=== PATIENT | female | born 1950 | race Caucasian/White ===

== ENCOUNTER 2021-11-18 04:07 | Inpatient (IN) | payer MEDICARE, MEDICAID, SELFPAY ==
[2021-11-18] VITALS (15 sets, daily range): BP systolic 106–177; BP diastolic 68–113; PULSE 51–130; RESP 18–26; TEMP 36.7–37; O2SAT 84–98; BMI 26.6; BMI 27.3
--- NOTE | 2021-11-18 04:17 | XR_ITS ---
PROCEDURE INFORMATION: Exam: XR Chest Exam date and time: 11/18/2021 4:22 AM Age: 71 years old Clinical indication: Shortness of breath TECHNIQUE: Imaging protocol: XR of the chest. Views: 1 view. COMPARISON: No relevant prior studies available. FINDINGS: Lungs: Chronic interstitial changes are present bilaterally. Focal airspace disease is seen along the left lung base. Pleural spaces: Unremarkable. No pleural effusion. No pneumothorax. Heart/Mediastinum: Unremarkable. No cardiomegaly. Bones/joints: Unremarkable. IMPRESSION: Left lower lobe airspace disease worrisome for infiltrate.
--- NOTE | 2021-11-18 04:17 | ECG_ITS ---
APPROVED REPORT Exam: Resting ECG HR:141 bpm ECG Measurements Heart Rate 141 AXES MN 143 P 80 QRSd 105 QRS 81 QT 271 T 78 QTc 353 Conclusion SINUS TACHYCARDIA, POSSIBLE ATRIAL FLUTTER ST DEVIATION AND MODERATE T-WAVE ABNORMALITY, CONSIDER LATERAL ISCHEMIA [-0.1+ mV T-WAVE IN I/aVL/V5/V6] ABNORMAL ECG UNCONFIRMED REPORT Electronically signed by : Amos Santizo MD 11/19/2021 09:08:18
[2021-11-18 04:20] LABS: ABG Base Excess -4.8 mmol/L (-2.4-2.3); ABG HCO3 23.8 mmhg (22.0-26.0); ABG Oxygen Saturation 91 % (90-100); ABG PO2 72.4 mmhg (80-100); ABG TCO2 25.9 mmhg (23-27)
[2021-11-18 04:22] LABS: Allen's Test ACCEPTABLE; Oxygen 100 %
[2021-11-18 04:23] LABS: ABG PCO2 67.8 mmhg (35.0-45.0); ABG PH 7.16 mmol/L (7.35-7.45); Lactate Arterial 2.9 mmol/L (0.4-2.0); Source Right Radial
--- NOTE | 2021-11-18 04:25 | PC.NURSE ---
Respiratory called critical ph of 7.16. MD notified.
[2021-11-18 04:32] LABS: Coronavirus 19, PCR Not Detected (NotDetected); Influenza A, PCR Not Detected (NotDetected); Influenza B, PCR Not Detected (NotDetected)
[2021-11-18 04:32] LABS: Basophils # 0.3 K/mm3 (0-0.2); Basophils % 2.3 % (0.1-2.0); Eosinophils # 0.2 K/mm3 (0.0-0.4); Eosinophils % 1.5 % (0.1-12.0); Hematocrit 51.8 % (37.0-47.0); Hemoglobin 16.2 g/dL (12.2-16.2); Lymphocytes # 5.4 K/mm3 (0.7-4.5); Lymphocytes % 46.2 % (10-50); Mean Corpuscular HGB Conc 31.4 g/dL (31.8-35.4); Mean Corpuscular Hemoglobin 30.1 pg (27.0-31.2); Mean Corpuscular Volume 96.1 fl (81-99); Mean Platelet Volume 8.6 fl (7.4-10.4); Monocytes # 0.6 K/mm3 (0.1-1.0); Monocytes % 5.2 % (1.7-9.3); Neutrophils # 5.2 K/mm3 (1.8-7.8); Neutrophils % 44.9 % (37.0-80.0); Platelet Count 427 K/mm3 (142-424); Red Blood Count 5.39 M/mm3 (4.20-5.40); Red Cell Distribution Width 16.5 % (11.5-17.5); White Blood Count 11.7 K/mm3 (4.8-10.8)
[2021-11-18 04:36] LABS: Alanine Aminotransferase 22 U/L (12-78); Albumin/Globulin Ratio 1.2 (1.1-1.8); Alkaline Phosphatase 121 U/L (38-126); Anion Gap 11.8 mEq/L (5-15); Aspartate Amino Transferase 29 U/L (14-36); Bilirubin,Total 0.6 mg/dl (0.2-1.3); Blood Urea Nitrogen 16 mg/dl (7-17); Carbon Dioxide 27 mmol/L (22.0-30.0); Chloride 105 mmol/L (98-107); Creatinine Clearance Estimated 52 mL/min (50-200); Estimated Glomerular Filt Rate 44 ml/min (>60); GFR (African American) 53 ML/MIN (>60); Globulin 3.3 g/dL (1.3-3.2); Glucose 287 mg/dl (74-100); Potassium 3.8 mmoL/L (3.5-5.1); Sodium 140 mmol/L (136-145); Total Protein,Serum 7.3 g/dl (6.3-8.2)
[2021-11-18 04:37] LABS: Lactic Acid 2.7 mmol/L (0.7-2.1)
[2021-11-18 04:41] LABS: C-Reactive Protein 9.2 mg/L (0-4)
[2021-11-18 04:47] LABS: NT Pro Brain Natriuretic Pep. 7490 pg/mL (0-125)
[2021-11-18 04:50] LABS: Troponin I 0.03 ng/ml (0.00-0.034)
--- NOTE | 2021-11-18 04:51 | HMH.EDSOB ---
ED Disposition Clinical Impression: Acute exacerbation of chronic obstructive airways disease, Tobacco use, Severe sepsis with acute organ dysfunction Respiratory failure with hypercapnia Qualifiers: Chronicity: acute Qualified Code(s): J96.02 - Acute respiratory failure with hypercapnia Disposition: Admitted As Inpatient Condition on Discharge: Serious - Critical Care Critical Care Time: Yes Attestation: On 11/18/21, the high probability of a clinically significant, sudden or life threatening deterioration of the following system(s) required my full and direct attention, intervention and personal management. The time I documented below is in addition to time spent performing reported procedures but includes the following listed in this critical care notation. Total Critical Care Time: 45 Vital system(s) involved:: Respiratory Failure My critical care processes included: Assessment & monitoring of V/S, Initial and Re-exams, Data Review/Interpretation, Coordinating Care, Medication Orders and management, Documentation Medical Decision Making - Medical Records Medical records reviewed: Yes: I reviewed the patient's medical records. - Mehul Inquiry Pt receiving controlled substance: No Vital Signs: 11/18/21 04:07 11/18/21 04:08 Temperature 98.2 F 98.1 F Temperature Source Oral Oral Pulse Rate 130 H Pulse Rate [Apical] 94 H Respiratory Rate 26 H 20 Blood Pressure 177/113 H Blood Pressure Source Automatic Cuff Blood Pressure Source [Right Arm] Automatic Cuff Blood Pressure Position Sitting Blood Pressure Position [Right Arm] Sitting 02 Sat by Pulse Oximetry 93 L 84 L Oxygen Delivery Method Non-Rebreather Simple Mask Oxygen Flow Rate (LPM) 15 8 - Lab Data Lab results reviewed: Yes: I reviewed the patient's lab results. Lab Results 11/18/21 04:11: WBC 11.7 H, RBC 5.39, Hgb 16.2, Hct 51.8 H, MCV 96.1, MCH 30.1, MCHC 31.4 L, RDW 16.5, Plt Count 427 H, MPV 8.6, Neut % (Auto) 44.9, Lymph % (Auto) 46.2, [place] % (Auto) 5.2, Eos % (Auto) 1.5, Baso % (Auto) 2.3 H, Neut # (Auto) 5.2, Lymph # (Auto) 5.4 H, [place] # (Auto) 0.6, Eos # (Auto) 0.2, Baso # (Auto) 0.3 H 11/18/21 04:11: Sodium 140, Potassium 3.8, Chloride 105, Carbon Dioxide 27, Anion Gap 11.8, BUN 16, Creatinine 1.20 H, Estimated Creat Clear 52, Estimated GFR 44 L, Est GFR ( Amer) 53 L, Glucose 287 H, Calcium 9.0, Total Bilirubin 0.6, AST 29, ALT 22, Alkaline Phosphatase 121, Troponin I 0.03, Total Protein 7.3, Albumin 4.0, Globulin 3.3 H, Albumin/Globulin Ratio 1.2 11/18/21 04:11: NT-Pro-B Natriuret Pep 7490 H 11/18/21 04:11: Lactate 2.7 H 11/18/21 04:11: C-Reactive Protein 9.2 H, Procalcitonin 0.110 11/18/21 04:11: ESR 8 11/18/21 04:11: Hemoglobin A1c 10.4 H 11/18/21 04:13: SARS-CoV-2 (PCR) Not detected, Influenza A Untype (PCR) Not detected, Influenza Type B (PCR) Not detected 11/18/21 04:17: Specimen Source Right radial, O2 % 100, ABG pH 7.16 L*, ABG pCO2 67.8 H, ABG pO2 72.4 L, ABG HCO3 23.8, ABG Total CO2 25.9, ABG O2 Saturation 91, ABG Base Excess -4.8 L, Casey Test Acceptable, ABG Lactate 2.9 H Result diagrams: 11/18/21 04:11 11/18/21 04:11 Orders (Tests/Meds): ED MEDICATIONS Generic Name Dose Route Start Last Admin Trade Name Freq PRN Reason Stop Dose Admin Sodium Chloride 1,000 mls @ 999 mls/hr 11/18/21 04:45 Sod Chlor 0.9% 1000ml Bag IV 11/18/21 05:45 .Q1H1M JORGE ALBERTO Ceftriaxone Sodium 1 gm/ 50 mls @ 100 mls/hr 11/18/21 04:45 11/18/21 04:45 Sodium Chloride IV 12/02/21 04:44 100 mls/hr Q24H JORGE ALBERTO Administration Azithromycin 500 mg/ Sodium 250 mls @ 250 mls/hr 11/18/21 04:45 11/18/21 04:59 Chloride IV 12/02/21 04:44 250 mls/hr Q24H JORGE ALBERTO Administration Discontinued Medications Generic Name Dose Route Start Last Admin Trade Name Freq PRN Reason Stop Dose Admin Methylprednisolone Sodium Succinate 125 mg 11/18/21 04:15 11/18/21 04:21 Methylprednisolone Sod Succ 125mg Vial IV 11/18/21 04:16 125 mg
[2021-11-18 04:58] LABS: Hemoglobin A1C 10.4 % (4.0-6.0)
--- NOTE | 2021-11-18 04:59 | PC.NURSE ---
paged dr Steen
--- NOTE | 2021-11-18 05:01 | PC.NURSE ---
ER speaking with dr Steen
--- NOTE | 2021-11-18 05:01 | PC.NURSE ---
Dr. Hi on phone with Dr. Steen.
[2021-11-18 05:11] LABS: Erythrocyte Sedimentation Rate 8 mm/hr (0-30)
--- NOTE | 2021-11-18 06:15 | PC.NURSE ---
pt arrived to floor via wheelchair at 06:05
[2021-11-18 07:33] LABS: POC Glucose,Bedside 312 (70-110)
[2021-11-18 08:09] LABS: Troponin I 0.09 ng/ml (0.00-0.034)
[2021-11-18 08:31] LABS: Reflex Lactic Add Lactic Reflex
--- NOTE | 2021-11-18 08:38 | HMH.HP ---
*Admission Date: 11/18/21 <Jayna George 11/18/21 08:48> *Chief complaint: shortness of breath <Jayna George 11/18/21 08:48> *History of present illness: Ms. Lynn is a 71-year-old female with a history of rectal cancer with colostomy and subsequent colon resection and reversal of the colostomy, kidney failure, COPD, TIA, and diabetes. She states she currently does not have a doctor. She used to see Dr. Crum and has seen Dr. Lin a few times since Dr. Crmu . She does not regularly follow with an oncologist. She states over the past 2 to 3 days she began getting progressively more short of breath. Yesterday she was unable to breathe and called 911. She was transported to the emergency room and was found to be in hypercapnic respiratory failure. At the present time, she smokes 1 pack of cigarettes a day, but has smoked more in the past. She was admitted and started on BiPAP. She states she feels much better with the BiPAP in place. <Jayna George 11/18/21 08:48> [facility] History I have reviewed the patient's past medical history: Yes <Jayna George 11/18/21 08:48> Medical History: Reports:: Arrhythmia, Cancer, Diabetes Mellitus Type 2, Hypertension, Lung Disease (copd), Renal Disease, Transient Ischemic Attacks (TIA) Denies:: Internal Pacemaker, Seizures <Jayna George 11/18/21 08:48> *Have you ever received a pneumonia vaccine?: No <Jayna George 11/18/21 08:48> *Have you received a flu vaccine this season?: No <Jayna George 11/18/21 08:48> Other Medical History: Reports: Cataracts <Jayna George 11/18/21 08:48> Laterality Cases: Bilateral: Cataract <Jayna George 11/18/21 08:48> Other Surgeries: Yes: Colonoscopy, Colon Resection, Colostomy, Hernia Repair. No: Pacemaker <Jayna George 11/18/21 08:48> - *Social History Last grade of school completed: High school graduate <Jayna George 11/18/21 08:48> Smoking Status: Current every day smoker <Jayan George 11/18/21 08:48> Tobacco Type: cigarettes <Jayna George 11/18/21 08:48> # Packs/Day (cigarettes): 1 <Michael Georgea 11/18/21 08:48> Alcohol Intake: never <Jayna George 11/18/21 08:48> *Occupational Status:: retired <LoganshariJayna 11/18/21 08:48> Housing: house <ArielJayna 11/18/21 08:48> Household Members: none <Jayna George 11/18/21 08:48> *Travel in the last 8 weeks: None <LoganshariJayna 11/18/21 08:48> Family Hx:: Cancer, Diabetes, Heart Attack, Stroke <LoganshariJayna 11/18/21 08:48> Review of Systems - Constitutional Reports weakness, Denies fever(s) <LoganshariJayna 11/18/21 08:48> - Eyes Denies blurry vision, Denies double vision <LoganshariJayna 11/18/21 08:48> - ENT Reports nasal congestion, Denies sore throat <LoganshariJayna 11/18/21 08:48> - *Cardiovascular Reports shortness of breath, Denies chest pain, Denies leg swelling <LoganshariJayna 11/18/21 08:48> - *Respiratory Reports cough, Reports shortness of breath <ArielJayna 11/18/21 08:48> - *Gastrointestinal Reports nausea, Reports vomiting, Denies abdominal pain, Denies loose stools <ArielJayna 11/18/21 08:48> - *Genitourinary Reports difficulty urinating <LoganshariJayna 11/18/21 08:48> - *Musculoskeletal Denies joint pain <LoganshariJayna 11/18/21 08:48> - *Neurologic Reports weakness, Denies headache(s), Denies seizure-like activity, Denies dizziness <ArielJayna 11/18/21 08:48> Meds Home Medications Medication Instructions Recorded Confirmed Type No Known Home Medications 02/24/19 03/17/19 History <Rolf Steen - 11/18/21 08:59> Allergies Allergy/AdvReac Type Severity Reaction Status Date / Time No Known Allergies Allergy Verified 03/17/19 08:26 <Rolf Steen - 11/18/21 08:59> Exam Vital signs and Labs for Last 24 Hours: Temp Pulse Resp BP Pulse Ox 98.4 F 66 22 155/98 H 97 11/18/21 08:00 11/18/21 08:00 11/18/21 08:00 11/18/21 0
[2021-11-18 09:23] LABS: Lactic Acid Follow Up (RFLX 1) 3.6 mmol/L (0.7-2.1)
--- NOTE | 2021-11-18 09:57 | HMH.PHAINT ---
MEDICATION RECONCILIATION COMPLETE. PER ANNA DE JESUS RN PATIENT HAS NO PRIMARY MD AND THEREFORE IS NOT ON ANYTHING AT HOME.
--- NOTE | 2021-11-18 09:59 | HMH.PHAVTE ---
[facility] Pharmacy VTE Monitoring - Patient Demographics Admission date: 11/18/21 Report Date: 11/18/21 Time: 09:59 Allergies/Adverse Reactions: Patient Allergies No Known Allergies Allergy (Verified 03/17/19 08:26) Height: 1.7 m Weight: 78.982 kg Patient Problems: Current Active Problems Acute exacerbation of chronic obstructive airways disease (Acute) Respiratory failure with hypercapnia (Acute) Tobacco use (Chronic) Severe sepsis with acute organ dysfunction (Acute) Type 2 diabetes mellitus (Chronic) History of rectal cancer (Chronic) LLL pneumonia (Acute) - VTE Risk Labs: VTE Related Lab Results Hgb 16.2 g/dL (12.2-16.2) 11/18/21 04:11 Hct 51.8 % (37.0-47.0) H 11/18/21 04:11 Plt Count 427 K/mm3 (142-424) H 11/18/21 04:11 BUN 16 mg/dl (7-17) 11/18/21 04:11 Creatinine 1.20 mg/dl (0.52-1.04) H 11/18/21 04:11 Estimated Creat Clear 52 mL/min (50-200) 11/18/21 04:11 Was VTE Risk Assessment Performed: Yes VTE Score: 2 VTE Risk Level: Very Low Risk Clinical Trial Participant: No - Prophylaxis VTE Prophylaxis Ordered?: Yes Types of VTE Prophylaxis: TEDS Knee High Location of Applied Device: Bilateral Lower Extremeties
[2021-11-18 11:17] LABS: Troponin I 0.19 ng/ml (0.00-0.034)
[2021-11-18 11:21] LABS: Reflex Lactic (2 hrs) Add Lactic Reflex
[2021-11-18 11:34] LABS: POC Glucose,Bedside 341 (70-110)
[2021-11-18 12:11] LABS: Lactic Acid Follow up (RFLX 2) 1.8 mmol/L (0.7-2.1)
--- NOTE | 2021-11-18 14:16 | PC.NURSE ---
PT IS RESTING IN BED. NO COMPLAINTS OF DISCOMFORT. ALERT AND ORIENTED X4. PT TOLERATED BEING OFF BIPAP FOR SEVERAL HOURS THIS SHIFT. O2 SATURATION MAINTAINED 89-92% ON 4 L NC WHILE OFF BIPAP. LUNG SOUNDS DIMINISHED. ABDOMEN SOFT/NON TENDER WITH ACTIVE BOWEL SOUNDS. EATING AND DRINKING WELL. WILL CONTINUE TO MONITOR.
[2021-11-18 16:58] LABS: POC Glucose,Bedside 388 (70-110)
[2021-11-18 20:57] LABS: POC Glucose,Bedside 372 (70-110)
[2021-11-19] VITALS (12 sets, daily range): BP systolic 112–143; BP diastolic 61–93; PULSE 66–112; RESP 12–24; TEMP 36.3–37.1; O2SAT 85–96; BMI 27.7
[2021-11-19 06:36] LABS: POC Glucose,Bedside 313 (70-110)
--- NOTE | 2021-11-19 06:44 | PC.NURSE ---
pt has rested intermittently, requested bipap be taken off last night, stated it felt like she couldn't breathe with it on, wore 4L NC, requested Bipap be put back on this morning, O2 sats 90-96, has complained of headache one time and was treated per MAR
[2021-11-19 08:13] LABS: Basophils % 0.3 % (0.1-2.0); Eosinophils % 0.3 % (0.1-12.0); Hemoglobin 13.5 g/dL (12.2-16.2); Lymphocytes # 0.5 K/mm3 (0.7-4.5); Lymphocytes % 3.9 % (10-50); Mean Corpuscular HGB Conc 32.8 g/dL (31.8-35.4); Mean Corpuscular Hemoglobin 30.6 pg (27.0-31.2); Mean Corpuscular Volume 93.4 fl (81-99); Mean Platelet Volume 9.3 fl (7.4-10.4); Monocytes # 0.4 K/mm3 (0.1-1.0); Monocytes % 2.8 % (1.7-9.3); Neutrophils # 12.9 K/mm3 (1.8-7.8); Neutrophils % 92.8 % (37.0-80.0); Platelet Count 281 K/mm3 (142-424); Red Blood Count 4.39 M/mm3 (4.20-5.40); Red Cell Distribution Width 16.7 % (11.5-17.5); White Blood Count 13.9 K/mm3 (4.8-10.8)
--- NOTE | 2021-11-19 08:30 | HMH.ACPN2 ---
Internal Medicine - PN: Subj *Date: 11/19/21 *Time: 08:30 Interval history: Patient with no new complaints today. She had a lot of trouble breathing around 4 am this morning. Still has some wheezing. Exam Vital signs and Labs for Last 24 Hours: Temp Pulse Resp BP Pulse Ox 98.3 F 108 H 20 143/82 H 85 L 11/19/21 04:00 11/19/21 06:04 11/19/21 04:00 11/19/21 04:00 11/19/21 06:04 Laboratory Results - last 24 hr 11/18/21 08:53: Lactate 3.6 H 11/18/21 10:13: Troponin I 0.19 H 11/18/21 11:28: POC Glucose 341 H* 11/18/21 11:52: Lactate 1.8 11/18/21 16:52: POC Glucose 388 H* 11/18/21 20:45: POC Glucose 372 H* 11/19/21 06:25: POC Glucose 313 H* Vital Signs - 24 hr 11/18/21 10:36 11/18/21 12:00 11/18/21 13:01 Temperature 98.3 F Pulse Rate 100 H 96 H Pulse Rate [Apical] 99 H Respiratory Rate 24 Blood Pressure [Right Arm] 142/71 H 02 Sat by Pulse Oximetry 90 L 89 L 90 L 11/18/21 16:00 11/18/21 19:52 11/18/21 20:00 Temperature 98.6 F 98.1 F Pulse Rate 94 H 90 Pulse Rate [Apical] 99 H 57 L Respiratory Rate 21 18 Blood Pressure [Right Arm] 123/69 132/77 02 Sat by Pulse Oximetry 90 L 90 L 90 L 11/18/21 20:01 11/19/21 00:00 11/19/21 04:00 Temperature 98.0 F 98.3 F Pulse Rate 104 H 90 90 Pulse Rate [Apical] 66 112 H Respiratory Rate 18 20 Blood Pressure [Right Arm] 118/77 143/82 H 02 Sat by Pulse Oximetry 96 90 L 11/19/21 06:04 Temperature Pulse Rate 108 H Pulse Rate [Apical] Respiratory Rate Blood Pressure [Right Arm] 02 Sat by Pulse Oximetry 85 L I & O for Last 24 hours: Intake & Output 11/16/21 11/17/21 11/18/21 11/19/21 23:59 23:59 23:59 23:59 Intake Total 1409 / 1409 877 / 877 Output Total 300 / 300 Balance 1409 / 1109 577 / 577 Weight 174 lb 2 oz 176 lb 12.8 oz - Constitutional no acute distress - *Routine HEENT Exam Head: Present: normocephalic Eye: Present: EOMI, PERRL ENT: Present: mucous membranes moist - *Routine Respiratory Exam Present: wheezes, diminished air movement - *Routine Cardiovascular Exam Present: RRR - *Routine Extremities Exam Absent: cyanosis, clubbing, edema Assessment and Plan (1) Respiratory failure with hypercapnia Status: Acute Qualifiers: Chronicity: acute Qualified Code(s): J96.02 - Acute respiratory failure with hypercapnia Category: Medical Code(s): J96.92 - Respiratory failure, unspecified with hypercapnia (2) Severe sepsis with acute organ dysfunction Status: Acute Category: Medical Code(s): A41.9 - Sepsis, unspecified organism; R65.20 - Severe sepsis without septic shock (3) Acute exacerbation of chronic obstructive airways disease Status: Acute Category: Medical Code(s): J44.1 - Chronic obstructive pulmonary disease with (acute) exacerbation (4) Type 2 diabetes mellitus Status: Chronic Category: Medical Code(s): E11.9 - Type 2 diabetes mellitus without complications (5) History of rectal cancer Status: Chronic Category: Medical Code(s): Z85.048 - Personal history of other malignant neoplasm of rectum, rectosigmoid junction, and anus (6) Tobacco use Status: Chronic Category: Social Hx Code(s): Z72.0 - Tobacco use (7) LLL pneumonia Status: Acute Category: Medical Code(s): J18.9 - Pneumonia, unspecified organism - Assessment and plan all Dx Assessment and Plan for all problems:: Patient has improved, recheck CXR tomorrow, continue current treatment.
[2021-11-19 08:43] LABS: Chloride 109 mmol/L (98-107); Sodium 136 mmol/L (136-145)
[2021-11-19 08:44] LABS: Potassium 4.8 mmoL/L (3.5-5.1)
[2021-11-19 08:45] LABS: MANUAL DIFFERENTIAL MANUAL DIFFERENTIAL (MANUAL DIFF)
[2021-11-19 08:46] LABS: Blood Urea Nitrogen 24 mg/dl (7-17); Creatine Kinase 64 U/L (30-135); Creatinine Clearance Estimated 50 mL/min (50-200); Estimated Glomerular Filt Rate 40 ml/min (>60); GFR (African American) 49 ML/MIN (>60)
[2021-11-19 08:47] LABS: Anion Gap 13.8 mEq/L (5-15); Carbon Dioxide 18 mmol/L (22.0-30.0); Glucose 294 mg/dl (74-100)
[2021-11-19 08:56] LABS: CKMB Relative Index 4.5 U/L (0-4.0); Creatine Kinase MB 2.9 ng/ml (0.0-2.03)
[2021-11-19 10:02] LABS: Lymphocytes % 4 % (10-50); Monocytes % 2 % (2-9); Neutrophils % 94 % (42-76); Total Cells Counted 100
[2021-11-19 10:03] LABS: Platelet Estimate Normal; RBC Morphology Normal
[2021-11-19 10:06] LABS: Troponin I 0.15 ng/ml (0.00-0.034)
--- NOTE | 2021-11-19 17:16 | PC.NURSE ---
contacted regarding fsbs. new orders received
[2021-11-19 17:21] LABS: Glucose,Random 372 mg/dL (74-100)
[2021-11-19 21:14] LABS: POC Glucose,Bedside 284 (70-110)
[2021-11-20] VITALS (9 sets, daily range): BP systolic 130–145; BP diastolic 73–98; PULSE 90–126; RESP 15–34; TEMP 36.4–36.7; O2SAT 87–95; BMI 28.5; BMI 28.3
--- NOTE | 2021-11-20 04:43 | PC.NURSE ---
pt has remained on bipap t/o shift, O2 sats 94-96%, HR 71-113, no complaints of SOA or pain, has rested intermittently, up to BSC with standby assist
[2021-11-20 05:28] LABS: POC Glucose,Bedside 126 (70-110)
--- NOTE | 2021-11-20 07:30 | XR_ITS ---
FINAL REPORT CLINICAL HISTORY: LLL pneumonia COMPARISON: November 18, 2021 FINDINGS: Two views of the chest were obtained. The heart size and pulmonary vascularity are within normal limits. The mediastinum is normal. There is worsening of the left mid lung and left lung base pneumonia or atelectasis. There is a moderate left pleural effusion. There is a small right pleural effusion. There is no pneumothorax. The bony thorax is intact. IMPRESSION: Worsening left lung pneumonia or atelectasis. Pleural effusions left greater than right. Reviewed, Interpreted and Dictated by Ga Hurtado III, MD Transcribed by Pantera Strauss Authenticated by Ga Hurtado III, MD on 11/20/2021 09:55:24 AM [facility]
--- NOTE | 2021-11-20 09:29 | HMH.ACPN2 ---
Internal Medicine - PN: Subj *Date: 11/20/21 *Time: 09:29 Interval history: Patient doesn't feel any better today, still short of breath. Exam Vital signs and Labs for Last 24 Hours: Temp Pulse Resp BP Pulse Ox 97.6 F 102 H 18 135/74 95 11/20/21 08:00 11/20/21 08:00 11/20/21 08:00 11/20/21 08:00 11/20/21 08:00 Laboratory Results - last 24 hr 11/19/21 07:39: Total Counted 100, Neutrophils % (Manual) 94 H, Lymphocytes % (Manual) 4 L, Monocytes % (Manual) 2, Platelet Estimate Normal, RBC Morphology Normal 11/19/21 07:39: Troponin I 0.15 H 11/19/21 16:58: Random Glucose 372 H 11/19/21 20:30: POC Glucose 284 H 11/20/21 05:20: POC Glucose 126 H I & O for Last 24 hours: Intake & Output 11/17/21 11/18/21 11/19/21 11/20/21 23:59 23:59 23:59 23:59 Intake Total 1409 / 1409 2077 / 2077 1363 / 1363 Output Total 800 / 800 200 / 200 Balance 1409 / 1109 1277 / 1277 1163 / 1163 Weight 174 lb 2 oz 176 lb 12.8 oz 181 lb 14.4 oz Vital Signs - 24 hr 11/19/21 12:00 11/19/21 13:18 11/19/21 14:00 Temperature 98.7 F Pulse Rate 100 H 94 H 104 H Pulse Rate [Apical] 107 H Respiratory Rate 18 Blood Pressure [Right Arm] 142/82 H 02 Sat by Pulse Oximetry 90 L 11/19/21 16:00 11/19/21 20:00 11/19/21 20:21 Temperature 98.0 F 98.0 F Pulse Rate 100 H 110 H Pulse Rate [Apical] 107 H 71 Respiratory Rate 22 24 Blood Pressure [Right Arm] 134/89 123/93 H 02 Sat by Pulse Oximetry 89 L 96 11/19/21 20:22 11/20/21 00:00 11/20/21 04:00 Temperature 98.0 F 97.7 F Pulse Rate 105 H 110 H 120 H Pulse Rate [Apical] 113 H 101 H Respiratory Rate 26 H 20 Blood Pressure [Right Arm] 142/94 H 137/98 H 02 Sat by Pulse Oximetry 95 94 L 11/20/21 06:04 11/20/21 08:00 Temperature 97.6 F Pulse Rate 126 H Pulse Rate [Apical] 102 H Respiratory Rate 18 Blood Pressure [Right Arm] 135/74 02 Sat by Pulse Oximetry 87 L 95 Microbiology Reports for the Last 24 Hours: Microbiology 11/18/21 04:11 Blood Blood Culture - Preliminary NO GROWTH AFTER 48 HOURS 11/18/21 04:11 Blood Blood Culture - Preliminary NO GROWTH AFTER 48 HOURS 11/19/21 10:45 Sputum - Expectorated Sputum Gram Stain - Final 11/19/21 10:45 Sputum - Expectorated Sputum Sputum Culture - Final - Constitutional no acute distress - *Routine HEENT Exam Head: Present: normocephalic Eye: Present: EOMI, PERRL ENT: Present: mucous membranes moist - *Routine Neck Exam Present: supple. Absent: lymphadenopathy - *Routine Respiratory Exam Present: rhonchi, wheezes - *Routine Cardiovascular Exam Present: RRR - *Routine Abdominal Exam Present: soft, normoactive bowel sounds. Absent: tenderness - *Routine Extremities Exam Absent: cyanosis, clubbing, edema - *Routine Skin Exam Present: warm. Absent: rash - *Routine Neurological Exam Present: alert, oriented X3 Assessment and Plan (1) Respiratory failure with hypercapnia Status: Acute Qualifiers: Chronicity: acute Qualified Code(s): J96.02 - Acute respiratory failure with hypercapnia Category: Medical Code(s): J96.92 - Respiratory failure, unspecified with hypercapnia (2) Severe sepsis with acute organ dysfunction Status: Acute Category: Medical Code(s): A41.9 - Sepsis, unspecified organism; R65.20 - Severe sepsis without septic shock (3) Acute exacerbation of chronic obstructive airways disease Status: Acute Category: Medical Code(s): J44.1 - Chronic obstructive pulmonary disease with (acute) exacerbation (4) Type 2 diabetes mellitus Status: Chronic Category: Medical Code(s): E11.9 - Type 2 diabetes mellitus without complications (5) History of rectal cancer Status: Chronic Category: Medical Code(s): Z85.048 - Personal history of other malignant neoplasm of rectum, rectosigmoid junction, and anus (6) Tobacco use Status: Chronic Category: Social H
[2021-11-20 10:02] LABS: Basophils % 0.2 % (0.1-2.0); Eosinophils # 0.1 K/mm3 (0.0-0.4); Eosinophils % 0.8 % (0.1-12.0); Hematocrit 44.4 % (37.0-47.0); Hemoglobin 14.5 g/dL (12.2-16.2); Lymphocytes # 0.6 K/mm3 (0.7-4.5); Lymphocytes % 3.5 % (10-50); Mean Corpuscular HGB Conc 32.7 g/dL (31.8-35.4); Mean Corpuscular Hemoglobin 30.5 pg (27.0-31.2); Mean Corpuscular Volume 93.4 fl (81-99); Mean Platelet Volume 8.4 fl (7.4-10.4); Monocytes # 0.5 K/mm3 (0.1-1.0); Monocytes % 2.9 % (1.7-9.3); Neutrophils # 15.7 K/mm3 (1.8-7.8); Neutrophils % 92.6 % (37.0-80.0); Platelet Count 326 K/mm3 (142-424); Red Blood Count 4.76 M/mm3 (4.20-5.40)
[2021-11-20 10:04] LABS: MANUAL DIFFERENTIAL MANUAL DIFFERENTIAL (MANUAL DIFF)
[2021-11-20 10:10] LABS: Chloride 111 mmol/L (98-107); Potassium 5.3 mmoL/L (3.5-5.1); Sodium 137 mmol/L (136-145)
[2021-11-20 10:13] LABS: Anion Gap 9.3 mEq/L (5-15); Blood Urea Nitrogen 34 mg/dl (7-17); Calcium 8.1 mg/dl (8.4-10.2); Carbon Dioxide 22 mmol/L (22.0-30.0); Creatinine Clearance Estimated 51 mL/min (50-200); Estimated Glomerular Filt Rate 40 ml/min (>60); GFR (African American) 49 ML/MIN (>60); Glucose 155 mg/dl (74-100)
[2021-11-20 13:59] LABS: Lymphocytes % 6 % (10-50); Monocytes % 1 % (2-9); Neutrophils % 93 % (42-76); Total Cells Counted 100
[2021-11-20 14:00] LABS: Anisocytosis 1+; Macrocytosis 1+
[2021-11-20 14:01] LABS: Platelet Estimate Normal
--- NOTE | 2021-11-20 14:08 | ECG_ITS ---
APPROVED REPORT Exam: Resting ECG HR:129 bpm ECG Measurements Heart Rate 129 AXES IN 159 P 84 QRSd 112 QRS 81 QT 296 T 1 QTc 372 Conclusion SINUS TACHYCARDIA WITH OCCASIONAL VENTRICULAR PREMATURE COMPLEXES POSSIBLE ANTERIOR MYOCARDIAL INFARCTION , OF INDETERMINATE AGE [30 ms Q WAVE IN V3/V4, OR R < 0.2 mV IN V4] ABNORMAL ECG UNCONFIRMED REPORT Electronically signed by : Amos Santizo MD 11/22/2021 10:14:21
--- NOTE | 2021-11-20 18:07 | PC.NURSE ---
AOX4, REMAINS ON BIPAP, DESATS WITH EXERTION. NO COMPLAINTS THIS SHIFT. STANDBY TO BSC FOR ELIMINATION
[2021-11-20 20:55] LABS: POC Glucose,Bedside 111 (70-110)
[2021-11-21] VITALS (13 sets, daily range): BP systolic 130–152; BP diastolic 68–98; PULSE 80–107; RESP 15–25; TEMP 36.1–36.7; O2SAT 90–100; BMI 28.7
--- NOTE | 2021-11-21 05:15 | PC.NURSE ---
pt has rested t/o most of shift, has remained on Bipap with O2 sats 90-95%, does appear to be anxious at times, HR 82-96, systolic BP 130-143
[2021-11-21 06:39] LABS: POC Glucose,Bedside 149 (70-110)
[2021-11-21 07:21] LABS: Basophils % 0.2 % (0.1-2.0); Eosinophils # 0.1 K/mm3 (0.0-0.4); Eosinophils % 0.5 % (0.1-12.0); Hematocrit 45.2 % (37.0-47.0); Hemoglobin 14.3 g/dL (12.2-16.2); Lymphocytes # 0.6 K/mm3 (0.7-4.5); Lymphocytes % 3.9 % (10-50); Mean Corpuscular HGB Conc 31.6 g/dL (31.8-35.4); Mean Corpuscular Hemoglobin 30.2 pg (27.0-31.2); Mean Corpuscular Volume 95.7 fl (81-99); Mean Platelet Volume 8.8 fl (7.4-10.4); Monocytes # 0.4 K/mm3 (0.1-1.0); Monocytes % 3.1 % (1.7-9.3); Neutrophils # 12.7 K/mm3 (1.8-7.8); Neutrophils % 92.2 % (37.0-80.0); Platelet Count 317 K/mm3 (142-424); Red Blood Count 4.72 M/mm3 (4.20-5.40); White Blood Count 13.7 K/mm3 (4.8-10.8)
[2021-11-21 07:22] LABS: MANUAL DIFFERENTIAL MANUAL DIFFERENTIAL (MANUAL DIFF)
[2021-11-21 07:23] LABS: Chloride 110 mmol/L (98-107); Potassium 4.9 mmoL/L (3.5-5.1); Sodium 135 mmol/L (136-145)
[2021-11-21 07:26] LABS: Anion Gap 11.9 mEq/L (5-15); Blood Urea Nitrogen 40 mg/dl (7-17); Calcium 7.9 mg/dl (8.4-10.2); Carbon Dioxide 18 mmol/L (22.0-30.0); Creatinine Clearance Estimated 51 mL/min (50-200); Estimated Glomerular Filt Rate 40 ml/min (>60); GFR (African American) 49 ML/MIN (>60); Glucose 170 mg/dl (74-100)
--- NOTE | 2021-11-21 08:12 | HMH.ACPN2 ---
<Jennifer Echevarria - Last Filed: 11/21/21 08:12> Internal Medicine - PN: Subj *Date: 11/21/21 *Time: 08:12 Interval history: Patient wants to eat. She is very hungry. She desats when off the BiPAP. She is currently on 90% FiO2. She denies chest pain. She has been up to the bedside commode. CBC shows a decrease in her white blood cell count to 13,700. Blood chemistry shows sodium of 135 potassium of 4.9. BUN is stable at 40/1.3.Chest x-ray repeated yesterday showed worsening of her left lung pneumonia or atelectasis . Pleural effusion on the left greater than the right. Exam Vital signs and Labs for Last 24 Hours: Temp Pulse Resp BP Pulse Ox 96.9 F L 107 H 20 143/98 H 95 11/21/21 04:00 11/21/21 06:08 11/21/21 04:00 11/21/21 04:00 11/21/21 04:00 Laboratory Results - last 24 hr 11/20/21 09:37: WBC 17.0 H, RBC 4.76, Hgb 14.5, Hct 44.4, MCV 93.4, MCH 30.5, MCHC 32.7, RDW 17.0, Plt Count 326, MPV 8.4, Neut % (Auto) 92.6 H, Lymph % (Auto) 3.5 L, [place] % (Auto) 2.9, Eos % (Auto) 0.8, Baso % (Auto) 0.2, Neut # (Auto) 15.7 H, Lymph # (Auto) 0.6 L, [place] # (Auto) 0.5, Eos # (Auto) 0.1, Baso # (Auto) 0.0, Total Counted 100, Neutrophils % (Manual) 93 H, Lymphocytes % (Manual) 6 L, Monocytes % (Manual) 1 L, Platelet Estimate Normal, Anisocytosis 1+, Macrocytosis 1+ 11/20/21 09:37: Sodium 137, Potassium 5.3 H, Chloride 111 H, Carbon Dioxide 22, Anion Gap 9.3, BUN 34 H D, Creatinine 1.30 H, Estimated Creat Clear 51, Estimated GFR 40 L, Est GFR ( Amer) 49 L, Glucose 155 H, Calcium 8.1 L 11/20/21 20:47: POC Glucose 111 H 11/21/21 05:21: POC Glucose 149 H 11/21/21 07:04: WBC 13.7 H, RBC 4.72, Hgb 14.3, Hct 45.2, MCV 95.7, MCH 30.2, MCHC 31.6 L, RDW 17.0, Plt Count 317, MPV 8.8, Neut % (Auto) 92.2 H, Lymph % (Auto) 3.9 L, [place] % (Auto) 3.1, Eos % (Auto) 0.5, Baso % (Auto) 0.2, Neut # (Auto) 12.7 H, Lymph # (Auto) 0.6 L, [place] # (Auto) 0.4, Eos # (Auto) 0.1, Baso # (Auto) 0.0 11/21/21 07:04: Sodium 135 L, Potassium 4.9, Chloride 110 H, Carbon Dioxide 18 L, Anion Gap 11.9, BUN 40 H, Creatinine 1.30 H, Estimated Creat Clear 51, Estimated GFR 40 L, Est GFR ( Amer) 49 L, Glucose 170 H, Calcium 7.9 L I & O for Last 24 hours: Intake & Output 11/18/21 11/19/21 11/20/21 11/21/21 11:59 11:59 11:59 11:59 Intake Total 240 / 240 2406 / 2406 2443 / 2443 1464 / 1464 Output Total 300 / 300 700 / 700 Balance 240 / 240 2106 / 2106 1743 / 1743 1464 / 1464 Weight 174 lb 2 oz 176 lb 12.8 oz 180 lb 12.465 oz 183 lb Microbiology Reports for the Last 24 Hours: Microbiology 11/18/21 04:11 Blood Blood Culture - Preliminary NO GROWTH AFTER 48 HOURS 11/18/21 04:11 Blood Blood Culture - Preliminary NO GROWTH AFTER 48 HOURS - Constitutional no acute distress Comments: Speech is much clearer today. Less dyspnea with conversation. - *Routine Respiratory Exam Present: CTA bilaterally (Anteriorly and posteriorly) - *Routine Cardiovascular Exam Present: RRR - *Routine Abdominal Exam Present: soft, normoactive bowel sounds. Absent: tenderness, distended - *Routine Extremities Exam Absent: edema - *Routine Neurological Exam Present: alert, oriented X3 Assessment and Plan (1) Respiratory failure with hypercapnia Status: Acute Qualifiers: Chronicity: acute Qualified Code(s): J96.02 - Acute respiratory failure with hypercapnia Category: Medical Code(s): J96.92 - Respiratory failure, unspecified with hypercapnia (2) Severe sepsis with acute organ dysfunction Status: Acute Category: Medical Code(s): A41.9 - Sepsis, unspecified organism; R65.20 - Severe sepsis without septic shock (3) Acute exacerbation of chronic obstructive airways disease Status: Acute Category: Medical Code(s): J44.1 - Chronic obstructive pulmonary disease with (acute) exacerbation (4) Type 2 diabetes mellitus Status: Chronic Category: Medical Code(s): E11
[2021-11-21 08:53] LABS: Lymphocytes % 7 % (10-50); Monocytes % 4 % (2-9); Neutrophils % 89 % (42-76); Total Cells Counted 100
--- NOTE | 2021-11-21 08:53 | PC.NURSE ---
RESP CARE NOTE: Pt placed on vapotherm for a weaning trial from BIPAP. SpO2 decreased to 78% on vapotherm of 40L/100%. Pt requested to replace BIPAP due to shortness of breath and very low oxygen saturations. Placed on settings of 12 IPAP and 8 EPAP and FIO2 of 80%. Will continue to monitor and wean BIPAP as tolerated.
[2021-11-21 08:54] LABS: Platelet Estimate Normal; RBC Morphology Normal
[2021-11-21 11:47] LABS: POC Glucose,Bedside 170 (70-110)
[2021-11-21 17:22] LABS: POC Glucose,Bedside 229 (70-110)
[2021-11-21 20:33] LABS: POC Glucose,Bedside 168 (70-110)
[2021-11-22] VITALS (12 sets, daily range): BP systolic 120–136; BP diastolic 76–88; PULSE 63–93; RESP 15–28; TEMP 36.3–36.6; O2SAT 90–95; BMI 28.7
--- NOTE | 2021-11-22 04:42 | PC.NURSE ---
Pt has slept most of the shift. Remains on bipap with O2 90-93%, will desat to 86-88% on exertion but will recover quickly. Received bed bath and tolerated well. Pt voiced no c/o of pain or SOA this shift.
[2021-11-22 05:21] LABS: POC Glucose,Bedside 215 (70-110)
--- NOTE | 2021-11-22 08:50 | HMH.ACPN2 ---
<Jennifer Echevarria - Last Filed: 11/22/21 08:50> Internal Medicine - PN: Subj *Date: 11/22/21 *Time: 08:50 Interval history: Patient states she is doing okay. As long as she has her BiPAP on she is not short of breath. She did fail the weaning process yesterday with decrease in O2 sats. Today she remains on BiPAP with FiO2 at 80%. O2 sats are in the 90s. Exam Vital signs and Labs for Last 24 Hours: Temp Pulse Resp BP Pulse Ox 97.6 F 83 17 132/80 91 L 11/22/21 08:00 11/22/21 08:00 11/22/21 08:00 11/22/21 08:00 11/22/21 08:00 Laboratory Results - last 24 hr 11/21/21 07:04: Total Counted 100, Neutrophils % (Manual) 89 H, Lymphocytes % (Manual) 7 L, Monocytes % (Manual) 4, Platelet Estimate Normal, RBC Morphology Normal 11/21/21 11:02: POC Glucose 170 H 11/21/21 16:56: POC Glucose 229 H 11/21/21 19:51: POC Glucose 168 H 11/22/21 05:04: POC Glucose 215 H I & O for Last 24 hours: Intake & Output 11/19/21 11/20/21 11/21/21 11/22/21 11:59 11:59 11:59 11:59 Intake Total 2406 / 2406 2443 / 2443 1464 / 1464 1492 / 1492 Output Total 300 / 300 700 / 700 0 / 0 500 / 500 Balance 2106 / 2106 1743 / 1743 1464 / 1464 992 / 992 Weight 176 lb 12.8 oz 180 lb 12.465 oz 183 lb 182 lb 15.986 oz - Constitutional no acute distress Comments: Awakened for assessment. Easily aroused. Communicates well. - *Routine Respiratory Exam Present: CTA bilaterally - *Routine Cardiovascular Exam Present: RRR - *Routine Abdominal Exam Present: soft, normoactive bowel sounds. Absent: tenderness - *Routine Extremities Exam Absent: edema, calf tenderness - *Routine Neurological Exam Present: alert, oriented X3 Assessment and Plan (1) Respiratory failure with hypercapnia Status: Acute Qualifiers: Chronicity: acute Qualified Code(s): J96.02 - Acute respiratory failure with hypercapnia Category: Medical Code(s): J96.92 - Respiratory failure, unspecified with hypercapnia (2) Severe sepsis with acute organ dysfunction Status: Acute Category: Medical Code(s): A41.9 - Sepsis, unspecified organism; R65.20 - Severe sepsis without septic shock (3) Acute exacerbation of chronic obstructive airways disease Status: Acute Category: Medical Code(s): J44.1 - Chronic obstructive pulmonary disease with (acute) exacerbation (4) Type 2 diabetes mellitus Status: Chronic Category: Medical Code(s): E11.9 - Type 2 diabetes mellitus without complications (5) History of rectal cancer Status: Chronic Category: Medical Code(s): Z85.048 - Personal history of other malignant neoplasm of rectum, rectosigmoid junction, and anus (6) Tobacco use Status: Chronic Category: Social Hx Code(s): Z72.0 - Tobacco use (7) LLL pneumonia Status: Acute Category: Medical Code(s): J18.9 - Pneumonia, unspecified organism - Assessment and plan all Dx Assessment and Plan for all problems:: Pulmonology consulted. Continue current pulmonary care for now. <Rolf Steen - Last Filed: 11/22/21 09:26> Internal Medicine - PN: Subj *Date: 11/22/21 *Time: 09:25 Exam Vital signs and Labs for Last 24 Hours: Temp Pulse Resp BP Pulse Ox 97.6 F 83 17 132/80 91 L 11/22/21 08:00 11/22/21 08:00 11/22/21 08:00 11/22/21 08:00 11/22/21 08:00 Laboratory Results - last 24 hr 11/21/21 11:02: POC Glucose 170 H 11/21/21 16:56: POC Glucose 229 H 11/21/21 19:51: POC Glucose 168 H 11/22/21 05:04: POC Glucose 215 H I & O for Last 24 hours: Intake & Output 11/19/21 11/20/21 11/21/21 11/22/21 23:59 23:59 23:59 23:59 Intake Total 2077 / 2077 2093 / 2143 974 / 974 1492 / 1492 Output Total 800 / 800 200 / 200 0 / 0 500 / 500 Balance 1277 / 1277 1893 / 1943 974 / 974 992 / 992 Weight 176 lb 12.8 oz 180 lb 12.465 oz 183 lb 182 lb 15.986 oz Assessment and Plan (1) Respiratory failure with hypercapnia Status: Acute Qualifiers: Qualified Code(s): J96.02 - Acute respirator
--- NOTE | 2021-11-22 08:59 | HMH.ACPN2 ---
Internal Medicine - PN: Subj *Date: 11/22/21 *Time: 08:59 Exam Vital signs and Labs for Last 24 Hours: Temp Pulse Resp BP Pulse Ox 97.6 F 83 17 132/80 91 L 11/22/21 08:00 11/22/21 08:00 11/22/21 08:00 11/22/21 08:00 11/22/21 08:00 Laboratory Results - last 24 hr 11/21/21 11:02: POC Glucose 170 H 11/21/21 16:56: POC Glucose 229 H 11/21/21 19:51: POC Glucose 168 H 11/22/21 05:04: POC Glucose 215 H I & O for Last 24 hours: Intake & Output 11/19/21 11/20/21 11/21/21 11/22/21 23:59 23:59 23:59 23:59 Intake Total 2077 / 2077 2093 / 2143 974 / 974 1492 / 1492 Output Total 800 / 800 200 / 200 0 / 0 500 / 500 Balance 1277 / 1277 1893 / 1943 974 / 974 992 / 992 Weight 80.195 kg 82 kg 83.007 kg 83.007 kg Assessment and Plan (1) Respiratory failure with hypercapnia Status: Acute Qualifiers: Chronicity: acute Qualified Code(s): J96.02 - Acute respiratory failure with hypercapnia Category: Medical Code(s): J96.92 - Respiratory failure, unspecified with hypercapnia (2) Severe sepsis with acute organ dysfunction Status: Acute Category: Medical Code(s): A41.9 - Sepsis, unspecified organism; R65.20 - Severe sepsis without septic shock (3) Acute exacerbation of chronic obstructive airways disease Status: Acute Category: Medical Code(s): J44.1 - Chronic obstructive pulmonary disease with (acute) exacerbation (4) Type 2 diabetes mellitus Status: Chronic Category: Medical Code(s): E11.9 - Type 2 diabetes mellitus without complications (5) History of rectal cancer Status: Chronic Category: Medical Code(s): Z85.048 - Personal history of other malignant neoplasm of rectum, rectosigmoid junction, and anus (6) Tobacco use Status: Chronic Category: Social Hx Code(s): Z72.0 - Tobacco use (7) LLL pneumonia Status: Acute Category: Medical Code(s): J18.9 - Pneumonia, unspecified organism The patient's infection will respond to the chosen ABx?: Yes (BLOOD CULTURE NEGATIVE, SPUTUM INSUFFICIENT) Is the patient receiving the right drug, dose, and route?: Yes Could a more targeted ABx be ordered?: No
--- NOTE | 2021-11-22 09:20 | HMH.PULMCON ---
*Admission Date: 11/18/21 *History of present illness: Ms. Lynn is a 71-year-old female with a history of rectal cancer with colostomy and subsequent colon resection and reversal of the colostomy, kidney failure, COPD, TIA, and diabetes. Presented with Hypercarbic respiratory failure and had been on BiPAp since admission from 11/18/21 and pulmonary was called today for further management. CAX on admission Bilateral LL pneumonia worsening on repeat CXR from 11/20/21. Receiving Cef and Azith since admission - no sputum available unfortunately. [facility] History Medical History: Reports:: Arrhythmia, Cancer, Diabetes Mellitus Type 1, Diabetes Mellitus Type 2, Hypertension, Lung Disease (copd), Renal Disease, Transient Ischemic Attacks (TIA) Denies:: Internal Pacemaker, Seizures *Have you ever received a pneumonia vaccine?: No *Have you received a flu vaccine this season?: No Other Medical History: Reports: Cataracts Laterality Cases: Bilateral: Cataract Other Surgeries: Yes: Colonoscopy, Colon Resection, Colostomy, Hernia Repair. No: Pacemaker - *Social History Last grade of school completed: High school graduate Smoking Status: Current every day smoker Tobacco Type: cigarettes # Packs/Day (cigarettes): 1 Alcohol Intake: never *Occupational Status:: retired Housing: house Household Members: none *Travel in the last 8 weeks: None Family Hx:: Cancer, Diabetes, Heart Attack, Stroke ROS - Cons Denies fatigue, Denies fever(s) - Eyes Denies change in vision - ENT Denies nosebleed - Card Reports shortness of breath when lying down - Resp Respiratory: Reports chest congestion, Reports cough, Denies excessive phlegm production, Reports cough with sputum production - GI Gastrointestingal: Denies: abdominal pain - Psych Denies thoughts of hurting/killing others, Denies thoughts of hurting/killing yourself Meds Home Medications Medication Instructions Recorded Confirmed Type No Known Home Medications 02/24/19 11/18/21 History Allergies Allergy/AdvReac Type Severity Reaction Status Date / Time No Known Allergies Allergy Verified 03/17/19 08:26 Exam - Constitutional Constitutional:: Present: no acute distress, comfortable - HENMT Exam HENMT: Present: normocephalic - Eye Exam Eyes:: Present: normal appearance both eyes and related structures - Neck Exam Neck:: Present: normal visual inspection - Respiratory Exam Respiratory:: Present: able to speak in complete sentences, respiratory distress, crackles. Absent: wheezing - Cardiovascular Exam Cardiac:: Present: S1, S2 - GI Exam GI:: Present: soft - Skin Exam Skin: Present: warm, no rash - Neurological Exam Neurological: Present: alert, awake - Extremities Exam Extremities: Present: no cyanosis, no clubbing Internal Medicine - CN: Reslt - Labs CBC & Chem 7: 11/21/21 07:04 11/21/21 07:04 - ABG Interpretation ABG results: 11/18/21 04:17 ABG pH 7.16 L* ABG pCO2 67.8 H ABG pO2 72.4 L ABG HCO3 23.8 ABG Total CO2 25.9 ABG O2 Saturation 91 ABG Base Excess -4.8 L Assessment and Plan (1) Respiratory failure with hypercapnia Status: Acute Qualifiers: Chronicity: acute Qualified Code(s): J96.02 - Acute respiratory failure with hypercapnia Category: Medical Code(s): J96.92 - Respiratory failure, unspecified with hypercapnia (2) Severe sepsis with acute organ dysfunction Status: Acute Category: Medical Code(s): A41.9 - Sepsis, unspecified organism; R65.20 - Severe sepsis without septic shock (3) Acute exacerbation of chronic obstructive airways disease Status: Acute Category: Medical Code(s): J44.1 - Chronic obstructive pulmonary disease with (acute) exacerbation (4) Type 2 diabetes mellitus Status: Chronic Category: Medical Code(s): E11.9 - Type 2 diabetes mellitus without complications (5) History of rectal cancer Status: Chronic Category: Medical Code(s): Z85.048 -
--- NOTE | 2021-11-22 09:27 | XR_ITS ---
FINAL REPORT CLINICAL HISTORY: hypoxia COMPARISON: November 20, 2021 FINDINGS: SINGLE VIEW CHEST. The heart is normal in size. The mediastinum is unremarkable. There are persistent left base opacities which may represent atelectasis or pneumonia. There is a small left pleural effusion which is worse. There is partially improved aeration in the right lung. There is no pneumothorax. IMPRESSION: Worsening small left pleural effusion. Persistent left base atelectasis or pneumonia. Reviewed, Interpreted and Dictated by Ga Hurtado III, MD Transcribed by Gia Cordoba Authenticated by Ga Hurtado III, MD on 11/22/2021 11:03:48 AM [facility]
[2021-11-22 09:57] LABS: ABG Methemoglobin 0.3 % (0.4-1.5); Chloride, Arterial 108 mmol/L (98-107); Potassium, Arterial 4.6 mmoL/L (3.5-5.1); Sodium Arterial 136 mmol/L (137-145)
[2021-11-22 09:58] LABS: Lactate Arterial 1.6 mmol/L (0.4-2.0)
[2021-11-22 09:59] LABS: Calcium, Arterial 4.7 mg/dL (8.5-10.1)
[2021-11-22 10:01] LABS: ABG Base Excess -3.3 mmol/L (-2.4-2.3); ABG HCO3 20.4 mmhg (22.0-26.0); ABG Oxygen Saturation 91 % (90-100); ABG PCO2 32.7 mmhg (35.0-45.0); ABG PH 7.41 mmol/L (7.35-7.45); ABG PO2 62.3 mmhg (80-100); ABG TCO2 21.4 mmhg (23-27); Oxygen 80% %
[2021-11-22 10:02] LABS: Allen's Test Acceptable; Source Right Radial; Vent Rate 15
--- NOTE | 2021-11-22 11:02 | DIET.NUTRFU ---
RD did rounds with Dr. Steen today, patient is still on BiPap and unable to eat solids. But is drinking water and would like to start glucerna for additional calories and protein until able to eat solids. Pulmonary consult in place to determine next step. Kitchen and nursing notified
[2021-11-22 11:30] LABS: POC Glucose,Bedside 129 (70-110)
[2021-11-22 16:37] LABS: POC Glucose,Bedside 223 (70-110)
--- NOTE | 2021-11-22 17:52 | PC.NURSE ---
Pt is alert and oriented x4. Lungs are clear and diminished t/o. She remains on Bipap with oxygen sats measuring in the low 90's. She desats into the 80's with exertion but rebounds quickly with rest. She's used the bsc independently. Approx 1300 mls of clear, yellow urine out thus far. Glucose has been 129 and 223 at checks. Insulin administered per SS. She's denied any complaints.
[2021-11-22 19:58] LABS: POC Glucose,Bedside 98 (70-110)
[2021-11-23] VITALS (13 sets, daily range): BP systolic 116–151; BP diastolic 67–90; PULSE 60–90; RESP 15–24; TEMP 36.1–36.6; O2SAT 89–96; BMI 27.6
[2021-11-23 05:18] LABS: POC Glucose,Bedside 201 (70-110)
[2021-11-23 08:27] LABS: MANUAL DIFFERENTIAL MANUAL DIFFERENTIAL (MANUAL DIFF)
[2021-11-23 08:29] LABS: Basophils % 0.2 % (0.1-2.0); Eosinophils # 0.1 K/mm3 (0.0-0.4); Eosinophils % 0.6 % (0.1-12.0); Hematocrit 43.8 % (37.0-47.0); Hemoglobin 14.4 g/dL (12.2-16.2); Lymphocytes # 0.6 K/mm3 (0.7-4.5); Lymphocytes % 5.8 % (10-50); Mean Corpuscular HGB Conc 32.8 g/dL (31.8-35.4); Mean Corpuscular Hemoglobin 30.1 pg (27.0-31.2); Mean Corpuscular Volume 91.9 fl (81-99); Mean Platelet Volume 9.2 fl (7.4-10.4); Monocytes # 0.5 K/mm3 (0.1-1.0); Monocytes % 4.7 % (1.7-9.3); Neutrophils # 8.9 K/mm3 (1.8-7.8); Neutrophils % 88.8 % (37.0-80.0); Platelet Count 290 K/mm3 (142-424); Red Blood Count 4.77 M/mm3 (4.20-5.40); Red Cell Distribution Width 16.5 % (11.5-17.5); White Blood Count 10.1 K/mm3 (4.8-10.8)
--- NOTE | 2021-11-23 08:51 | HMH.ACPN2 ---
Internal Medicine - PN: Subj *Date: 11/23/21 *Time: 08:51 Interval history: Pt states she feels thirsty, urinated a lot after Lasix dose, wants to know when she will be off of Bipap. Exam Vital signs and Labs for Last 24 Hours: Temp Pulse Resp BP Pulse Ox 97.4 F L 83 20 130/67 96 11/23/21 08:00 11/23/21 08:00 11/23/21 08:00 11/23/21 08:00 11/23/21 08:00 Laboratory Results - last 24 hr 11/22/21 09:27: Specimen Source Right radial, O2 % 80%, ABG pH 7.41, ABG pCO2 32.7 L, ABG pO2 62.3 L, ABG HCO3 20.4 L, ABG Total CO2 21.4 L, ABG O2 Saturation 91, ABG Base Excess -3.3 L, Casey Test Acceptable, Vent Rate 15, Tidal Volume bipap 12/8 11/22/21 09:27: ABG Methemoglobin 0.3 L, ABG Sodium 136 L, ABG Potassium 4.6, ABG Chloride 108 H, ABG Lactate 1.6, Arterial Blood Potassium 4.6, Arterial Blood Chloride 108 H, Arterial Blood Ionized Calcium 4.7 L* 11/22/21 11:09: POC Glucose 129 H 11/22/21 16:15: POC Glucose 223 H 11/22/21 19:51: POC Glucose 98 11/23/21 05:11: POC Glucose 201 H 11/23/21 07:43: WBC 10.1 D, RBC 4.77, Hgb 14.4, Hct 43.8, MCV 91.9, MCH 30.1, MCHC 32.8, RDW 16.5, Plt Count 290, MPV 9.2, Neut % (Auto) 88.8 H, Lymph % (Auto) 5.8 L, [place] % (Auto) 4.7, Eos % (Auto) 0.6, Baso % (Auto) 0.2, Neut # (Auto) 8.9 H, Lymph # (Auto) 0.[address] L, [place] # (Auto) 0.5, Eos # (Auto) 0.1, Baso # (Auto) 0.0 Vital Signs - 24 hr 11/22/21 11:26 11/22/21 12:00 11/22/21 16:00 Temperature 97.6 F 97.8 F Pulse Rate 90 90 90 Pulse Rate [Apical] 63 81 Respiratory Rate 24 20 Blood Pressure [Right Arm] 120/76 136/88 02 Sat by Pulse Oximetry 95 93 L 11/22/21 19:23 11/22/21 20:00 11/22/21 22:00 Temperature 97.3 F L Pulse Rate 92 H 80 Pulse Rate [Apical] 89 Respiratory Rate 20 Blood Pressure [Right Arm] 134/82 02 Sat by Pulse Oximetry 94 L 90 L 11/23/21 00:00 11/23/21 04:00 11/23/21 06:03 Temperature 97.2 F L 96.9 F L Pulse Rate 60 70 83 Pulse Rate [Apical] 70 76 Respiratory Rate 20 16 Blood Pressure [Right Arm] 136/80 135/90 02 Sat by Pulse Oximetry 96 94 L 11/23/21 08:00 Temperature 97.4 F L Pulse Rate Pulse Rate [Apical] 83 Respiratory Rate 20 Blood Pressure [Right Arm] 130/67 02 Sat by Pulse Oximetry 96 I & O for Last 24 hours: Intake & Output 11/20/21 11/21/21 11/22/21 11/23/21 23:59 23:59 23:59 23:59 Intake Total 3 / 2143 974 / 974 1854 / 1854 Output Total 200 / 200 0 / 0 1800 / 1800 0 / 0 Balance 1893 / 1943 974 / 974 54 / 54 0 / 0 Weight 180 lb 12.465 oz 183 lb 182 lb 15.986 oz 176 lb Microbiology Reports for the Last 24 Hours: Microbiology 11/18/21 04:11 Blood Blood Culture - Final NO GROWTH AFTER 5 DAYS 11/18/21 04:11 Blood Blood Culture - Final NO GROWTH AFTER 5 DAYS - Constitutional no acute distress - *Routine HEENT Exam Head: Present: normocephalic Eye: Present: EOMI, PERRL ENT: Present: mucous membranes moist - *Routine Respiratory Exam Present: rhonchi (rare) - *Routine Cardiovascular Exam Present: RRR Assessment and Plan (1) Respiratory failure with hypercapnia Status: Acute Qualifiers: Chronicity: acute Qualified Code(s): J96.02 - Acute respiratory failure with hypercapnia Category: Medical Code(s): J96.92 - Respiratory failure, unspecified with hypercapnia (2) Severe sepsis with acute organ dysfunction Status: Acute Category: Medical Code(s): A41.9 - Sepsis, unspecified organism; R65.20 - Severe sepsis without septic shock (3) Acute exacerbation of chronic obstructive airways disease Status: Acute Category: Medical Code(s): J44.1 - Chronic obstructive pulmonary disease with (acute) exacerbation (4) Type 2 diabetes mellitus Status: Chronic Category: Medical Code(s): E11.9 - Type 2 diabetes mellitus without complications (5) History of rectal cancer Status: Chronic Category: Medical Code(s): Z85.048 - Personal history of other maligna
--- NOTE | 2021-11-23 09:21 | HMH.PULMPN ---
Internal Medicine - PN: Subj *Date: 11/23/21 *Time: 11:44 Interval history: No acute respiratory events overnight. Oxygenation continued to improve. Exam - Constitutional Constitutional:: Present: no acute distress - HENMT Exam HENMT: Present: normocephalic - Eye Exam Eyes:: Present: normal appearance both eyes and related structures - Neck Exam Neck:: Present: normal visual inspection - Respiratory Exam Respiratory:: Present: able to speak in complete sentences, respiratory distress, crackles. Absent: wheezing - Cardiovascular Exam Cardiac:: Present: S1, S2 - GI Exam GI:: Present: soft - Skin Exam Skin: Present: warm - Neurological Exam Neurological: Present: alert, awake - Extremities Exam Extremities: Present: no cyanosis, no clubbing Assessment and Plan (1) Respiratory failure with hypercapnia Status: Acute Qualifiers: Chronicity: acute Qualified Code(s): J96.02 - Acute respiratory failure with hypercapnia Category: Medical Code(s): J96.92 - Respiratory failure, unspecified with hypercapnia (2) Severe sepsis with acute organ dysfunction Status: Acute Category: Medical Code(s): A41.9 - Sepsis, unspecified organism; R65.20 - Severe sepsis without septic shock (3) Acute exacerbation of chronic obstructive airways disease Status: Acute Category: Medical Code(s): J44.1 - Chronic obstructive pulmonary disease with (acute) exacerbation (4) Type 2 diabetes mellitus Status: Chronic Category: Medical Code(s): E11.9 - Type 2 diabetes mellitus without complications (5) History of rectal cancer Status: Chronic Category: Medical Code(s): Z85.048 - Personal history of other malignant neoplasm of rectum, rectosigmoid junction, and anus (6) Tobacco use Status: Chronic Category: Social Hx Code(s): Z72.0 - Tobacco use (7) LLL pneumonia Status: Acute Category: Medical Code(s): J18.9 - Pneumonia, unspecified organism - Assessment and plan all Dx Assessment and Plan for all problems:: #Acute hypoxic hypercarbic respiratory failure: #Hospital-acquired pneumonia: Ms. Lynn is a 71-year-old female with a history of rectal cancer with colostomy and subsequent colon resection and reversal of the colostomy, kidney failure, COPD, TIA, and diabetes. Presented with Hypercarbic respiratory failure and had been on BiPAp since admission from 11/18/21 and pulmonary was called today for further management. CXR on admission Bilateral LL pneumonia worsening on repeat CXR from 11/20/21. Receiving Cef and Azith since admission - no sputum available unfortunately for review poor sample and no repeat testing was performed so far flu and COVID viral PCR negative on admission. Renal dysfunction On my initial exaination patient does not appear to be any respiratory distress she is alert awake able to talk in complete sentences. Oxygen bibasilar crackles. No wheezing. Repeat chest x-ray today showed worsening airspace disease and volume status. Valentino ABG did not show any evidence of hypercarbic respiratory failure, continue to show hypoxic respiratory failure. Interval update: Continue to remain on CPAP. Oxygenation improved, weaned to 45% this morning. Primary team have ordered 40 of Lasix and have ordered additional 60 this morning. Renal function improved from yesterday. Plan: Continue CPAP, FiO2 45%, continue to wean as tolerated, will try to wean the patient to nasal cannula this afternoon after her second dose of Lasix Continue cefepime x 7 days, will wean pending clinical improvement and cultures DuoNebs every 6 and budesonide every 12 scheduled Recommend at negative volume status #Thank for involving pulmonary in this patient care. We will continue to follow.
[2021-11-23 09:30] LABS: Lymphocytes % 16 % (10-50); Monocytes % 3 % (2-9); Neutrophils % 81 % (42-76); Platelet Estimate Normal; RBC Morphology Normal; Total Cells Counted 100
[2021-11-23 09:44] LABS: Chloride 109 mmol/L (98-107); Potassium 5.1 mmoL/L (3.5-5.1); Sodium 136 mmol/L (136-145)
[2021-11-23 09:46] LABS: Blood Urea Nitrogen 60 mg/dl (7-17); Creatinine Clearance Estimated 53 mL/min (50-200); Estimated Glomerular Filt Rate 44 ml/min (>60); GFR (African American) 53 ML/MIN (>60)
[2021-11-23 09:47] LABS: Anion Gap 11.1 mEq/L (5-15); Calcium 7.9 mg/dl (8.4-10.2); Carbon Dioxide 21 mmol/L (22.0-30.0); Glucose 141 mg/dl (74-100)
[2021-11-23 11:35] LABS: POC Glucose,Bedside 183 (70-110)
[2021-11-23 16:48] LABS: POC Glucose,Bedside 182 (70-110)
--- NOTE | 2021-11-23 18:07 | PC.NURSE ---
Pt has done fine this shift. CPAP has remained on most of the day. High flow NC applied to pt before supper. 9LNC made pt's o2 sat between 88-91. Pt has diuresed close to 2L this shift. Pt has taken herself to the BSC w/ steady gait and balance. Active bowel sounds in all 4 quads, no BM noted this shift. Skin remains CDI. No other acute changes or complaints, will continue to monitor.
--- NOTE | 2021-11-23 19:50 | PC.NURSE ---
PT changed to *
--- NOTE | 2021-11-23 19:51 | PC.NURSE ---
PT changed to 8L NC per Annangi. Pt allowed to stay on cannula if sats stay 88% or above. If they drop below 88% return to cpap.
[2021-11-23 20:03] LABS: POC Glucose,Bedside 225 (70-110)
[2021-11-23 20:33] LABS: POC Glucose,Bedside 218 (70-110)
[2021-11-23 20:33] LABS: POC Glucose,Bedside 166 (70-110)
[2021-11-24] VITALS (9 sets, daily range): BP systolic 103–130; BP diastolic 64–78; PULSE 68–93; RESP 20–22; TEMP 35.9–36.9; O2SAT 86–95; BMI 27.6
[2021-11-24 05:36] LABS: POC Glucose,Bedside 221 (70-110)
--- NOTE | 2021-11-24 08:12 | HMH.PULMPN ---
Internal Medicine - PN: Subj *Date: 11/24/21 *Time: 11:32 Interval history: No Acute respiratory events overnight, intermittently tolerating well on 8 L nasal cannula. Exam - Constitutional Constitutional:: Present: no acute distress, comfortable - HENMT Exam HENMT: Present: normocephalic, atraumatic - Eye Exam Eyes:: Present: normal appearance both eyes and related structures - Neck Exam Neck:: Present: normal visual inspection - Respiratory Exam Respiratory:: Present: able to speak in complete sentences. Absent: no respiratory distress, wheezing - Cardiovascular Exam Cardiac:: Present: S1, S2 - GI Exam GI:: Present: soft - Skin Exam Skin: Present: warm - Neurological Exam Neurological: Present: alert, awake, normal cognition - Extremities Exam Extremities: Present: no cyanosis, no clubbing - Psychiatric Exam Psychiatric: Present: normal affect Assessment and Plan (1) Respiratory failure with hypercapnia Status: Acute Qualifiers: Chronicity: acute Qualified Code(s): J96.02 - Acute respiratory failure with hypercapnia Category: Medical Code(s): J96.92 - Respiratory failure, unspecified with hypercapnia (2) Severe sepsis with acute organ dysfunction Status: Acute Category: Medical Code(s): A41.9 - Sepsis, unspecified organism; R65.20 - Severe sepsis without septic shock (3) Acute exacerbation of chronic obstructive airways disease Status: Acute Category: Medical Code(s): J44.1 - Chronic obstructive pulmonary disease with (acute) exacerbation (4) Type 2 diabetes mellitus Status: Chronic Category: Medical Code(s): E11.9 - Type 2 diabetes mellitus without complications (5) History of rectal cancer Status: Chronic Category: Medical Code(s): Z85.048 - Personal history of other malignant neoplasm of rectum, rectosigmoid junction, and anus (6) Tobacco use Status: Chronic Category: Social Hx Code(s): Z72.0 - Tobacco use (7) LLL pneumonia Status: Acute Category: Medical Code(s): J18.9 - Pneumonia, unspecified organism - Assessment and plan all Dx Assessment and Plan for all problems:: #Acute hypoxic hypercarbic respiratory failure: #Hospital-acquired pneumonia: Ms. Lynn is a 71-year-old female with a history of rectal cancer with colostomy and subsequent colon resection and reversal of the colostomy, kidney failure, COPD, TIA, and diabetes. Presented with Hypercarbic respiratory failure and had been on BiPAp since admission from 11/18/21 and pulmonary was called today for further management. CXR on admission Bilateral LL pneumonia worsening on repeat CXR from 11/20/21. Receiving Cef and Azith since admission - no sputum available unfortunately for review poor sample and no repeat testing was performed so far flu and COVID viral PCR negative on admission. Renal dysfunction On my initial exaination patient does not appear to be any respiratory distress she is alert awake able to talk in complete sentences. Oxygen bibasilar crackles. No wheezing. Repeat chest x-ray today showed worsening airspace disease and volume status. Valentino ABG did not show any evidence of hypercarbic respiratory failure, continue to show hypoxic respiratory failure. Interval update: SOB continues to improve, intermittently tolerating nasal cannula. Renal function slightly worsened with creatinine now at 1.4 and a BUN of 70. We give 60 mg IV Lasix again today. Will wean to nasal cannula. Plan: -Continue to cannula with O2 saturation goal of 88% and above -Continue cefepime x 7 days, will wean pending clinical improvement and cultures -DuoNebs every 6 and budesonide every 12 scheduled -Negative volume status #Thank for involving pulmonary in this patient care. We will continue to follow.
--- NOTE | 2021-11-24 08:33 | HMH.ACPN2 ---
Internal Medicine - PN: Subj *Date: 11/24/21 *Time: 08:33 Interval history: Patient with no new complaints, feels a little better today. Exam Vital signs and Labs for Last 24 Hours: Temp Pulse Resp BP Pulse Ox 97.2 F L 81 20 122/74 89 L 11/24/21 04:00 11/24/21 06:20 11/24/21 04:00 11/24/21 04:00 11/24/21 06:20 Laboratory Results - last 24 hr 11/20/21 12:04: POC Glucose 166 H 11/20/21 16:42: POC Glucose 218 H 11/23/21 07:43: Total Counted 100, Neutrophils % (Manual) 81 H, Lymphocytes % (Manual) 16, Monocytes % (Manual) 3, Platelet Estimate Normal, RBC Morphology Normal 11/23/21 08:55: Sodium 136, Potassium 5.1, Chloride 109 H, Carbon Dioxide 21 L, Anion Gap 11.1, BUN 60 H D, Creatinine 1.20 H, Estimated Creat Clear 53, Estimated GFR 44 L, Est GFR ( Amer) 53 L, Glucose 141 H, Calcium 7.9 L 11/23/21 11:24: POC Glucose 183 H 11/23/21 16:42: POC Glucose 182 H 11/23/21 19:56: POC Glucose 225 H 11/24/21 05:22: POC Glucose 221 H Vital Signs - 24 hr 11/23/21 12:00 11/23/21 13:53 11/23/21 15:40 Temperature 97.9 F 97.6 F Pulse Rate 78 68 Pulse Rate [Apical] 70 83 Respiratory Rate 21 17 Blood Pressure [Right Arm] 145/87 H 151/90 H 02 Sat by Pulse Oximetry 95 95 11/23/21 16:00 11/23/21 19:48 11/23/21 19:50 Temperature Pulse Rate 80 69 Pulse Rate [Apical] Respiratory Rate Blood Pressure [Right Arm] 02 Sat by Pulse Oximetry 89 L 11/23/21 20:00 11/24/21 00:00 11/24/21 04:00 Temperature 97.2 F L 96.6 F L 97.2 F L Pulse Rate 90 68 Pulse Rate [Apical] 77 71 82 Respiratory Rate 20 20 20 Blood Pressure [Right Arm] 116/74 117/77 122/74 02 Sat by Pulse Oximetry 91 L 90 L 93 L 11/24/21 06:20 Temperature Pulse Rate 81 Pulse Rate [Apical] Respiratory Rate Blood Pressure [Right Arm] 02 Sat by Pulse Oximetry 89 L I & O for Last 24 hours: Intake & Output 11/21/21 11/22/21 11/23/21 11/24/21 23:59 23:59 23:59 23:59 Intake Total 974 / 974 1854 / 1854 1798 / 1798 Output Total 0 / 0 1800 / 1800 3050 / 3750 1000 / 1000 Balance 974 / 974 54 / 54 -1252 / -1952 -1000 / -1000 Weight 183 lb 182 lb 15.986 oz 176 lb 176 lb 4.8 oz - Constitutional no acute distress - *Routine HEENT Exam Head: Present: normocephalic Eye: Present: EOMI, PERRL ENT: Present: mucous membranes moist - *Routine Neck Exam Present: supple. Absent: lymphadenopathy - *Routine Respiratory Exam Present: crackles (left base) - *Routine Cardiovascular Exam Present: RRR - *Routine Abdominal Exam Present: soft, normoactive bowel sounds. Absent: tenderness - *Routine Extremities Exam Absent: cyanosis, clubbing, edema - *Routine Skin Exam Present: warm. Absent: rash - *Routine Neurological Exam Present: alert, oriented X3 Assessment and Plan (1) Respiratory failure with hypercapnia Status: Acute Qualifiers: Chronicity: acute Qualified Code(s): J96.02 - Acute respiratory failure with hypercapnia Category: Medical Code(s): J96.92 - Respiratory failure, unspecified with hypercapnia (2) Severe sepsis with acute organ dysfunction Status: Acute Category: Medical Code(s): A41.9 - Sepsis, unspecified organism; R65.20 - Severe sepsis without septic shock (3) Acute exacerbation of chronic obstructive airways disease Status: Acute Category: Medical Code(s): J44.1 - Chronic obstructive pulmonary disease with (acute) exacerbation (4) Type 2 diabetes mellitus Status: Chronic Category: Medical Code(s): E11.9 - Type 2 diabetes mellitus without complications (5) History of rectal cancer Status: Chronic Category: Medical Code(s): Z85.048 - Personal history of other malignant neoplasm of rectum, rectosigmoid junction, and anus (6) Tobacco use Status: Chronic Category: Social Hx Code(s): Z72.0 - Tobacco use (7) LLL pneumonia Status: Acute Category: Medical Code(s): J18.9 - Pneumonia, unspecified organism - Assessment and plan all
--- NOTE | 2021-11-24 08:38 | PC.NURSE ---
Notified RT of patient sat dropping to low 80s, bipap applied to patient, pt is now sating 89-91
--- NOTE | 2021-11-24 09:56 | XR_ITS ---
FINAL REPORT CLINICAL HISTORY: soa FINDINGS: SINGLE VIEW CHEST The heart size is enlarged. The mediastinum is within normal limits. There is improved aeration in the lungs from prior. There are small pleural effusions. There is no evidence of pneumothorax. The bony thorax is intact. IMPRESSION: Improved aeration in the lungs from prior. Small pleural effusions. Reviewed, Interpreted and Dictated by Ga Hurtado III, MD Transcribed by Jennifer Honeycutt Authenticated by Ga Hurtado III, MD on 11/24/2021 11:24:59 AM [facility]
[2021-11-24 10:32] LABS: Chloride 105 mmol/L (98-107)
[2021-11-24 10:33] LABS: Potassium 4.4 mmoL/L (3.5-5.1); Sodium 135 mmol/L (136-145)
[2021-11-24 10:36] LABS: Anion Gap 11.4 mEq/L (5-15); Blood Urea Nitrogen 70 mg/dl (7-17); Calcium 7.6 mg/dl (8.4-10.2); Carbon Dioxide 23 mmol/L (22.0-30.0); Creatinine Clearance Estimated 46 mL/min (50-200); Estimated Glomerular Filt Rate 37 ml/min (>60); GFR (African American) 45 ML/MIN (>60); Glucose 240 mg/dl (74-100)
[2021-11-24 11:37] LABS: POC Glucose,Bedside 268 (70-110)
[2021-11-24 16:45] LABS: POC Glucose,Bedside 319 (70-110)
--- NOTE | 2021-11-24 17:05 | PC.NURSE ---
Pt has tolerated 8L of high flow o2 via NC well this shift. Pt has remained in the high 80s low 90s throughout the shift. Pt is currently up to the chair and states she feel better. She is responding to the lasix well and urinating frequently. Pt use BSC unassisted. Pt has been NSR with occasional PVCs on the monitor technician. VSS. No current needs at this time, Will continue to monitor.
[2021-11-24 19:59] LABS: POC Glucose,Bedside 289 (70-110)
[2021-11-25] VITALS (11 sets, daily range): BP systolic 91–148; BP diastolic 60–84; PULSE 52–101; RESP 17–20; TEMP 36.4–36.8; O2SAT 88–93; BMI 26.3
--- NOTE | 2021-11-25 02:56 | PC.NURSE ---
Pt has tolerated 8L of high flow o2 via NC well throughout night. Pt has remained in the high 80s low 90s throughout the shift. Pt use BSC unassisted. Pt has been NSR with occasional PVCs on the vehicle monitor technician. VSS. Patient resting in bed no current needs at this time, Will continue to monitor.
[2021-11-25 07:20] LABS: Chloride 103 mmol/L (98-107); Potassium 3.7 mmoL/L (3.5-5.1); Sodium 135 mmol/L (136-145)
[2021-11-25 07:23] LABS: Anion Gap 9.7 mEq/L (5-15); Blood Urea Nitrogen 60 mg/dl (7-17); Carbon Dioxide 26 mmol/L (22.0-30.0); Creatinine Clearance Estimated 44 mL/min (50-200); Estimated Glomerular Filt Rate 37 ml/min (>60); GFR (African American) 45 ML/MIN (>60)
[2021-11-25 07:24] LABS: Calcium 7.4 mg/dl (8.4-10.2); Glucose 170 mg/dl (74-100)
[2021-11-25 07:41] LABS: Basophils % 0.2 % (0.1-2.0); Eosinophils # 0.2 K/mm3 (0.0-0.4); Eosinophils % 1.3 % (0.1-12.0); Hematocrit 43.1 % (37.0-47.0); Hemoglobin 14.6 g/dL (12.2-16.2); Lymphocytes # 0.6 K/mm3 (0.7-4.5); Lymphocytes % 4.9 % (10-50); Mean Corpuscular HGB Conc 33.8 g/dL (31.8-35.4); Mean Corpuscular Hemoglobin 30.2 pg (27.0-31.2); Mean Corpuscular Volume 89.3 fl (81-99); Mean Platelet Volume 9.4 fl (7.4-10.4); Monocytes # 0.6 K/mm3 (0.1-1.0); Neutrophils # 11.2 K/mm3 (1.8-7.8); Neutrophils % 88.6 % (37.0-80.0); Platelet Count 272 K/mm3 (142-424); Red Blood Count 4.82 M/mm3 (4.20-5.40); White Blood Count 12.6 K/mm3 (4.8-10.8)
[2021-11-25 07:42] LABS: MANUAL DIFFERENTIAL MANUAL DIFFERENTIAL (MANUAL DIFF)
--- NOTE | 2021-11-25 08:44 | HMH.ACPN2 ---
Internal Medicine - PN: Subj *Date: 11/25/21 *Time: 08:44 Interval history: Patient feels better today, did not require Bipap over night. Exam Vital signs and Labs for Last 24 Hours: Temp Pulse Resp BP Pulse Ox 97.7 F 90 18 125/67 91 L 11/25/21 07:34 11/25/21 07:34 11/25/21 07:34 11/25/21 07:34 11/25/21 07:34 Laboratory Results - last 24 hr 11/24/21 09:46: Sodium 135 L, Potassium 4.4, Chloride 105, Carbon Dioxide 23, Anion Gap 11.4, BUN 70 H, Creatinine 1.40 H, Estimated Creat Clear 46, Estimated GFR 37 L, Est GFR ( Amer) 45 L, Glucose 240 H, Calcium 7.6 L 11/24/21 11:24: POC Glucose 268 H 11/24/21 16:28: POC Glucose 319 H* 11/24/21 19:51: POC Glucose 289 H 11/25/21 06:55: Sodium 135 L, Potassium 3.7, Chloride 103, Carbon Dioxide 26, Anion Gap 9.7, BUN 60 H, Creatinine 1.40 H, Estimated Creat Clear 44, Estimated GFR 37 L, Est GFR ( Amer) 45 L, Glucose 170 H D, Calcium 7.4 L 11/25/21 07:26: WBC 12.6 H, RBC 4.82, Hgb 14.6, Hct 43.1, MCV 89.3, MCH 30.2, MCHC 33.8, RDW 16.0, Plt Count 272, MPV 9.4, Neut % (Auto) 88.6 H, Lymph % (Auto) 4.9 L, [place] % (Auto) 5.0, Eos % (Auto) 1.3, Baso % (Auto) 0.2, Neut # (Auto) 11.2 H, Lymph # (Auto) 0.6 L, [place] # (Auto) 0.6, Eos # (Auto) 0.2, Baso # (Auto) 0.0 Vital Signs - 24 hr 11/24/21 12:00 11/24/21 13:28 11/24/21 16:00 Temperature 97.8 F 98.4 F Pulse Rate 75 87 80 Pulse Rate [Apical] 82 88 Respiratory Rate 20 20 Blood Pressure [Right Arm] 103/68 L 127/78 02 Sat by Pulse Oximetry 90 L 86 L 11/24/21 19:09 11/24/21 20:00 11/25/21 00:00 Temperature 98.2 F 98.1 F Pulse Rate 89 93 H 70 Pulse Rate [Apical] 84 77 Respiratory Rate 20 17 Blood Pressure [Right Arm] 130/64 102/60 L 02 Sat by Pulse Oximetry 89 L 95 92 L 11/25/21 04:00 11/25/21 05:48 11/25/21 07:34 Temperature 97.5 F L 97.7 F Pulse Rate 70 81 Pulse Rate [Apical] 66 90 Respiratory Rate 20 18 Blood Pressure [Right Arm] 148/84 H 125/67 02 Sat by Pulse Oximetry 90 L 91 L 91 L I & O for Last 24 hours: Intake & Output 11/22/21 11/23/21 11/24/21 11/25/21 23:59 23:59 23:59 23:59 Intake Total 1854 / 1854 1798 / 1798 1680 / 1680 640 / 640 Output Total 1800 / 1800 3050 / 3750 2450 / 2450 500 / 500 Balance 54 / 54 -1252 / -1952 -770 / -770 140 / 140 Weight 182 lb 15.986 oz 176 lb 176 lb 4.8 oz 167 lb 12.8 oz - Constitutional no acute distress - *Routine HEENT Exam Head: Present: normocephalic Eye: Present: EOMI, PERRL ENT: Present: mucous membranes moist - *Routine Neck Exam Present: supple. Absent: lymphadenopathy - *Routine Respiratory Exam Present: CTA bilaterally - *Routine Cardiovascular Exam Present: RRR - *Routine Abdominal Exam Present: soft, normoactive bowel sounds. Absent: tenderness - *Routine Extremities Exam Absent: cyanosis, clubbing, edema - *Routine Skin Exam Present: warm. Absent: rash - *Routine Neurological Exam Present: alert, oriented X3 Assessment and Plan (1) Respiratory failure with hypercapnia Status: Acute Qualifiers: Chronicity: acute Qualified Code(s): J96.02 - Acute respiratory failure with hypercapnia Category: Medical Code(s): J96.92 - Respiratory failure, unspecified with hypercapnia (2) Severe sepsis with acute organ dysfunction Status: Acute Category: Medical Code(s): A41.9 - Sepsis, unspecified organism; R65.20 - Severe sepsis without septic shock (3) Acute exacerbation of chronic obstructive airways disease Status: Acute Category: Medical Code(s): J44.1 - Chronic obstructive pulmonary disease with (acute) exacerbation (4) Type 2 diabetes mellitus Status: Chronic Category: Medical Code(s): E11.9 - Type 2 diabetes mellitus without complications (5) History of rectal cancer Status: Chronic Category: Medical Code(s): Z85.048 - Personal history of other malignant neoplasm of rectum, rectosigmoid junction, and anus (6) Tobacco use Status: Chronic Category: Socia
[2021-11-25 10:32] LABS: Lymphocytes % 5 % (10-50); Monocytes % 4 % (2-9); Neutrophils % 91 % (42-76); Platelet Estimate Normal; RBC Morphology Normal; Total Cells Counted 100
[2021-11-25 12:05] LABS: POC Glucose,Bedside 312 (70-110)
--- NOTE | 2021-11-25 13:04 | HMH.ACPN ---
Internal Medicine - PN: Subj *Date: 11/25/21 *Time: 13:04 Exam Vital signs and Labs for Last 24 Hours: Temp Pulse Resp BP Pulse Ox 97.6 F 77 17 112/65 92 L 11/25/21 10:43 11/25/21 10:43 11/25/21 10:43 11/25/21 10:43 11/25/21 10:43 Laboratory Results - last 24 hr 11/24/21 16:28: POC Glucose 319 H* 11/24/21 19:51: POC Glucose 289 H 11/25/21 06:55: Sodium 135 L, Potassium 3.7, Chloride 103, Carbon Dioxide 26, Anion Gap 9.7, BUN 60 H, Creatinine 1.40 H, Estimated Creat Clear 44, Estimated GFR 37 L, Est GFR ( Amer) 45 L, Glucose 170 H D, Calcium 7.4 L 11/25/21 07:26: WBC 12.6 H, RBC 4.82, Hgb 14.6, Hct 43.1, MCV 89.3, MCH 30.2, MCHC 33.8, RDW 16.0, Plt Count 272, MPV 9.4, Neut % (Auto) 88.6 H, Lymph % (Auto) 4.9 L, [place] % (Auto) 5.0, Eos % (Auto) 1.3, Baso % (Auto) 0.2, Neut # (Auto) 11.2 H, Lymph # (Auto) 0.6 L, [place] # (Auto) 0.6, Eos # (Auto) 0.2, Baso # (Auto) 0.0, Total Counted 100, Neutrophils % (Manual) 91 H, Lymphocytes % (Manual) 5 L, Monocytes % (Manual) 4, Platelet Estimate Normal, RBC Morphology Normal 11/25/21 10:58: POC Glucose 312 H* I & O for Last 24 hours: Intake & Output 11/22/21 11/23/21 11/24/21 11/25/21 23:59 23:59 23:59 23:59 Intake Total 1854 / 1854 1798 / 1798 1680 / 1680 880 / 880 Output Total 1800 / 1800 3050 / 3750 2450 / 2450 500 / 500 Balance 54 / 54 -1252 / -1952 -770 / -770 380 / 380 Weight 83.007 kg 79.832 kg 79.968 kg 76.113 kg Assessment and Plan (1) Respiratory failure with hypercapnia Status: Acute Qualifiers: Chronicity: acute Qualified Code(s): J96.02 - Acute respiratory failure with hypercapnia Category: Medical Code(s): J96.92 - Respiratory failure, unspecified with hypercapnia (2) Severe sepsis with acute organ dysfunction Status: Acute Category: Medical Code(s): A41.9 - Sepsis, unspecified organism; R65.20 - Severe sepsis without septic shock (3) Acute exacerbation of chronic obstructive airways disease Status: Acute Category: Medical Code(s): J44.1 - Chronic obstructive pulmonary disease with (acute) exacerbation (4) Type 2 diabetes mellitus Status: Chronic Category: Medical Code(s): E11.9 - Type 2 diabetes mellitus without complications (5) History of rectal cancer Status: Chronic Category: Medical Code(s): Z85.048 - Personal history of other malignant neoplasm of rectum, rectosigmoid junction, and anus (6) Tobacco use Status: Chronic Category: Social Hx Code(s): Z72.0 - Tobacco use (7) LLL pneumonia Status: Acute Category: Medical Code(s): J18.9 - Pneumonia, unspecified organism The patient's infection will respond to the chosen ABx?: Yes Is the patient receiving the right drug, dose, and route?: Yes Could a more targeted ABx be ordered?: No (BLD CX -X2, AFEBRILE, CONT CURRENT.)
[2021-11-25 20:54] LABS: POC Glucose,Bedside 334 (70-110)
[2021-11-26] VITALS (10 sets, daily range): BP systolic 126–149; BP diastolic 64–86; PULSE 68–92; RESP 16–20; TEMP 36.5–36.7; O2SAT 90–93; BMI 26.8
--- NOTE | 2021-11-26 03:56 | PC.NURSE ---
No acute complaints or episodes thus far during my shift, pt resting well. Pt is still on 8 L NC. O2 sats have been high 80s (on exertion) to low 90s. IV infusing per order. Pt is getting up to BSC independently, pt has had multiple episodes of diarrhea. Voiding with adequate urine output. Pt is being monitored via telemetry and continuos pulse ox. Pt is NSR on tele with PVCs. Checking blood glucoses ACHS and medicated per OCT. No other needs at this time. Call light in reach.
--- NOTE | 2021-11-26 06:33 | HMH.ACPN2 ---
Internal Medicine - PN: Subj *Date: 11/26/21 *Time: 06:33 Interval history: Patient feels better today, no new complaints, anxious to go home. Exam Vital signs and Labs for Last 24 Hours: Temp Pulse Resp BP Pulse Ox 98.0 F 90 20 149/86 H 90 L 11/26/21 04:00 11/26/21 06:24 11/26/21 04:00 11/26/21 04:00 11/26/21 06:24 Laboratory Results - last 24 hr 11/25/21 06:55: Sodium 135 L, Potassium 3.7, Chloride 103, Carbon Dioxide 26, Anion Gap 9.7, BUN 60 H, Creatinine 1.40 H, Estimated Creat Clear 44, Estimated GFR 37 L, Est GFR ( Amer) 45 L, Glucose 170 H D, Calcium 7.4 L 11/25/21 07:26: WBC 12.6 H, RBC 4.82, Hgb 14.6, Hct 43.1, MCV 89.3, MCH 30.2, MCHC 33.8, RDW 16.0, Plt Count 272, MPV 9.4, Neut % (Auto) 88.6 H, Lymph % (Auto) 4.9 L, [place] % (Auto) 5.0, Eos % (Auto) 1.3, Baso % (Auto) 0.2, Neut # (Auto) 11.2 H, Lymph # (Auto) 0.6 L, [place] # (Auto) 0.6, Eos # (Auto) 0.2, Baso # (Auto) 0.0, Total Counted 100, Neutrophils % (Manual) 91 H, Lymphocytes % (Manual) 5 L, Monocytes % (Manual) 4, Platelet Estimate Normal, RBC Morphology Normal 11/25/21 10:58: POC Glucose 312 H* 11/25/21 20:27: POC Glucose 334 H* Vital Signs - 24 hr 11/25/21 07:34 11/25/21 08:00 11/25/21 10:43 Temperature 97.7 F 97.6 F Pulse Rate 101 H Pulse Rate [Apical] 90 77 Respiratory Rate 18 17 Blood Pressure [Right Arm] 125/67 112/65 02 Sat by Pulse Oximetry 91 L 92 L 11/25/21 13:21 11/25/21 14:58 11/25/21 16:00 Temperature 98.3 F Pulse Rate 76 86 Pulse Rate [Apical] 83 Respiratory Rate 18 Blood Pressure [Right Arm] 91/60 L 02 Sat by Pulse Oximetry 91 L 93 L 11/25/21 19:06 11/25/21 20:00 11/26/21 00:00 Temperature 98.0 F 98.1 F Pulse Rate 75 90 80 Pulse Rate [Apical] 52 L 77 Respiratory Rate 18 20 Blood Pressure [Right Arm] 125/74 129/75 02 Sat by Pulse Oximetry 88 L 92 L 11/26/21 04:00 11/26/21 06:24 Temperature 98.0 F Pulse Rate 70 90 Pulse Rate [Apical] 75 Respiratory Rate 20 Blood Pressure [Right Arm] 149/86 H 02 Sat by Pulse Oximetry 93 L 90 L I & O for Last 24 hours: Intake & Output 11/23/21 11/24/21 11/25/21 11/26/21 23:59 23:59 23:59 23:59 Intake Total 1798 / 1798 1680 / 1680 1360 / 1500 140 / 140 Output Total 3050 / 3750 2450 / 2450 500 / 500 Balance -1252 / -1952 -770 / -770 860 / 1000 140 / 140 Weight 176 lb 176 lb 4.8 oz 167 lb 12.8 oz 171 lb - Constitutional no acute distress - *Routine HEENT Exam Head: Present: normocephalic Eye: Present: EOMI, PERRL ENT: Present: mucous membranes moist - *Routine Neck Exam Present: supple. Absent: lymphadenopathy - *Routine Respiratory Exam Present: distant breath sounds. Absent: rhonchi, wheezes - *Routine Cardiovascular Exam Present: RRR - *Routine Abdominal Exam Present: soft, normoactive bowel sounds. Absent: tenderness - *Routine Extremities Exam Absent: cyanosis, clubbing, edema - *Routine Skin Exam Present: warm. Absent: rash - *Routine Neurological Exam Present: alert, oriented X3 Assessment and Plan (1) Respiratory failure with hypercapnia Status: Acute Qualifiers: Chronicity: acute Qualified Code(s): J96.02 - Acute respiratory failure with hypercapnia Category: Medical Code(s): J96.92 - Respiratory failure, unspecified with hypercapnia (2) Severe sepsis with acute organ dysfunction Status: Acute Category: Medical Code(s): A41.9 - Sepsis, unspecified organism; R65.20 - Severe sepsis without septic shock (3) Acute exacerbation of chronic obstructive airways disease Status: Acute Category: Medical Code(s): J44.1 - Chronic obstructive pulmonary disease with (acute) exacerbation (4) Type 2 diabetes mellitus Status: Chronic Category: Medical Code(s): E11.9 - Type 2 diabetes mellitus without complications (5) History of rectal cancer Status: Chronic Category: Medical Code(s): Z85.048 - Personal history of other malignant neoplasm of rectum, rectosigmoid j
[2021-11-26 07:02] LABS: POC Glucose,Bedside 120 (70-110)
[2021-11-26 11:17] LABS: POC Glucose,Bedside 256 (70-110)
[2021-11-27] VITALS (10 sets, daily range): BP systolic 116–163; BP diastolic 65–86; PULSE 54–90; RESP 18–20; TEMP 36.4–36.9; O2SAT 89–97; BMI 26.9
[2021-11-27 01:20] LABS: POC Glucose,Bedside 289 (70-110)
--- NOTE | 2021-11-27 06:00 | XR_ITS ---
PROCEDURE INFORMATION: Exam: XR Chest Exam date and time: 11/27/2021 5:29 AM Age: 71 years old Clinical indication: Cough and shortness of breath; Additional info: Pnm TECHNIQUE: Imaging protocol: XR of the chest. Views: 1 view. COMPARISON: CR XR CHEST PORTABLE 11/24/2021 10:08 AM FINDINGS: Lungs: Mild pulmonary vascular congestion. Bibasal alveolar consolidations. Pleural spaces: Mild bilateral pleural effusions. No pneumothorax. Heart/Mediastinum: Unremarkable. No cardiomegaly. Bones/joints: Unremarkable. There is no acute fracture present. IMPRESSION: Worsening bibasal alveolar consolidations and small pleural effusions.
--- NOTE | 2021-11-27 06:33 | PC.NURSE ---
No acute changes since previous assessment. Pt is A&O x 4. Pt is on 6 L NC, maintaining O2 sat >90% at rest. When pt gets up to BSC, she does desat mid/upper 80s. Pt still having diarrhea - but pt states diarrhea is normal for her. Sputum cup at bedside as well as incentive spirometer. Pt has been trying to provide a sputum sample, not successful at this time. IV infusing per order. Monitoring blood glucose ACHS. Medicating per OCT. No other complaints this shift. No needs voiced at this time. Call light in reach.
--- NOTE | 2021-11-27 08:25 | HMH.ACPN2 ---
<Jennifer Echevarria - Last Filed: 11/27/21 08:25> Internal Medicine - PN: Subj *Date: 11/27/21 *Time: 08:26 Interval history: She states she is breathing okay. She wore BiPAP during the night. She denies chest pain. Her biggest complaint is diarrhea. She states she has to go about every 30 minutes. She denies abdominal pain. She has been out of bed. Exam Vital signs and Labs for Last 24 Hours: Temp Pulse Resp BP Pulse Ox 98.0 F 72 20 132/65 91 L 11/27/21 04:00 11/27/21 06:05 11/27/21 04:00 11/27/21 04:00 11/27/21 06:05 Laboratory Results - last 24 hr 11/26/21 10:58: POC Glucose 256 H 11/26/21 16:12: POC Glucose 289 H I & O for Last 24 hours: Intake & Output 11/24/21 11/25/21 11/26/21 11/27/21 11:59 11:59 11:59 11:59 Intake Total 1798 / 1798 2320 / 2320 1920 / 1920 1540 / 1540 Output Total 3750 / 3750 1650 / 1650 150 / 150 Balance -1952 / -1952 670 / 670 1920 / 1920 1390 / 1390 Weight 176 lb 4.8 oz 167 lb 12.8 oz 171 lb 171 lb 11.2 oz - Constitutional no acute distress Comments: Sitting in chair at bedside. Appears comfortable. Breathing is very easy. - *Routine Respiratory Exam Present: diminished air movement (Posteriorly) - *Routine Cardiovascular Exam Present: RRR - *Routine Abdominal Exam Present: soft, normoactive bowel sounds. Absent: tenderness, distended - *Routine Extremities Exam Absent: edema, calf tenderness - *Routine Neurological Exam Present: alert, oriented X3 Assessment and Plan (1) Respiratory failure with hypercapnia Status: Acute Qualifiers: Chronicity: acute Qualified Code(s): J96.02 - Acute respiratory failure with hypercapnia Category: Medical Code(s): J96.92 - Respiratory failure, unspecified with hypercapnia (2) Severe sepsis with acute organ dysfunction Status: Acute Category: Medical Code(s): A41.9 - Sepsis, unspecified organism; R65.20 - Severe sepsis without septic shock (3) Acute exacerbation of chronic obstructive airways disease Status: Acute Category: Medical Code(s): J44.1 - Chronic obstructive pulmonary disease with (acute) exacerbation (4) Type 2 diabetes mellitus Status: Chronic Category: Medical Code(s): E11.9 - Type 2 diabetes mellitus without complications (5) History of rectal cancer Status: Chronic Category: Medical Code(s): Z85.048 - Personal history of other malignant neoplasm of rectum, rectosigmoid junction, and anus (6) Tobacco use Status: Chronic Category: Social Hx Code(s): Z72.0 - Tobacco use (7) LLL pneumonia Status: Acute Category: Medical Code(s): J18.9 - Pneumonia, unspecified organism (8) Diarrhea Status: Acute Category: Medical Code(s): R19.7 - Diarrhea, unspecified - Assessment and plan all Dx Assessment and Plan for all problems:: Continue current pulmonary care. Pulmonary to follow. Diarrhea panel. <Rolf Steen - Last Filed: 11/27/21 08:57> Internal Medicine - PN: Subj *Date: 11/27/21 *Time: 08:56 Exam Vital signs and Labs for Last 24 Hours: Temp Pulse Resp BP Pulse Ox 98.0 F 72 20 132/65 91 L 11/27/21 04:00 11/27/21 06:05 11/27/21 04:00 11/27/21 04:00 11/27/21 06:05 Laboratory Results - last 24 hr 11/26/21 10:58: POC Glucose 256 H 11/26/21 16:12: POC Glucose 289 H I & O for Last 24 hours: Intake & Output 11/24/21 11/25/21 11/26/21 11/27/21 23:59 23:59 23:59 23:59 Intake Total 1680 / 1680 1360 / 1500 1800 / 2040 940 / 940 Output Total 2450 / 2450 500 / 500 150 / 150 Balance -770 / -770 860 / 1000 1800 / 1890 790 / 790 Weight 176 lb 4.8 oz 167 lb 12.8 oz 171 lb 171 lb 11.2 oz Assessment and Plan (1) Respiratory failure with hypercapnia Status: Acute Qualifiers: Chronicity: acute Qualified Code(s): J96.02 - Acute respiratory failure with hypercapnia Category: Medical Code(s): J96.92 - Respiratory failure, unspecified with hypercapnia (2) Severe sepsis with acu
--- NOTE | 2021-11-27 09:10 | HMH.PULMPN ---
Internal Medicine - PN: Subj *Date: 11/27/21 *Time: 12:47 Interval history: No acute respiratory events overnight. Patient continued to be needing oxygen supplementation Exam - Constitutional Constitutional:: Present: no acute distress, comfortable - HENMT Exam HENMT: Present: normocephalic - Eye Exam Eyes:: Present: normal appearance both eyes and related structures - Neck Exam Neck:: Present: normal visual inspection - Respiratory Exam Respiratory:: Present: respiratory distress, decreased breath sounds, crackles. Absent: wheezing - Cardiovascular Exam Cardiac:: Present: S1, S2 - GI Exam GI:: Present: soft - Skin Exam Skin: Present: warm, no rash - Neurological Exam Neurological: Present: alert, awake - Extremities Exam Extremities: Present: no cyanosis, no clubbing, edema Assessment and Plan (1) Respiratory failure with hypercapnia Status: Acute Qualifiers: Chronicity: acute Qualified Code(s): J96.02 - Acute respiratory failure with hypercapnia Category: Medical Code(s): J96.92 - Respiratory failure, unspecified with hypercapnia (2) Severe sepsis with acute organ dysfunction Status: Acute Category: Medical Code(s): A41.9 - Sepsis, unspecified organism; R65.20 - Severe sepsis without septic shock (3) Acute exacerbation of chronic obstructive airways disease Status: Acute Category: Medical Code(s): J44.1 - Chronic obstructive pulmonary disease with (acute) exacerbation (4) Type 2 diabetes mellitus Status: Chronic Category: Medical Code(s): E11.9 - Type 2 diabetes mellitus without complications (5) History of rectal cancer Status: Chronic Category: Medical Code(s): Z85.048 - Personal history of other malignant neoplasm of rectum, rectosigmoid junction, and anus (6) Tobacco use Status: Chronic Category: Social Hx Code(s): Z72.0 - Tobacco use (7) LLL pneumonia Status: Acute Category: Medical Code(s): J18.9 - Pneumonia, unspecified organism (8) Diarrhea Status: Acute Category: Medical Code(s): R19.7 - Diarrhea, unspecified - Assessment and plan all Dx Assessment and Plan for all problems:: #Acute hypoxic hypercarbic respiratory failure: #Hospital-acquired pneumonia: Ms. Lynn is a 71-year-old female with a history of rectal cancer with colostomy and subsequent colon resection and reversal of the colostomy, kidney failure, COPD, TIA, and diabetes. Presented with Hypercarbic respiratory failure and had been on BiPAp since admission from 11/18/21 and pulmonary was called today for further management. CXR on admission Bilateral LL pneumonia worsening on repeat CXR from 11/20/21. Receiving Cef and Azith since admission - no sputum available unfortunately for review poor sample and no repeat testing was performed so far flu and COVID viral PCR negative on admission. On my initial exaination patient does not appear to be any respiratory distress she is alert awake able to talk in complete sentences. Oxygen bibasilar crackles. No wheezing. Repeat chest x-ray today showed worsening airspace disease and volume status.ABG did not show any evidence of hypercarbic respiratory failure, continue to show hypoxic respiratory failure. Patient has been diuresed with improved respiratory symptoms. She was successfully weaned from BiPAP to CPAP to nasal cannula. However she continued to be needing 6 to 8 L oxygen therapy to maintain her saturations at 88% and above. Interval update: Continue to be oxygen dependent. On further questioning patient last seen Around 8 to 9 years ago. She is a heavy smoker and 60 packs a day. Unclear of any cardiac history however complaints of chest tightness with exertion. Chest x-ray from this morning showed continued worsening of bilateral effusions right greater than left along with slight worsening of right lower lobe airspace disease. Patient has been afebrile. Leukocytosis has been stable. Plan: -Recommend to evaluat
--- NOTE | 2021-11-27 10:30 | PC.NURSE ---
patient educated on risks of keeping an iv in for this long, and she stated it would be okay at this time to start a new one. 20 placed in right forearm. old 18 gauge iv in r forearm removed.
[2021-11-27 11:56] LABS: Adenovirus F 40/41, stool Not Detected (NotDetected); Astrovirus Not Detected (NotDetected); Campylobacter Not Detected (NotDetected); Clostridium Difficile A/B, PCR Not Detected (NotDetected); Cryptosporidium Not Detected (NotDetected); Cyclospora Cayetanesis Not Detected (NotDetected); Entamoeba histolytica Not Detected (NotDetected); Enteroaggregative E coli Not Detected (NotDetected); Enteropathogenic E coli Not Detected (NotDetected); Enterotoxigenic E coli Not Detected (NotDetected); Giardia lamblia Not Detected (NotDetected); Norovirus Not Detected (NotDetected); Plesimonas Shigalloides, PCR Not Detected (NotDetected); Rotavirus A Not Detected (NotDetected); Salmonella, PCR Not Detected (NotDetected); Sapovirus Not Detected (NotDetected); Shiga-like toxin E coli Not Detected (NotDetected); Shigella Enterovasive E coli Not Detected (NotDetected); Vibrio Cholerae Not Detected (NotDetected); Vibrio, PCR Not Detected (NotDetected); Yersinia Entercolitica, PCR Not Detected (NotDetected)
[2021-11-27 12:06] LABS: POC Glucose,Bedside 108 (70-110)
--- NOTE | 2021-11-27 14:44 | PC.NURSE ---
patient has done well. expiratory ronchi noted. rings out as needed. independent with bedside commode. has been up frequently to have a bm. mostly diarrhea but did notice it to be soft at times. has sat up to chair most of day. no complaints noted. remains on 6l o2 at this time.
[2021-11-27 16:57] LABS: POC Glucose,Bedside 187 (70-110)
[2021-11-27 21:40] LABS: POC Glucose,Bedside 122 (70-110)
[2021-11-28] VITALS (20 sets, daily range): BP systolic 100–152; BP diastolic 53–91; PULSE 55–92; RESP 14–20; TEMP 36.3–36.8; O2SAT 6–96; BMI 26.8
--- NOTE | 2021-11-28 | IR_ITS ---
APPROVED REPORT Patient Location: Inpatient Dramatic Agent: JENIFER Null RT (R) PROCEDURES Left heart catheterization Left ventriculogram Selective coronary angiogram Drug-eluting stent deployment to the proximal and mid dominant right coronary artery Drug-eluting stent deployment to the circumflex artery extending into the first obtuse marginal artery Drug-eluting stent deployment to the ostial proximal ramus intermedius Right heart catheterization Intravascular ultrasound to the left anterior descending artery INDICATION Systolic congestive heart failure, Coronary artery disease, Angiographically ambiguous coronary artery disease, Pulmonary edema, Informed consent was obtained prior to the procedure. COMPLICATIONS None Estimated Blood Loss: Less than 10 mls TECHNIQUE One percent lidocaine used to anesthetize the right anterior aspect of the wrist. The right radial artery was accessed via the Seldinger technique. A 6 Ethiopian sheath was placed in the right radial artery. 2.5 mg of verapamil, 800 mcg of nitroglycerin, 1mg Lidocaine and 5000 U Heparin were given through the arterial sheath. The papa catheter was also used to perform left heart catheterization, left ventriculogram and selective coronary angiogram. At the end the diagnostic angiogram therapeutic heparin was administered giving a therapeutic ACT and the guide catheter was placed in the dominant right coronary followed by a Choice PT extra-support wire. 3.5 x 38 mm Xience drug-eluting stent was deployed at 24 bakari reducing the critical tandem lesions to 0%. MIKEY-3 flow was present before and after the procedure. At the end of the procedure the guide catheter was placed in the left main artery followed by the Choice PT extra-support wire being placed in the circumflex artery. A 2 mm balloon was used to predilate the stenosis. A 2.75 x 28 mm Xience drug-eluting stent deployed at 20 bakari reducing the critical stenosis to 0%. Proximal to the stent was an eccentric edge stenosis therefore a 2.75 x 8 mm Xience drug-eluting stent was deployed at 24 bakari reducing this critical stenosis to 0%. A fresh Choice PT extra-support wire was placed in the large ramus intermedius given it was jailed and patient had severe LV dysfunction with severe coronary artery disease. It was felt this vessel should be maintained. A 2 mm balloon was used to open the struts going into the ramus intermedius and a 2.25 x 12 mm resolute Hong stent was then deployed at 20 bakari in the ostial proximal segment of this ramus intermedius reducing this critical stenosis to 0%. MIKEY-3 flow was present before and after the procedure. Because there was a large regional wall motion abnormality in the LAD and ambiguous angiography proximally it was felt intravascular ultrasound was warranted to evaluate for possible occult stenosis. The wire was placed in the LAD and the intravascular ultrasound probe was advanced. Multiple sites were obtained and imaged with the tightest MLA being 5.7 mm???. Given this did not meet hemodynamic significance the apparatus was removed the sheath was removed good hemostasis was achieved using TR banding patient was transferred to the postop holding her stable condition. Prior to the patient being transferred to the postop holding area a right heart catheterization was performed. Prior to the diagnostic heart cath 1% lidocaine was used anesthetize right anterior aspect of the right neck and the right internal jugular vein was accessed via the Salinger technique. A 7 Ethiopian sheath was placed in the right internal jugular vein. Under fluoroscopic and hemodynamic guidance a right heart catheterization was performed with full hemodynamic study.
--- NOTE | 2021-11-28 04:25 | PC.NURSE ---
Pt slept most of the shift. Voiced 0 issues. Call kowalski within reach and used appropriately. Pt remains on 6 L o2. Sats wnl.
[2021-11-28 07:01] LABS: POC Glucose,Bedside 125 (70-110)
--- NOTE | 2021-11-28 08:59 | HMH.ACPN2 ---
Internal Medicine - PN: Subj *Date: 11/28/21 *Time: 08:59 Interval history: Patient still reports having diarrhea, breathing has improved. Exam Vital signs and Labs for Last 24 Hours: Temp Pulse Resp BP Pulse Ox 97.7 F 81 16 120/70 93 L 11/28/21 04:00 11/28/21 06:07 11/28/21 04:00 11/28/21 04:00 11/28/21 06:07 Laboratory Results - last 24 hr 11/27/21 11:51: Stl Aeromonas (PCR) Not detected, Stl C. cayetanensis PCR Not detected, Stool Rotavirus (PCR) Not detected, Stl Adenov F 40/41 PCR Not detected, Stool Astrovirus (PCR) Not detected, Stool Campylobacter PCR Not detected, Stl C.difficile Tox PCR Not detected, Stool Cryptosporidium PCR Not detected, Stl E.coli Shiga Tox PCR Not detected, Stool E coli O157 PCR Not detected, Stl Enterotoxigenic E PCR Not detected, Stool EPEC (PCR) Not detected, Stool EAEC (PCR) Not detected, Stl E. histolytica PCR Not detected, Stool Giardia Lamblia PCR Not detected, Stool Salmonella PCR Not detected, Stool Sapovirus (PCR) Not detected, Stl P. shigelloides PCR Not detected, Stl Shigella/EIEC PCR Not detected, St Y.enterocolitica PCR Not detected, Stool Vibrio (PCR) Not detected, Stl Vibrio cholerae PCR Not detected, Stl Norovirus GI/GII PCR Not detected 11/27/21 11:58: POC Glucose 108 11/27/21 16:11: POC Glucose 187 H 11/27/21 21:30: POC Glucose 122 H 11/28/21 06:54: POC Glucose 125 H Vital Signs - 24 hr 11/27/21 12:00 11/27/21 13:05 11/27/21 16:00 Temperature 97.8 F 97.6 F Pulse Rate 76 Pulse Rate [Apical] 74 79 Respiratory Rate 20 20 Blood Pressure [Right Arm] 116/68 127/86 02 Sat by Pulse Oximetry 90 L 92 L 11/27/21 19:38 11/27/21 20:00 11/27/21 23:00 Temperature 98.4 F Pulse Rate 80 Pulse Rate [Apical] 80 Respiratory Rate 18 Blood Pressure [Right Arm] 123/71 02 Sat by Pulse Oximetry 89 L 96 89 L 11/28/21 00:00 11/28/21 04:00 11/28/21 06:07 Temperature 97.6 F 97.7 F Pulse Rate 81 Pulse Rate [Apical] 57 L 77 Respiratory Rate 18 16 Blood Pressure [Right Arm] 148/67 H 120/70 02 Sat by Pulse Oximetry 91 L 93 L 93 L I & O for Last 24 hours: Intake & Output 11/25/21 11/26/21 11/27/21 11/28/21 23:59 23:59 23:59 23:59 Intake Total 1360 / 1500 1800 / 2040 2863 / 2863 Output Total 500 / 500 750 / 1750 1500 / 1500 Balance 860 / 1000 1800 / 1890 2113 / 1113 -1500 / -1500 Weight 167 lb 12.8 oz 171 lb 171 lb 11.2 oz 171 lb - Constitutional no acute distress - *Routine HEENT Exam Head: Present: normocephalic Eye: Present: EOMI, PERRL ENT: Present: mucous membranes moist - *Routine Neck Exam Present: supple. Absent: lymphadenopathy - *Routine Respiratory Exam Present: crackles, distant breath sounds. Absent: wheezes - *Routine Cardiovascular Exam Present: RRR - *Routine Abdominal Exam Present: soft, normoactive bowel sounds. Absent: tenderness - *Routine Extremities Exam Absent: cyanosis, clubbing, edema - *Routine Skin Exam Present: warm. Absent: rash - *Routine Neurological Exam Present: alert, oriented X3 Assessment and Plan (1) Respiratory failure with hypercapnia Status: Acute Qualifiers: Chronicity: acute Qualified Code(s): J96.02 - Acute respiratory failure with hypercapnia Category: Medical Code(s): J96.92 - Respiratory failure, unspecified with hypercapnia (2) Severe sepsis with acute organ dysfunction Status: Acute Category: Medical Code(s): A41.9 - Sepsis, unspecified organism; R65.20 - Severe sepsis without septic shock (3) Acute exacerbation of chronic obstructive airways disease Status: Acute Category: Medical Code(s): J44.1 - Chronic obstructive pulmonary disease with (acute) exacerbation (4) Type 2 diabetes mellitus Status: Chronic Category: Medical Code(s): E11.9 - Type 2 diabetes mellitus without complications (5) History of rectal cancer Status: Chronic Category: Medical Code(s): Z85.048 - Personal history of other malignant neoplasm of r
--- NOTE | 2021-11-28 09:01 | CA_ITS ---
APPROVED REPORT EXAM: Comprehensive 2D, Doppler, and color-flow Echocardiogram Block Captain: Ca Palacios, IGNACIO, RVS Ht: 5 ft 6 in Wt: 171lbs BSA: 1.87 BP: 177/113 mmHg Indications: COPD, Shortness of Breath, Diabetes, Palpitations, severe sepsis, ARF, hx TIA, HX rectal CA, smoker 2D Dimensions IVSd 1.18 cm LVEF (Visual) 26.50 % PWd 0.96 cm LA Volume 57.60 mL LVDd 5.92 cm LA Volume Index 30.80 mL/m2 (M/F) 16-34 LVDs 5.18 cm Aortic Root 2.80 cm Left Atrium 4.22 cm LVOT 1.91 cm (M/F) 1.5-2.5 M-Mode Dimensions RVDd 1.77 cm (0.9-2.6) LA Diam 3.44 cm (1.9-4.0) LVDd 6.50 cm (3.5-5.7) Ao Diam 3.20 cm (2.0-3.7) LVDs 5.18 cm (3.5-5.7) IVSd 1.27 cm (0.6-1.1) PWd 1.19 cm (0.6-1.1) EF (Teich) 35.50% EPSs 1.98 cm FS 17.40% EDV (Teich) 199.00 mL TAPSE 2.33 (<1.7) ESV (Teich) 128.40 mL LV Diastology E Decel Time 130.00 (160-240 msec) E/A Ratio 1.92 MED E' 4.70 (< 7 cm/sec) MED A' 6.20 cm/s E'/MED E' Ratio 28.87 (>14) LAT E' 9.30 (<10 cm/sec) LAT A' 10.20 cm/s E/LAT E' Ratio 14.59 (>14) Aortic Valve AoV Peak Bari. 107.00 (50-130 cm/s) AO Peak GR. 4.60 mmHg AO Mean GR. 2.30 (<5 mmHg) AO VTI 18.73 (18-25 cm) Mitral Valve MV A Velocity 71.00 (40-130 cm/s) E/A Ratio 1.92 MV Decel. Time 130.00 (160-240 ms) MV Mean Gr. 2.40 (<2mmHg) Pulmonary Valve PV Peak Velocity 57.00 (50-150 cm/s) Tricuspid Valve TR P. Velocity 206.00 cm/s RAP Estimate 10.00 mmHg RVSP 27.10 mmHg Left Ventricle Left atrium is mildly enlarged, left ventricle is mildly dilated, severely reduced left ventricular systolic function, visually estimated ejection fraction approximately 25%, there is marked hypokinesis involving the basal septum, inferior basal and posterolateral wall. Doppler evidence of raise left ventricular end-diastolic pressure seen. Diastolic parameters are inconclusive. Right Ventricle Right atrium and right ventricle are normal size and contractility. Aortic Valve Aortic valve is minimally thickened and fibrosed, there is no aortic stenosis or aortic insufficiency. Mitral Valve Mitral valve leaflets are minimally thickened, there is moderate mitral regurgitation. Tricuspid Valve Tricuspid valve grossly normal, there is mild tricuspid regurgitation, tricuspid regurgitation jet velocity is inadequate for calculation of the right ventricular systolic pressure. Pulmonic Valve Pulmonic valve is poorly visualized. Great Vessels Aortic root is normal size. Inferior vena cava is mildly dilated without significant inspiratory collapse. Pericardium No significant pericardial effusion noted. Conclusion 1. Mildly enlarged left atrium, mildly dilated left ventricle, severe reduced left ventricular systolic function, estimated ejection fraction 25% with multiple segmental wall motion abnormality described above, diastolic parameters are inconclusive, Doppler evidence of raise left ventricular end-diastolic pressure. 2. Moderate mitral and tricuspid regurgitation. 3. No significant pericardial effusion noted. 4. Inferior vena cava is mildly dilated without significant inspiratory collapse. Electronically signed by : Vasyl Drummond MD 11/28/2021 20:55:58
--- NOTE | 2021-11-28 09:21 | HMH.PULMPN ---
Internal Medicine - PN: Subj *Date: 11/28/21 *Time: 09:21 Assessment and Plan (1) Respiratory failure with hypercapnia Status: Acute Qualifiers: Chronicity: acute Qualified Code(s): J96.02 - Acute respiratory failure with hypercapnia Category: Medical Code(s): J96.92 - Respiratory failure, unspecified with hypercapnia (2) Severe sepsis with acute organ dysfunction Status: Acute Category: Medical Code(s): A41.9 - Sepsis, unspecified organism; R65.20 - Severe sepsis without septic shock (3) Acute exacerbation of chronic obstructive airways disease Status: Acute Category: Medical Code(s): J44.1 - Chronic obstructive pulmonary disease with (acute) exacerbation (4) Type 2 diabetes mellitus Status: Chronic Category: Medical Code(s): E11.9 - Type 2 diabetes mellitus without complications (5) History of rectal cancer Status: Chronic Category: Medical Code(s): Z85.048 - Personal history of other malignant neoplasm of rectum, rectosigmoid junction, and anus (6) Tobacco use Status: Chronic Category: Social Hx Code(s): Z72.0 - Tobacco use (7) LLL pneumonia Status: Acute Category: Medical Code(s): J18.9 - Pneumonia, unspecified organism (8) Diarrhea Status: Acute Category: Medical Code(s): R19.7 - Diarrhea, unspecified - Assessment and plan all Dx Assessment and Plan for all problems:: #Acute hypoxic hypercarbic respiratory failure: #Hospital-acquired pneumonia: Ms. Lynn is a 71-year-old female with a history of rectal cancer with colostomy and subsequent colon resection and reversal of the colostomy, kidney failure, COPD, TIA, and diabetes. Presented with Hypercarbic respiratory failure and had been on BiPAp since admission from 11/18/21 and pulmonary was called today for further management. CXR on admission Bilateral LL pneumonia worsening on repeat CXR from 11/20/21. Receiving Cef and Azith since admission - no sputum available unfortunately for review poor sample and no repeat testing was performed so far flu and COVID viral PCR negative on admission. On my initial exaination patient does not appear to be any respiratory distress she is alert awake able to talk in complete sentences. Oxygen bibasilar crackles. No wheezing. Repeat chest x-ray today showed worsening airspace disease and volume status.ABG did not show any evidence of hypercarbic respiratory failure, continue to show hypoxic respiratory failure. Patient has been diuresed with improved respiratory symptoms. She was successfully weaned from BiPAP to CPAP to nasal cannula. However she continued to be needing 6 to 8 L oxygen therapy to maintain her saturations at 88% and above. Chest x-ray from 11/27 showed continued worsening of bilateral effusions right greater than left along with slight worsening of right lower lobe airspace disease. Interval update: Patient has been afebrile. Leukocytosis has been relatively stable. Plan: -Recommend to evaluate for possible cardiac etiology contribution to her current exertional dyspnea. Consider echocardiogram and a cardiology consult -Continue cefepime x 7 days, -DuoNebs every 6 and budesonide every 12 scheduled -Recommend net negative volume status #Thank for involving pulmonary in this patient care. We will continue to follow.
--- NOTE | 2021-11-28 09:48 | HMH.CNCARD ---
History of Present Illness Consult date: 11/28/21 Requesting physician: Rolf Steen Consult reason: shortness of breath Chief complaint: SOA History of present illness: This is a 71-year-old white female who presented to the emergency department with complaints of chest pain. The patient states that her shortness of breath has been worsening for several days prior to admission. It was severe. She denies associated lower extremity edema. She states that even at rest and with very minimal exertion she was profoundly short of breath and decided to come to the emergency department. The patient is currently admitted for bilateral lower lobe pneumonia and is being treated with IV antibiotics. She is still requiring high flow oxygen and pulmonology recommended a cardiology referral for ruling out of any underlying cardiac issues. On admission the patient's troponin was elevated at 0.09 with a troponin max of 0.19 consistent with a non-ST elevation myocardial infarction. She also had an elevated BNP at 7490 on admission. She states that she continues to be short of breath. It is improved but she states it is still present. She states anytime she gets up to move she still feels profoundly short of breath. It is associated with tightness in her chest on exertion. It improves with rest. There is no radiation of the pain. The tightness in her chest can also be severe. She denies any fever, chills, nausea, vomiting, diarrhea, PND or orthopnea. [facility] History I have reviewed the patient's past medical history: Yes Medical History: Reports:: Arrhythmia, Cancer, Diabetes Mellitus Type 1, Diabetes Mellitus Type 2, Hypertension, Lung Disease (copd), Renal Disease, Transient Ischemic Attacks (TIA) Denies:: Internal Pacemaker, Seizures *Have you ever received a pneumonia vaccine?: No *Have you received a flu vaccine this season?: No Other Medical History: Reports: Cataracts Laterality Cases: Bilateral: Cataract Other Surgeries: Yes: Colonoscopy, Colon Resection, Colostomy, Hernia Repair. No: Pacemaker - *Social History Last grade of school completed: High school graduate Smoking Status: Current every day smoker Tobacco Type: cigarettes # Packs/Day (cigarettes): 1 Alcohol Intake: never *Occupational Status:: retired Housing: house Household Members: none *Travel in the last 8 weeks: None Family Hx:: Cancer, Diabetes, Heart Attack, Stroke Meds Home Medications Medication Instructions Recorded Confirmed Type No Known Home Medications 02/24/19 11/18/21 History Allergies Allergy/AdvReac Type Severity Reaction Status Date / Time No Known Allergies Allergy Verified 03/17/19 08:26 Exam Vital signs and Labs for Last 24 Hours: Temp Pulse Resp BP Pulse Ox 97.4 F L 85 16 118/67 94 L 11/28/21 08:00 11/28/21 08:00 11/28/21 08:00 11/28/21 08:00 11/28/21 08:00 Laboratory Results - last 24 hr 11/27/21 11:51: Stl Aeromonas (PCR) Not detected, Stl C. cayetanensis PCR Not detected, Stool Rotavirus (PCR) Not detected, Stl Adenov F 40/41 PCR Not detected, Stool Astrovirus (PCR) Not detected, Stool Campylobacter PCR Not detected, Stl C.difficile Tox PCR Not detected, Stool Cryptosporidium PCR Not detected, Stl E.coli Shiga Tox PCR Not detected, Stool E coli O157 PCR Not detected, Stl Enterotoxigenic E PCR Not detected, Stool EPEC (PCR) Not detected, Stool EAEC (PCR) Not detected, Stl E. histolytica PCR Not detected, Stool Giardia Lamblia PCR Not detected, Stool Salmonella PCR Not detected, Stool Sapovirus (PCR) Not detected, Stl P. shigelloides PCR Not detected, Stl Shigella/EIEC PCR Not detected, St Y.enterocolitica PCR Not detected, Stool Vibrio (PCR) Not detected, Stl Vibrio cholerae PCR Not detected, Stl Norovirus GI/GII PCR Not detected 11/27/21 11:58: POC Glucose 108 11/27/21 16:11: POC Glucose 187 H 11/27/21 21:30: POC Glucose 122 H 11/28/21 06:54: POC Glucose 125 H I & O for Last 24 hours: Intake & Output 11/25/2111/04
--- NOTE | 2021-11-28 09:56 | CA_ITS ---
FINAL REPORT CLINICAL HISTORY: bilateral carotid bruits, hX-cva, chf FINDINGS: An ultrasound of the carotid arteries was performed. Duplex Doppler evaluation with spectral analysis was performed. The peak systolic velocity of the right common carotid artery is 56 cm/s. The peak systolic velocity of the right internal carotid artery is 106 cm/s and end diastolic velocity 30 cm/s. A mild to moderate amount of plaque is present. The right external carotid artery is patent. The right vertebral artery is patent with antegrade flow. ICA/CCA ratio: 1.9 The peak systolic velocity of the left common carotid artery is 62 cm/s. The peak systolic velocity of the left internal carotid artery is 140 cm/s and end diastolic velocity 37 cm/s. A mild to moderate amount of plaque is present. The left external carotid artery is patent. The left vertebral artery is patent with antegrade flow. ICA/CCA ratio: 2.8 Less than 50% bilateral carotid stenoses. Bilateral patent vertebral arteries with antegrade flow. Reviewed, Interpreted and Dictated by Billy Shanks MD Transcribed by [employer] Authenticated by Billy Shanks MD on 11/28/2021 01:36:33 PM [facility]
[2021-11-28 10:44] LABS: Chloride 104 mmol/L (98-107); Potassium 3.8 mmoL/L (3.5-5.1); Sodium 134 mmol/L (136-145)
[2021-11-28 10:47] LABS: Blood Urea Nitrogen 23 mg/dl (7-17); Creatinine Clearance Estimated 62 mL/min (50-200); Estimated Glomerular Filt Rate 62 ml/min (>60); GFR (African American) 74 ML/MIN (>60)
[2021-11-28 10:48] LABS: Anion Gap 6.8 mEq/L (5-15); Calcium 7.9 mg/dl (8.4-10.2); Carbon Dioxide 27 mmol/L (22.0-30.0); Glucose 242 mg/dl (74-100)
[2021-11-28 10:57] LABS: NT Pro Brain Natriuretic Pep. 13100 pg/mL (0-125)
[2021-11-28 11:30] LABS: POC Glucose,Bedside 198 (70-110)
--- NOTE | 2021-11-28 12:22 | PC.NURSE ---
Pt down to to quality assurance/r&d lab technician at this time.
--- NOTE | 2021-11-28 13:13 | HMH.PULMPN ---
Internal Medicine - PN: Subj *Date: 11/28/21 *Time: 13:13 Interval history: No acute respiratory events overnight. Continues to be oxygen dependent Exam - Constitutional Constitutional:: Present: no acute distress, comfortable - HENMT Exam HENMT: Present: normocephalic - Eye Exam Eyes:: Present: normal appearance both eyes and related structures - Neck Exam Neck:: Present: normal visual inspection - Respiratory Exam Respiratory:: Present: able to speak in complete sentences, no respiratory distress, crackles. Absent: wheezing - Cardiovascular Exam Cardiac:: Present: S1, S2 - GI Exam GI:: Present: soft - Skin Exam Skin: Present: warm, no rash - Neurological Exam Neurological: Present: alert, awake - Extremities Exam Extremities: Present: no cyanosis, no clubbing, edema Assessment and Plan (1) Non-STEMI (non-ST elevated myocardial infarction) Status: Acute Category: Medical Code(s): I21.4 - Non-ST elevation (NSTEMI) myocardial infarction (2) CHF (congestive heart failure) Status: Acute Category: Medical Code(s): I50.9 - Heart failure, unspecified (3) Elevated troponin Status: Acute Category: Medical Code(s): R77.8 - Other specified abnormalities of plasma proteins (4) Bilateral carotid bruits Status: Acute Category: Medical Code(s): R09.89 - Other specified symptoms and signs involving the circulatory and respiratory systems (5) Abnormal EKG Status: Acute Category: Medical Code(s): R94.31 - Abnormal electrocardiogram [ECG] [EKG] (6) Respiratory failure with hypercapnia Status: Acute Qualifiers: Chronicity: acute Qualified Code(s): J96.02 - Acute respiratory failure with hypercapnia Category: Medical Code(s): J96.92 - Respiratory failure, unspecified with hypercapnia (7) Severe sepsis with acute organ dysfunction Status: Acute Category: Medical Code(s): A41.9 - Sepsis, unspecified organism; R65.20 - Severe sepsis without septic shock (8) Acute exacerbation of chronic obstructive airways disease Status: Acute Category: Medical Code(s): J44.1 - Chronic obstructive pulmonary disease with (acute) exacerbation (9) Type 2 diabetes mellitus Status: Chronic Category: Medical Code(s): E11.9 - Type 2 diabetes mellitus without complications (10) History of rectal cancer Status: Chronic Category: Medical Code(s): Z85.048 - Personal history of other malignant neoplasm of rectum, rectosigmoid junction, and anus (11) Tobacco use Status: Chronic Category: Social Hx Code(s): Z72.0 - Tobacco use (12) LLL pneumonia Status: Acute Category: Medical Code(s): J18.9 - Pneumonia, unspecified organism (13) Diarrhea Status: Acute Category: Medical Code(s): R19.7 - Diarrhea, unspecified - Assessment and plan all Dx Assessment and Plan for all problems:: #Acute hypoxic hypercarbic respiratory failure: #Hospital-acquired pneumonia: Ms. Lynn is a 71-year-old female with a history of rectal cancer with colostomy and subsequent colon resection and reversal of the colostomy, kidney failure, COPD, TIA, and diabetes. Presented with Hypercarbic respiratory failure and had been on BiPAp since admission from 11/18/21 and pulmonary was called today for further management. CXR on admission Bilateral LL pneumonia worsening on repeat CXR from 11/20/21. Flu and COVID viral PCR negative on admission. On my initial exaination patient does not appear to be any respiratory distress she is alert awake able to talk in complete sentences. Oxygen bibasilar crackles. No wheezing. Repeat chest x-ray today showed worsening airspace disease and volume status.ABG did not show any evidence of hypercarbic respiratory failure, continue to show hypoxic respiratory failure. Patient has been diuresed with improved respiratory symptoms. She was successfully weaned from BiPAP to CPAP to nasal cannula. However she continued to be needing 6 to 8 L oxygen therap
--- NOTE | 2021-11-28 13:29 | DIET.NUTRFU ---
RD saw patient today, she is currently NPO for procedure today. Previously was on diabetic diet with good intake. No longer needs supplement to meet nutritional needs. Patient did indicate her meal intake at home varies from eating all day to not eating at all. She is aware she needs to make diet changes. Rd reviewed the importance of routine meals daily for her diabetes. RD also encouraged her to see her physician regularly to monitor her for the diabetes. Currently at home she was not taking anything, unaware of her blood sugar levels. She plans on doing better after discharge.
[2021-11-28 14:36] LABS: CATHL Arterial O2 SAT 81 % (90-100); CATHL Venous O2 SAT 79 % (75-80)
[2021-11-28 14:36] LABS: CATHL Activated Clotting Time 247 SEC (74-125)
[2021-11-28 14:37] LABS: CATHL Activated Clotting Time > 400 SEC (74-125)
[2021-11-28 15:38] LABS: Microscopic, Urine URINE MICROSCOPIC (MICROSCOPIC)
[2021-11-28 15:48] LABS: POC Glucose,Bedside 85 (70-110)
[2021-11-28 15:49] LABS: Appearance,Urine CLEAR (Clear); Color,Urine YELLOW (Yellow); PH,Urine 5.5 (5.0-8.5)
[2021-11-28 15:50] LABS: Bilirubin,Urine Negative (Negative); Blood, Urine TRACE-I (Negative); Glucose,Urine (UA) Negative (Negative); Ketones,Urine Negative (Negative); Leukocyte Esterase,Urine Negative (Negative); Nitrate,Urine Negative (Negative); Protein,Urine Negative (Negative); Urobilinogen,Urine 0.2 EU/dl (0.2)
[2021-11-28 19:27] LABS: Squamous Epithelial Cell,Urine Occasional #/hpf (0-5); WBC,Urine Occasional #/hpf (0-3)
[2021-11-28 19:28] LABS: Bacteria,Urine Trace /lpf
[2021-11-28 23:07] LABS: POC Glucose,Bedside 204 (70-110)
[2021-11-29] VITALS (11 sets, daily range): BP systolic 109–149; BP diastolic 45–78; PULSE 55–91; RESP 16–18; TEMP 36.4–36.9; O2SAT 87–94; BMI 25.8
--- NOTE | 2021-11-29 06:00 | XR_ITS ---
PROCEDURE INFORMATION: Exam: XR Chest Exam date and time: 11/29/2021 5:38 AM Age: 71 years old Clinical indication: Condition or disease; Lung condition and disease; Pneumonia; Additional info: Pnm TECHNIQUE: Imaging protocol: XR of the chest. Views: 1 view. COMPARISON: CR XR CHEST PORTABLE 11/27/2021 5:29 AM FINDINGS: Lungs: Some retrocardiac airspace disease is noted unchanged from prior. Chronic interstitial changes are present bilaterally. Pleural spaces: Unremarkable. No pleural effusion. No pneumothorax. Heart/Mediastinum: Unremarkable. No cardiomegaly. Bones/joints: Unremarkable. IMPRESSION: Stable left lower lobe airspace disease.
--- NOTE | 2021-11-29 06:04 | PC.NURSE ---
pt remains on 6l o2. Pt found to have 02 in one nostril last night and her sats went doen. Quickly recovered once corrected. Pt c/o pain ot the right wrist with palpation. no numbness or tingling to the wrist. Pt has a tiny amount of drainage noted to the dressing. Serosang. drainage. Pt able to make needs known and has callbell within reach at al times.
[2021-11-29 06:57] LABS: POC Glucose,Bedside 116 (70-110)
[2021-11-29 07:22] LABS: MANUAL DIFFERENTIAL MANUAL DIFFERENTIAL (MANUAL DIFF)
[2021-11-29 07:23] LABS: Chloride 98 mmol/L (98-107); Sodium 134 mmol/L (136-145)
[2021-11-29 07:24] LABS: Potassium 3.4 mmoL/L (3.5-5.1)
[2021-11-29 07:25] LABS: Alanine Aminotransferase 26 U/L (12-78); Alkaline Phosphatase 63 U/L (38-126); Aspartate Amino Transferase 24 U/L (14-36)
[2021-11-29 07:26] LABS: Albumin Level 2.8 g/dl (3.5-5.0); Cholesterol 180 mg/dl (140-200); HDL Cholesterol 50 mg/dl (40-60); Total Protein,Serum 5.4 g/dl (6.3-8.2); Triglycerides 149 mg/dl (30-150); VLDL Cholesterol 30 mg/dL (0-40)
[2021-11-29 07:27] LABS: Anion Gap 8.4 mEq/L (5-15); Blood Urea Nitrogen 25 mg/dl (7-17); Calcium 8.3 mg/dl (8.4-10.2); Carbon Dioxide 31 mmol/L (22.0-30.0); Creatinine Clearance Estimated 40 mL/min (50-200); Estimated Glomerular Filt Rate 34 ml/min (>60); GFR (African American) 41 ML/MIN (>60); Glucose 128 mg/dl (74-100)
[2021-11-29 07:34] LABS: Basophils % 0.1 % (0.1-2.0); Eosinophils # 0.1 K/mm3 (0.0-0.4); Eosinophils % 0.3 % (0.1-12.0); Hematocrit 42.8 % (37.0-47.0); Lymphocytes # 1.7 K/mm3 (0.7-4.5); Lymphocytes % 10.9 % (10-50); Mean Corpuscular HGB Conc 32.6 g/dL (31.8-35.4); Mean Corpuscular Hemoglobin 29.5 pg (27.0-31.2); Mean Corpuscular Volume 90.5 fl (81-99); Mean Platelet Volume 8.4 fl (7.4-10.4); Monocytes # 0.9 K/mm3 (0.1-1.0); Monocytes % 5.7 % (1.7-9.3); Neutrophils # 12.9 K/mm3 (1.8-7.8); Neutrophils % 83.1 % (37.0-80.0); Platelet Count 324 K/mm3 (142-424); Red Blood Count 4.73 M/mm3 (4.20-5.40); Red Cell Distribution Width 16.1 % (11.5-17.5); White Blood Count 15.5 K/mm3 (4.8-10.8)
[2021-11-29 07:37] LABS: Direct LDL Cholesterol 89.19 mg/dL (100-129)
--- NOTE | 2021-11-29 08:54 | HMH.ACPN2 ---
<Jennifer Echevarria - Last Filed: 11/29/21 08:54> Internal Medicine - PN: Subj *Date: 11/29/21 *Time: 08:54 Interval history: Patient denies chest pain and shortness of breath this morning. She is awaiting her breakfast.She was seen by cardiology yesterday and had a cardiac cath with the following results: IMPRESSION Critical two-vessel coronary artery disease as described above accompanied by severe left ventricular dysfunction with large degree of regional wall motion abnormalities Successful revascularization of a critically diseased dominant right coronary artery a critically diseased circumflex artery as well as a severely jailed large ramus intermedius Moderate pulmonary hypertension with decompensated left-sided filling pressures PLAN 1. Dual antiplatelet therapy 2. Entresto combined with carvedilol 3. And loop diuretics given elevated LVEDP 4. LDL less than 55 to be achieved with high intensity statin 5. Patient requires LifeVest prior to being discharged home. She has severe LV dysfunction which hopefully is hibernating and will improve now that she has been revascularized 6. Cardiac rehabilitation 7. Avoidance of tobacco products Electronically signed by : Khari Black MD 11/28/2021 13:55:18 This a.m. labs: CBC with a white blood cell count of 15,500. Chemistries with a sodium of 134 potassium of 3.4 BUN is 25 and creatinine is 1.5. Exam Vital signs and Labs for Last 24 Hours: Temp Pulse Resp BP Pulse Ox 97.6 F 57 L 18 117/56 L 92 L 11/29/21 08:00 11/29/21 08:00 11/29/21 08:00 11/29/21 08:00 11/29/21 08:00 Laboratory Results - last 24 hr 11/28/21 10:22: Sodium 134 L, Potassium 3.8, Chloride 104, Carbon Dioxide 27, Anion Gap 6.8, BUN 23 H, Creatinine 0.90, Estimated Creat Clear 62, Estimated GFR 62, Est GFR ( Amer) 74, Glucose 242 H, Calcium 7.9 L, NT-Pro-B Natriuret Pep 24289 H 11/28/21 11:21: POC Glucose 198 H 11/28/21 13:01: Activated Clotting Time > 400 H* 11/28/21 13:33: Activated Clotting Time 247 H* D 11/28/21 14:00: ABG O2 Sat (Measured) 81 L, POC VBG O2 Sat (Pat) 79 11/28/21 14:05: Urine Color Yellow, Urine Appearance Clear, Urine pH 5.5, Ur Specific [place] 1.010, Urine Protein Negative, Urine Glucose (UA) Negative, Urine Ketones Negative, Urine Blood Trace-i, Urine Nitrate Negative, Urine Bilirubin Negative, Urine Urobilinogen 0.2, Ur Leukocyte Esterase Negative, Urine RBC None, Urine WBC Occasional, Ur Squamous Epith Cells Occasional, Urine Bacteria Trace 11/28/21 15:34: POC Glucose 85 11/28/21 22:47: POC Glucose 204 H 11/29/21 06:09: POC Glucose 116 H 11/29/21 06:40: WBC 15.5 H, RBC 4.73, Hgb 14.0, Hct 42.8, MCV 90.5, MCH 29.5, MCHC 32.6, RDW 16.1, Plt Count 324, MPV 8.4, Neut % (Auto) 83.1 H, Lymph % (Auto) 10.9, [place] % (Auto) 5.7, Eos % (Auto) 0.3, Baso % (Auto) 0.1, Neut # (Auto) 12.9 H, Lymph # (Auto) 1.7, [place] # (Auto) 0.9, Eos # (Auto) 0.1, Baso # (Auto) 0.0 11/29/21 06:40: Sodium 134 L, Potassium 3.4 L, Chloride 98, Carbon Dioxide 31 H, Anion Gap 8.4, BUN 25 H, Creatinine 1.50 H D, Estimated Creat Clear 40, Estimated GFR 34 L, Est GFR ( Amer) 41 L D, Glucose 128 H D, Calcium 8.3 L 11/29/21 06:40: Total Bilirubin 1.0, Direct Bilirubin 0.0, Conjugated Bilirubin 0.0, Indirect Bilirubin 1.0 H, Unconjugated Bilirubin 1.0, AST 24, ALT 26, Alkaline Phosphatase 63, Total Protein 5.4 L D, Albumin 2.8 L, Triglycerides 149, Cholesterol 180, LDL Cholesterol Direct 89.19 L, VLDL Cholesterol 30, HDL Cholesterol 50 I & O for Last 24 hours: Intake & Output 11/26/21 11/27/21 11/28/21 11/29/21 11:59 11:59 11:59 11:59 Intake Total 1919 / 1919 1660 / 1660 1803 / 1803 300 / 300 Output Total 150 / 150 2099 / 2100 1900 / 1900 Balance 1919 / 1919 1510 / 1510 -297 / -297 -1600 / -1600 Weight 171 lb 171 lb 11.2 oz 171 lb 164 lb 11.2 oz - Constitutional no acute distress - *Routine Respiratory Exam Present: CTA bilaterally, diminished air movement (Posteriorly) - *Routin
[2021-11-29 09:01] LABS: Chol/HDL Ratio 3.6 (1-3.5)
[2021-11-29 09:55] LABS: Lymphocytes % 7 % (10-50); Monocytes % 9 % (2-9); Neutrophils % 84 % (42-76); Platelet Estimate Normal; RBC Morphology Normal; Total Cells Counted 100
--- NOTE | 2021-11-29 10:00 | HMH.OTEV ---
OT Inpatient Evaluation Rehab OT IP Evaluation Start: 11/29/21 08:50 Freq: ONCE Status: Complete Protocol: Document 11/29/21 09:47 ABDULLAHIALE (Rec: 11/29/21 10:00 SNEHA [id number]) Rehab OT IP Assessment Subjective History Ms. Lynn is a 71-year-old female with a history of rectal cancer with colostomy and subsequent colon resection and reversal of the colostomy , kidney failure, COPD, TIA, and diabetes. She states she currently does not have a doctor. She used to see Dr. Crum and has seen Dr. Lin a few times since Dr. Crum . She does not regularly follow with an oncologist. She states over the past 2 to 3 days she began getting progressively more short of breath. Yesterday she was unable to breathe and called 911. She was transported to the emergency room and was found to be in hypercapnic respiratory failure. At the present time, she smokes 1 pack of cigarettes a day, but has smoked more in the past. She was admitted and started on BiPAP. She states she feels much better with the BiPAP in place. [facility] History Medical History: Reports:: Arrhythmia, Cancer, Diabetes Mellitus Type 2, Hypertension, Lung Disease (copd), Renal Disease, Transient Ischemic Attacks (TIA Subjective I can get up. Analysis Patient's safety awareness during bed mobility, transfers and ambulation within the room up to 10ft with extension of 02 donned. Patient completed all tasks with SUP for safety and to maneuver cathether, heart monitor and IV. Patient
--- NOTE | 2021-11-29 10:26 | HMH.PNCARD ---
Subjective Date: 11/29/21 Time: 10:25 Principal diagnosis: nonstemi, CHF Interval history: This is a 71-year-old white female who presented to the emergency department with complaints of shortness of breath. The patient states that her shortness of breath had worsened over the last several days prior to her admission and it got severe. It was associated with lower extremity edema. She states that she was very symptomatic even with minimal exertion. The patient was in the hospital being treated for bilateral lower lobe pneumonia. She was still requiring high flow oxygen and cardiology was consulted. On review of her records, the patient did have an elevated troponin on admission consistent with a non-ST elevation myocardial infarction as well as a BNP and the patient did have CHF on exam as well. The patient was taken down for left and right cardiac catheterization yesterday. The patient had critical two-vessel coronary artery disease to the right coronary artery and circumflex artery with jailing of the ramus intermedius. She had successful revascularization of the critically diseased dominant right coronary artery and critically diseased circumflex artery as well as the severely jailed ramus artery. The patient tolerated the procedure well. She will be on Brilinta and aspirin for dual antiplatelet therapy. The patient was also found to have moderate pulmonary hypertension with decompensated left-sided filling pressures. She has ischemic cardiomyopathy and acute systolic congestive heart failure. LifeVest has been recommended. This morning the patient states that she feels much better. She states that her shortness of breath has improved. She states that she is still little short of breath with exertion but it is much better than it has been. She denies any chest pain or pressure. She denies any lower extremity edema. She denies any fever, chills, nausea, vomiting, diarrhea. The patient did get IV diuretics overnight and had a -3 L fluid balance. Exam Vital signs and Labs for Last 24 Hours: Temp Pulse Resp BP Pulse Ox 97.6 F 57 L 18 117/56 L 92 L 11/29/21 08:00 11/29/21 08:00 11/29/21 08:00 11/29/21 08:00 11/29/21 08:00 Laboratory Results - last 24 hr 11/28/21 10:22: Sodium 134 L, Potassium 3.8, Chloride 104, Carbon Dioxide 27, Anion Gap 6.8, BUN 23 H, Creatinine 0.90, Estimated Creat Clear 62, Estimated GFR 62, Est GFR ( Amer) 74, Glucose 242 H, Calcium 7.9 L, NT-Pro-B Natriuret Pep 85445 H 11/28/21 11:21: POC Glucose 198 H 11/28/21 13:01: Activated Clotting Time > 400 H* 11/28/21 13:33: Activated Clotting Time 247 H* D 11/28/21 14:00: ABG O2 Sat (Measured) 81 L, POC VBG O2 Sat (Pat) 79 11/28/21 14:05: Urine Color Yellow, Urine Appearance Clear, Urine pH 5.5, Ur Specific [place] 1.010, Urine Protein Negative, Urine Glucose (UA) Negative, Urine Ketones Negative, Urine Blood Trace-i, Urine Nitrate Negative, Urine Bilirubin Negative, Urine Urobilinogen 0.2, Ur Leukocyte Esterase Negative, Urine RBC None, Urine WBC Occasional, Ur Squamous Epith Cells Occasional, Urine Bacteria Trace 11/28/21 15:34: POC Glucose 85 11/28/21 22:47: POC Glucose 204 H 11/29/21 06:09: POC Glucose 116 H 11/29/21 06:40: WBC 15.5 H, RBC 4.73, Hgb 14.0, Hct 42.8, MCV 90.5, MCH 29.5, MCHC 32.6, RDW 16.1, Plt Count 324, MPV 8.4, Neut % (Auto) 83.1 H, Lymph % (Auto) 10.9, [place] % (Auto) 5.7, Eos % (Auto) 0.3, Baso % (Auto) 0.1, Neut # (Auto) 12.9 H, Lymph # (Auto) 1.7, [place] # (Auto) 0.9, Eos # (Auto) 0.1, Baso # (Auto) 0.0, Total Counted 100, Neutrophils % (Manual) 84 H, Lymphocytes % (Manual) 7 L, Monocytes % (Manual) 9, Platelet Estimate Normal, RBC Morphology Normal 11/29/21 06:40: Sodium 134 L, Potassium 3.4 L, Chloride 98, Carbon Dioxide 31 H, Anion Gap 8.4, BUN 25 H, Creatinine 1.50 H D, Estimated Creat Clear 40, Estimated GFR 34 L, Est GFR ( Amer) 41 L D, Glucose 128 H D, Calcium 8.3 L 11/29/21 06:40: Total Bilirubin 1.0, Direct Bilirubin 0.0, Con
--- NOTE | 2021-11-29 10:56 | HMH.PULMPN ---
Internal Medicine - PN: Subj *Date: 11/29/21 *Time: 10:56 Interval history: No acute respiratory events overnight. Exam - Constitutional Constitutional:: Present: no acute distress, comfortable - HENMT Exam HENMT: Present: normocephalic - Eye Exam Eyes:: Present: normal appearance both eyes and related structures - Neck Exam Neck:: Present: normal visual inspection - Respiratory Exam Respiratory:: Present: able to speak in complete sentences, no respiratory distress, crackles - Cardiovascular Exam Cardiac:: Present: S1, S2 - GI Exam GI:: Present: soft - Skin Exam Skin: Present: warm, no rash - Neurological Exam Neurological: Present: alert, awake, normal cognition - Extremities Exam Extremities: Present: no cyanosis, no clubbing, edema Assessment and Plan (1) Non-STEMI (non-ST elevated myocardial infarction) Status: Acute Category: Medical Code(s): I21.4 - Non-ST elevation (NSTEMI) myocardial infarction (2) Elevated troponin Status: Acute Category: Medical Code(s): R77.8 - Other specified abnormalities of plasma proteins (3) Bilateral carotid bruits Status: Acute Category: Medical Code(s): R09.89 - Other specified symptoms and signs involving the circulatory and respiratory systems (4) Abnormal EKG Status: Acute Category: Medical Code(s): R94.31 - Abnormal electrocardiogram [ECG] [EKG] (5) Respiratory failure with hypercapnia Status: Acute Qualifiers: Chronicity: acute Qualified Code(s): J96.02 - Acute respiratory failure with hypercapnia Category: Medical Code(s): J96.92 - Respiratory failure, unspecified with hypercapnia (6) Severe sepsis with acute organ dysfunction Status: Acute Category: Medical Code(s): A41.9 - Sepsis, unspecified organism; R65.20 - Severe sepsis without septic shock (7) Acute exacerbation of chronic obstructive airways disease Status: Acute Category: Medical Code(s): J44.1 - Chronic obstructive pulmonary disease with (acute) exacerbation (8) Type 2 diabetes mellitus Status: Chronic Category: Medical Code(s): E11.9 - Type 2 diabetes mellitus without complications (9) History of rectal cancer Status: Chronic Category: Medical Code(s): Z85.048 - Personal history of other malignant neoplasm of rectum, rectosigmoid junction, and anus (10) Tobacco use Status: Chronic Category: Social Hx Code(s): Z72.0 - Tobacco use (11) LLL pneumonia Status: Acute Category: Medical Code(s): J18.9 - Pneumonia, unspecified organism (12) Diarrhea Status: Acute Category: Medical Code(s): R19.7 - Diarrhea, unspecified (13) Hypokalemia Status: Acute Category: Medical Code(s): E87.6 - Hypokalemia (14) Acute systolic (congestive) heart failure Status: Acute Category: Medical Code(s): I50.21 - Acute systolic (congestive) heart failure (15) Ischemic cardiomyopathy Status: Acute Category: Medical Code(s): I25.5 - Ischemic cardiomyopathy (16) LV dysfunction Status: Acute Category: Medical Code(s): I51.9 - Heart disease, unspecified - Assessment and plan all Dx Assessment and Plan for all problems:: #Acute hypoxic hypercarbic respiratory failure: #Hospital-acquired pneumonia: Ms. Lynn is a 71-year-old female with a history of rectal cancer with colostomy and subsequent colon resection and reversal of the colostomy, kidney failure, COPD, TIA, and diabetes. Presented with Hypercarbic respiratory failure and had been on BiPAp since admission from 11/18/21 and pulmonary was called today for further management. CXR on admission Bilateral LL pneumonia worsening on repeat CXR from 11/20/21. Flu and COVID viral PCR negative on admission. On my initial exaination patient does not appear to be any respiratory distress she is alert awake able to talk in complete sentences. Oxygen bibasilar crackles. No wheezing. Repeat chest x-ray today showed worsening airspace disease and volume status.A
[2021-11-29 11:24] LABS: POC Glucose,Bedside 213 (70-110)
--- NOTE | 2021-11-29 11:43 | HMH.PTEV ---
Physical Therapy Evaluation Rehab PT IP Evaluation Start: 11/29/21 08:49 Freq: ONCE Status: Active Protocol: Document 11/29/21 11:38 PHOKEVIN (Rec: 11/29/21 11:43 PHORVINNY [id number]) Subjective/History History History 71 yowf adm to [facility] with severe sepsis and COPD exac. She reports she lives alone and does not use an AD for mobility, 1 step to enter the home. Subjective Subjective Pt c/o feeling dizzy with mobility, but had no episodes of LOB. Rehab PT IP Eval Objective Appearance Patient Behavior Appropriate Patient Orientation Person,Place,Time Difficulty following instructions none Speech Pattern Clear Ambulation Patient Able to Ambulate Yes Ambulation Observation IP General Gait Pattern Observation No Deviations/Normal Ambulation Distance (feet) 15 Ambulation Assistive Device None Ambulation Ability Supervision/Stand by Balance Ability to Arise Able, uses arms to help Sitting Balance Steady, safe Standing Balance Steady, wide stance Dynamic Sitting Balance Ability Good Dynamic Standing Balance Ability Good Transfers Bed Transfer Ability Supervision/Stand by Chair Transfer Ability Supervision/Stand by Sit to Stand Bed Transfer Ability Supervision/Stand by Sit to Stand Chair Transfer Ability Supervision/Stand by ROM All Extremities PT ROM Status WFL MMT All Extremities PT MMT WFL Rehab PT IP prob,goals,plan Problems Date of Evaluation: 11/29/21 Discharge Plan PT Discharge Plan Pt appears to be at baseline for all mobility at this time, but would be at risk for further injury or debility without assistance at home. G -code Required No Eval Complexity Eval Charge Codes 99605 - Moderate Complexity PHYSICIAN CERTIFICATION: I certify the specified therapy services for Lucero Lynn are required, authorized, and reviewed every 30 days.
--- NOTE | 2021-11-29 16:26 | PC.NURSE ---
No complaints of pain noted. Pt stable on 6LHFNC and tolerating well. Patient diuresing well and tolerating new medication aldactone.
[2021-11-29 23:03] LABS: POC Glucose,Bedside 168 (70-110)
[2021-11-30] VITALS (12 sets, daily range): BP systolic 93–129; BP diastolic 49–82; PULSE 49–89; RESP 16–18; TEMP 36.5–36.9; O2SAT 89–92; BMI 25.1
--- NOTE | 2021-11-30 05:51 | PC.NURSE ---
pt reports that she still has diarrhea. But stools are formed and soft with a small amount of liquid stool. moderate in size and dark green in color. PT does report having urgency with stools. Remains on 6l nc and appears to be tolerating well.
[2021-11-30 07:17] LABS: POC Glucose,Bedside 123 (70-110)
[2021-11-30 07:29] LABS: Chloride 101 mmol/L (98-107); Potassium 3.3 mmoL/L (3.5-5.1); Sodium 134 mmol/L (136-145)
[2021-11-30 07:32] LABS: Anion Gap 7.3 mEq/L (5-15); Blood Urea Nitrogen 27 mg/dl (7-17); Carbon Dioxide 29 mmol/L (22.0-30.0); Creatinine Clearance Estimated 39 mL/min (50-200); Estimated Glomerular Filt Rate 34 ml/min (>60); GFR (African American) 41 ML/MIN (>60)
[2021-11-30 07:33] LABS: Calcium 8.3 mg/dl (8.4-10.2); Glucose 129 mg/dl (74-100)
--- NOTE | 2021-11-30 08:48 | HMH.ACPN2 ---
<Jayna George - Last Filed: 11/30/21 08:48> Internal Medicine - PN: Subj *Date: 11/30/21 *Time: 08:48 Interval history: The patient states she hurts all over this morning. She is tired of laying in the bed and has been up to the chair a few times as well as the bedside commode. She is still on 6 L of oxygen with sats in the low 90s. Exam Vital signs and Labs for Last 24 Hours: Temp Pulse Resp BP Pulse Ox 98.1 F 83 18 93/53 L 90 L 11/30/21 04:00 11/30/21 06:18 11/30/21 04:00 11/30/21 04:00 11/30/21 06:18 Laboratory Results - last 24 hr 11/29/21 06:40: Total Counted 100, Neutrophils % (Manual) 84 H, Lymphocytes % (Manual) 7 L, Monocytes % (Manual) 9, Platelet Estimate Normal, RBC Morphology Normal 11/29/21 06:40: Cholesterol/HDL Ratio 3.6 H 11/29/21 11:15: POC Glucose 213 H 11/29/21 22:11: POC Glucose 168 H 11/30/21 06:53: Sodium 134 L, Potassium 3.3 L, Chloride 101, Carbon Dioxide 29, Anion Gap 7.3, BUN 27 H, Creatinine 1.50 H, Estimated Creat Clear 39, Estimated GFR 34 L, Est GFR ( Amer) 41 L, Glucose 129 H, Calcium 8.3 L 11/30/21 06:55: POC Glucose 123 H I & O for Last 24 hours: Intake & Output 11/27/21 11/28/21 11/29/21 11/30/21 11:59 11:59 11:59 11:59 Intake Total 1660 / 1660 1803 / 1803 300 / 300 480 / 480 Output Total 150 / 150 2100 / 2100 1900 / 1900 1100 / 1100 Balance 1510 / 1510 -297 / -297 -1600 / -1600 -620 / -620 Weight 171 lb 11.2 oz 171 lb 164 lb 11.2 oz 160 lb - Constitutional no acute distress - *Routine Respiratory Exam Present: decreased breath sounds, CTA bilaterally - *Routine Cardiovascular Exam Present: RRR - *Routine Abdominal Exam Present: soft, normoactive bowel sounds. Absent: tenderness - *Routine Extremities Exam Absent: cyanosis, clubbing, edema - *Routine Skin Exam Present: warm. Absent: rash - *Routine Neurological Exam Present: alert, oriented X3 Assessment and Plan (1) Non-STEMI (non-ST elevated myocardial infarction) Status: Acute Category: Medical Code(s): I21.4 - Non-ST elevation (NSTEMI) myocardial infarction (2) Elevated troponin Status: Acute Category: Medical Code(s): R77.8 - Other specified abnormalities of plasma proteins (3) Bilateral carotid bruits Status: Acute Category: Medical Code(s): R09.89 - Other specified symptoms and signs involving the circulatory and respiratory systems (4) Abnormal EKG Status: Acute Category: Medical Code(s): R94.31 - Abnormal electrocardiogram [ECG] [EKG] (5) Respiratory failure with hypercapnia Status: Acute Qualifiers: Chronicity: acute Qualified Code(s): J96.02 - Acute respiratory failure with hypercapnia Category: Medical Code(s): J96.92 - Respiratory failure, unspecified with hypercapnia (6) Severe sepsis with acute organ dysfunction Status: Acute Category: Medical Code(s): A41.9 - Sepsis, unspecified organism; R65.20 - Severe sepsis without septic shock (7) Acute exacerbation of chronic obstructive airways disease Status: Acute Category: Medical Code(s): J44.1 - Chronic obstructive pulmonary disease with (acute) exacerbation (8) Type 2 diabetes mellitus Status: Chronic Category: Medical Code(s): E11.9 - Type 2 diabetes mellitus without complications (9) History of rectal cancer Status: Chronic Category: Medical Code(s): Z85.048 - Personal history of other malignant neoplasm of rectum, rectosigmoid junction, and anus (10) Tobacco use Status: Chronic Category: Social Hx Code(s): Z72.0 - Tobacco use (11) LLL pneumonia Status: Acute Category: Medical Code(s): J18.9 - Pneumonia, unspecified organism (12) Diarrhea Status: Acute Category: Medical Code(s): R19.7 - Diarrhea, unspecified (13) Hypokalemia Status: Acute Category: Medical Code(s): E87.6 - Hypokalemia (14) Acute systolic (congestive) heart failure Status: Acute Category: Medical Code(s): I50.21 - Acute systolic (conge
--- NOTE | 2021-11-30 09:54 | HMH.PNCARD ---
Subjective Date: 11/30/21 Time: 08:45 Principal diagnosis: nonstemi, CHF Interval history: This is a 71-year-old white female presented to the emergency department complaints of shortness of breath. She was treated for bilateral lower lobe pneumonia. The patient did not have much improvement in her symptoms and she was still requiring high flow oxygen so cardiology was consulted. The patient had an elevated troponin on admission and an ejection fraction at 25%. She was taken to the [facility] and the patient had revascularization of her critically diseased dominant right coronary artery and critically diseased circumflex artery as well as the severely jailed ramus artery. She tolerated the procedure well and is on Brilinta and aspirin for dual antiplatelet therapy. The patient does have ischemic cardiomyopathy with an ejection fraction of 25%. She has been approved for a LifeVest and this will be fitted 24 hours prior to discharge home. She was also found to have moderate pulmonary hypertension with decompensated left-sided filling pressures. This morning she still complains of shortness of breath although it has improved since being in the hospital. She remains on 6 L of oxygen nasal cannula. The patient states that she cannot take her oxygen off because it makes her more short of breath. The patient did get IV diuretics and had a -3 L fluid balance without much improvement in her shortness of breath. Overnight she did have a negative fluid balance on oral diuretics. She states nothing has really changed much with her symptoms. She denies any chest pain or pressure. She denies any lower extremity edema. She denies any fever, chills, nausea, vomiting, diarrhea. Exam Vital signs and Labs for Last 24 Hours: Temp Pulse Resp BP Pulse Ox 98.3 F 82 18 114/57 L 91 L 11/30/21 08:00 11/30/21 08:00 11/30/21 08:00 11/30/21 08:00 11/30/21 08:00 Laboratory Results - last 24 hr 11/29/21 06:40: Total Counted 100, Neutrophils % (Manual) 84 H, Lymphocytes % (Manual) 7 L, Monocytes % (Manual) 9, Platelet Estimate Normal, RBC Morphology Normal 11/29/21 11:15: POC Glucose 213 H 11/29/21 22:11: POC Glucose 168 H 11/30/21 06:53: Sodium 134 L, Potassium 3.3 L, Chloride 101, Carbon Dioxide 29, Anion Gap 7.3, BUN 27 H, Creatinine 1.50 H, Estimated Creat Clear 39, Estimated GFR 34 L, Est GFR ( Amer) 41 L, Glucose 129 H, Calcium 8.3 L 11/30/21 06:55: POC Glucose 123 H I & O for Last 24 hours: Intake & Output 11/27/21 11/28/21 11/29/21 11/30/21 23:59 23:59 23:59 23:59 Intake Total 2863 / 2863 780 / 780 Output Total 750 / 1750 3000 / 3400 950 / 1500 550 / 550 Balance 2113 / 1113 -3000 / -3400 -170 / -720 -550 / -550 Weight 171 lb 11.2 oz 171 lb 164 lb 11.2 oz 160 lb Narrative: Telemetry strip is sinus rhythm. - Constitutional no acute distress, average body habitus - *Routine HEENT Exam Head: Present: normocephalic, atraumatic Eye: Present: EOMI, PERRL ENT: Present: mucous membranes moist - *Routine Neck Exam Present: supple, full ROM, carotid bruit (Bilateral carotid bruits), normal carotid upstroke. Absent: JVD, lymphadenopathy - *Routine Respiratory Exam Present: wheezes (Inspiratory wheezing noted throughout) - *Routine Cardiovascular Exam Present: RRR, Normal S1, Normal S2, murmur - *Routine Abdominal Exam Present: soft, normoactive bowel sounds. Absent: tenderness, distended - *Routine Extremities Exam Present: full ROM, pulses intact, normal capillary refill. Absent: cyanosis, clubbing, edema - *Routine Skin Exam Present: intact, warm. Absent: erythema, rash - *Routine Neurological Exam Present: alert, oriented X3, CN II-XII intact. Absent: sensory deficit, motor deficit Progress Note: A&P (1) Non-STEMI (non-ST elevated myocardial infarction) Status: Acute (2) Elevated troponin Status: Acute (3) Bilateral carotid bruits Status: Acute (4) Abnormal EKG Status: Acute (5) Re
--- NOTE | 2021-11-30 09:57 | HMH.ITSTN ---
CALLED NURSE ABOUT PATIENT FOR PE STUDY, INFORMED THAT SHE NEEDS A NEW IV AND NURSE WILL CALL WHEN READY.
--- NOTE | 2021-11-30 10:58 | HMH.PULMPN ---
Internal Medicine - PN: Subj *Date: 11/30/21 *Time: 10:58 Interval history: Patient denies any new respiratory complaints. No acute respiratory vents overnight. Exam - Constitutional Constitutional:: Present: no acute distress, comfortable - HENMT Exam HENMT: Present: normocephalic - Eye Exam Eyes:: Present: normal appearance both eyes and related structures - Neck Exam Neck:: Present: normal visual inspection - Respiratory Exam Respiratory:: Present: able to speak in complete sentences, no respiratory distress. Absent: wheezing - Cardiovascular Exam Cardiac:: Present: S1, S2 - GI Exam GI:: Present: soft - Skin Exam Skin: Present: warm, no rash - Neurological Exam Neurological: Present: alert, awake - Extremities Exam Extremities: Present: no cyanosis, no clubbing, no edema Assessment and Plan (1) Non-STEMI (non-ST elevated myocardial infarction) Status: Acute Category: Medical Code(s): I21.4 - Non-ST elevation (NSTEMI) myocardial infarction (2) Elevated troponin Status: Acute Category: Medical Code(s): R77.8 - Other specified abnormalities of plasma proteins (3) Bilateral carotid bruits Status: Acute Category: Medical Code(s): R09.89 - Other specified symptoms and signs involving the circulatory and respiratory systems (4) Abnormal EKG Status: Acute Category: Medical Code(s): R94.31 - Abnormal electrocardiogram [ECG] [EKG] (5) Respiratory failure with hypercapnia Status: Acute Qualifiers: Chronicity: acute Qualified Code(s): J96.02 - Acute respiratory failure with hypercapnia Category: Medical Code(s): J96.92 - Respiratory failure, unspecified with hypercapnia (6) Severe sepsis with acute organ dysfunction Status: Acute Category: Medical Code(s): A41.9 - Sepsis, unspecified organism; R65.20 - Severe sepsis without septic shock (7) Acute exacerbation of chronic obstructive airways disease Status: Acute Category: Medical Code(s): J44.1 - Chronic obstructive pulmonary disease with (acute) exacerbation (8) Type 2 diabetes mellitus Status: Chronic Category: Medical Code(s): E11.9 - Type 2 diabetes mellitus without complications (9) History of rectal cancer Status: Chronic Category: Medical Code(s): Z85.048 - Personal history of other malignant neoplasm of rectum, rectosigmoid junction, and anus (10) Tobacco use Status: Chronic Category: Social Hx Code(s): Z72.0 - Tobacco use (11) LLL pneumonia Status: Acute Category: Medical Code(s): J18.9 - Pneumonia, unspecified organism (12) Hypokalemia Status: Acute Category: Medical Code(s): E87.6 - Hypokalemia (13) Acute systolic (congestive) heart failure Status: Acute Category: Medical Code(s): I50.21 - Acute systolic (congestive) heart failure (14) Ischemic cardiomyopathy Status: Acute Category: Medical Code(s): I25.5 - Ischemic cardiomyopathy (15) LV dysfunction Status: Acute Category: Medical Code(s): I51.9 - Heart disease, unspecified (16) Pulmonary hypertension Status: Acute Category: Medical Code(s): I27.20 - Pulmonary hypertension, unspecified (17) Shortness of breath Status: Acute Category: Medical Code(s): R06.02 - Shortness of breath - Assessment and plan all Dx Assessment and Plan for all problems:: #Acute hypoxic hypercarbic respiratory failure: #Hospital-acquired pneumonia: Ms. Lynn is a 71-year-old female with a history of rectal cancer with colostomy and subsequent colon resection and reversal of the colostomy, kidney failure, COPD, TIA, and diabetes. Presented with Hypercarbic respiratory failure and had been on BiPAp since admission from 11/18/21 and pulmonary was called today for further management. CXR on admission Bilateral LL pneumonia worsening on repeat CXR from 11/20/21. Flu and COVID viral PCR negative on admission. On my initial exaination patient does not appear to be any respiratory distress
--- NOTE | 2021-11-30 11:00 | PC.NURSE ---
Spoke with pt she has decided to decline CTA she is afraid for her kidneys.
--- NOTE | 2021-11-30 11:07 | HMH.ITSTN ---
PER NURSE PATIENT IS REFUSING PE STUDY AT THIS TIME
--- NOTE | 2021-11-30 11:11 | PC.NURSE ---
Spoke with ethan davis and told her that pt did not want to do CTA.
--- NOTE | 2021-11-30 11:58 | PC.NURSE ---
Called Dr. Davenport office and left a message about the fluids. Waiting to hear back.
--- NOTE | 2021-11-30 12:00 | PC.NURSE ---
Spoke with Dr. Steen and told him she wanted to decline the CTA.
--- NOTE | 2021-11-30 14:18 | PC.NURSE ---
Spoke with Dr. Davenport he stated that fluids were for CTA, and since she refused there is no need to give to pt.
[2021-11-30 16:20] LABS: POC Glucose,Bedside 185 (70-110)
--- NOTE | 2021-11-30 16:43 | PC.NURSE ---
Pt is being fitted for life vest
[2021-11-30 18:02] LABS: POC Glucose,Bedside 91 (70-110)
[2021-12-01] VITALS (8 sets, daily range): BP systolic 100–145; BP diastolic 42–82; PULSE 65–90; RESP 16–20; TEMP 36.4–37.1; O2SAT 88–94; BMI 25.0
[2021-12-01 04:33] LABS: POC Glucose,Bedside 161 (70-110)
[2021-12-01 06:36] LABS: Chloride 101 mmol/L (98-107); Sodium 136 mmol/L (136-145)
[2021-12-01 06:37] LABS: Potassium 3.1 mmoL/L (3.5-5.1)
[2021-12-01 06:40] LABS: Anion Gap 8.1 mEq/L (5-15); Basophils % 0.2 % (0.1-2.0); Blood Urea Nitrogen 34 mg/dl (7-17); Calcium 8.4 mg/dl (8.4-10.2); Carbon Dioxide 30 mmol/L (22.0-30.0); Creatinine Clearance Estimated 39 mL/min (50-200); Eosinophils # 0.1 K/mm3 (0.0-0.4); Eosinophils % 0.6 % (0.1-12.0); Estimated Glomerular Filt Rate 34 ml/min (>60); GFR (African American) 41 ML/MIN (>60); Glucose 151 mg/dl (74-100); Hematocrit 37.4 % (37.0-47.0); Hemoglobin 12.4 g/dL (12.2-16.2); Lymphocytes # 1.2 K/mm3 (0.7-4.5); Lymphocytes % 8.1 % (10-50); Mean Corpuscular HGB Conc 33.3 g/dL (31.8-35.4); Mean Corpuscular Hemoglobin 30.4 pg (27.0-31.2); Mean Corpuscular Volume 91.5 fl (81-99); Mean Platelet Volume 8.9 fl (7.4-10.4); Monocytes # 0.7 K/mm3 (0.1-1.0); Monocytes % 4.7 % (1.7-9.3); Neutrophils # 12.6 K/mm3 (1.8-7.8); Neutrophils % 86.4 % (37.0-80.0); Platelet Count 346 K/mm3 (142-424); Red Blood Count 4.09 M/mm3 (4.20-5.40); White Blood Count 14.6 K/mm3 (4.8-10.8)
[2021-12-01 06:41] LABS: MANUAL DIFFERENTIAL MANUAL DIFFERENTIAL (MANUAL DIFF)
[2021-12-01 07:22] LABS: Lymphocytes % 14 % (10-50); Monocytes % 5 % (2-9); Neutrophils % 81 % (42-76); Platelet Estimate Normal; RBC Morphology Normal; Total Cells Counted 100
[2021-12-01 07:33] LABS: POC Glucose,Bedside 141 (70-110)
--- NOTE | 2021-12-01 08:37 | HMH.ACPN2 ---
<Jayna George - Last Filed: 12/01/21 08:37> Internal Medicine - PN: Subj *Date: 12/01/21 *Time: 08:37 Interval history: Patient states she is feeling much better today. She has been sitting up in the chair this morning and her body does not ache like it did yesterday. She denies any shortness of breath, although she remains on 6 L of oxygen. She declined CT scan yesterday. She says she wants to go home. Exam Vital signs and Labs for Last 24 Hours: Temp Pulse Resp BP Pulse Ox 98.4 F 88 18 145/70 H 90 L 12/01/21 04:00 12/01/21 04:00 12/01/21 04:00 12/01/21 04:00 12/01/21 06:30 Laboratory Results - last 24 hr 11/29/21 16:16: POC Glucose 91 11/30/21 16:10: POC Glucose 185 H 11/30/21 20:47: POC Glucose 161 H 12/01/21 05:24: POC Glucose 141 H 12/01/21 05:55: WBC 14.6 H, RBC 4.09 L, Hgb 12.4, Hct 37.4, MCV 91.5, MCH 30.4, MCHC 33.3, RDW 17.0, Plt Count 346, MPV 8.9, Neut % (Auto) 86.4 H, Lymph % (Auto) 8.1 L, [place] % (Auto) 4.7, Eos % (Auto) 0.6, Baso % (Auto) 0.2, Neut # (Auto) 12.6 H, Lymph # (Auto) 1.2, [place] # (Auto) 0.7, Eos # (Auto) 0.1, Baso # (Auto) 0.0, Total Counted 100, Neutrophils % (Manual) 81 H, Lymphocytes % (Manual) 14, Monocytes % (Manual) 5, Platelet Estimate Normal, RBC Morphology Normal 12/01/21 05:55: Sodium 136, Potassium 3.1 L, Chloride 101, Carbon Dioxide 30, Anion Gap 8.1, BUN 34 H D, Creatinine 1.50 H, Estimated Creat Clear 39, Estimated GFR 34 L, Est GFR ( Amer) 41 L, Glucose 151 H, Calcium 8.4 I & O for Last 24 hours: Intake & Output 11/28/21 11/29/21 11/30/21 12/01/21 11:59 11:59 11:59 11:59 Intake Total 1803 / 1803 300 / 300 480 / 480 360 / 360 Output Total 2100 / 2100 1900 / 1900 1100 / 1100 Balance -297 / -297 -1600 / -1600 -620 / -620 360 / 360 Weight 171 lb 164 lb 11.2 oz 160 lb 159 lb 11.2 oz - Constitutional no acute distress - *Routine HEENT Exam Head: Present: normocephalic Eye: Present: EOMI, PERRL ENT: Present: mucous membranes moist - *Routine Neck Exam Present: supple. Absent: lymphadenopathy - *Routine Respiratory Exam Present: decreased breath sounds, CTA bilaterally - *Routine Cardiovascular Exam Present: RRR - *Routine Abdominal Exam Present: soft, normoactive bowel sounds. Absent: tenderness - *Routine Extremities Exam Absent: cyanosis, clubbing, edema - *Routine Skin Exam Present: warm. Absent: rash - *Routine Neurological Exam Present: alert, oriented X3 Assessment and Plan (1) Non-STEMI (non-ST elevated myocardial infarction) Status: Acute Category: Medical Code(s): I21.4 - Non-ST elevation (NSTEMI) myocardial infarction (2) Elevated troponin Status: Acute Category: Medical Code(s): R77.8 - Other specified abnormalities of plasma proteins (3) Bilateral carotid bruits Status: Acute Category: Medical Code(s): R09.89 - Other specified symptoms and signs involving the circulatory and respiratory systems (4) Abnormal EKG Status: Acute Category: Medical Code(s): R94.31 - Abnormal electrocardiogram [ECG] [EKG] (5) Respiratory failure with hypercapnia Status: Acute Qualifiers: Chronicity: acute Qualified Code(s): J96.02 - Acute respiratory failure with hypercapnia Category: Medical Code(s): J96.92 - Respiratory failure, unspecified with hypercapnia (6) Severe sepsis with acute organ dysfunction Status: Acute Category: Medical Code(s): A41.9 - Sepsis, unspecified organism; R65.20 - Severe sepsis without septic shock (7) Acute exacerbation of chronic obstructive airways disease Status: Acute Category: Medical Code(s): J44.1 - Chronic obstructive pulmonary disease with (acute) exacerbation (8) Type 2 diabetes mellitus Status: Chronic Category: Medical Code(s): E11.9 - Type 2 diabetes mellitus without complications (9) History of rectal cancer Status: Chronic Category: Medical Code(s): Z85.048 - Personal history of other malignant neoplasm of rectum, rectosig
--- NOTE | 2021-12-01 08:59 | CT_ITS ---
FINAL REPORT TECHNIQUE: Thin section axial CT images were performed from the lung apices to the upper abdomen after the administration of IV contrast. 3-D and MIP reconstructions performed. This study was performed with techniques to keep radiation doses as low as reasonably achievable (ALARA). Individualized dose reduction techniques using automated exposure control or adjustment of mA and/or kV according to the patient's size were employed. CLINICAL HISTORY: Hypoxia FINDINGS: There is no evidence for pulmonary embolism. The pulmonary arteries are adequately opacified. The thoracic aorta is patent without evidence of dissection. There is no axillary adenopathy. There is no mediastinal or hilar adenopathy. The heart size is normal. There is no pericardial effusion. Lung window images demonstrate extensive linear density in the right upper lobe. This is favored to represent pulmonary scarring and is well seen on images 21-46 of series 5. There are advanced changes of centrilobular emphysema. There are enlarged intensely enhanced vascular structures within the lingula which is consistent with a large pulmonary AVM. This finding is well seen on images 86-107. There are small bilateral pleural effusions. Limited images of the upper abdomen are unremarkable. IMPRESSION: No evidence of pulmonary embolism or aortic dissection. 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 Catheter directed angiography is recommended for further characterization. Extensive linear density in the right upper lobe, favored to be related to scarring. Correlation with any available prior imaging would be of value to document the stability. Reviewed, Interpreted and Dictated by Billy Shanks MD Transcribed by Gia Cordoba Authenticated by Billy Shanks MD on 12/01/2021 01:27:[address] [facility]
--- NOTE | 2021-12-01 10:34 | HMH.PNCARD ---
Subjective Date: 12/01/21 Time: 09:00 Principal diagnosis: nonstemi, CHF Interval history: This is a 71-year-old female who was admitted to the hospital with shortness of breath and initially treated for bilateral lower lobe pneumonia. The patient also had a non-ST elevation myocardial infarction and underwent left cardiac catheterization with revascularization of her critically diseased dominant right coronary artery and critically diseased circumflex artery as well as the severely jailed ramus artery. She will remain on Brilinta and aspirin for dual antiplatelet therapy. The patient does have ischemic cardiomyopathy with an ejection fraction of 25%. She has been approved for LifeVest and she has been fitted with a LifeVest. She has moderate pulmonary hypertension with decompensated left-sided filling pressures. She was diuresed with IV Lasix and did have good response to the IV route Lasix. She is continuing diuresis with oral diuretics. The patient still remains on oxygen at 6 L/min via nasal cannula. She continues to be short of breath but does state today that her shortness of breath feels much better than it has been. She states that she has not been exerting a whole lot but when she does get up and move she does notice that her shortness of breath has improved. She denies any chest pain or pressure. She denies any lower extremity edema. She denies any fever, chills, nausea, vomiting or diarrhea. The patient was scheduled to undergo CTA of the chest yesterday however she refuses at this because she states that she was nervous. We have had a long discussion with the patient about the CTA today and she is agreeable in proceeding with it. Exam Vital signs and Labs for Last 24 Hours: Temp Pulse Resp BP Pulse Ox 97.7 F 90 20 130/82 93 L 12/01/21 08:00 12/01/21 08:00 12/01/21 08:00 12/01/21 08:00 12/01/21 08:00 Laboratory Results - last 24 hr 11/29/21 16:16: POC Glucose 91 11/30/21 16:10: POC Glucose 185 H 11/30/21 20:47: POC Glucose 161 H 12/01/21 05:24: POC Glucose 141 H 12/01/21 05:55: WBC 14.6 H, RBC 4.09 L, Hgb 12.4, Hct 37.4, MCV 91.5, MCH 30.4, MCHC 33.3, RDW 17.0, Plt Count 346, MPV 8.9, Neut % (Auto) 86.4 H, Lymph % (Auto) 8.1 L, [place] % (Auto) 4.7, Eos % (Auto) 0.6, Baso % (Auto) 0.2, Neut # (Auto) 12.6 H, Lymph # (Auto) 1.2, [place] # (Auto) 0.7, Eos # (Auto) 0.1, Baso # (Auto) 0.0, Total Counted 100, Neutrophils % (Manual) 81 H, Lymphocytes % (Manual) 14, Monocytes % (Manual) 5, Platelet Estimate Normal, RBC Morphology Normal 12/01/21 05:55: Sodium 136, Potassium 3.1 L, Chloride 101, Carbon Dioxide 30, Anion Gap 8.1, BUN 34 H D, Creatinine 1.50 H, Estimated Creat Clear 39, Estimated GFR 34 L, Est GFR ( Amer) 41 L, Glucose 151 H, Calcium 8.4 I & O for Last 24 hours: Intake & Output 11/28/21 11/29/21 11/30/21 12/01/21 23:59 23:59 23:59 23:59 Intake Total 780 / 780 360 / 360 480 / 480 Output Total 3000 / 3400 950 / 1500 550 / 550 Balance -3000 / -3400 -170 / -720 -190 / -190 480 / 480 Weight 171 lb 164 lb 11.2 oz 160 lb 159 lb 11.2 oz - Constitutional no acute distress, average body habitus - *Routine HEENT Exam Head: Present: normocephalic, atraumatic Eye: Present: EOMI, PERRL ENT: Present: mucous membranes moist - *Routine Neck Exam Present: supple, full ROM, carotid bruit (Bilateral carotid bruits), normal carotid upstroke. Absent: JVD, lymphadenopathy - *Routine Respiratory Exam Present: wheezes (Expiratory wheezing noted) - *Routine Cardiovascular Exam Present: RRR, Normal S1, Normal S2, murmur - *Routine Abdominal Exam Present: soft, normoactive bowel sounds. Absent: tenderness, distended - *Routine Extremities Exam Present: full ROM, pulses intact, normal capillary refill. Absent: cyanosis, clubbing, edema - *Routine Skin Exam Present: intact, warm. Absent: erythema, rash - *Routine Neurological Exam Present: alert, oriented X3, CN II-XII intact. Absent: sensory defic
[2021-12-01 11:14] LABS: POC Glucose,Bedside 225 (70-110)
--- NOTE | 2021-12-01 12:27 | CA_ITS ---
APPROVED REPORT EXAM: Limited 2D Echocardiogram [employer]: Dea Ware RVT Ht: 5 ft 6 in Wt: 169lbs BSA: 1.86 BP: 145/70 mmHg Indications: BUBBLE STUDY,CM EF OF 25%, PHTN,NSTEMI,RESP FAILURE, PULMONARY AVM Echo Enhancing Agent Indication: Rule out Shunt Agent(s) / Amount(s) Used: Agitated Saline 15 cc Conclusion 1. Agitated saline contrast study was performed. 2. Agitated saline contrast study identifies right to left shunt likely is the atrial level, a transesophageal echocardiogram is recommended to exclude presence of atrial septal defect. Electronically signed by : Vasyl Drummond MD 12/01/2021 13:47:36
--- NOTE | 2021-12-01 12:30 | HMH.PULMPN ---
Internal Medicine - PN: Subj *Date: 12/01/21 *Time: 12:30 Interval history: No acute respiratory events overnight. Exam - Constitutional Constitutional:: Present: no acute distress, comfortable - HENMT Exam HENMT: Present: normocephalic - Eye Exam Eyes:: Present: normal appearance both eyes and related structures - Neck Exam Neck:: Present: normal visual inspection - Respiratory Exam Respiratory:: Present: able to speak in complete sentences, no respiratory distress. Absent: wheezing - Cardiovascular Exam Cardiac:: Present: S1, S2 - GI Exam GI:: Present: soft - Skin Exam Skin: Present: warm - Neurological Exam Neurological: Present: alert, awake - Extremities Exam Extremities: Present: no cyanosis, no clubbing, no edema Assessment and Plan (1) Non-STEMI (non-ST elevated myocardial infarction) Status: Acute Category: Medical Code(s): I21.4 - Non-ST elevation (NSTEMI) myocardial infarction (2) Elevated troponin Status: Acute Category: Medical Code(s): R77.8 - Other specified abnormalities of plasma proteins (3) Bilateral carotid bruits Status: Acute Category: Medical Code(s): R09.89 - Other specified symptoms and signs involving the circulatory and respiratory systems (4) Abnormal EKG Status: Acute Category: Medical Code(s): R94.31 - Abnormal electrocardiogram [ECG] [EKG] (5) Respiratory failure with hypercapnia Status: Acute Qualifiers: Chronicity: acute Qualified Code(s): J96.02 - Acute respiratory failure with hypercapnia Category: Medical Code(s): J96.92 - Respiratory failure, unspecified with hypercapnia (6) Severe sepsis with acute organ dysfunction Status: Acute Category: Medical Code(s): A41.9 - Sepsis, unspecified organism; R65.20 - Severe sepsis without septic shock (7) Acute exacerbation of chronic obstructive airways disease Status: Acute Category: Medical Code(s): J44.1 - Chronic obstructive pulmonary disease with (acute) exacerbation (8) Type 2 diabetes mellitus Status: Chronic Category: Medical Code(s): E11.9 - Type 2 diabetes mellitus without complications (9) History of rectal cancer Status: Chronic Category: Medical Code(s): Z85.048 - Personal history of other malignant neoplasm of rectum, rectosigmoid junction, and anus (10) Tobacco use Status: Chronic Category: Social Hx Code(s): Z72.0 - Tobacco use (11) LLL pneumonia Status: Acute Category: Medical Code(s): J18.9 - Pneumonia, unspecified organism (12) Hypokalemia Status: Acute Category: Medical Code(s): E87.6 - Hypokalemia (13) Acute systolic (congestive) heart failure Status: Acute Category: Medical Code(s): I50.21 - Acute systolic (congestive) heart failure (14) Ischemic cardiomyopathy Status: Acute Category: Medical Code(s): I25.5 - Ischemic cardiomyopathy (15) LV dysfunction Status: Acute Category: Medical Code(s): I51.9 - Heart disease, unspecified (16) Pulmonary hypertension Status: Acute Category: Medical Code(s): I27.20 - Pulmonary hypertension, unspecified (17) Shortness of breath Status: Acute Category: Medical Code(s): R06.02 - Shortness of breath - Assessment and plan all Dx Assessment and Plan for all problems:: #Acute hypoxic hypercarbic respiratory failure: #Hospital-acquired pneumonia S/P Rx: Ms. Lynn is a 71-year-old female with a history of rectal cancer with colostomy and subsequent colon resection and reversal of the colostomy, kidney failure, COPD, TIA, and diabetes. Presented with Hypercarbic respiratory failure and had been on BiPAp since admission from 11/18/21 and pulmonary was called today for further management. CXR on admission Bilateral LL pneumonia worsening on repeat CXR from 11/20/21. Flu and COVID viral PCR negative on admission. On my initial exaination patient does not appear to be any respiratory distress she is alert awake able to talk in complete sentenc
[2021-12-01 17:57] LABS: POC Glucose,Bedside 151 (70-110)
[2021-12-01 21:11] LABS: POC Glucose,Bedside 230 (70-110)
[2021-12-02] VITALS (8 sets, daily range): BP systolic 90–136; BP diastolic 40–72; PULSE 55–90; RESP 14–24; TEMP 36.4–36.9; O2SAT 91–95; BMI 25.0
--- NOTE | 2021-12-02 05:50 | PC.NURSE ---
Pt manual BP 90/40. Dr Black notified. NNO. Pt remains asymptomatic. No complaints voiced to staff. Call light within reach.
[2021-12-02 06:32] LABS: POC Glucose,Bedside 134 (70-110)
--- NOTE | 2021-12-02 09:10 | HMH.ACPN2 ---
Internal Medicine - PN: Subj *Date: 12/02/21 *Time: 09:10 Interval history: Patient with no new complaints today, nurses noted one episode of low BP overnight. Exam Vital signs and Labs for Last 24 Hours: Temp Pulse Resp BP Pulse Ox 97.6 F 58 L 24 136/69 94 L 12/02/21 08:00 12/02/21 08:00 12/02/21 08:00 12/02/21 08:00 12/02/21 08:00 Laboratory Results - last 24 hr 12/01/21 10:56: POC Glucose 225 H 12/01/21 17:01: POC Glucose 151 H 12/01/21 20:28: POC Glucose 230 H 12/02/21 06:24: POC Glucose 134 H Vital Signs - 24 hr 12/01/21 12:00 12/01/21 16:00 12/01/21 20:00 Temperature 98.2 F 98.1 F 97.6 F Pulse Rate 75 90 80 Pulse Rate [Apical] 88 65 85 Respiratory Rate 20 20 16 Blood Pressure [Left Calf] 100/53 L 108/42 L 102/53 L Blood Pressure [Right Arm] 02 Sat by Pulse Oximetry 89 L 94 L 94 L 12/01/21 21:41 12/02/21 00:00 12/02/21 04:00 Temperature 97.5 F L 98.5 F Pulse Rate 80 80 Pulse Rate [Apical] 81 82 Respiratory Rate 16 14 Blood Pressure [Left Calf] 103/41 L Blood Pressure [Right Arm] 90/40 L 02 Sat by Pulse Oximetry 88 L 93 L 94 L 12/02/21 06:26 12/02/21 08:00 Temperature 97.6 F Pulse Rate Pulse Rate [Apical] 58 L Respiratory Rate 24 Blood Pressure [Left Calf] Blood Pressure [Right Arm] 136/69 02 Sat by Pulse Oximetry 91 L 94 L I & O for Last 24 hours: Intake & Output 11/29/21 11/30/21 12/01/21 12/02/21 23:59 23:59 23:59 23:59 Intake Total 780 / 780 360 / 360 840 / 840 Output Total 950 / 1500 550 / 550 Balance -170 / -720 -190 / -190 840 / 840 Weight 164 lb 11.2 oz 160 lb 159 lb 11.2 oz 159 lb 2 oz - Constitutional no acute distress - *Routine HEENT Exam Head: Present: normocephalic Eye: Present: EOMI, PERRL ENT: Present: mucous membranes moist - *Routine Neck Exam Present: supple. Absent: lymphadenopathy - *Routine Respiratory Exam Present: decreased breath sounds, CTA bilaterally - *Routine Cardiovascular Exam Present: RRR - *Routine Abdominal Exam Present: soft, normoactive bowel sounds. Absent: tenderness - *Routine Extremities Exam Absent: cyanosis, clubbing, edema - *Routine Skin Exam Present: warm. Absent: rash - *Routine Neurological Exam Present: alert, oriented X3 Assessment and Plan (1) Non-STEMI (non-ST elevated myocardial infarction) Status: Acute Category: Medical Code(s): I21.4 - Non-ST elevation (NSTEMI) myocardial infarction (2) Elevated troponin Status: Acute Category: Medical Code(s): R77.8 - Other specified abnormalities of plasma proteins (3) Bilateral carotid bruits Status: Acute Category: Medical Code(s): R09.89 - Other specified symptoms and signs involving the circulatory and respiratory systems (4) Abnormal EKG Status: Acute Category: Medical Code(s): R94.31 - Abnormal electrocardiogram [ECG] [EKG] (5) Respiratory failure with hypercapnia Status: Acute Qualifiers: Chronicity: acute Qualified Code(s): J96.02 - Acute respiratory failure with hypercapnia Category: Medical Code(s): J96.92 - Respiratory failure, unspecified with hypercapnia (6) Severe sepsis with acute organ dysfunction Status: Acute Category: Medical Code(s): A41.9 - Sepsis, unspecified organism; R65.20 - Severe sepsis without septic shock (7) Acute exacerbation of chronic obstructive airways disease Status: Acute Category: Medical Code(s): J44.1 - Chronic obstructive pulmonary disease with (acute) exacerbation (8) Type 2 diabetes mellitus Status: Chronic Category: Medical Code(s): E11.9 - Type 2 diabetes mellitus without complications (9) History of rectal cancer Status: Chronic Category: Medical Code(s): Z85.048 - Personal history of other malignant neoplasm of rectum, rectosigmoid junction, and anus (10) Tobacco use Status: Chronic Category: Social Hx Code(s): Z72.0 - Tobacco use (11) LLL pneumonia Status: Acute Category: Medical
[2021-12-02 10:53] LABS: POC Glucose,Bedside 238 (70-110)
[2021-12-03] VITALS (8 sets, daily range): BP systolic 95–110; BP diastolic 46–58; PULSE 60–100; RESP 14–21; TEMP 36.3–36.9; O2SAT 90–95; BMI 25.0
--- NOTE | 2021-12-03 04:21 | PC.NURSE ---
No acute episodes or changes thus far during my shift. Pt is still on 6 L NC maintaining O2 sat between 90-95%. Medicated per OCT for diarrhea. Blood glucose at bedtime was 160. Pt is being monitored via tele - NSR w/ PVCs. Cath site - c/d/i, bruising noted, no bleeding. No other needs or complaints voiced at this time. Call light in reach.
--- NOTE | 2021-12-03 08:41 | HMH.ACPN2 ---
Internal Medicine - PN: Subj *Date: 12/03/21 *Time: 08:41 Interval history: Patient is frustrated with her current medical problems and is anxious to go home. Unable to wean below 6 L of O2 yesterday. She has refused blood draws. Exam Vital signs and Labs for Last 24 Hours: Temp Pulse Resp BP Pulse Ox 97.5 F L 73 21 103/48 L 94 L 12/03/21 08:00 12/03/21 08:00 12/03/21 08:00 12/03/21 08:00 12/03/21 08:00 Laboratory Results - last 24 hr 12/02/21 10:42: POC Glucose 238 H Vital Signs - 24 hr 12/02/21 12:00 12/02/21 15:37 12/02/21 16:00 Temperature 97.9 F 97.5 F L Pulse Rate 80 80 Pulse Rate [Apical] 79 55 L Respiratory Rate 22 21 Blood Pressure [Right Arm] 131/72 107/55 L 02 Sat by Pulse Oximetry 95 93 L 12/02/21 20:00 12/03/21 00:00 12/03/21 04:00 Temperature 97.5 F L 98.5 F 98.5 F Pulse Rate 80 60 70 Pulse Rate [Apical] 83 61 81 Respiratory Rate 16 14 18 Blood Pressure [Right Arm] 101/60 L 95/50 L 107/58 L 02 Sat by Pulse Oximetry 95 93 L 95 12/03/21 06:58 12/03/21 08:00 Temperature 97.5 F L Pulse Rate Pulse Rate [Apical] 73 Respiratory Rate 21 Blood Pressure [Right Arm] 103/48 L 02 Sat by Pulse Oximetry 90 L 94 L I & O for Last 24 hours: Intake & Output 11/30/21 12/01/21 12/02/21 12/03/21 23:59 23:59 23:59 23:59 Intake Total 360 / 360 840 / 840 480 / 480 560 / 560 Output Total 550 / 550 75 / 275 200 / 200 Balance -190 / -190 840 / 840 405 / 205 360 / 360 Weight 160 lb 159 lb 11.2 oz 159 lb 2 oz 159 lb 12.8 oz - Constitutional no acute distress - *Routine HEENT Exam Head: Present: normocephalic Eye: Present: EOMI, PERRL ENT: Present: mucous membranes moist - *Routine Neck Exam Present: supple. Absent: lymphadenopathy - *Routine Respiratory Exam Present: decreased breath sounds, rhonchi (rare). Absent: wheezes - *Routine Cardiovascular Exam Present: RRR - *Routine Abdominal Exam Present: soft, normoactive bowel sounds. Absent: tenderness - *Routine Extremities Exam Absent: cyanosis, clubbing, edema - *Routine Skin Exam Present: warm. Absent: rash - *Routine Neurological Exam Present: alert, oriented X3 Assessment and Plan (1) Non-STEMI (non-ST elevated myocardial infarction) Status: Acute Category: Medical Code(s): I21.4 - Non-ST elevation (NSTEMI) myocardial infarction (2) Elevated troponin Status: Acute Category: Medical Code(s): R77.8 - Other specified abnormalities of plasma proteins (3) Bilateral carotid bruits Status: Acute Category: Medical Code(s): R09.89 - Other specified symptoms and signs involving the circulatory and respiratory systems (4) Abnormal EKG Status: Acute Category: Medical Code(s): R94.31 - Abnormal electrocardiogram [ECG] [EKG] (5) Respiratory failure with hypercapnia Status: Acute Qualifiers: Chronicity: acute Qualified Code(s): J96.02 - Acute respiratory failure with hypercapnia Category: Medical Code(s): J96.92 - Respiratory failure, unspecified with hypercapnia (6) Severe sepsis with acute organ dysfunction Status: Acute Category: Medical Code(s): A41.9 - Sepsis, unspecified organism; R65.20 - Severe sepsis without septic shock (7) Acute exacerbation of chronic obstructive airways disease Status: Acute Category: Medical Code(s): J44.1 - Chronic obstructive pulmonary disease with (acute) exacerbation (8) Type 2 diabetes mellitus Status: Chronic Category: Medical Code(s): E11.9 - Type 2 diabetes mellitus without complications (9) History of rectal cancer Status: Chronic Category: Medical Code(s): Z85.048 - Personal history of other malignant neoplasm of rectum, rectosigmoid junction, and anus (10) Tobacco use Status: Chronic Category: Social Hx Code(s): Z72.0 - Tobacco use (11) LLL pneumonia Status: Acute Category: Medical Code(s): J18.9 - Pneumonia, unspecified organism (12) Hypokalemia Status: Acute
[2021-12-03 09:39] LABS: Anion Gap 9.6 mEq/L (5-15); Blood Urea Nitrogen 43 mg/dl (7-17); Calcium 8.3 mg/dl (8.4-10.2); Carbon Dioxide 27 mmol/L (22.0-30.0); Chloride 104 mmol/L (98-107); Creatinine Clearance Estimated 42 mL/min (50-200); Estimated Glomerular Filt Rate 37 ml/min (>60); GFR (African American) 45 ML/MIN (>60); Glucose 146 mg/dl (74-100); Potassium 3.6 mmoL/L (3.5-5.1); Sodium 137 mmol/L (136-145)
[2021-12-03 10:04] LABS: Basophils % 0.2 % (0.1-2.0); Eosinophils # 0.1 K/mm3 (0.0-0.4); Eosinophils % 0.8 % (0.1-12.0); Hematocrit 33.5 % (37.0-47.0); Hemoglobin 11.3 g/dL (12.2-16.2); Lymphocytes # 0.8 K/mm3 (0.7-4.5); Lymphocytes % 8.5 % (10-50); Mean Corpuscular HGB Conc 33.7 g/dL (31.8-35.4); Mean Corpuscular Hemoglobin 30.8 pg (27.0-31.2); Mean Corpuscular Volume 91.4 fl (81-99); Mean Platelet Volume 9.2 fl (7.4-10.4); Monocytes # 0.5 K/mm3 (0.1-1.0); Monocytes % 5.3 % (1.7-9.3); Neutrophils % 85.2 % (37.0-80.0); Platelet Count 323 K/mm3 (142-424); Red Blood Count 3.67 M/mm3 (4.20-5.40); Red Cell Distribution Width 16.8 % (11.5-17.5); White Blood Count 9.3 K/mm3 (4.8-10.8)
[2021-12-03 10:19] LABS: MANUAL DIFFERENTIAL MANUAL DIFFERENTIAL (MANUAL DIFF)
[2021-12-03 11:03] LABS: Lymphocytes % 9 % (10-50); Monocytes % 6 % (2-9); Neutrophils % 85 % (42-76); RBC Morphology Normal; Total Cells Counted 100
[2021-12-03 11:04] LABS: Platelet Estimate Normal
--- NOTE | 2021-12-03 15:52 | PC.NURSE ---
pt is having multiple episodes of loose stools every shift. Medicated per MAR
--- NOTE | 2021-12-03 18:37 | PC.NURSE ---
pt has had multiple episodes of diarrhea. She repors increased weakness and SOA with exertion. o2 remains stable at rest but she drops to the 80s when getting up to [facility] [place]. She has had poor po intake. refused her metformin and insuln this evening due to nausea and not eating
[2021-12-03 21:25] LABS: Basophils # 0.2 K/mm3 (0-0.2); Basophils % 1.9 % (0.1-2.0); Eosinophils # 0.1 K/mm3 (0.0-0.4); Eosinophils % 0.7 % (0.1-12.0); Hematocrit 28.5 % (37.0-47.0); Lymphocytes # 1.1 K/mm3 (0.7-4.5); Lymphocytes % 10.8 % (10-50); Mean Corpuscular Hemoglobin 28.8 pg (27.0-31.2); Mean Corpuscular Volume 92.8 fl (81-99); Mean Platelet Volume 8.6 fl (7.4-10.4); Monocytes # 0.5 K/mm3 (0.1-1.0); Monocytes % 4.5 % (1.7-9.3); Neutrophils # 8.4 K/mm3 (1.8-7.8); Neutrophils % 82.2 % (37.0-80.0); Platelet Count 350 K/mm3 (142-424); Red Blood Count 3.07 M/mm3 (4.20-5.40); Red Cell Distribution Width 16.9 % (11.5-17.5); White Blood Count 10.2 K/mm3 (4.8-10.8)
[2021-12-03 21:34] LABS: Hemoglobin 9.1 g/dL (12.2-16.2)
[2021-12-03 22:05] LABS: Adenovirus F 40/41, stool Not Detected (NotDetected); Astrovirus Not Detected (NotDetected); Campylobacter Not Detected (NotDetected); Clostridium Difficile A/B, PCR Not Detected (NotDetected); Cryptosporidium Not Detected (NotDetected); Cyclospora Cayetanesis Not Detected (NotDetected); Entamoeba histolytica Not Detected (NotDetected); Enteroaggregative E coli Not Detected (NotDetected); Enteropathogenic E coli Not Detected (NotDetected); Enterotoxigenic E coli Not Detected (NotDetected); Giardia lamblia Not Detected (NotDetected); Norovirus Not Detected (NotDetected); Plesimonas Shigalloides, PCR Not Detected (NotDetected); Rotavirus A Not Detected (NotDetected); Salmonella, PCR Not Detected (NotDetected); Sapovirus Not Detected (NotDetected); Shiga-like toxin E coli Not Detected (NotDetected); Shigella Enterovasive E coli Not Detected (NotDetected); Vibrio Cholerae Not Detected (NotDetected); Vibrio, PCR Not Detected (NotDetected); Yersinia Entercolitica, PCR Not Detected (NotDetected)
[2021-12-03 22:06] LABS: Occult Blood,Stool Positive (Negative)
[2021-12-04] VITALS (8 sets, daily range): BP systolic 93–104; BP diastolic 49–54; PULSE 78–95; RESP 17–20; TEMP 36.7–37.2; O2SAT 89–98; BMI 24.7
--- NOTE | 2021-12-04 04:05 | PC.NURSE ---
Around 2029, SRNA called this RN to pts room to look at pts latest BM. Dark red liquid w/ clotted blood noted in BSC, with no obvious stool. Had SRNA measure contents - 150 mls. Pt states this is the first BM today that has looked like this. Contacted [facility] officer [facility] - new orders received for stat CBC, type & screen, hold 2 units PRBCs, occult stool, diarrhea panel, and start IV protonix. Orders carried out by this RN. Diarrhea panel neg, occult stool pos+, H&H had dropped some but not critical at this time. No other episodes of diarrhea reported thus far. Titrated pts O2 from 6L NC, to 5 L NC. O2 sat at this time maintaining >90% on 5 L. No other complaints or needs voiced at this time. Call light in reach.
--- NOTE | 2021-12-04 06:42 | PC.NURSE ---
Educated pt on changing IV site every 72 hrs, offered to place new IV. Pt refused at this time, will pass along to day shift RN.
--- NOTE | 2021-12-04 08:40 | HMH.PNCARD ---
Subjective Date: 12/04/21 Time: 08:40 Principal diagnosis: nonstemi, CHF Interval history: 71-year-old white female in bed in no acute distress. Frustrated with the amount of blood draws being performed. Patient has been having some diarrhea this admission. Stool occult blood positive yesterday. Patient has a history of rectal cancer surgery in 2014 with transient colostomy that was reversed. She had no chemo or radiation therapy. Her last colonoscopy was approximately 2019. She has been without medical care for about 3 years. Denies any chest pain, pressure or tightness at this time. Is unsure as to whether she is going to wear the LifeVest. Exam Vital signs and Labs for Last 24 Hours: Temp Pulse Resp BP Pulse Ox 98.3 F 81 17 101/49 L 89 L 12/04/21 04:00 12/04/21 04:00 12/04/21 04:00 12/04/21 04:00 12/04/21 06:17 Laboratory Results - last 24 hr 12/03/21 08:44: WBC 9.3 D, RBC 3.67 L, Hgb 11.3 L, Hct 33.5 L, MCV 91.4, MCH 30.8, MCHC 33.7, RDW 16.8, Plt Count 323, MPV 9.2, Neut % (Auto) 85.2 H, Lymph % (Auto) 8.5 L, Barber % (Auto) 5.3, Eos % (Auto) 0.8, Baso % (Auto) 0.2, Neut # (Auto) 8.0 H, Lymph # (Auto) 0.8, Barber # (Auto) 0.5, Eos # (Auto) 0.1, Baso # (Auto) 0.0, Total Counted 100, Neutrophils % (Manual) 85 H, Lymphocytes % (Manual) 9 L, Monocytes % (Manual) 6, Platelet Estimate Normal, RBC Morphology Normal 12/03/21 08:44: Sodium 137, Potassium 3.6, Chloride 104, Carbon Dioxide 27, Anion Gap 9.6, BUN 43 H D, Creatinine 1.40 H, Estimated Creat Clear 42, Estimated GFR 37 L, Est GFR ( Amer) 45 L, Glucose 146 H, Calcium 8.3 L 12/03/21 20:30: Stool Occult Blood Positive A 12/03/21 20:30: Stl Aeromonas (PCR) Not detected, Stl C. cayetanensis PCR Not detected, Stool Rotavirus (PCR) Not detected, Stl Adenov F 40/41 PCR Not detected, Stool Astrovirus (PCR) Not detected, Stool Campylobacter PCR Not detected, Stl C.difficile Tox PCR Not detected, Stool Cryptosporidium PCR Not detected, Stl E.coli Shiga Tox PCR Not detected, Stool E coli O157 PCR Not detected, Stl Enterotoxigenic E PCR Not detected, Stool EPEC (PCR) Not detected, Stool EAEC (PCR) Not detected, Stl E. histolytica PCR Not detected, Stool Giardia Lamblia PCR Not detected, Stool Salmonella PCR Not detected, Stool Sapovirus (PCR) Not detected, Stl P. shigelloides PCR Not detected, Stl Shigella/EIEC PCR Not detected, St Y.enterocolitica PCR Not detected, Stool Vibrio (PCR) Not detected, Stl Vibrio cholerae PCR Not detected, Stl Norovirus GI/GII PCR Not detected 12/03/21 21:15: WBC 10.2, RBC 3.07 L, Hgb 9.1 L D, Hct 28.5 L, MCV 92.8, MCH 28.8, MCHC 31.0 L, RDW 16.9, Plt Count 350, MPV 8.6, Neut % (Auto) 82.2 H, Lymph % (Auto) 10.8, Barber % (Auto) 4.5, Eos % (Auto) 0.7, Baso % (Auto) 1.9, Neut # (Auto) 8.4 H, Lymph # (Auto) 1.1, Barber # (Auto) 0.5, Eos # (Auto) 0.1, Baso # (Auto) 0.2 12/03/21 21:15: Blood Type A Positive, Antibody Screen Negative, Crossmatch (AHG) See Detail 12/03/21 21:15: Blood Type Confirm A Positive I & O for Last 24 hours: Intake & Output 12/01/21 12/02/21 12/03/21 12/04/21 11:59 11:59 11:59 11:59 Intake Total 840 / 840 600 / 600 800 / 800 240 / 240 Output Total 275 / 275 150 / 150 Balance 840 / 840 600 / 600 525 / 525 90 / 90 Weight 159 lb 11.2 oz 159 lb 2 oz 159 lb 12.8 oz 157 lb 6.4 oz - Constitutional no acute distress - *Routine Respiratory Exam Present: CTA bilaterally - *Routine Cardiovascular Exam Present: RRR - *Routine Extremities Exam Absent: cyanosis, clubbing, edema - *Routine Neurological Exam Present: alert, oriented X3 Progress Note: A&P (1) Non-STEMI (non-ST elevated myocardial infarction) Status: Acute (2) Elevated troponin Status: Acute (3) Bilateral carotid bruits Status: Acute (4) Abnormal EKG Status: Acute (5) Respiratory failure with hypercapnia Status: Acute (6) Severe sepsis with acute organ dysfunction Status: Acute (7) Acute exacerbation of chronic obstructive airways
[2021-12-04 09:07] LABS: Basophils # 0.1 K/mm3 (0-0.2); Basophils % 0.5 % (0.1-2.0); Eosinophils # 0.1 K/mm3 (0.0-0.4); Eosinophils % 0.6 % (0.1-12.0); Hematocrit 28.4 % (37.0-47.0); Hemoglobin 9.5 g/dL (12.2-16.2); Lymphocytes # 1.1 K/mm3 (0.7-4.5); Lymphocytes % 10.2 % (10-50); Mean Corpuscular HGB Conc 33.5 g/dL (31.8-35.4); Mean Corpuscular Volume 92.8 fl (81-99); Mean Platelet Volume 9.3 fl (7.4-10.4); Monocytes # 0.5 K/mm3 (0.1-1.0); Monocytes % 4.7 % (1.7-9.3); Platelet Count 339 K/mm3 (142-424); Red Blood Count 3.06 M/mm3 (4.20-5.40); Red Cell Distribution Width 16.8 % (11.5-17.5); White Blood Count 10.7 K/mm3 (4.8-10.8)
[2021-12-04 09:17] LABS: Alanine Aminotransferase 31 U/L (12-78); Albumin Level 2.9 g/dl (3.5-5.0); Albumin/Globulin Ratio 1.1 (1.1-1.8); Alkaline Phosphatase 59 U/L (38-126); Anion Gap 12.3 mEq/L (5-15); Aspartate Amino Transferase 31 U/L (14-36); Bilirubin,Total 0.5 mg/dl (0.2-1.3); Blood Urea Nitrogen 75 mg/dl (7-17); Calcium 7.9 mg/dl (8.4-10.2); Carbon Dioxide 26 mmol/L (22.0-30.0); Chloride 101 mmol/L (98-107); Creatinine Clearance Estimated 24 mL/min (50-200); Estimated Glomerular Filt Rate 20 ml/min (>60); GFR (African American) 24 ML/MIN (>60); Globulin 2.6 g/dL (1.3-3.2); Glucose 181 mg/dl (74-100); Potassium 3.3 mmoL/L (3.5-5.1); Sodium 136 mmol/L (136-145); Total Protein,Serum 5.5 g/dl (6.3-8.2)
--- NOTE | 2021-12-04 10:32 | HMH.PULMPN ---
Internal Medicine - PN: Subj *Date: 12/04/21 *Time: 10:32 Interval history: No acute respiratory events overnight. Continues to be needing oxygen supplementation. Exam - Constitutional Constitutional:: Present: no acute distress, comfortable - HENMT Exam HENMT: Present: normocephalic - Eye Exam Eyes:: Present: normal appearance both eyes and related structures - Neck Exam Neck:: Present: normal visual inspection - Respiratory Exam Respiratory:: Present: able to speak in complete sentences, no respiratory distress. Absent: wheezing - Cardiovascular Exam Cardiac:: Present: S1, S2 - GI Exam GI:: Present: soft - Skin Exam Skin: Present: warm - Neurological Exam Neurological: Present: alert, awake, normal cognition - Extremities Exam Extremities: Present: no cyanosis, no clubbing, no edema Assessment and Plan (1) Non-STEMI (non-ST elevated myocardial infarction) Status: Acute Category: Medical Code(s): I21.4 - Non-ST elevation (NSTEMI) myocardial infarction (2) Elevated troponin Status: Acute Category: Medical Code(s): R77.8 - Other specified abnormalities of plasma proteins (3) Bilateral carotid bruits Status: Acute Category: Medical Code(s): R09.89 - Other specified symptoms and signs involving the circulatory and respiratory systems (4) Abnormal EKG Status: Acute Category: Medical Code(s): R94.31 - Abnormal electrocardiogram [ECG] [EKG] (5) Respiratory failure with hypercapnia Status: Acute Qualifiers: Chronicity: acute Qualified Code(s): J96.02 - Acute respiratory failure with hypercapnia Category: Medical Code(s): J96.92 - Respiratory failure, unspecified with hypercapnia (6) Severe sepsis with acute organ dysfunction Status: Acute Category: Medical Code(s): A41.9 - Sepsis, unspecified organism; R65.20 - Severe sepsis without septic shock (7) Acute exacerbation of chronic obstructive airways disease Status: Acute Category: Medical Code(s): J44.1 - Chronic obstructive pulmonary disease with (acute) exacerbation (8) Type 2 diabetes mellitus Status: Chronic Category: Medical Code(s): E11.9 - Type 2 diabetes mellitus without complications (9) History of rectal cancer Status: Chronic Category: Medical Code(s): Z85.048 - Personal history of other malignant neoplasm of rectum, rectosigmoid junction, and anus (10) Tobacco use Status: Chronic Category: Social Hx Code(s): Z72.0 - Tobacco use (11) LLL pneumonia Status: Acute Category: Medical Code(s): J18.9 - Pneumonia, unspecified organism (12) Hypokalemia Status: Acute Category: Medical Code(s): E87.6 - Hypokalemia (13) Acute systolic (congestive) heart failure Status: Acute Category: Medical Code(s): I50.21 - Acute systolic (congestive) heart failure (14) Ischemic cardiomyopathy Status: Acute Category: Medical Code(s): I25.5 - Ischemic cardiomyopathy (15) LV dysfunction Status: Acute Category: Medical Code(s): I51.9 - Heart disease, unspecified (16) Pulmonary hypertension Status: Acute Category: Medical Code(s): I27.20 - Pulmonary hypertension, unspecified (17) Shortness of breath Status: Acute Category: Medical Code(s): R06.02 - Shortness of breath - Assessment and plan all Dx Assessment and Plan for all problems:: #Acute hypoxic hypercarbic respiratory failure: #Hospital-acquired pneumonia S/P Rx: #Pulmonary AV malformation: Ms. Lynn is a 71-year-old female with a history of rectal cancer with colostomy and subsequent colon resection and reversal of the colostomy, kidney failure, COPD, TIA, and diabetes. Presented with Hypercarbic respiratory failure and had been on BiPAp since admission from 11/18/21 and pulmonary was called today for further management. CXR on admission Bilateral LL pneumonia worsening on repeat CXR from 11/20/21. Flu and COVID viral PCR negative on admission. On my initial exaination patient do
[2021-12-04 11:42] LABS: POC Glucose,Bedside 223 (70-110)
--- NOTE | 2021-12-04 12:49 | HMH.GSCON ---
*Admission Date: 11/18/21 *Reason for consult:: Anemia, GI blood loss, history rectal cancer *History of present illness: Patient is a 71-year-old female with history of rectal cancer and colostomy with subsequent colon resection and reversal of colostomy in 2014. Exact details are unclear. She has a history of renal failure, COPD, TIA, and diabetes. She has continued to smoke. She had presented to the emergency department on 11/18/2021 with a several day history of progressively worsening shortness of breath. Upon presentation she was found to have findings consistent with hypercapnic respiratory failure. She had findings on imaging consistent with bilateral lower lobe pneumonia. Due to patient's inability to make appreciable improvement from a respiratory standpoint pulmonology was consulted on 11/22/2021. She has had slow improvement and ultimately her BiPAP has been weaned. She had developed some diarrhea and stool PCR panel was negative for infectious etiology. She had some elevation of troponins consistent with non-ST elevation myocardial infarction. She underwent cardiology consultation on 11/28/2021. She did have left heart catheterization which revealed findings of critical two-vessel coronary artery disease accompanied by severe left ventricular dysfunction. She underwent stenting. She was initiated on dual antiplatelet therapy and Brilinta. It was felt that the patient has severe left ventricular dysfunction and would require LifeVest due to her increased risk of sudden cardiac . She was diuresed. She has had slow convalescence. Consideration was being given for possible CT angiogram of the chest but she refused initially. She did have approval for LifeVest as an outpatient. She did undergo CT angiogram which was negative for pulmonary embolism. She had been unable to wean her oxygen below 6 L nasal cannula. She had refused some blood draws initially. She has been extremely anxious to go home. On 12/03/2021 it was noted that her hemoglobin was 9.1, down from 12.4 on 12/01/2021. Repeat hemoglobin on 12/04/2021 was 9.5. She had stool Hemoccult positivity. Consultation was obtained for surgeon on-call for anemia, GI blood loss, history of rectal cancer. She was typed and crossed for 2 units packed red blood cells for hemoglobin of 9.1. Of note, her BUN on admission was 16. Subsequent BUN has shown some elevation as high as 70. Most recent hemoglobin 75 today on 12/04/2021. She was started on IV Protonix on 12/03/2021. She has had some dark liquid stool. Review of Systems - Review of Systems Review of systems:: pertinent systems reviewed and negative unless documented below - *Neurologic Reports weakness, Denies headache(s), Denies seizure-like activity, Denies dizziness [facility] History I have reviewed the patient's past medical history: Yes Medical History: Reports:: Arrhythmia, Cancer, Diabetes Mellitus Type 1, Diabetes Mellitus Type 2, Hypertension, Lung Disease (copd), Renal Disease, Transient Ischemic Attacks (TIA) Denies:: Internal Pacemaker, Seizures *Have you ever received a pneumonia vaccine?: No *Have you received a flu vaccine this season?: No Other Medical History: Reports: Cataracts Laterality Cases: Bilateral: Cataract Other Surgeries: Yes: Colonoscopy, Colon Resection, Colostomy, Hernia Repair. No: Pacemaker - *Social History Last grade of school completed: High school graduate Smoking Status: Current every day smoker Tobacco Type: cigarettes # Packs/Day (cigarettes): 1 Alcohol Intake: never *Occupational Status:: retired Housing: house Household Members: none *Travel in the last 8 weeks: None Family Hx:: Cancer, Diabetes, Heart Attack, Stroke Meds Home Medications Medication Instructions Recorded Confirmed Type No Known Home Medications 02/24/19 11/18/21 History Allergies Allergy/AdvReac Type Severity Reaction Status Date / Time No Known Allergies Allergy Verified 03/17/19 08:26 Exam Vit
--- NOTE | 2021-12-04 14:39 | DIET.NUTRFU ---
RD saw patient today to review meal intake, late last week intake was good 75-100%, this weekend was 25%. She wants to go home and is tired of the food. RD reviewed meal choices, she claims she did not want anything. Family has been bringing foods in also. She does not follow cardiac diet at home. May eat more if liberalized diet. She also was not feeling well, increased SOB and diarrhea with blood. She is receiving blood today and plan for EGD tomorrow. Also started PPI tx. This m,ay have been contributing to appetite/meal intake. Urine output also appears low. Reviewed labs: BUN 75H (43), Cr 2.4H (1.4). Possible fluid imbalance, diuretic tx in place. IVF running at 250mls/day. Continue to follow meal intake
[2021-12-05] VITALS (40 sets, daily range): BP systolic 75–130; BP diastolic 33–73; PULSE 45–106; RESP 16–22; TEMP 36.4–36.9; O2SAT 87–100; BMI 24.5
--- NOTE | 2021-12-05 | ECG_ITS ---
APPROVED REPORT Exam: Resting ECG Conclusion Sinus rhythm Normal axis Isolated PVC Otherwise normal ECG UNCONFIRMED REPORT Electronically signed by : Amos Santizo MD 12/06/2021 17:57:30
--- NOTE | 2021-12-05 | ECG_ITS ---
APPROVED REPORT Exam: Resting ECG HR:94 bpm ECG Measurements Heart Rate 94 AXES TX 152 P 73 QRSd 113 QRS 39 QT 386 T 89 QTc 438 Conclusion SINUS RHYTHM WITH FREQUENT VENTRICULAR PREMATURE COMPLEXES LOW QRS VOLTAGE IN EXTREMITY LEADS [QRS DEFLECTION < 0.5 mV IN LIMB LEADS] MODERATE INTRAVENTRICULAR CONDUCTION DELAY [110+ ms QRS DURATION] MINIMAL ST DEPRESSION [0.025+ mV ST DEPRESSION] ABNORMAL RHYTHM ECG UNCONFIRMED REPORT Electronically signed by : Amos Santizo MD 12/06/2021 17:56:49
--- NOTE | 2021-12-05 04:43 | PC.NURSE ---
The first half of this shift, this patient was anxious, and was not resting well. She had one episode of N/V, emesis appeared blood tinged. She was treated with PRN medication for nausea. Since then, pt has rested well. She has had no c/o of chest pain, and has c/o difficulty breathing 2 times. O2 was increased from 5L to 6L and her O2 sats have been 93-95%. Tele shows NSR with PVC's and HR has been 95-101. SBP has been 92-102. She has had 1 small, dark stool this shift.
[2021-12-05 05:23] LABS: POC Glucose,Bedside 135 (70-110)
[2021-12-05 05:23] LABS: POC Glucose,Bedside 116 (70-110)
[2021-12-05 06:04] LABS: POC Glucose,Bedside 219 (70-110)
--- NOTE | 2021-12-05 06:40 | PC.NURSE ---
pt going down for procedure at this time
--- NOTE | 2021-12-05 07:11 | SUR.OPER ---
Ulcer site injected with 5cc Epinephrine
--- NOTE | 2021-12-05 07:17 | HMH.ANESCL ---
[facility] Anesthesia Checklist - Patient Identification Patient Identification: Arm Band - Structural Data Admitted From: Inpatient Planned Operative Procedure/s: EGD Consent for Planned Operative Procedure(s) Verified: Yes - NPO Status Verified Time NPO: 00:00 - Additional verifications Anesthesia Reactions: No - Airway Assessment C-Spine Mobility Assessed: Yes TMJ Mobility Assessed: Yes Dentition: Edentulous - Neurological Assessment Level of Consciousness: Awake Hx Seizures: No Numbness or tingling in extremities: No - Anesthesia Plan Anesthesia Risk discussed: Yes Anesthesia Plan: Verified ASA Class: IV (IV E) Anesthesia Type: MAC [facility] History I have reviewed the patient's past medical history: Yes Medical History: Reports:: Arrhythmia, Cancer, Cardiomyopathy, Congestive Heart Failure, Chronic Obstructive Pulmonary Disease (COPD), Coronary Artery Disease, Diabetes Mellitus Type 1, Diabetes Mellitus Type 2, Hypertension, Lung Disease (copd), Myocardial Infarction, Renal Disease, Transient Ischemic Attacks (TIA) Denies:: Internal Pacemaker, Seizures *Have you ever received a pneumonia vaccine?: No *Have you received a flu vaccine this season?: No Other Medical History: Reports: Cataracts Anesthesia experience/problems:: None Laterality Cases: Bilateral: Cataract Other Surgeries: Yes: Colonoscopy, Colon Resection, Colostomy, Hernia Repair. No: Pacemaker - *Social History Last grade of school completed: High school graduate Smoking Status: Current every day smoker Tobacco Type: cigarettes # Packs/Day (cigarettes): 1 Alcohol Intake: never Substance Use Type: denies use *Occupational Status:: retired Housing: house Household Members: none *Travel in the last 8 weeks: None Family Hx:: Cancer, Diabetes, Heart Attack, Stroke
--- NOTE | 2021-12-05 07:36 | P.PCN_ITS ---
- Procedure: Date: 12/05/21 Patient Date of :: 1950 Procedure Performed:: Esophagogastroduodenoscopy Indications:: Patient is a 71-year-old female with history of rectal cancer with temporary colostomy in 2015 at [facility]. She has a history of renal failure, COPD, TIA, diabetes. She is a smoker. She has been admitted since 11/18/2021. She was admitted with shortness of breath and found to be in hypercapnic respiratory failure. During this hospitalization she has been treated for that and bilateral lower lobe pneumonia. Patient ultimately did have elevation of troponins consistent with non-ST elevation myocardial infarction and underwent left heart catheterization with stent placement. She has been on dual antiplatelet therapy with aspirin and Brilinta. On 12/03/2021 as noted her hemoglobin was 9.1 which was down from 12.4 on 12/01/2021. She was found to have Hemoccult stool positivity. Surgery was consulted. She was found to have some dark stool. Plan was made for EGD. Overnight she had some coffee-ground hematemesis. Performing Provider:: Ga Mason MD Referring Provider:: Rolf Steen MD Sedation:: MAC sedation Procedure:: Patient was taken to endoscopy procedure room. She was positioned in lateral decubitus position. Adequate intravenous sedation was achieved with anesthesia titration of propofol. Olympus endoscope was inserted via the oropharynx. There is some coffee-ground material scattered in the esophagus scantly. In the distal esophagus there was erosion with diminutive blood clot. No evidence of any active bleeding. Stomach was cannulated and insufflated. There was a large amount of liquid stool and some solid food in the stomach. Much of this was suctioned free but visualization was still suboptimal. Retroflexion revealed a tiny sliding hiatal hernia. Pylorus was traversed. Within the first portion of the duodenum there was a moderate exudative ulcer. Just distal to this there was a larger ulcer with acute inflammation and some adherent clot. Is unclear if there was a visible vessel. There was no active bleeding. Epinephrine was injected circumferentially around the ulcer with good blanching. As there was no evidence of any obvious visible vessel Hemoclip was not deployed at this time. Stomach was desufflated and endoscope was withdrawn. Findings:: Distal erosive esophagitis with diminutive clot Tiny sliding hiatal hernia Moderately large amount of retained liquid and some food within the gastric lumen 2 duodenal ulcers within the first portion of the duodenum. Moderate sized with relatively clean base. Distal ulcer more inflamed with some blood clot but no definite visible vessel. No active bleeding. Epinephrine injected. Recommendations:: Recommend continue high-dose proton pump inhibitors. Limit to clear liquids at this time due to limited gastric emptying, visualization, and potential for rebleeding. Monitor hemoglobin hematocrit. I would add Cytotec. May need repeat endoscopy in 48 to 72 hours for better visualization and potential additional intervention if needed Complications:: None immediately apparent Estimated blood obtained (mL): 0
--- NOTE | 2021-12-05 08:26 | HMH.ACPN2 ---
<Jennifer Echevarria - Last Filed: 12/05/21 08:26> Internal Medicine - PN: Subj *Date: 12/05/21 *Time: 08:26 Interval history: Patient seen at 745 this morning after EGD completed. She is complaining of left anterior chest discomfort, shortness of breath, nausea, and states she vomited several times during the night. She is miserable at the present time. Blood pressure has fluctuated with systolic at 103 down to 98. Heart with irregular rhythm with auscultation. EKG completed. She has been given Zofran IV. She continues to have severe nausea. EGD completed this a.m. shows the following: Findings:: Distal erosive esophagitis with diminutive clot Tiny sliding hiatal hernia Moderately large amount of retained liquid and some food within the gastric lumen 2 duodenal ulcers within the first portion of the duodenum. Moderate sized with relatively clean base. Distal ulcer more inflamed with some blood clot but no definite visible vessel. No active bleeding. Epinephrine injected. Recommendations:: Recommend continue high-dose proton pump inhibitors. Limit to clear liquids at this time due to limited gastric emptying, visualization, and potential for rebleeding. Monitor hemoglobin hematocrit. I would add Cytotec. May need repeat endoscopy in 48 to 72 hours for better visualization and potential additional intervention if needed Lab work to be drawn stat. Will bolus with Ringer's lactate approximately 750 mL (from procedure. We will hold off on Phenergan due to systolic blood pressure at 88. Exam Vital signs and Labs for Last 24 Hours: Temp Pulse Resp BP Pulse Ox 97.5 F L 102 H 18 130/73 96 12/05/21 07:17 12/05/21 07:17 12/05/21 07:17 12/05/21 07:17 12/05/21 07:17 Laboratory Results - last 24 hr 12/04/21 08:58: WBC 10.7, RBC 3.06 L, Hgb 9.5 L, Hct 28.4 L, MCV 92.8, MCH 31.0, MCHC 33.5, RDW 16.8, Plt Count 339, MPV 9.3, Neut % (Auto) 84.0 H, Lymph % (Auto) 10.2, [place] % (Auto) 4.7, Eos % (Auto) 0.6, Baso % (Auto) 0.5, Neut # (Auto) 9.0 H, Lymph # (Auto) 1.1, [place] # (Auto) 0.5, Eos # (Auto) 0.1, Baso # (Auto) 0.1 12/04/21 08:58: Sodium 136, Potassium 3.3 L, Chloride 101, Carbon Dioxide 26, Anion Gap 12.3, BUN 75 H D, Creatinine 2.40 H D, Estimated Creat Clear 24, Estimated GFR 20 L, Est GFR ( Amer) 24 L D, Glucose 181 H, Calcium 7.9 L, Total Bilirubin 0.5, AST 31, ALT 31, Alkaline Phosphatase 59, Total Protein 5.5 L, Albumin 2.9 L, Globulin 2.6, Albumin/Globulin Ratio 1.1 12/04/21 11:33: POC Glucose 223 H 12/04/21 17:17: POC Glucose 116 H 12/04/21 20:36: POC Glucose 135 H 12/05/21 05:50: POC Glucose 219 H I & O for Last 24 hours: Intake & Output 12/02/21 12/03/21 12/04/21 12/05/21 11:59 11:59 11:59 11:59 Intake Total 600 / 600 800 / 800 360 / 360 120 / 120 Output Total 275 / 275 550 / 550 Balance 600 / 600 525 / 525 -190 / -190 120 / 120 Weight 159 lb 2 oz 159 lb 12.8 oz 157 lb 6.4 oz 156 lb 5 oz - Constitutional moderate distress (Due to pain and nausea) - *Routine Respiratory Exam Present: CTA bilaterally (Anteriorly) - *Routine Cardiovascular Exam Present: irregular rhythm - *Routine Abdominal Exam Present: soft, normoactive bowel sounds, tenderness (Upper abdomen and epigastrium) - *Routine Extremities Exam Absent: edema, calf tenderness - *Routine Neurological Exam Present: alert, oriented X3 Assessment and Plan (1) Non-STEMI (non-ST elevated myocardial infarction) Status: Acute Category: Medical Code(s): I21.4 - Non-ST elevation (NSTEMI) myocardial infarction (2) Elevated troponin Status: Acute Category: Medical Code(s): R77.8 - Other specified abnormalities of plasma proteins (3) Bilateral carotid bruits Status: Acute Category: Medical Code(s): R09.89 - Other specified symptoms and signs involving the circulatory and respiratory systems (4) Abnormal EKG Status: Acute Category: Medical Code(s): R94.31 - Abnormal electrocardiogram [ECG] [EKG]
[2021-12-05 08:45] LABS: Chloride 104 mmol/L (98-107)
[2021-12-05 08:46] LABS: Potassium 4.8 mmoL/L (3.5-5.1); Sodium 134 mmol/L (136-145)
[2021-12-05 08:47] LABS: Basophils % 0.1 % (0.1-2.0); Eosinophils % 0.2 % (0.1-12.0); Lymphocytes # 0.7 K/mm3 (0.7-4.5); Mean Corpuscular HGB Conc 33.3 g/dL (31.8-35.4); Mean Corpuscular Hemoglobin 31.2 pg (27.0-31.2); Mean Corpuscular Volume 93.6 fl (81-99); Mean Platelet Volume 8.9 fl (7.4-10.4); Monocytes # 0.4 K/mm3 (0.1-1.0); Monocytes % 3.6 % (1.7-9.3); Neutrophils # 10.2 K/mm3 (1.8-7.8); Neutrophils % 90.2 % (37.0-80.0); Platelet Count 306 K/mm3 (142-424); Red Blood Count 2.23 M/mm3 (4.20-5.40); Red Cell Distribution Width 16.8 % (11.5-17.5); White Blood Count 11.3 K/mm3 (4.8-10.8)
[2021-12-05 08:48] LABS: Alanine Aminotransferase 24 U/L (12-78); Albumin Level 2.5 g/dl (3.5-5.0); Albumin/Globulin Ratio 1.1 (1.1-1.8); Alkaline Phosphatase 56 U/L (38-126); Anion Gap 12.8 mEq/L (5-15); Aspartate Amino Transferase 26 U/L (14-36); Bilirubin,Total 0.4 mg/dl (0.2-1.3); Carbon Dioxide 22 mmol/L (22.0-30.0); Creatinine Clearance Estimated 18 mL/min (50-200); Estimated Glomerular Filt Rate 15 ml/min (>60); GFR (African American) 18 ML/MIN (>60); Globulin 2.3 g/dL (1.3-3.2); Total Protein,Serum 4.8 g/dl (6.3-8.2)
[2021-12-05 08:49] LABS: Calcium 7.6 mg/dl (8.4-10.2); Glucose 263 mg/dl (74-100)
[2021-12-05 08:53] LABS: Hematocrit 20.9 % (37.0-47.0)
[2021-12-05 08:54] LABS: Blood Urea Nitrogen 111 mg/dl (7-17); MANUAL DIFFERENTIAL MANUAL DIFFERENTIAL (MANUAL DIFF)
[2021-12-05 09:01] LABS: Troponin I 0.11 ng/ml (0.00-0.034)
[2021-12-05 09:07] LABS: Anisocytosis 1+; Lymphocytes % 8 % (10-50); Macrocytosis 1+; Monocytes % 4 % (2-9); Neutrophils % 88 % (42-76); Platelet Estimate Normal; Total Cells Counted 100
--- NOTE | 2021-12-05 10:10 | HMH.PULMPN ---
Internal Medicine - PN: Subj *Date: 12/05/21 *Time: 10:10 Interval history: No acute respiratory events overnight. Exam - Constitutional Constitutional:: Absent: no acute distress, comfortable - HENMT Exam HENMT: Present: normocephalic - Eye Exam Eyes:: Present: normal appearance both eyes and related structures - Neck Exam Neck:: Present: normal visual inspection - Respiratory Exam Respiratory:: Present: able to speak in complete sentences, no respiratory distress. Absent: wheezing - Cardiovascular Exam Cardiac:: Present: S1, S2 - GI Exam GI:: Present: soft - Skin Exam Skin: Present: warm, no rash - Neurological Exam Neurological: Present: alert, awake - Extremities Exam Extremities: Present: no cyanosis, no clubbing, no edema Assessment and Plan (1) Non-STEMI (non-ST elevated myocardial infarction) Status: Acute Category: Medical Code(s): I21.4 - Non-ST elevation (NSTEMI) myocardial infarction (2) Elevated troponin Status: Acute Category: Medical Code(s): R77.8 - Other specified abnormalities of plasma proteins (3) Bilateral carotid bruits Status: Acute Category: Medical Code(s): R09.89 - Other specified symptoms and signs involving the circulatory and respiratory systems (4) Abnormal EKG Status: Acute Category: Medical Code(s): R94.31 - Abnormal electrocardiogram [ECG] [EKG] (5) Respiratory failure with hypercapnia Status: Acute Qualifiers: Chronicity: acute Qualified Code(s): J96.02 - Acute respiratory failure with hypercapnia Category: Medical Code(s): J96.92 - Respiratory failure, unspecified with hypercapnia (6) Severe sepsis with acute organ dysfunction Status: Acute Category: Medical Code(s): A41.9 - Sepsis, unspecified organism; R65.20 - Severe sepsis without septic shock (7) Acute exacerbation of chronic obstructive airways disease Status: Acute Category: Medical Code(s): J44.1 - Chronic obstructive pulmonary disease with (acute) exacerbation (8) Type 2 diabetes mellitus Status: Chronic Category: Medical Code(s): E11.9 - Type 2 diabetes mellitus without complications (9) History of rectal cancer Status: Chronic Category: Medical Code(s): Z85.048 - Personal history of other malignant neoplasm of rectum, rectosigmoid junction, and anus (10) Tobacco use Status: Chronic Category: Social Hx Code(s): Z72.0 - Tobacco use (11) LLL pneumonia Status: Acute Category: Medical Code(s): J18.9 - Pneumonia, unspecified organism (12) Hypokalemia Status: Acute Category: Medical Code(s): E87.6 - Hypokalemia (13) Acute systolic (congestive) heart failure Status: Acute Category: Medical Code(s): I50.21 - Acute systolic (congestive) heart failure (14) Ischemic cardiomyopathy Status: Acute Category: Medical Code(s): I25.5 - Ischemic cardiomyopathy (15) LV dysfunction Status: Acute Category: Medical Code(s): I51.9 - Heart disease, unspecified (16) Pulmonary hypertension Status: Acute Category: Medical Code(s): I27.20 - Pulmonary hypertension, unspecified (17) Shortness of breath Status: Acute Category: Medical Code(s): R06.02 - Shortness of breath (18) Duodenal ulcer Status: Acute Category: Medical Code(s): K26.9 - Duodenal ulcer, unspecified as acute or chronic, without hemorrhage or perforation (19) Esophagitis Status: Acute Category: Medical Code(s): K20.90 - Esophagitis, unspecified without bleeding - Assessment and plan all Dx Assessment and Plan for all problems:: #Acute hypoxic hypercarbic respiratory failure: #Hospital-acquired pneumonia S/P Rx: #Pulmonary AV malformation: Ms. Lynn is a 71-year-old female with a history of rectal cancer with colostomy and subsequent colon resection and reversal of the colostomy, kidney failure, COPD, TIA, and diabetes. Presented with Hypercarbic respiratory failure and had been on BiPAp since admission from 11/18
--- NOTE | 2021-12-05 10:18 | HMH.PNCARD ---
Subjective Date: 12/05/21 Time: 08:00 Principal diagnosis: nonstemi, CHF Interval history: 71-year-old white female in bed in no acute distress. Patient relates some episodes of vomiting and lower chest upper abdominal discomfort this AM. EGD was performed this morning showing evidence of ulcers with clot noted. EKG obtained due to discomfort and vomiting with no acute ST segment changes noted. Exam Vital signs and Labs for Last 24 Hours: Temp Pulse Resp BP Pulse Ox 97.5 F L 102 H 18 130/73 96 12/05/21 07:17 12/05/21 07:17 12/05/21 07:17 12/05/21 07:17 12/05/21 07:17 Laboratory Results - last 24 hr 12/03/21 21:15: Blood Type A Positive, Antibody Screen Negative, Crossmatch (AHG) See Detail 12/04/21 11:33: POC Glucose 223 H 12/04/21 17:17: POC Glucose 116 H 12/04/21 20:36: POC Glucose 135 H 12/05/21 05:50: POC Glucose 219 H 12/05/21 08:34: WBC 11.3 H, RBC 2.23 L D, Hgb 7.0 L, Hct 20.9 L*, MCV 93.6, MCH 31.2, MCHC 33.3, RDW 16.8, Plt Count 306, MPV 8.9, Neut % (Auto) 90.2 H, Lymph % (Auto) 6.0 L, [place] % (Auto) 3.6, Eos % (Auto) 0.2, Baso % (Auto) 0.1, Neut # (Auto) 10.2 H, Lymph # (Auto) 0.7, [place] # (Auto) 0.4, Eos # (Auto) 0.0, Baso # (Auto) 0.0, Total Counted 100, Neutrophils % (Manual) 88 H, Lymphocytes % (Manual) 8 L, Monocytes % (Manual) 4, Platelet Estimate Normal, Anisocytosis 1+, Macrocytosis 1+ 12/05/21 08:34: Sodium 134 L, Potassium 4.8 D, Chloride 104, Carbon Dioxide 22, Anion Gap 12.8, BUN 111 H* D, Creatinine 3.10 H D, Estimated Creat Clear 18, Estimated GFR 15 L*, Est GFR ( Amer) 18 L* D, Glucose 263 H D, Calcium 7.6 L, Total Bilirubin 0.4, AST 26, ALT 24, Alkaline Phosphatase 56, Troponin I 0.11 H, Total Protein 4.8 L, Albumin 2.5 L D, Globulin 2.3, Albumin/Globulin Ratio 1.1 I & O for Last 24 hours: Intake & Output 12/02/21 12/03/21 12/04/21 12/05/21 11:59 11:59 11:59 11:59 Intake Total 600 / 600 800 / 800 360 / 360 120 / 120 Output Total 275 / 275 550 / 550 Balance 600 / 600 525 / 525 -190 / -190 120 / 120 Weight 159 lb 2 oz 159 lb 12.8 oz 157 lb 6.4 oz 156 lb 5 oz - Constitutional no acute distress - *Routine HEENT Exam Head: Present: normocephalic Eye: Present: EOMI, PERRL ENT: Present: mucous membranes moist - *Routine Neck Exam Present: supple. Absent: lymphadenopathy - *Routine Respiratory Exam Present: CTA bilaterally - *Routine Cardiovascular Exam Present: RRR - *Routine Abdominal Exam Present: soft, normoactive bowel sounds. Absent: tenderness - *Routine Extremities Exam Absent: cyanosis, clubbing, edema - *Routine Skin Exam Present: warm. Absent: rash - *Routine Neurological Exam Present: alert, oriented X3 Progress Note: A&P (1) Non-STEMI (non-ST elevated myocardial infarction) Status: Acute (2) Elevated troponin Status: Acute (3) Bilateral carotid bruits Status: Acute (4) Abnormal EKG Status: Acute (5) Respiratory failure with hypercapnia Status: Acute (6) Severe sepsis with acute organ dysfunction Status: Acute (7) Acute exacerbation of chronic obstructive airways disease Status: Acute (8) Type 2 diabetes mellitus Status: Chronic (9) History of rectal cancer Status: Chronic (10) Tobacco use Status: Chronic (11) LLL pneumonia Status: Acute (12) Hypokalemia Status: Acute (13) Acute systolic (congestive) heart failure Status: Acute (14) Ischemic cardiomyopathy Status: Acute (15) LV dysfunction Status: Acute (16) Pulmonary hypertension Status: Acute (17) Shortness of breath Status: Acute (18) Duodenal ulcer Status: Acute (19) Esophagitis Status: Acute Assessment and Plan for All Diagnoses:: 1. GI bleed with decreasing hemoglobin down to 7 today. Blood transfusion to start today. Ulcers noted on EGD today. 2. Non-ST elevation PA status post coronary stenting to RCA, on aspirin and Brilinta. These could be reduced to just Brilinta if
[2021-12-05 11:51] LABS: POC Glucose,Bedside 257 (70-110)
[2021-12-05 17:17] LABS: POC Glucose,Bedside 223 (70-110)
--- NOTE | 2021-12-05 17:36 | PC.NURSE ---
LR was hanging on pt's bed when returned from EGD procedure this AM (0720). During morning rounds patient BP was low and Benjamin Plascencia APRN gave v.o. to bolus the LR remaining fluid -- 750mL was administered.
[2021-12-05 19:15] LABS: Hematocrit 28.3 % (37.0-47.0)
[2021-12-05 19:21] LABS: Hemoglobin 9.5 g/dL (12.2-16.2)
[2021-12-05 22:23] LABS: POC Glucose,Bedside 160 (70-110)
[2021-12-06] VITALS (7 sets, daily range): BP systolic 90–154; BP diastolic 47–83; PULSE 69–90; RESP 16–24; TEMP 36.5–37.2; O2SAT 92–100; BMI 25.2
[2021-12-06 06:46] LABS: POC Glucose,Bedside 133 (70-110)
[2021-12-06 07:02] LABS: Basophils % 0.3 % (0.1-2.0); Eosinophils # 0.2 K/mm3 (0.0-0.4); Hematocrit 26.1 % (37.0-47.0); Lymphocytes # 1.4 K/mm3 (0.7-4.5); Mean Corpuscular HGB Conc 34.5 g/dL (31.8-35.4); Mean Corpuscular Hemoglobin 32.3 pg (27.0-31.2); Mean Corpuscular Volume 93.6 fl (81-99); Mean Platelet Volume 9.3 fl (7.4-10.4); Monocytes # 0.6 K/mm3 (0.1-1.0); Monocytes % 5.5 % (1.7-9.3); Neutrophils # 8.2 K/mm3 (1.8-7.8); Neutrophils % 79.2 % (37.0-80.0); Platelet Count 281 K/mm3 (142-424); Red Blood Count 2.79 M/mm3 (4.20-5.40); Red Cell Distribution Width 16.5 % (11.5-17.5); White Blood Count 10.4 K/mm3 (4.8-10.8)
[2021-12-06 07:31] LABS: Anion Gap 13.1 mEq/L (5-15); Calcium 7.8 mg/dl (8.4-10.2); Carbon Dioxide 20 mmol/L (22.0-30.0); Chloride 110 mmol/L (98-107); Creatinine Clearance Estimated 28 mL/min (50-200); Estimated Glomerular Filt Rate 23 ml/min (>60); GFR (African American) 28 ML/MIN (>60); Glucose 122 mg/dl (74-100); Potassium 5.1 mmoL/L (3.5-5.1); Sodium 138 mmol/L (136-145)
[2021-12-06 07:34] LABS: Blood Urea Nitrogen 97 mg/dl (7-17)
--- NOTE | 2021-12-06 07:56 | HMH.GSPN ---
Subjective Patient reports: no new complaints Progress Note: A&P (1) Non-STEMI (non-ST elevated myocardial infarction) Status: Acute (2) Elevated troponin Status: Acute (3) Bilateral carotid bruits Status: Acute (4) Abnormal EKG Status: Acute (5) Respiratory failure with hypercapnia Status: Acute (6) Severe sepsis with acute organ dysfunction Status: Acute (7) Acute exacerbation of chronic obstructive airways disease Status: Acute (8) Type 2 diabetes mellitus Status: Chronic (9) History of rectal cancer Status: Chronic (10) Tobacco use Status: Chronic (11) LLL pneumonia Status: Acute (12) Hypokalemia Status: Acute (13) Acute systolic (congestive) heart failure Status: Acute (14) Ischemic cardiomyopathy Status: Acute (15) LV dysfunction Status: Acute (16) Pulmonary hypertension Status: Acute (17) Shortness of breath Status: Acute (18) Duodenal ulcer Status: Acute Assessment and plan: Likely causative factor for recent gastrointestinal hemorrhage. She is currently stable status post 2 unit blood transfusion yesterday. No sign of active hemorrhage at time of endoscopy. Follow-up serial hemoglobin NPO after midnight for possible repeat EGD tomorrow morning (may not be required) (19) Esophagitis Status: Acute Exam Vital signs and Labs for Last 24 Hours: Temp Pulse Resp BP Pulse Ox 98.7 F 69 16 154/83 H 93 L 12/06/21 04:00 12/06/21 04:00 12/06/21 04:00 12/06/21 04:00 12/06/21 06:08 Laboratory Results - last 24 hr 12/03/21 21:15: Blood Type A Positive, Antibody Screen Negative, Crossmatch ([facility]) See Detail 12/05/21 08:34: WBC 11.3 H, RBC 2.23 L D, Hgb 7.0 L, Hct 20.9 L*, MCV 93.6, MCH 31.2, MCHC 33.3, RDW 16.8, Plt Count 306, MPV 8.9, Neut % (Auto) 90.2 H, Lymph % (Auto) 6.0 L, [place] % (Auto) 3.6, Eos % (Auto) 0.2, Baso % (Auto) 0.1, Neut # (Auto) 10.2 H, Lymph # (Auto) 0.7, [place] # (Auto) 0.4, Eos # (Auto) 0.0, Baso # (Auto) 0.0, Total Counted 100, Neutrophils % (Manual) 88 H, Lymphocytes % (Manual) 8 L, Monocytes % (Manual) 4, Platelet Estimate Normal, Anisocytosis 1+, Macrocytosis 1+ 12/05/21 08:34: Sodium 134 L, Potassium 4.8 D, Chloride 104, Carbon Dioxide 22, Anion Gap 12.8, BUN 111 H* D, Creatinine 3.10 H D, Estimated Creat Clear 18, Estimated GFR 15 L*, Est GFR ( Amer) 18 L* D, Glucose 263 H D, Calcium 7.6 L, Total Bilirubin 0.4, AST 26, ALT 24, Alkaline Phosphatase 56, Troponin I 0.11 H, Total Protein 4.8 L, Albumin 2.5 L D, Globulin 2.3, Albumin/Globulin Ratio 1.1 12/05/21 11:15: POC Glucose 257 H 12/05/21 16:51: POC Glucose 223 H 12/05/21 18:57: Hgb 9.5 L D, Hct 28.3 L 12/05/21 22:10: POC Glucose 160 H 12/06/21 06:40: POC Glucose 133 H 12/06/21 06:50: WBC 10.4, RBC 2.79 L D, Hgb 9.0 L, Hct 26.1 L, MCV 93.6, MCH 32.3 H, MCHC 34.5, RDW 16.5, Plt Count 281, MPV 9.3, Neut % (Auto) 79.2, Lymph % (Auto) 13.0, [place] % (Auto) 5.5, Eos % (Auto) 2.0, Baso % (Auto) 0.3, Neut # (Auto) 8.2 H, Lymph # (Auto) 1.4, [place] # (Auto) 0.6, Eos # (Auto) 0.2, Baso # (Auto) 0.0 12/06/21 06:50: Sodium 138, Potassium 5.1, Chloride 110 H, Carbon Dioxide 20 L, Anion Gap 13.1, BUN 97 H, Creatinine 2.10 H D, Estimated Creat Clear 28, Estimated GFR 23 L, Est GFR ( Amer) 28 L D, Glucose 122 H D, Calcium 7.8 L I & O for Last 24 hours: Intake & Output 12/03/21 12/04/21 12/05/21 12/06/21 11:59 11:59 11:59 11:59 Intake Total 800 / 800 360 / 360 420 / 420 1540 / 1540 Output Total 275 / 275 550 / 550 400 / 400 900 / 900 Balance 525 / 525 -190 / -190 640 / 640 Weight 159 lb 12.8 oz 157 lb 6.4 oz 156 lb 5 oz 160 lb 11.2 oz - Constitutional no acute distress - *Routine Respiratory Exam Absent: respiratory distress - *Routine Cardiovascular Exam Absent: tachycardia - *Routine Abdominal Exam Present: soft
--- NOTE | 2021-12-06 08:27 | HMH.ACPN2 ---
<Jennifer Echevarria - Last Filed: 12/06/21 08:27> Internal Medicine - PN: Subj *Date: 12/06/21 *Time: 08:27 Interval history: Patient states she feels much better today. She did sleep during the night. She denies chest pain, abdominal pain, and shortness of breath. She has started with diarrhea again. Laboratory numbers this morning show a hemoglobin of 9 with hematocrit of 26.1. White blood cell count normalized 10,400. Platelet count is 281,000. She was with a sodium 138 potassium of 5.1. BUN is improved to 97 with a creatinine of 2.1. Exam Vital signs and Labs for Last 24 Hours: Temp Pulse Resp BP Pulse Ox 98.7 F 69 16 154/83 H 93 L 12/06/21 04:00 12/06/21 04:00 12/06/21 04:00 12/06/21 04:00 12/06/21 06:08 Laboratory Results - last 24 hr 12/03/21 21:15: Blood Type A Positive, Antibody Screen Negative, Crossmatch ([facility]) See Detail 12/05/21 08:34: WBC 11.3 H, RBC 2.23 L D, Hgb 7.0 L, Hct 20.9 L*, MCV 93.6, MCH 31.2, MCHC 33.3, RDW 16.8, Plt Count 306, MPV 8.9, Neut % (Auto) 90.2 H, Lymph % (Auto) 6.0 L, [place] % (Auto) 3.6, Eos % (Auto) 0.2, Baso % (Auto) 0.1, Neut # (Auto) 10.2 H, Lymph # (Auto) 0.7, [place] # (Auto) 0.4, Eos # (Auto) 0.0, Baso # (Auto) 0.0, Total Counted 100, Neutrophils % (Manual) 88 H, Lymphocytes % (Manual) 8 L, Monocytes % (Manual) 4, Platelet Estimate Normal, Anisocytosis 1+, Macrocytosis 1+ 12/05/21 08:34: Sodium 134 L, Potassium 4.8 D, Chloride 104, Carbon Dioxide 22, Anion Gap 12.8, BUN 111 H* D, Creatinine 3.10 H D, Estimated Creat Clear 18, Estimated GFR 15 L*, Est GFR ( Amer) 18 L* D, Glucose 263 H D, Calcium 7.6 L, Total Bilirubin 0.4, AST 26, ALT 24, Alkaline Phosphatase 56, Troponin I 0.11 H, Total Protein 4.8 L, Albumin 2.5 L D, Globulin 2.3, Albumin/Globulin Ratio 1.1 12/05/21 11:15: POC Glucose 257 H 12/05/21 16:51: POC Glucose 223 H 12/05/21 18:57: Hgb 9.5 L D, Hct 28.3 L 12/05/21 22:10: POC Glucose 160 H 12/06/21 06:40: POC Glucose 133 H 12/06/21 06:50: WBC 10.4, RBC 2.79 L D, Hgb 9.0 L, Hct 26.1 L, MCV 93.6, MCH 32.3 H, MCHC 34.5, RDW 16.5, Plt Count 281, MPV 9.3, Neut % (Auto) 79.2, Lymph % (Auto) 13.0, [place] % (Auto) 5.5, Eos % (Auto) 2.0, Baso % (Auto) 0.3, Neut # (Auto) 8.2 H, Lymph # (Auto) 1.4, [place] # (Auto) 0.6, Eos # (Auto) 0.2, Baso # (Auto) 0.0 12/06/21 06:50: Sodium 138, Potassium 5.1, Chloride 110 H, Carbon Dioxide 20 L, Anion Gap 13.1, BUN 97 H, Creatinine 2.10 H D, Estimated Creat Clear 28, Estimated GFR 23 L, Est GFR ( Amer) 28 L D, Glucose 122 H D, Calcium 7.8 L I & O for Last 24 hours: Intake & Output 12/03/21 12/04/21 12/05/21 12/06/21 11:59 11:59 11:59 11:59 Intake Total 800 / 800 360 / 360 420 / 420 1540 / 1540 Output Total 275 / 275 550 / 550 400 / 400 900 / 900 Balance 525 / 525 -190 / -190 640 / 640 Weight 159 lb 12.8 oz 157 lb 6.4 oz 156 lb 5 oz 160 lb 11.2 oz - Constitutional no acute distress Comments: Appears comfortable. Smiles during conversation. - *Routine Respiratory Exam Present: CTA bilaterally - *Routine Cardiovascular Exam Present: RRR - *Routine Abdominal Exam Present: soft, normoactive bowel sounds. Absent: tenderness, distended - *Routine Extremities Exam Absent: edema, calf tenderness - *Routine Skin Exam Present: dry Comments: Better color today. - *Routine Neurological Exam Present: alert, oriented X3 Assessment and Plan (1) Non-STEMI (non-ST elevated myocardial infarction) Status: Acute Category: Medical Code(s): I21.4 - Non-ST elevation (NSTEMI) myocardial infarction (2) Elevated troponin Status: Acute Category: Medical Code(s): R77.8 - Other specified abnormalities of plasma proteins (3) Bilateral carotid bruits Status: Acute Category: Medical Code(s): R09.89 - Other specified symptoms and signs involving the circulatory and respiratory systems (4) Abnormal EKG Status: Acute Category: Medical Code(s): R94.31 - Abnormal electrocardiogram [ECG] [EKG] (5
--- NOTE | 2021-12-06 08:28 | HMH.PNCARD ---
Subjective Date: 12/06/21 Time: 08:28 Principal diagnosis: nonstemi, CHF Interval history: 71-year-old white female in bed in no acute distress. Denies any chest pain, pressure or tightness. Feeling slightly better after blood transfusion yesterday. She continues to have diarrhea. She is able to take p.o. fluids. Discussed potential for DWIGHT this week if she remains in the hospital till the end of the week. Exam Vital signs and Labs for Last 24 Hours: Temp Pulse Resp BP Pulse Ox 98.7 F 69 16 154/83 H 93 L 12/06/21 04:00 12/06/21 04:00 12/06/21 04:00 12/06/21 04:00 12/06/21 06:08 Laboratory Results - last 24 hr 12/03/21 21:15: Blood Type A Positive, Antibody Screen Negative, Crossmatch ([facility]G) See Detail 12/05/21 08:34: WBC 11.3 H, RBC 2.23 L D, Hgb 7.0 L, Hct 20.9 L*, MCV 93.6, MCH 31.2, MCHC 33.3, RDW 16.8, Plt Count 306, MPV 8.9, Neut % (Auto) 90.2 H, Lymph % (Auto) 6.0 L, [place] % (Auto) 3.6, Eos % (Auto) 0.2, Baso % (Auto) 0.1, Neut # (Auto) 10.2 H, Lymph # (Auto) 0.7, [place] # (Auto) 0.4, Eos # (Auto) 0.0, Baso # (Auto) 0.0, Total Counted 100, Neutrophils % (Manual) 88 H, Lymphocytes % (Manual) 8 L, Monocytes % (Manual) 4, Platelet Estimate Normal, Anisocytosis 1+, Macrocytosis 1+ 12/05/21 08:34: Sodium 134 L, Potassium 4.8 D, Chloride 104, Carbon Dioxide 22, Anion Gap 12.8, BUN 111 H* D, Creatinine 3.10 H D, Estimated Creat Clear 18, Estimated GFR 15 L*, Est GFR ( Amer) 18 L* D, Glucose 263 H D, Calcium 7.6 L, Total Bilirubin 0.4, AST 26, ALT 24, Alkaline Phosphatase 56, Troponin I 0.11 H, Total Protein 4.8 L, Albumin 2.5 L D, Globulin 2.3, Albumin/Globulin Ratio 1.1 12/05/21 11:15: POC Glucose 257 H 12/05/21 16:51: POC Glucose 223 H 12/05/21 18:57: Hgb 9.5 L D, Hct 28.3 L 12/05/21 22:10: POC Glucose 160 H 12/06/21 06:40: POC Glucose 133 H 12/06/21 06:50: WBC 10.4, RBC 2.79 L D, Hgb 9.0 L, Hct 26.1 L, MCV 93.6, MCH 32.3 H, MCHC 34.5, RDW 16.5, Plt Count 281, MPV 9.3, Neut % (Auto) 79.2, Lymph % (Auto) 13.0, [place] % (Auto) 5.5, Eos % (Auto) 2.0, Baso % (Auto) 0.3, Neut # (Auto) 8.2 H, Lymph # (Auto) 1.4, [place] # (Auto) 0.6, Eos # (Auto) 0.2, Baso # (Auto) 0.0 12/06/21 06:50: Sodium 138, Potassium 5.1, Chloride 110 H, Carbon Dioxide 20 L, Anion Gap 13.1, BUN 97 H, Creatinine 2.10 H D, Estimated Creat Clear 28, Estimated GFR 23 L, Est GFR ( Amer) 28 L D, Glucose 122 H D, Calcium 7.8 L I & O for Last 24 hours: Intake & Output 12/03/21 12/04/21 12/05/21 12/06/21 11:59 11:59 11:59 11:59 Intake Total 800 / 800 360 / 360 420 / 420 1540 / 1540 Output Total 275 / 275 550 / 550 400 / 400 900 / 900 Balance 525 / 525 -190 / -190 640 / 640 Weight 159 lb 12.8 oz 157 lb 6.4 oz 156 lb 5 oz 160 lb 11.2 oz - Constitutional no acute distress - *Routine Respiratory Exam Present: CTA bilaterally - *Routine Cardiovascular Exam Present: RRR - *Routine Extremities Exam Absent: cyanosis, clubbing, edema - *Routine Neurological Exam Present: alert, oriented X3 Progress Note: A&P (1) Non-STEMI (non-ST elevated myocardial infarction) Status: Acute (2) Elevated troponin Status: Acute (3) Bilateral carotid bruits Status: Acute (4) Abnormal EKG Status: Acute (5) Respiratory failure with hypercapnia Status: Acute (6) Severe sepsis with acute organ dysfunction Status: Acute (7) Acute exacerbation of chronic obstructive airways disease Status: Acute (8) Type 2 diabetes mellitus Status: Chronic (9) History of rectal cancer Status: Chronic (10) Tobacco use Status: Chronic (11) LLL pneumonia Status: Acute (12) Hypokalemia Status: Acute (13) Acute systolic (congestive) heart failure Status: Acute (14) Ischemic cardiomyopathy Status: Acute (15) LV dysfunction Status: Acute (16) Pulmonary hypertension Status: Acute (17) Shortness of breath Status: Acute (18) Duodenal ulcer Status: Acute (19) Esophagitis Status: Acut
[2021-12-06 11:59] LABS: POC Glucose,Bedside 159 (70-110)
--- NOTE | 2021-12-06 12:03 | P.PN_ITS ---
Internal Medicine - PN: Subj *Date: 12/06/21 *Time: 12:03 Interval history: No acute respiratory events overnight. Exam - Constitutional Constitutional:: Present: no acute distress, comfortable - HENMT Exam HENMT: Present: normocephalic - Eye Exam Eyes:: Present: normal appearance both eyes and related structures - Neck Exam Neck:: Present: normal visual inspection - Respiratory Exam Respiratory:: Present: able to speak in complete sentences, no respiratory distress. Absent: wheezing - Cardiovascular Exam Cardiac:: Present: S1, S2 - GI Exam GI:: Present: soft - Skin Exam Skin: Present: warm, no rash - Neurological Exam Neurological: Present: alert, awake - Extremities Exam Extremities: Present: no cyanosis, no clubbing Assessment and Plan (1) Non-STEMI (non-ST elevated myocardial infarction) Status: Acute Category: Medical Code(s): I21.4 - Non-ST elevation (NSTEMI) myocardial infarction (2) Elevated troponin Status: Acute Category: Medical Code(s): R77.8 - Other specified abnormalities of plasma proteins (3) Bilateral carotid bruits Status: Acute Category: Medical Code(s): R09.89 - Other specified symptoms and signs involving the circulatory and respiratory systems (4) Abnormal EKG Status: Acute Category: Medical Code(s): R94.31 - Abnormal electrocardiogram [ECG] [EKG] (5) Respiratory failure with hypercapnia Status: Acute Qualifiers: Chronicity: acute Qualified Code(s): J96.02 - Acute respiratory failure with hypercapnia Category: Medical Code(s): J96.92 - Respiratory failure, unspecified with hypercapnia (6) Severe sepsis with acute organ dysfunction Status: Acute Category: Medical Code(s): A41.9 - Sepsis, unspecified organism; R65.20 - Severe sepsis without septic shock (7) Acute exacerbation of chronic obstructive airways disease Status: Acute Category: Medical Code(s): J44.1 - Chronic obstructive pulmonary disease with (acute) exacerbation (8) Type 2 diabetes mellitus Status: Chronic Category: Medical Code(s): E11.9 - Type 2 diabetes mellitus without complications (9) History of rectal cancer Status: Chronic Category: Medical Code(s): Z85.048 - Personal history of other malignant neoplasm of rectum, rectosigmoid junction, and anus (10) Tobacco use Status: Chronic Category: Social Hx Code(s): Z72.0 - Tobacco use (11) LLL pneumonia Status: Acute Category: Medical Code(s): J18.9 - Pneumonia, unspecified org anism (12) Hypokalemia Status: Acute Category: Medical Code(s): E87.6 - Hypokalemia (13) Acute systolic (congestive) heart failure Status: Acute Category: Medical Code(s): I50.21 - Acute systolic (congestive) heart failure (14) Ischemic cardiomyopathy Status: Acute Category: Medical Code(s): I25.5 - Ischemic cardiomyopathy (15) LV dysfunction Status: Acute Category: Medical Code(s): I51.9 - Heart disease, unspecified (16) Pulmonary hypertension Status: Acute Category: Medical Code(s): I27.20 - Pulmonary hypertension, unspecified (17) Shortness of breath Status: Acute Category: Medical Code(s): R06.02 - Shortness of breath (18) Duodenal ulcer Status: Acute Category: Medical Code(s): K26.9 - Duodenal ulcer, unspecified as acute or chronic, without hemorrhage or perforation (19) Esophagitis Status: Acute Category: Medical Code(s): K20.90 - Esophagitis, unspecified without bleeding -
[2021-12-06 14:38] LABS: Hematocrit 25.2 % (37.0-47.0); Hemoglobin 8.5 g/dL (12.2-16.2)
[2021-12-06 17:23] LABS: POC Glucose,Bedside 132 (70-110)
--- NOTE | 2021-12-06 18:33 | PC.NURSE ---
Pt has done well this shift. Pt successfully weaned down to 5LNC. Several attempts were made to place pt on 4L, pt would quickly desat to mid 80's. Pt has had several small bloody BM's this shift. No other acute changes.
[2021-12-06 21:49] LABS: POC Glucose,Bedside 120 (70-110)
[2021-12-07] VITALS (14 sets, daily range): BP systolic 98–138; BP diastolic 49–80; PULSE 57–98; RESP 16–18; TEMP 36.2–37.3; O2SAT 5–98; BMI 24.7
--- NOTE | 2021-12-07 02:06 | PC.NURSE ---
Pt c/o feeling very SOB. Oxygen sat 88% on 4 L nc. Pt titrated up to 5 L nc with sat at 90%. Pt voices she feels better. Will continue to try to wean O2.
--- NOTE | 2021-12-07 05:41 | PC.NURSE ---
Pt tolerating 5 L nc well with sats >89%. Pt has had 1 small BM thus far. Call light within reach.
--- NOTE | 2021-12-07 06:37 | P.PN_ITS ---
Subjective Narrative: Patient states that she may have passed some blood. Nursing says she had a small amount of clots . She did receive 2 units of packed red blood cells with excellent response. Hemoglobin has subsequently diminished somewhat. Progress Note: A&P (1) Non-STEMI (non-ST elevated myocardial infarction) Status: Acute (2) Elevated troponin Status: Acute (3) Bilateral carotid bruits Status: Acute (4) Abnormal EKG Status: Acute (5) Respiratory failure with hypercapnia Status: Acute (6) Severe sepsis with acute organ dysfunction Status: Acute (7) Acute exacerbation of chronic obstructive airways disease Status: Acute (8) Type 2 diabetes mellitus Status: Chronic (9) History of rectal cancer Status: Chronic (10) Tobacco use Status: Chronic (11) LLL pneumonia Status: Acute (12) Hypokalemia Status: Acute (13) Acute systolic (congestive) heart failure Status: Acute (14) Ischemic cardiomyopathy Status: Acute (15) LV dysfunction Status: Acute (16) Pulmonary hypertension Status: Acute (17) Shortness of breath Status: Acute (18) Duodenal ulcer Status: Acute (19) Esophagitis Status: Acute Assessment and Plan for All Diagnoses:: Second Look EGD this morning. Exam Vital signs and Labs for Last 24 Hours: Temp Pulse Resp BP Pulse Ox 99.2 F 57 L 18 102/59 L 95 12/07/21 04:00 12/07/21 04:00 12/07/21 04:00 12/07/21 04:00 12/07/21 04:00 Laboratory Results - last 24 hr 12/06/21 06:40: POC Glucose 133 H 12/06/21 06:50: WBC 10.4, RBC 2.79 L D, Hgb 9.0 L, Hct 26.1 L, MCV 93.6, MCH 32.3 H, MCHC 34.5, RDW 16.5, Plt Count 281, MPV 9.3, Neut % (Auto) 79.2, Lymph % (Auto) 13.0, [place] % (Auto) 5.5, Eos % (Auto) 2.0, Baso % (Auto) 0.3, Neut # (Auto) 8.2 H, Lymph # (Auto) 1.4, [place] # (Auto) 0.6, Eos # (Auto) 0.2, Baso # (Auto) 0.0 12/06/21 06:50: Sodium 138, Potassium 5.1, Chloride 110 H, Carbon Dioxide 20 L, Anion Gap 13.1, BUN 97 H, Creatinine 2.10 H D, Estimated Creat Clear 28, Estimated GFR 23 L, Est GFR ( Amer) 28 L D, Glucose 122 H D, Calcium 7.8 L 12/06/21 11:43: POC Glucose 159 H 12/06/21 14:00: Hgb 8.5 L, Hct 25.2 L 12/06/21 17:07: POC Glucose 132 H 12/06/21 20:05: POC Glucose 120 H I & O for Last 24 hours: Intake & Output 12/04/21 12/05/21 12/06/21 12/07/21 11:59 11:59 11:59 11:59 Intake Total 360 / 360 420 / 420 1660 / 1660 360 / 360 Output Total 550 / 550 400 / 400 900 / 900 Balance -190 / -190 760 / 760 360 / 360 Weight 157 lb 6.4 oz 156 lb 5 oz 160 lb 11.2 oz 158 lb
[2021-12-07 07:05] LABS: POC Glucose,Bedside 125 (70-110)
--- NOTE | 2021-12-07 07:29 | SUR.OPER ---
IV in left upper arm infiltrated. IV removed by Inge Head rn. New IV #20 right hand inserted by Inge Head rn . Iv patent.
--- NOTE | 2021-12-07 07:55 | HMH.SCOPE ---
- Procedure: Date: 12/07/21 Patient Date of :: 1950 Procedure Performed:: Esophagogastroduodenoscopy with injection epinephrine and deployment of Hemoclip x3 for hemostasis Indications:: Patient is a 71-year-old female with history of rectal cancer with temporary colostomy in 2015 at [facility]. She has a history of renal failure, COPD, TIA, diabetes. She is a smoker. She has been admitted since 11/18/2021. She was admitted with shortness of breath and found to be in hypercapnic respiratory failure. During this hospitalization she has been treated for that and bilateral lower lobe pneumonia. Patient ultimately did have elevation of troponins consistent with non-ST elevation myocardial infarction and underwent left heart catheterization with stent placement. She has been on dual antiplatelet therapy with aspirin and Brilinta. On 12/03/2021 as noted her hemoglobin was 9.1 which was down from 12.4 on 12/01/2021. She was found to have Hemoccult stool positivity. Surgery was consulted. She was found to have some dark stool. She underwent EGD on 12/05/2021. She was found to have most notable a moderate ulcer within the duodenal bulb which was inflamed with no stigmata of recent bleeding. There was ulcer in the second portion of the duodenum which showed some blood clot. Epinephrine was injected. There was no evidence of any active bleeding or visible vessel. She did require subsequent transfusion with decent response but had continued to show some evidence of bleeding with dark stool. She showed slight decrease in her hemoglobin and plan was made for follow-up second look endoscopy. Performing Provider:: Ga Mason MD Referring Provider:: Rolf Steen MD Sedation:: MAC sedation Procedure:: Consent was obtained and patient was taken to endoscopy procedure room. She was positioned in lateral decubitus position. Adequate intravenous sedation was achieved with anesthesia titration of propofol and etomidate. Olympus endoscope was inserted via the oropharynx. Esophagus was cannulated. Esophagus appeared overall unremarkable except in the distal esophagus there was some minor esophagitis. This showed some improvement from 48 hours. The gastroesophageal junction was encountered at approximately 38 cm from the incisors. Stomach was cannulated and insufflated. Retroflexion revealed possible tiny minuscule hiatal hernia. Pylorus was traversed. Within the duodenal bulb there was the previously noted moderate clean-based ulcer which did show some exudate in the base with surrounding edema. The second portion of duodenum there was a rather elongated somewhat deep ulcer. Endoscope was at this time able to be advanced to the distal portion of the ulcer where there was evidence of fresh blood. Please note that in the distal duodenum there was a area of focal mucosal prominence consistent with possible mucosal lesion. This was distal and not biopsied due to its location and due to the ongoing bleeding. It was difficult to visualize but after some time the blood was able to be irrigated. There was concern for possible minor ongoing oozing. Ultimately epinephrine was injected circumferentially in the distal portion of this ulcer which resulted in good blanching. At this time there was decent visualization. There was some minor oozing at the distal portion of the ulcer and there was some possible visual vegetable at the edge. Hemoclip was deployed at this location. At the edge where there was a concern for oozing and visible vessel a couple of hemoclips were deployed. There appeared to be good hemostasis with no evidence of any bleeding at the completion of the procedure. Stomach was desufflated and the endoscope was withdrawn. Findings:: Gastroesophageal junction at 38 cm Possible diminutive sliding hiatal hernia Distal esophagitis Distal duodenal mucosal lesion Moderate exudative inflamed ulcer in the duodenal bulb,
--- NOTE | 2021-12-07 08:59 | XR_ITS ---
FINAL REPORT CLINICAL HISTORY: Hypoxia COMPARISON: November 29, 2021 FINDINGS: A single portable view of the chest was obtained. The heart size and pulmonary vascularity are within normal limits. The mediastinum is within normal limits. There is improved aeration of the lung bases with persistent left base atelectasis or pneumonia. There is presumed scarring of the right lung apex. The bony thorax is intact. IMPRESSION: Improved aeration with persistent left base atelectasis or pneumonia. Reviewed, Interpreted and Dictated by Ga Hurtado III, MD Transcribed by [employer] Authenticated by Ga Hurtado III, MD on 12/07/2021 10:08:41 AM [facility]
--- NOTE | 2021-12-07 08:59 | HMH.PULMPN ---
Internal Medicine - PN: Subj *Date: 12/07/21 *Time: 14:25 Interval history: No acute respiratory vents overnight Exam - Constitutional Constitutional:: Present: no acute distress, comfortable - HENMT Exam HENMT: Present: normocephalic, atraumatic - Eye Exam Eyes:: Present: vision change - Neck Exam Neck:: Present: normal visual inspection - Respiratory Exam Respiratory:: Present: able to speak in complete sentences, no respiratory distress - Cardiovascular Exam Cardiac:: Present: S1, S2 - GI Exam GI:: Present: soft - Skin Exam Skin: Present: warm, no rash - Neurological Exam Neurological: Present: alert, awake, normal cognition - Extremities Exam Extremities: Present: no cyanosis, no clubbing - Psychiatric Exam Psychiatric: Present: normal affect Assessment and Plan (1) Non-STEMI (non-ST elevated myocardial infarction) Status: Acute Category: Medical Code(s): I21.4 - Non-ST elevation (NSTEMI) myocardial infarction (2) Elevated troponin Status: Acute Category: Medical Code(s): R77.8 - Other specified abnormalities of plasma proteins (3) Bilateral carotid bruits Status: Acute Category: Medical Code(s): R09.89 - Other specified symptoms and signs involving the circulatory and respiratory systems (4) Abnormal EKG Status: Acute Category: Medical Code(s): R94.31 - Abnormal electrocardiogram [ECG] [EKG] (5) Respiratory failure with hypercapnia Status: Acute Qualifiers: Chronicity: acute Qualified Code(s): J96.02 - Acute respiratory failure with hypercapnia Category: Medical Code(s): J96.92 - Respiratory failure, unspecified with hypercapnia (6) Severe sepsis with acute organ dysfunction Status: Acute Category: Medical Code(s): A41.9 - Sepsis, unspecified organism; R65.20 - Severe sepsis without septic shock (7) Acute exacerbation of chronic obstructive airways disease Status: Acute Category: Medical Code(s): J44.1 - Chronic obstructive pulmonary disease with (acute) exacerbation (8) Type 2 diabetes mellitus Status: Chronic Category: Medical Code(s): E11.9 - Type 2 diabetes mellitus without complications (9) History of rectal cancer Status: Chronic Category: Medical Code(s): Z85.048 - Personal history of other malignant neoplasm of rectum, rectosigmoid junction, and anus (10) Tobacco use Status: Chronic Category: Social Hx Code(s): Z72.0 - Tobacco use (11) LLL pneumonia Status: Acute Category: Medical Code(s): J18.9 - Pneumonia, unspecified organism (12) Hypokalemia Status: Acute Category: Medical Code(s): E87.6 - Hypokalemia (13) Acute systolic (congestive) heart failure Status: Acute Category: Medical Code(s): I50.21 - Acute systolic (congestive) heart failure (14) Ischemic cardiomyopathy Status: Acute Category: Medical Code(s): I25.5 - Ischemic cardiomyopathy (15) LV dysfunction Status: Acute Category: Medical Code(s): I51.9 - Heart disease, unspecified (16) Pulmonary hypertension Status: Acute Category: Medical Code(s): I27.20 - Pulmonary hypertension, unspecified (17) Shortness of breath Status: Acute Category: Medical Code(s): R06.02 - Shortness of breath (18) Duodenal ulcer Status: Acute Category: Medical Code(s): K26.9 - Duodenal ulcer, unspecified as acute or chronic, without hemorrhage or perforation (19) Esophagitis Status: Acute Category: Medical Code(s): K20.90 - Esophagitis, unspecified without bleeding - Assessment and plan all Dx Assessment and Plan for all problems:: #Acute hypoxic hypercarbic respiratory failure: #Hospital-acquired pneumonia S/P Rx: #Pulmonary AV malformation: Ms. Lynn is a 71-year-old female with a history of rectal cancer with colostomy and subsequent colon resection and reversal of the colostomy, kidney failure, COPD, TIA, and diabetes. Presented with Hypercarbic respiratory failure and had been on BiPAp si
[2021-12-07 09:30] LABS: Basophils % 0.3 % (0.1-2.0); Eosinophils # 0.1 K/mm3 (0.0-0.4); Eosinophils % 1.2 % (0.1-12.0); Hematocrit 23.2 % (37.0-47.0); Hemoglobin 8.1 g/dL (12.2-16.2); Lymphocytes # 0.8 K/mm3 (0.7-4.5); Lymphocytes % 7.1 % (10-50); Mean Corpuscular Hemoglobin 32.2 pg (27.0-31.2); Mean Platelet Volume 9.1 fl (7.4-10.4); Monocytes # 0.6 K/mm3 (0.1-1.0); Neutrophils # 10.1 K/mm3 (1.8-7.8); Neutrophils % 86.4 % (37.0-80.0); Platelet Count 280 K/mm3 (142-424); Red Blood Count 2.52 M/mm3 (4.20-5.40); Red Cell Distribution Width 16.5 % (11.5-17.5); White Blood Count 11.6 K/mm3 (4.8-10.8)
[2021-12-07 09:31] LABS: MANUAL DIFFERENTIAL MANUAL DIFFERENTIAL (MANUAL DIFF)
[2021-12-07 09:42] LABS: Anisocytosis 1+; Hypochromasia 1+; Lymphocytes % 9 % (10-50); Monocytes % 3 % (2-9); Neutrophils % 88 % (42-76); Platelet Estimate Normal; Total Cells Counted 100
--- NOTE | 2021-12-07 10:43 | HMH.PNCARD ---
Subjective Date: 12/07/21 Time: 10:43 Principal diagnosis: nonstemi, CHF Interval history: 71-year-old white female in bed in no acute distress. Relates that she is tired. She had an EGD earlier this morning that revealed duodenal ulcer with evidence of recent bleeding. This was treated with epinephrine and Hemoclip x3. Hemoglobin this a.m. was 8.1. Exam Vital signs and Labs for Last 24 Hours: Temp Pulse Resp BP Pulse Ox 97.2 F L 91 H 18 111/58 L 92 L 12/07/21 08:55 12/07/21 08:55 12/07/21 08:55 12/07/21 08:55 12/07/21 08:55 Laboratory Results - last 24 hr 12/06/21 11:43: POC Glucose 159 H 12/06/21 14:00: Hgb 8.5 L, Hct 25.2 L 12/06/21 17:07: POC Glucose 132 H 12/06/21 20:05: POC Glucose 120 H 12/07/21 06:23: POC Glucose 125 H 12/07/21 09:27: WBC 11.6 H, RBC 2.52 L, Hgb 8.1 L, Hct 23.2 L, MCV 92.0, MCH 32.2 H, MCHC 35.0, RDW 16.5, Plt Count 280, MPV 9.1, Neut % (Auto) 86.4 H, Lymph % (Auto) 7.1 L, [place] % (Auto) 5.0, Eos % (Auto) 1.2, Baso % (Auto) 0.3, Neut # (Auto) 10.1 H, Lymph # (Auto) 0.8, [place] # (Auto) 0.6, Eos # (Auto) 0.1, Baso # (Auto) 0.0, Total Counted 100, Neutrophils % (Manual) 88 H, Lymphocytes % (Manual) 9 L, Monocytes % (Manual) 3, Platelet Estimate Normal, Hypochromasia 1+, Anisocytosis 1+ I & O for Last 24 hours: Intake & Output 12/04/21 12/05/21 12/06/21 12/07/21 11:59 11:59 11:59 11:59 Intake Total 360 / 360 420 / 420 1660 / 1660 360 / 360 Output Total 550 / 550 400 / 400 900 / 900 Balance -190 / -190 20 / 20 760 / 760 360 / 360 Weight 157 lb 6.4 oz 156 lb 5 oz 160 lb 11.2 oz 158 lb - Constitutional no acute distress - *Routine HEENT Exam Head: Present: normocephalic Eye: Present: EOMI, PERRL ENT: Present: mucous membranes moist - *Routine Neck Exam Present: supple. Absent: lymphadenopathy - *Routine Respiratory Exam Present: CTA bilaterally - *Routine Cardiovascular Exam Present: RRR - *Routine Abdominal Exam Present: soft, normoactive bowel sounds. Absent: tenderness - *Routine Extremities Exam Absent: cyanosis, clubbing, edema - *Routine Skin Exam Present: warm. Absent: rash - *Routine Neurological Exam Present: alert, oriented X3 Progress Note: A&P (1) Non-STEMI (non-ST elevated myocardial infarction) Status: Acute (2) Elevated troponin Status: Acute (3) Bilateral carotid bruits Status: Acute (4) Abnormal EKG Status: Acute (5) Respiratory failure with hypercapnia Status: Acute (6) Severe sepsis with acute organ dysfunction Status: Acute (7) Acute exacerbation of chronic obstructive airways disease Status: Acute (8) Type 2 diabetes mellitus Status: Chronic (9) History of rectal cancer Status: Chronic (10) Tobacco use Status: Chronic (11) LLL pneumonia Status: Acute (12) Hypokalemia Status: Acute (13) Acute systolic (congestive) heart failure Status: Acute (14) Ischemic cardiomyopathy Status: Acute (15) LV dysfunction Status: Acute (16) Pulmonary hypertension Status: Acute (17) Shortness of breath Status: Acute (18) Duodenal ulcer Status: Acute (19) Esophagitis Status: Acute Assessment and Plan for All Diagnoses:: 1. GI bleed, s/p transfusion, Hgb 8.1 today. Ulcers noted on EGD this admission. 2. NSTEMI, s/p JACQUIE to RCA. Due to recurrent GI bleed, will stop ASA now. Continue Brilinta. 3. Ischemic cardiomyopathy with ejection fraction of 25%. Patient does have a LifeVest in the room to start at discharge. Resume coreg and entresto. 4. Hypotension, resolved with IVF and blood transfusion. 5. Bilateral pneumonia, per PCP 6. CHF, combination of systolic and diastolic dysfunction, continue to hold diuretics for now due to FLO. 7. Right to left shunt on echo with bubble study. History of TIA's. Consider DWIGHT tomorrow if Hgb stable or if she gets transfusion. 8. 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 Per Pulmonary this can be
[2021-12-07 11:06] LABS: POC Glucose,Bedside 148 (70-110)
[2021-12-07 12:18] LABS: POC Glucose,Bedside 141 (70-110)
--- NOTE | 2021-12-07 12:48 | HMH.ACPN2 ---
<Jayna George - Last Filed: 12/07/21 12:48> Internal Medicine - PN: Subj *Date: 12/07/21 *Time: 12:49 Interval history: Patient had an EGD this morning that revealed a duodenal ulcer with evidence of recent bleeding. This was treated with epinephrine and Hemoclip x3. Her hemoglobin this a.m. was 8.1. She states she is still woozy from the anesthesia. She denies any pain but states she has been nauseated and thought she was going to vomit once, but did not. Exam Vital signs and Labs for Last 24 Hours: Temp Pulse Resp BP Pulse Ox 97.2 F L 91 H 18 111/58 L 92 L 12/07/21 08:55 12/07/21 08:55 12/07/21 08:55 12/07/21 08:55 12/07/21 08:55 Laboratory Results - last 24 hr 12/06/21 14:00: Hgb 8.5 L, Hct 25.2 L 12/06/21 17:07: POC Glucose 132 H 12/06/21 20:05: POC Glucose 120 H 12/07/21 06:23: POC Glucose 125 H 12/07/21 09:27: WBC 11.6 H, RBC 2.52 L, Hgb 8.1 L, Hct 23.2 L, MCV 92.0, MCH 32.2 H, MCHC 35.0, RDW 16.5, Plt Count 280, MPV 9.1, Neut % (Auto) 86.4 H, Lymph % (Auto) 7.1 L, [place] % (Auto) 5.0, Eos % (Auto) 1.2, Baso % (Auto) 0.3, Neut # (Auto) 10.1 H, Lymph # (Auto) 0.8, [place] # (Auto) 0.6, Eos # (Auto) 0.1, Baso # (Auto) 0.0, Total Counted 100, Neutrophils % (Manual) 88 H, Lymphocytes % (Manual) 9 L, Monocytes % (Manual) 3, Platelet Estimate Normal, Hypochromasia 1+, Anisocytosis 1+ 12/07/21 10:55: POC Glucose 148 H 12/07/21 11:18: POC Glucose 141 H I & O for Last 24 hours: Intake & Output 12/05/21 12/06/21 12/07/21 12/08/21 11:59 11:59 11:59 11:59 Intake Total 420 / 420 1660 / 1660 360 / 360 Output Total 400 / 400 900 / 900 Balance 760 / 760 360 / 360 Weight 156 lb 5 oz 160 lb 11.2 oz 158 lb - Constitutional no acute distress - *Routine Respiratory Exam Present: decreased breath sounds, CTA bilaterally - *Routine Cardiovascular Exam Present: RRR - *Routine Abdominal Exam Present: soft, normoactive bowel sounds. Absent: tenderness - *Routine Extremities Exam Absent: cyanosis, clubbing, edema - *Routine Skin Exam Present: warm. Absent: rash - *Routine Neurological Exam Present: alert, oriented X3 Assessment and Plan (1) Non-STEMI (non-ST elevated myocardial infarction) Status: Acute Category: Medical Code(s): I21.4 - Non-ST elevation (NSTEMI) myocardial infarction (2) Elevated troponin Status: Acute Category: Medical Code(s): R77.8 - Other specified abnormalities of plasma proteins (3) Bilateral carotid bruits Status: Acute Category: Medical Code(s): R09.89 - Other specified symptoms and signs involving the circulatory and respiratory systems (4) Abnormal EKG Status: Acute Category: Medical Code(s): R94.31 - Abnormal electrocardiogram [ECG] [EKG] (5) Respiratory failure with hypercapnia Status: Acute Qualifiers: Chronicity: acute Qualified Code(s): J96.02 - Acute respiratory failure with hypercapnia Category: Medical Code(s): J96.92 - Respiratory failure, unspecified with hypercapnia (6) Severe sepsis with acute organ dysfunction Status: Acute Category: Medical Code(s): A41.9 - Sepsis, unspecified organism; R65.20 - Severe sepsis without septic shock (7) Acute exacerbation of chronic obstructive airways disease Status: Acute Category: Medical Code(s): J44.1 - Chronic obstructive pulmonary disease with (acute) exacerbation (8) Type 2 diabetes mellitus Status: Chronic Category: Medical Code(s): E11.9 - Type 2 diabetes mellitus without complications (9) History of rectal cancer Status: Chronic Category: Medical Code(s): Z85.048 - Personal history of other malignant neoplasm of rectum, rectosigmoid junction, and anus (10) Tobacco use Status: Chronic Category: Social Hx Code(s): Z72.0 - Tobacco use (11) LLL pneumonia Status: Acute Category: Medical Code(s): J18.9 - Pneumonia, unspecified organism (12) Hypokalemia Status: Acute Category: Medical Code(s): E87.6 - Hypokalemia
[2021-12-07 17:15] LABS: POC Glucose,Bedside 99 (70-110)
--- NOTE | 2021-12-07 18:26 | PC.NURSE ---
Pt has done well since arriving back to the floor. Pt has slept mostly. Appetite has been fair on clear liquids. VSS. Daughter has been at the bedside this evening and has been updated on POC. Pt remains on 5LNC. No other acute changes.
[2021-12-07 20:19] LABS: POC Glucose,Bedside 93 (70-110)
[2021-12-08] VITALS (31 sets, daily range): BP systolic 101–134; BP diastolic 40–75; PULSE 72–96; RESP 16–18; TEMP 36.2–37.3; O2SAT 90–98; BMI 24.7
--- NOTE | 2021-12-08 03:34 | PC.NURSE ---
Patient rested throughout most of shift related to procedure EGD earlier today. Patient may have DWIGHT in am if H&H stable. Patient continues on 5l NC sating in mid 90%. No compliants thus far. VSS.
[2021-12-08 06:56] LABS: Basophils % 0.4 % (0.1-2.0); Eosinophils # 0.1 K/mm3 (0.0-0.4); Eosinophils % 2.4 % (0.1-12.0); Hematocrit 22.3 % (37.0-47.0); Hemoglobin 7.5 g/dL (12.2-16.2); Lymphocytes # 0.8 K/mm3 (0.7-4.5); Lymphocytes % 16.8 % (10-50); Mean Corpuscular HGB Conc 33.6 g/dL (31.8-35.4); Mean Corpuscular Hemoglobin 31.3 pg (27.0-31.2); Mean Corpuscular Volume 93.2 fl (81-99); Mean Platelet Volume 8.6 fl (7.4-10.4); Monocytes # 0.3 K/mm3 (0.1-1.0); Monocytes % 5.9 % (1.7-9.3); Neutrophils # 3.5 K/mm3 (1.8-7.8); Neutrophils % 74.6 % (37.0-80.0); Platelet Count 324 K/mm3 (142-424); Red Blood Count 2.39 M/mm3 (4.20-5.40); Red Cell Distribution Width 16.4 % (11.5-17.5); White Blood Count 4.7 K/mm3 (4.8-10.8)
[2021-12-08 07:06] LABS: Blood Urea Nitrogen 38 mg/dl (7-17); Calcium 7.4 mg/dl (8.4-10.2); Carbon Dioxide 23 mmol/L (22.0-30.0); Chloride 106 mmol/L (98-107); Creatinine Clearance Estimated 41 mL/min (50-200); Estimated Glomerular Filt Rate 37 ml/min (>60); GFR (African American) 45 ML/MIN (>60); Glucose 91 mg/dl (74-100); Sodium 134 mmol/L (136-145)
--- NOTE | 2021-12-08 07:19 | HMH.PNCARD ---
Subjective Date: 12/08/21 Time: 07:19 Principal diagnosis: nonstemi, CHF, GI bleed Interval history: 71-year-old white female lying in bed in no acute distress. Denies any chest pain, pressure or tightness overnight. Hemoglobin dropped to 7.5 overnight. Discussed blood transfusion again with patient and she is agreeable to proceed. She denies any diarrhea overnight. Exam Vital signs and Labs for Last 24 Hours: Temp Pulse Resp BP Pulse Ox 99.2 F 91 H 16 109/48 L 98 12/08/21 04:00 12/08/21 04:00 12/08/21 04:00 12/08/21 04:00 12/08/21 06:20 Laboratory Results - last 24 hr 12/07/21 09:27: WBC 11.6 H, RBC 2.52 L, Hgb 8.1 L, Hct 23.2 L, MCV 92.0, MCH 32.2 H, MCHC 35.0, RDW 16.5, Plt Count 280, MPV 9.1, Neut % (Auto) 86.4 H, Lymph % (Auto) 7.1 L, [place] % (Auto) 5.0, Eos % (Auto) 1.2, Baso % (Auto) 0.3, Neut # (Auto) 10.1 H, Lymph # (Auto) 0.8, [place] # (Auto) 0.6, Eos # (Auto) 0.1, Baso # (Auto) 0.0, Total Counted 100, Neutrophils % (Manual) 88 H, Lymphocytes % (Manual) 9 L, Monocytes % (Manual) 3, Platelet Estimate Normal, Hypochromasia 1+, Anisocytosis 1+ 12/07/21 10:55: POC Glucose 148 H 12/07/21 11:18: POC Glucose 141 H 12/07/21 17:03: POC Glucose 99 12/07/21 20:02: POC Glucose 93 12/08/21 06:42: WBC 4.7 L D, RBC 2.39 L, Hgb 7.5 L, Hct 22.3 L, MCV 93.2, MCH 31.3 H, MCHC 33.6, RDW 16.4, Plt Count 324, MPV 8.6, Neut % (Auto) 74.6, Lymph % (Auto) 16.8, [place] % (Auto) 5.9, Eos % (Auto) 2.4, Baso % (Auto) 0.4, Neut # (Auto) 3.5, Lymph # (Auto) 0.8, [place] # (Auto) 0.3, Eos # (Auto) 0.1, Baso # (Auto) 0.0 12/08/21 06:42: Sodium 134 L, Potassium 4.0 D, Chloride 106, Carbon Dioxide 23, Anion Gap 9.0, BUN 38 H D, Creatinine 1.40 H D, Estimated Creat Clear 41, Estimated GFR 37 L, Est GFR ( Amer) 45 L D, Glucose 91, Calcium 7.4 L I & O for Last 24 hours: Intake & Output 12/05/21 12/06/21 12/07/21 12/08/21 11:59 11:59 11:59 11:59 Intake Total 420 / 420 1660 / 1660 360 / 360 Output Total 400 / 400 900 / 900 650 / 650 Balance 760 / 760 360 / 360 -650 / -650 Weight 156 lb 5 oz 160 lb 11.2 oz 158 lb 157 lb 9.6 oz - Constitutional no acute distress - *Routine Respiratory Exam Present: CTA bilaterally - *Routine Cardiovascular Exam Present: RRR - *Routine Extremities Exam Absent: cyanosis, clubbing, edema Progress Note: A&P (1) Non-STEMI (non-ST elevated myocardial infarction) Status: Acute (2) Elevated troponin Status: Acute (3) Bilateral carotid bruits Status: Acute (4) Abnormal EKG Status: Acute (5) Respiratory failure with hypercapnia Status: Acute (6) Severe sepsis with acute organ dysfunction Status: Acute (7) Acute exacerbation of chronic obstructive airways disease Status: Acute (8) Type 2 diabetes mellitus Status: Chronic (9) History of rectal cancer Status: Chronic (10) Tobacco use Status: Chronic (11) LLL pneumonia Status: Acute (12) Hypokalemia Status: Acute (13) Acute systolic (congestive) heart failure Status: Acute (14) Ischemic cardiomyopathy Status: Acute (15) LV dysfunction Status: Acute (16) Pulmonary hypertension Status: Acute (17) Shortness of breath Status: Acute (18) Duodenal ulcer Status: Acute (19) Esophagitis Status: Acute Assessment and Plan for All Diagnoses:: 1. GI bleed, s/p transfusion, Hgb 7.5 today. Ulcers noted on EGD this admission. Repeat 2 units of blood transfusion today. 2. NSTEMI, s/p JACQUIE to RCA. Due to recurrent GI bleed, aspirin stopped on 12/07/2021. Continue Brilinta. 3. Ischemic cardiomyopathy with ejection fraction of 25%. Patient does have a LifeVest in the room to start at discharge. Remains on Coreg and Entresto. 4. Hypotension, resolved with IVF and blood transfusion. 5. Bilateral pneumonia, per PCP, chest x-ray yesterday showed improvement with persistent left base atelectasis or pneumonia. 6. CHF, combination of systolic and diastolic dys
--- NOTE | 2021-12-08 08:22 | HMH.ACPN2 ---
<Jayna George - Last Filed: 12/08/21 08:22> Internal Medicine - PN: Subj *Date: 12/08/21 *Time: 08:22 Interval history: Patient states she feels about the same today. She is very tired. She denies any pain and states she did sleep well last night. She has not had any breakfast this morning. She denies any stools since her procedure yesterday and she has had no vomiting. Exam Vital signs and Labs for Last 24 Hours: Temp Pulse Resp BP Pulse Ox 97.5 F L 79 18 134/66 96 12/08/21 08:00 12/08/21 08:00 12/08/21 08:00 12/08/21 08:00 12/08/21 08:00 Laboratory Results - last 24 hr 12/07/21 09:27: WBC 11.6 H, RBC 2.52 L, Hgb 8.1 L, Hct 23.2 L, MCV 92.0, MCH 32.2 H, MCHC 35.0, RDW 16.5, Plt Count 280, MPV 9.1, Neut % (Auto) 86.4 H, Lymph % (Auto) 7.1 L, [place] % (Auto) 5.0, Eos % (Auto) 1.2, Baso % (Auto) 0.3, Neut # (Auto) 10.1 H, Lymph # (Auto) 0.8, [place] # (Auto) 0.6, Eos # (Auto) 0.1, Baso # (Auto) 0.0, Total Counted 100, Neutrophils % (Manual) 88 H, Lymphocytes % (Manual) 9 L, Monocytes % (Manual) 3, Platelet Estimate Normal, Hypochromasia 1+, Anisocytosis 1+ 12/07/21 10:55: POC Glucose 148 H 12/07/21 11:18: POC Glucose 141 H 12/07/21 17:03: POC Glucose 99 12/07/21 20:02: POC Glucose 93 12/08/21 06:42: WBC 4.7 L D, RBC 2.39 L, Hgb 7.5 L, Hct 22.3 L, MCV 93.2, MCH 31.3 H, MCHC 33.6, RDW 16.4, Plt Count 324, MPV 8.6, Neut % (Auto) 74.6, Lymph % (Auto) 16.8, [place] % (Auto) 5.9, Eos % (Auto) 2.4, Baso % (Auto) 0.4, Neut # (Auto) 3.5, Lymph # (Auto) 0.8, [place] # (Auto) 0.3, Eos # (Auto) 0.1, Baso # (Auto) 0.0 12/08/21 06:42: Sodium 134 L, Potassium 4.0 D, Chloride 106, Carbon Dioxide 23, Anion Gap 9.0, BUN 38 H D, Creatinine 1.40 H D, Estimated Creat Clear 41, Estimated GFR 37 L, Est GFR ( Amer) 45 L D, Glucose 91, Calcium 7.4 L 12/08/21 07:36: Crossmatch (AHG) See Detail I & O for Last 24 hours: Intake & Output 12/05/21 12/06/21 12/07/21 12/08/21 11:59 11:59 11:59 11:59 Intake Total 420 / 420 1660 / 1660 360 / 360 0 / 0 Output Total 400 / 400 900 / 900 650 / 650 Balance 760 / 760 360 / 360 -650 / -650 Weight 156 lb 5 oz 160 lb 11.2 oz 158 lb 157 lb 9.6 oz - Constitutional no acute distress - *Routine Respiratory Exam Present: decreased breath sounds, CTA bilaterally - *Routine Cardiovascular Exam Present: RRR - *Routine Abdominal Exam Present: soft, normoactive bowel sounds. Absent: tenderness - *Routine Extremities Exam Absent: cyanosis, clubbing, edema - *Routine Skin Exam Present: warm. Absent: rash - *Routine Neurological Exam Present: alert, oriented X3 Assessment and Plan (1) Non-STEMI (non-ST elevated myocardial infarction) Status: Acute Category: Medical Code(s): I21.4 - Non-ST elevation (NSTEMI) myocardial infarction (2) Elevated troponin Status: Acute Category: Medical Code(s): R77.8 - Other specified abnormalities of plasma proteins (3) Bilateral carotid bruits Status: Acute Category: Medical Code(s): R09.89 - Other specified symptoms and signs involving the circulatory and respiratory systems (4) Abnormal EKG Status: Acute Category: Medical Code(s): R94.31 - Abnormal electrocardiogram [ECG] [EKG] (5) Respiratory failure with hypercapnia Status: Acute Qualifiers: Chronicity: acute Qualified Code(s): J96.02 - Acute respiratory failure with hypercapnia Category: Medical Code(s): J96.92 - Respiratory failure, unspecified with hypercapnia (6) Severe sepsis with acute organ dysfunction Status: Acute Category: Medical Code(s): A41.9 - Sepsis, unspecified organism; R65.20 - Severe sepsis without septic shock (7) Acute exacerbation of chronic obstructive airways disease Status: Acute Category: Medical Code(s): J44.1 - Chronic obstructive pulmonary disease with (acute) exacerbation (8) Type 2 diabetes mellitus Status: Chronic Category: Medical Code(s): E11.9 - Type 2 diabetes mellitus without complications
[2021-12-08 11:58] LABS: POC Glucose,Bedside 100 (70-110)
[2021-12-08 11:58] LABS: POC Glucose,Bedside 95 (70-110)
--- NOTE | 2021-12-08 13:31 | DIET.NUTRFU ---
Patient has been either NPO or clear liquids since 12/04, not able to meet nutritional needs. Added boost clear to provide additional calories and protein until diet can be further advanced.
--- NOTE | 2021-12-08 13:35 | HMH.GSPN ---
Subjective Narrative: Patient denies any obvious passage blood. Progress Note: A&P (1) Non-STEMI (non-ST elevated myocardial infarction) Status: Acute (2) Elevated troponin Status: Acute (3) Bilateral carotid bruits Status: Acute (4) Abnormal EKG Status: Acute (5) Respiratory failure with hypercapnia Status: Acute (6) Severe sepsis with acute organ dysfunction Status: Acute (7) Acute exacerbation of chronic obstructive airways disease Status: Acute (8) Type 2 diabetes mellitus Status: Chronic (9) History of rectal cancer Status: Chronic (10) Tobacco use Status: Chronic (11) LLL pneumonia Status: Acute (12) Hypokalemia Status: Acute (13) Acute systolic (congestive) heart failure Status: Acute (14) Ischemic cardiomyopathy Status: Acute (15) LV dysfunction Status: Acute (16) Pulmonary hypertension Status: Acute (17) Shortness of breath Status: Acute (18) Duodenal ulcer Status: Acute (19) Esophagitis Status: Acute Assessment and Plan for All Diagnoses:: Patient receiving 2 units packed red blood cells for decreased hemoglobin to 7.5. Unclear if active bleeding (unlikely). Transfuse to improved response. Recommend continue inpatient management until hemoglobin stable for at least 72 hours. Exam Vital signs and Labs for Last 24 Hours: Temp Pulse Resp BP Pulse Ox 97.5 F L 76 18 107/56 L 95 12/08/21 12:19 12/08/21 12:19 12/08/21 12:19 12/08/21 12:19 12/08/21 12:19 Laboratory Results - last 24 hr 12/07/21 17:03: POC Glucose 99 12/07/21 20:02: POC Glucose 93 12/08/21 05:08: POC Glucose 100 12/08/21 06:42: WBC 4.7 L D, RBC 2.39 L, Hgb 7.5 L, Hct 22.3 L, MCV 93.2, MCH 31.3 H, MCHC 33.6, RDW 16.4, Plt Count 324, MPV 8.6, Neut % (Auto) 74.6, Lymph % (Auto) 16.8, [place] % (Auto) 5.9, Eos % (Auto) 2.4, Baso % (Auto) 0.4, Neut # (Auto) 3.5, Lymph # (Auto) 0.8, [place] # (Auto) 0.3, Eos # (Auto) 0.1, Baso # (Auto) 0.0 12/08/21 06:42: Sodium 134 L, Potassium 4.0 D, Chloride 106, Carbon Dioxide 23, Anion Gap 9.0, BUN 38 H D, Creatinine 1.40 H D, Estimated Creat Clear 41, Estimated GFR 37 L, Est GFR ( Amer) 45 L D, Glucose 91, Calcium 7.4 L 12/08/21 07:36: Blood Type A Positive, Antibody Screen Negative, Crossmatch (AHG) See Detail 12/08/21 11:48: POC Glucose 95 I & O for Last 24 hours: Intake & Output 12/06/21 12/07/21 12/08/21 12/09/21 11:59 11:59 11:59 11:59 Intake Total 1660 / 1660 360 / 360 0 / 0 60 / 60 Output Total 900 / 900 650 / 650 Balance 760 / 760 360 / 360 -650 / -650 60 / 60 Weight 160 lb 11.2 oz 158 lb 157 lb 9.6 oz - Constitutional no acute distress
--- NOTE | 2021-12-08 13:46 | HMH.PULMPN ---
Internal Medicine - PN: Subj *Date: 12/08/21 *Time: 13:46 Interval history: No acute respiratory events overnight. Continues to remain on oxygen therapy. Exam - Constitutional Constitutional:: Present: no acute distress, comfortable - HENMT Exam HENMT: Present: normocephalic - Eye Exam Eyes:: Present: normal appearance both eyes and related structures - Neck Exam Neck:: Present: normal visual inspection - Respiratory Exam Respiratory:: Present: able to speak in complete sentences, no respiratory distress. Absent: wheezing - Cardiovascular Exam Cardiac:: Present: S1, S2 - GI Exam GI:: Present: soft - Skin Exam Skin: Present: warm, no rash - Neurological Exam Neurological: Present: alert, awake - Extremities Exam Extremities: Present: no cyanosis, no clubbing Assessment and Plan (1) Non-STEMI (non-ST elevated myocardial infarction) Status: Acute Category: Medical Code(s): I21.4 - Non-ST elevation (NSTEMI) myocardial infarction (2) Elevated troponin Status: Acute Category: Medical Code(s): R77.8 - Other specified abnormalities of plasma proteins (3) Bilateral carotid bruits Status: Acute Category: Medical Code(s): R09.89 - Other specified symptoms and signs involving the circulatory and respiratory systems (4) Abnormal EKG Status: Acute Category: Medical Code(s): R94.31 - Abnormal electrocardiogram [ECG] [EKG] (5) Respiratory failure with hypercapnia Status: Acute Qualifiers: Chronicity: acute Qualified Code(s): J96.02 - Acute respiratory failure with hypercapnia Category: Medical Code(s): J96.92 - Respiratory failure, unspecified with hypercapnia (6) Severe sepsis with acute organ dysfunction Status: Acute Category: Medical Code(s): A41.9 - Sepsis, unspecified organism; R65.20 - Severe sepsis without septic shock (7) Acute exacerbation of chronic obstructive airways disease Status: Acute Category: Medical Code(s): J44.1 - Chronic obstructive pulmonary disease with (acute) exacerbation (8) Type 2 diabetes mellitus Status: Chronic Category: Medical Code(s): E11.9 - Type 2 diabetes mellitus without complications (9) History of rectal cancer Status: Chronic Category: Medical Code(s): Z85.048 - Personal history of other malignant neoplasm of rectum, rectosigmoid junction, and anus (10) Tobacco use Status: Chronic Category: Social Hx Code(s): Z72.0 - Tobacco use (11) LLL pneumonia Status: Acute Category: Medical Code(s): J18.9 - Pneumonia, unspecified organism (12) Hypokalemia Status: Acute Category: Medical Code(s): E87.6 - Hypokalemia (13) Acute systolic (congestive) heart failure Status: Acute Category: Medical Code(s): I50.21 - Acute systolic (congestive) heart failure (14) Ischemic cardiomyopathy Status: Acute Category: Medical Code(s): I25.5 - Ischemic cardiomyopathy (15) LV dysfunction Status: Acute Category: Medical Code(s): I51.9 - Heart disease, unspecified (16) Pulmonary hypertension Status: Acute Category: Medical Code(s): I27.20 - Pulmonary hypertension, unspecified (17) Shortness of breath Status: Acute Category: Medical Code(s): R06.02 - Shortness of breath (18) Duodenal ulcer Status: Acute Category: Medical Code(s): K26.9 - Duodenal ulcer, unspecified as acute or chronic, without hemorrhage or perforation (19) Esophagitis Status: Acute Category: Medical Code(s): K20.90 - Esophagitis, unspecified without bleeding - Assessment and plan all Dx Assessment and Plan for all problems:: #Acute hypoxic hypercarbic respiratory failure: #Hospital-acquired pneumonia S/P Rx: #Pulmonary AV malformation: Ms. Lynn is a 71-year-old female with a history of rectal cancer with colostomy and subsequent colon resection and reversal of the colostomy, kidney failure, COPD, TIA, and diabetes. Presented with Hypercarbic respiratory failure and had been on
[2021-12-08 17:03] LABS: POC Glucose,Bedside 92 (70-110)
--- NOTE | 2021-12-08 17:46 | PC.NURSE ---
Per MD Steen. Cancel post h/h at 1840 and order CBC and BMP for AM labs.
--- NOTE | 2021-12-08 17:54 | PC.NURSE ---
Pt is currently on 3.5 LNC w/ o2 sats 90-95%. Pt has had no bloody bm's this shift. No N/V noted. Pt tolerated 2 units of PRBC's well, no s/s of blood transfusion reactions noted. VSS. Family has been updated on POC. No other acute changes. Will monitor.
[2021-12-08 21:19] LABS: POC Glucose,Bedside 120 (70-110)
[2021-12-09] VITALS (9 sets, daily range): BP systolic 114–142; BP diastolic 47–71; PULSE 43–90; RESP 16–20; TEMP 36.4–36.9; O2SAT 92–95; BMI 25.1
--- NOTE | 2021-12-09 03:28 | PC.NURSE ---
Patient has remained on 3.5LNC, with oxygen saturation has been between 90-95%. She has remained NSR on telemetry. Patient has rested well. No acute events thus far.
[2021-12-09 05:58] LABS: POC Glucose,Bedside 116 (70-110)
[2021-12-09 07:42] LABS: Basophils % 0.3 % (0.1-2.0); Eosinophils # 0.1 K/mm3 (0.0-0.4); Eosinophils % 2.3 % (0.1-12.0); Hematocrit 31.3 % (37.0-47.0); Lymphocytes # 0.9 K/mm3 (0.7-4.5); Lymphocytes % 14.2 % (10-50); Mean Corpuscular HGB Conc 33.1 g/dL (31.8-35.4); Mean Corpuscular Hemoglobin 30.8 pg (27.0-31.2); Mean Platelet Volume 8.5 fl (7.4-10.4); Monocytes # 0.4 K/mm3 (0.1-1.0); Monocytes % 6.5 % (1.7-9.3); Neutrophils # 4.8 K/mm3 (1.8-7.8); Neutrophils % 76.8 % (37.0-80.0); Platelet Count 384 K/mm3 (142-424); Red Blood Count 3.37 M/mm3 (4.20-5.40); White Blood Count 6.2 K/mm3 (4.8-10.8)
[2021-12-09 07:50] LABS: Anion Gap 11.9 mEq/L (5-15); Blood Urea Nitrogen 25 mg/dl (7-17); Calcium 7.5 mg/dl (8.4-10.2); Carbon Dioxide 20 mmol/L (22.0-30.0); Chloride 106 mmol/L (98-107); Creatinine Clearance Estimated 53 mL/min (50-200); Estimated Glomerular Filt Rate 49 ml/min (>60); GFR (African American) 59 ML/MIN (>60); Glucose 113 mg/dl (74-100); Potassium 3.9 mmoL/L (3.5-5.1); Sodium 134 mmol/L (136-145)
[2021-12-09 08:26] LABS: Hemoglobin 10.4 g/dL (12.2-16.2)
--- NOTE | 2021-12-09 09:00 | HMH.ACPN2 ---
Internal Medicine - PN: Subj *Date: 12/09/21 *Time: 12:21 Interval history: No new complaints. Recieved 2 units of PRBC yesterday. Denies abdominal pain or nausea. No BM. Has been stable on 3.5 liters of O2. Exam Vital signs and Labs for Last 24 Hours: Temp Pulse Resp BP Pulse Ox 97.8 F 43 L 18 125/70 94 L 12/09/21 07:48 12/09/21 07:48 12/09/21 07:48 12/09/21 07:48 12/09/21 07:48 Laboratory Results - last 24 hr 12/08/21 05:08: POC Glucose 100 12/08/21 07:36: Blood Type A Positive, Antibody Screen Negative, Crossmatch (AHG) See Detail 12/08/21 11:48: POC Glucose 95 12/08/21 16:53: POC Glucose 92 12/08/21 20:39: POC Glucose 120 H 12/09/21 05:50: POC Glucose 116 H 12/09/21 06:36: WBC 6.2 D, RBC 3.37 L D, Hgb 10.4 L D, Hct 31.3 L, MCV 93.0, MCH 30.8, MCHC 33.1, RDW 16.0, Plt Count 384, MPV 8.5, Neut % (Auto) 76.8, Lymph % (Auto) 14.2, [place] % (Auto) 6.5, Eos % (Auto) 2.3, Baso % (Auto) 0.3, Neut # (Auto) 4.8, Lymph # (Auto) 0.9, [place] # (Auto) 0.4, Eos # (Auto) 0.1, Baso # (Auto) 0.0 12/09/21 06:36: Sodium 134 L, Potassium 3.9, Chloride 106, Carbon Dioxide 20 L, Anion Gap 11.9, BUN 25 H D, Creatinine 1.10 H D, Estimated Creat Clear 53, Estimated GFR 49 L, Est GFR ( Amer) 59 D, Glucose 113 H D, Calcium 7.5 L I & O for Last 24 hours: Intake & Output 12/06/21 12/07/21 12/08/21 12/09/21 11:59 11:59 11:59 11:59 Intake Total 1660 / 1660 360 / 360 0 / 0 2412 / 2412 Output Total 900 / 900 650 / 650 800 / 800 Balance 760 / 760 360 / 360 -650 / -650 1612 / 1612 Weight 160 lb 11.2 oz 158 lb 157 lb 9.6 oz 160 lb 3 oz Narrative: She is alert and oriented. No respiratory distress. Lungs with generally diminished breath sounds but otherwise clear. Heart is regular. Abdomen is soft, nondistended, and nontender. Extremities no edema Assessment and Plan (1) Non-STEMI (non-ST elevated myocardial infarction) Status: Acute Category: Medical Code(s): I21.4 - Non-ST elevation (NSTEMI) myocardial infarction (2) Elevated troponin Status: Acute Category: Medical Code(s): R77.8 - Other specified abnormalities of plasma proteins (3) Bilateral carotid bruits Status: Acute Category: Medical Code(s): R09.89 - Other specified symptoms and signs involving the circulatory and respiratory systems (4) Respiratory failure with hypercapnia Status: Acute Qualifiers: Chronicity: acute Qualified Code(s): J96.02 - Acute respiratory failure with hypercapnia Category: Medical Code(s): J96.92 - Respiratory failure, unspecified with hypercapnia (5) Severe sepsis with acute organ dysfunction Status: Acute Category: Medical Code(s): A41.9 - Sepsis, unspecified organism; R65.20 - Severe sepsis without septic shock (6) Acute exacerbation of chronic obstructive airways disease Status: Acute Category: Medical Code(s): J44.1 - Chronic obstructive pulmonary disease with (acute) exacerbation (7) Type 2 diabetes mellitus Status: Chronic Category: Medical Code(s): E11.9 - Type 2 diabetes mellitus without complications (8) History of rectal cancer Status: Chronic Category: Medical Code(s): Z85.048 - Personal history of other malignant neoplasm of rectum, rectosigmoid junction, and anus (9) Tobacco use Status: Chronic Category: Social Hx Code(s): Z72.0 - Tobacco use (10) LLL pneumonia Status: Acute Category: Medical Code(s): J18.9 - Pneumonia, unspecified organism (11) Hypokalemia Status: Acute Category: Medical Code(s): E87.6 - Hypokalemia (12) Acute systolic (congestive) heart failure Status: Acute Category: Medical Code(s): I50.21 - Acute systolic (congestive) heart failure (13) Ischemic cardiomyopathy Status: Acute Category: Medical Code(s): I25.5 - Ischemic cardiomyopathy (14) LV dysfunction Status: Acute Category: Medical Code(s): I51.9 - Heart disease, unspecified (15) Pulmonary hypertension Status: Acute Categor
--- NOTE | 2021-12-09 12:10 | HMH.GSPN ---
Subjective Patient reports: no new complaints Narrative: No notable passage of blood. Progress Note: A&P (1) Non-STEMI (non-ST elevated myocardial infarction) Status: Acute (2) Elevated troponin Status: Acute (3) Bilateral carotid bruits Status: Acute (4) Respiratory failure with hypercapnia Status: Acute (5) Severe sepsis with acute organ dysfunction Status: Acute (6) Acute exacerbation of chronic obstructive airways disease Status: Acute (7) Type 2 diabetes mellitus Status: Chronic (8) History of rectal cancer Status: Chronic (9) Tobacco use Status: Chronic (10) LLL pneumonia Status: Acute (11) Hypokalemia Status: Acute (12) Acute systolic (congestive) heart failure Status: Acute (13) Ischemic cardiomyopathy Status: Acute (14) LV dysfunction Status: Acute (15) Pulmonary hypertension Status: Acute (16) Duodenal ulcer Status: Acute (17) Esophagitis Status: Acute Assessment and Plan for All Diagnoses:: It appears as though she received 2 units packed red blood cells most recently for hemoglobin of 7.5 with subsequent hemoglobin of 10.4. I will go ahead and advance her diet. Exam Vital signs and Labs for Last 24 Hours: Temp Pulse Resp BP Pulse Ox 98.0 F 89 17 125/62 93 L 12/09/21 11:15 12/09/21 11:15 12/09/21 11:15 12/09/21 11:15 12/09/21 11:15 Laboratory Results - last 24 hr 12/08/21 07:36: Blood Type A Positive, Antibody Screen Negative, Crossmatch (AHG) See Detail 12/08/21 16:53: POC Glucose 92 12/08/21 20:39: POC Glucose 120 H 12/09/21 05:50: POC Glucose 116 H 12/09/21 06:36: WBC 6.2 D, RBC 3.37 L D, Hgb 10.4 L D, Hct 31.3 L, MCV 93.0, MCH 30.8, MCHC 33.1, RDW 16.0, Plt Count 384, MPV 8.5, Neut % (Auto) 76.8, Lymph % (Auto) 14.2, [place] % (Auto) 6.5, Eos % (Auto) 2.3, Baso % (Auto) 0.3, Neut # (Auto) 4.8, Lymph # (Auto) 0.9, [place] # (Auto) 0.4, Eos # (Auto) 0.1, Baso # (Auto) 0.0 12/09/21 06:36: Sodium 134 L, Potassium 3.9, Chloride 106, Carbon Dioxide 20 L, Anion Gap 11.9, BUN 25 H D, Creatinine 1.10 H D, Estimated Creat Clear 53, Estimated GFR 49 L, Est GFR ( Amer) 59 D, Glucose 113 H D, Calcium 7.5 L I & O for Last 24 hours: Intake & Output 12/07/21 12/08/21 12/09/21 12/10/21 11:59 11:59 11:59 11:59 Intake Total 360 / 360 0 / 0 2412 / 2412 Output Total 650 / 650 800 / 800 Balance 360 / 360 -650 / -650 1612 / 1612 Weight 158 lb 157 lb 9.6 oz 160 lb 3 oz - Constitutional no acute distress - *Routine Abdominal Exam Present: soft
[2021-12-09 13:43] LABS: POC Glucose,Bedside 169 (70-110)
[2021-12-09 17:43] LABS: POC Glucose,Bedside 118 (70-110)
[2021-12-09 21:44] LABS: POC Glucose,Bedside 119 (70-110)
[2021-12-10] VITALS (10 sets, daily range): BP systolic 79–155; BP diastolic 48–86; PULSE 49–102; RESP 16–18; TEMP 36.4–37.1; O2SAT 89–96; BMI 25.7
--- NOTE | 2021-12-10 05:01 | PC.NURSE ---
No new changes thus far during my shift. No complaints voiced by patient. Pt has slept well. IV infusing per order. Pt is on 3.5 L NC, with O2 sat >90%. Monitoring via tele - NSR with PVCs. Monitoring blood glucose ACHS. Call light in reach.
[2021-12-10 06:26] LABS: POC Glucose,Bedside 122 (70-110)
[2021-12-10 06:40] LABS: Hematocrit 28.7 % (37.0-47.0)
--- NOTE | 2021-12-10 06:40 | PC.NURSE ---
Went to pts room and explained that it was time to change her IV site. Pt said not right now. Educated pt on risks of leaving IV in the same site past the recommended time frame. Pt verbalized understanding. Pt says she might do it later.
[2021-12-10 06:42] LABS: Hemoglobin 9.2 g/dL (12.2-16.2)
--- NOTE | 2021-12-10 08:53 | HMH.ACPN2 ---
Internal Medicine - PN: Subj *Date: 12/10/21 *Time: 08:55 Interval history: No new complaints except that she wants to go home. States she had a bowel movement this morning but none recorded by staff. Denies abdominal pain or nausea. Diet was advanced yesterday but she has not been eating much. No respiratory complaints. O2 sats have remained in the mid 90s on 3.5 L nasal cannula Exam Vital signs and Labs for Last 24 Hours: Temp Pulse Resp BP Pulse Ox 97.6 F 90 18 131/60 94 L 12/10/21 07:53 12/10/21 08:00 12/10/21 07:53 12/10/21 07:53 12/10/21 07:53 Laboratory Results - last 24 hr 12/09/21 12:27: POC Glucose 169 H 12/09/21 17:28: POC Glucose 118 H 12/09/21 20:31: POC Glucose 119 H 12/10/21 06:05: POC Glucose 122 H 12/10/21 06:34: Hgb 9.2 L D, Hct 28.7 L I & O for Last 24 hours: Intake & Output 12/07/21 12/08/21 12/09/21 12/10/21 11:59 11:59 11:59 11:59 Intake Total 360 / 360 0 / 0 2412 / 2412 1687 / 1687 Output Total 650 / 650 800 / 800 600 / 600 Balance 360 / 360 -650 / -650 1612 / 1612 1087 / 1087 Weight 158 lb 157 lb 9.6 oz 160 lb 3 oz 164 lb Narrative: Alert and oriented. She seems a bit more anxious today. Breath sounds are generally diminished but no rales or wheezes. Abdomen is soft and nondistended with no tenderness. Extremities no edema. Assessment and Plan (1) Non-STEMI (non-ST elevated myocardial infarction) Status: Acute Category: Medical Code(s): I21.4 - Non-ST elevation (NSTEMI) myocardial infarction (2) Elevated troponin Status: Acute Category: Medical Code(s): R77.8 - Other specified abnormalities of plasma proteins (3) Bilateral carotid bruits Status: Acute Category: Medical Code(s): R09.89 - Other specified symptoms and signs involving the circulatory and respiratory systems (4) Respiratory failure with hypercapnia Status: Acute Qualifiers: Chronicity: acute Qualified Code(s): J96.02 - Acute respiratory failure with hypercapnia Category: Medical Code(s): J96.92 - Respiratory failure, unspecified with hypercapnia (5) Severe sepsis with acute organ dysfunction Status: Acute Category: Medical Code(s): A41.9 - Sepsis, unspecified organism; R65.20 - Severe sepsis without septic shock (6) Acute exacerbation of chronic obstructive airways disease Status: Acute Category: Medical Code(s): J44.1 - Chronic obstructive pulmonary disease with (acute) exacerbation (7) Type 2 diabetes mellitus Status: Chronic Category: Medical Code(s): E11.9 - Type 2 diabetes mellitus without complications (8) History of rectal cancer Status: Chronic Category: Medical Code(s): Z85.048 - Personal history of other malignant neoplasm of rectum, rectosigmoid junction, and anus (9) Tobacco use Status: Chronic Category: Social Hx Code(s): Z72.0 - Tobacco use (10) LLL pneumonia Status: Acute Category: Medical Code(s): J18.9 - Pneumonia, unspecified organism (11) Hypokalemia Status: Acute Category: Medical Code(s): E87.6 - Hypokalemia (12) Acute systolic (congestive) heart failure Status: Acute Category: Medical Code(s): I50.21 - Acute systolic (congestive) heart failure (13) Ischemic cardiomyopathy Status: Acute Category: Medical Code(s): I25.5 - Ischemic cardiomyopathy (14) LV dysfunction Status: Acute Category: Medical Code(s): I51.9 - Heart disease, unspecified (15) Pulmonary hypertension Status: Acute Category: Medical Code(s): I27.20 - Pulmonary hypertension, unspecified (16) Duodenal ulcer Status: Acute Category: Medical Code(s): K26.9 - Duodenal ulcer, unspecified as acute or chronic, without hemorrhage or perforation (17) Esophagitis Status: Acute Category: Medical Code(s): K20.90 - Esophagitis, unspecified without bleeding - Assessment and plan all Dx Assessment and Plan for all problems:: Clinically stable. Hemoglobin has decreased to 9.2 but
--- NOTE | 2021-12-10 09:26 | HMH.GSPN ---
Subjective Narrative: Patient states that she did have a black stool. Progress Note: A&P (1) Non-STEMI (non-ST elevated myocardial infarction) Status: Acute (2) Elevated troponin Status: Acute (3) Bilateral carotid bruits Status: Acute (4) Respiratory failure with hypercapnia Status: Acute (5) Severe sepsis with acute organ dysfunction Status: Acute (6) Acute exacerbation of chronic obstructive airways disease Status: Acute (7) Type 2 diabetes mellitus Status: Chronic (8) History of rectal cancer Status: Chronic (9) Tobacco use Status: Chronic (10) LLL pneumonia Status: Acute (11) Hypokalemia Status: Acute (12) Acute systolic (congestive) heart failure Status: Acute (13) Ischemic cardiomyopathy Status: Acute (14) LV dysfunction Status: Acute (15) Pulmonary hypertension Status: Acute (16) Duodenal ulcer Status: Acute (17) Esophagitis Status: Acute Assessment and Plan for All Diagnoses:: Her hemoglobin did drop to 9.2 from 10.4 yesterday which was up from 7.5 after 2 unit transfusion. This would be higher than expected response. May be just equilibrating with passage of old blood however, I will make her n.p.o. after midnight for potential follow-up endoscopy if indicated. Exam Vital signs and Labs for Last 24 Hours: Temp Pulse Resp BP Pulse Ox 97.6 F 90 18 131/60 94 L 12/10/21 07:53 12/10/21 08:00 12/10/21 07:53 12/10/21 07:53 12/10/21 07:53 Laboratory Results - last 24 hr 12/09/21 12:27: POC Glucose 169 H 12/09/21 17:28: POC Glucose 118 H 12/09/21 20:31: POC Glucose 119 H 12/10/21 06:05: POC Glucose 122 H 12/10/21 06:34: Hgb 9.2 L D, Hct 28.7 L I & O for Last 24 hours: Intake & Output 12/07/21 12/08/21 12/09/21 12/10/21 11:59 11:59 11:59 11:59 Intake Total 360 / 360 0 / 0 2412 / 2412 1687 / 1687 Output Total 650 / 650 800 / 800 600 / 600 Balance 360 / 360 -650 / -650 1612 / 1612 1087 / 1087 Weight 158 lb 157 lb 9.6 oz 160 lb 3 oz 164 lb - Constitutional no acute distress
--- NOTE | 2021-12-10 09:53 | PC.NURSE ---
pt noted to have one small tarry liquid BM. Surgeon aware
[2021-12-10 12:22] LABS: POC Glucose,Bedside 137 (70-110)
--- NOTE | 2021-12-10 12:40 | PC.NURSE ---
daughter is in the room with pt. pt is becoming increasingly agitated. She reports wishing she could go home. I attempted to shower pt AND WASH HER HAIR BUT SHE REFUSED. states she wants to be left alone
[2021-12-10 16:51] LABS: POC Glucose,Bedside 174 (70-110)
--- NOTE | 2021-12-10 17:57 | PC.NURSE ---
new #20 initiated to left wrist x1 attempt
[2021-12-10 20:08] LABS: POC Glucose,Bedside 170 (70-110)
[2021-12-11] VITALS (10 sets, daily range): BP systolic 96–119; BP diastolic 48–68; PULSE 65–110; RESP 18–20; TEMP 36.5–37.5; O2SAT 92–97; BMI 25.7
--- NOTE | 2021-12-11 03:15 | PC.NURSE ---
Patient has had 2 blood tinged/tarry liquid stools this RN's shift. Patient bowel sounds remain hyperactive at this time. Patient remains on 3LNC with oxygen saturation above 90%. Patient has been NSR with PVC's. Patient denies any abdominal pain. No nausea or vomiting thus far.
[2021-12-11 06:30] LABS: POC Glucose,Bedside 126 (70-110)
[2021-12-11 06:55] LABS: Hematocrit 24.8 % (37.0-47.0); Hemoglobin 8.5 g/dL (12.2-16.2)
--- NOTE | 2021-12-11 08:17 | HMH.ACPN2 ---
<Jennifer Echevarria - Last Filed: 12/11/21 09:24> Internal Medicine - PN: Subj *Date: 12/11/21 *Time: 09:24 Interval history: During the night patient had 2 bloody tinged/tarry stools according to the nursing notes. Patient states she cannot keep track of how many times she goes to the bathroom. She denies abdominal pain. She denies nausea. She does not feel like eating or drinking. She is n.p.o. at present for possible repeat EGD. H&H did drop from 9.2-8.5 this morning. She does not feel like ambulating. She states she has been here for weeks and she is ready to go home. She does not care if she dies. She denies chest pain and shortness of breath.She does have a low-grade fever of 99.5 this AM. O2 sats are 97% on oxygen at 3 L/min with an adequate blood pressure of 106/68. She continues to receive IV fluids at 75 an hour. Monitor showing sinus rhythm with frequent PVCs. Exam Vital signs and Labs for Last 24 Hours: Temp Pulse Resp BP Pulse Ox 99.5 F 95 H 20 106/68 L 92 L 12/11/21 04:00 12/11/21 04:00 12/11/21 04:00 12/11/21 04:00 12/11/21 06:21 Laboratory Results - last 24 hr 12/10/21 11:32: POC Glucose 137 H 12/10/21 16:43: POC Glucose 174 H 12/10/21 20:00: POC Glucose 170 H 12/11/21 06:16: Hgb 8.5 L, Hct 24.8 L 12/11/21 06:18: POC Glucose 126 H I & O for Last 24 hours: Intake & Output 12/08/21 12/09/21 12/10/21 12/11/21 11:59 11:59 11:59 11:59 Intake Total 0 / 0 2412 / 2412 1687 / 1687 1072 / 1072 Output Total 650 / 650 800 / 800 600 / 600 Balance -650 / -650 1612 / 1612 1087 / 1087 1072 / 1072 Weight 157 lb 9.6 oz 160 lb 3 oz 164 lb 163 lb 14.4 oz - Constitutional no acute distress Comments: Conversant. Seems depressed. - *Routine Respiratory Exam Present: CTA bilaterally (Anteriorly and posteriorly) - *Routine Cardiovascular Exam Present: irregular rhythm (Monitor showing sinus rhythm in the 70s with frequent PVCs) - *Routine Abdominal Exam Present: soft, normoactive bowel sounds. Absent: tenderness, distended - *Routine Extremities Exam Absent: edema, calf tenderness - *Routine Neurological Exam Present: alert, oriented X3 - Routine Psychiatric Exam Present: cooperative, depressed Assessment and Plan (1) Non-STEMI (non-ST elevated myocardial infarction) Status: Acute Category: Medical Code(s): I21.4 - Non-ST elevation (NSTEMI) myocardial infarction (2) Elevated troponin Status: Acute Category: Medical Code(s): R77.8 - Other specified abnormalities of plasma proteins (3) Bilateral carotid bruits Status: Acute Category: Medical Code(s): R09.89 - Other specified symptoms and signs involving the circulatory and respiratory systems (4) Respiratory failure with hypercapnia Status: Acute Qualifiers: Chronicity: acute Qualified Code(s): J96.02 - Acute respiratory failure with hypercapnia Category: Medical Code(s): J96.92 - Respiratory failure, unspecified with hypercapnia (5) Severe sepsis with acute organ dysfunction Status: Acute Category: Medical Code(s): A41.9 - Sepsis, unspecified organism; R65.20 - Severe sepsis without septic shock (6) Acute exacerbation of chronic obstructive airways disease Status: Acute Category: Medical Code(s): J44.1 - Chronic obstructive pulmonary disease with (acute) exacerbation (7) Type 2 diabetes mellitus Status: Chronic Category: Medical Code(s): E11.9 - Type 2 diabetes mellitus without complications (8) History of rectal cancer Status: Chronic Category: Medical Code(s): Z85.048 - Personal history of other malignant neoplasm of rectum, rectosigmoid junction, and anus (9) Tobacco use Status: Chronic Category: Social Hx Code(s): Z72.0 - Tobacco use (10) LLL pneumonia Status: Acute Category: Medical Code(s): J18.9 - Pneumonia, unspecified organism (11) Hypokalemia Status: Acute Category: Medical Code(s): E87.6 - Hypokalemia (12) Acute systoli
[2021-12-11 08:40] LABS: Chloride 107 mmol/L (98-107); Potassium 3.7 mmoL/L (3.5-5.1); Sodium 133 mmol/L (136-145)
[2021-12-11 08:43] LABS: Alanine Aminotransferase 13 U/L (12-78); Albumin Level 2.1 g/dl (3.5-5.0); Albumin/Globulin Ratio 1.1 (1.1-1.8); Alkaline Phosphatase 65 U/L (38-126); Anion Gap 7.7 mEq/L (5-15); Aspartate Amino Transferase 19 U/L (14-36); Bilirubin,Total 0.4 mg/dl (0.2-1.3); Blood Urea Nitrogen 24 mg/dl (7-17); Calcium 7.3 mg/dl (8.4-10.2); Carbon Dioxide 22 mmol/L (22.0-30.0); Creatinine Clearance Estimated 60 mL/min (50-200); Estimated Glomerular Filt Rate 55 ml/min (>60); GFR (African American) 66 ML/MIN (>60); Glucose 122 mg/dl (74-100); Magnesium 1.1 mg/dl (1.6-2.3); Total Protein,Serum 4.1 g/dl (6.3-8.2)
[2021-12-11 09:14] LABS: Thyroid Stimulating Hormone 9.68 uIU/mL (0.465-4.68)
[2021-12-11 11:05] LABS: POC Glucose,Bedside 137 (70-110)
--- NOTE | 2021-12-11 11:06 | HMH.PULMPN ---
Internal Medicine - PN: Subj *Date: 12/11/21 *Time: 11:06 Interval history: Patient denies any new respiratory complaints. She stated that she would like to be discharged. Have explained the patient she had some acute ongoing issues and it is not safe to discharge her at this point of time Exam - Constitutional Constitutional:: Present: no acute distress, comfortable - HENMT Exam HENMT: Present: normocephalic - Eye Exam Eyes:: Present: normal appearance both eyes and related structures - Neck Exam Neck:: Present: normal visual inspection - Respiratory Exam Respiratory:: Present: able to speak in complete sentences, no respiratory distress. Absent: wheezing - Cardiovascular Exam Cardiac:: Present: S1, S2 - GI Exam GI:: Present: soft, no hepatosplenomegaly - Skin Exam Skin: Present: warm, no rash - Neurological Exam Neurological: Present: alert, awake, normal cognition - Extremities Exam Extremities: Present: no cyanosis, no clubbing Assessment and Plan (1) Non-STEMI (non-ST elevated myocardial infarction) Status: Acute Category: Medical Code(s): I21.4 - Non-ST elevation (NSTEMI) myocardial infarction (2) Elevated troponin Status: Acute Category: Medical Code(s): R77.8 - Other specified abnormalities of plasma proteins (3) Bilateral carotid bruits Status: Acute Category: Medical Code(s): R09.89 - Other specified symptoms and signs involving the circulatory and respiratory systems (4) Respiratory failure with hypercapnia Status: Acute Qualifiers: Chronicity: acute Qualified Code(s): J96.02 - Acute respiratory failure with hypercapnia Category: Medical Code(s): J96.92 - Respiratory failure, unspecified with hypercapnia (5) Severe sepsis with acute organ dysfunction Status: Acute Category: Medical Code(s): A41.9 - Sepsis, unspecified organism; R65.20 - Severe sepsis without septic shock (6) Acute exacerbation of chronic obstructive airways disease Status: Acute Category: Medical Code(s): J44.1 - Chronic obstructive pulmonary disease with (acute) exacerbation (7) Type 2 diabetes mellitus Status: Chronic Category: Medical Code(s): E11.9 - Type 2 diabetes mellitus without complications (8) History of rectal cancer Status: Chronic Category: Medical Code(s): Z85.048 - Personal history of other malignant neoplasm of rectum, rectosigmoid junction, and anus (9) Tobacco use Status: Chronic Category: Social Hx Code(s): Z72.0 - Tobacco use (10) LLL pneumonia Status: Acute Category: Medical Code(s): J18.9 - Pneumonia, unspecified organism (11) Hypokalemia Status: Acute Category: Medical Code(s): E87.6 - Hypokalemia (12) Acute systolic (congestive) heart failure Status: Acute Category: Medical Code(s): I50.21 - Acute systolic (congestive) heart failure (13) Ischemic cardiomyopathy Status: Acute Category: Medical Code(s): I25.5 - Ischemic cardiomyopathy (14) LV dysfunction Status: Acute Category: Medical Code(s): I51.9 - Heart disease, unspecified (15) Pulmonary hypertension Status: Acute Category: Medical Code(s): I27.20 - Pulmonary hypertension, unspecified (16) Duodenal ulcer Status: Acute Category: Medical Code(s): K26.9 - Duodenal ulcer, unspecified as acute or chronic, without hemorrhage or perforation (17) Esophagitis Status: Acute Category: Medical Code(s): K20.90 - Esophagitis, unspecified without bleeding - Assessment and plan all Dx Assessment and Plan for all problems:: #Acute hypoxic hypercarbic respiratory failure: #Hospital-acquired pneumonia S/P Rx: #Pulmonary AV malformation: Ms. Lynn is a 71-year-old female with a history of rectal cancer with colostomy and subsequent colon resection and reversal of the colostomy, kidney failure, COPD, TIA, and diabetes. Presented with Hypercarbic respiratory failure and had been on BiPAp since admission from 11/18/21 and pulm
--- NOTE | 2021-12-11 11:47 | HMH.GSPN ---
Subjective Patient reports: no new complaints Narrative: Pt extremely anxious to go home. States she is willing to just go home and . She has had dark melenic stool Progress Note: A&P (1) Non-STEMI (non-ST elevated myocardial infarction) Status: Acute (2) Elevated troponin Status: Acute (3) Bilateral carotid bruits Status: Acute (4) Respiratory failure with hypercapnia Status: Acute (5) Severe sepsis with acute organ dysfunction Status: Acute (6) Acute exacerbation of chronic obstructive airways disease Status: Acute (7) Type 2 diabetes mellitus Status: Chronic (8) History of rectal cancer Status: Chronic (9) Tobacco use Status: Chronic (10) LLL pneumonia Status: Acute (11) Hypokalemia Status: Acute (12) Acute systolic (congestive) heart failure Status: Acute (13) Ischemic cardiomyopathy Status: Acute (14) LV dysfunction Status: Acute (15) Pulmonary hypertension Status: Acute (16) Duodenal ulcer Status: Acute (17) Esophagitis Status: Acute Assessment and Plan for All Diagnoses:: Some minor decrease in Hgb. Would not pursue definite repeat (third) EGD at this time as some of her Hgb decrease and melena may be merely passage of old blood and equilibration. Would advocate remaining an inpatient until stools begin to show some normalization in character and Hgb stable for approximately 72 hours. Exam Vital signs and Labs for Last 24 Hours: Temp Pulse Resp BP Pulse Ox 97.7 F 85 19 115/56 L 92 L 12/11/21 08:00 12/11/21 08:00 12/11/21 08:00 12/11/21 08:00 12/11/21 08:00 Laboratory Results - last 24 hr 12/10/21 11:32: POC Glucose 137 H 12/10/21 16:43: POC Glucose 174 H 12/10/21 20:00: POC Glucose 170 H 12/11/21 06:16: Hgb 8.5 L, Hct 24.8 L 12/11/21 06:16: Sodium 133 L, Potassium 3.7, Chloride 107, Carbon Dioxide 22, Anion Gap 7.7, BUN 24 H, Creatinine 1.00, Estimated Creat Clear 60, Estimated GFR 55 L, Est GFR ( Amer) 66, Glucose 122 H, Calcium 7.3 L, Magnesium 1.1 L, Total Bilirubin 0.4, AST 19, ALT 13, Alkaline Phosphatase 65, Total Protein 4.1 L, Albumin 2.1 L, Globulin 2.0, Albumin/Globulin Ratio 1.1, TSH 9.68 H 12/11/21 06:18: POC Glucose 126 H 12/11/21 10:46: POC Glucose 137 H I & O for Last 24 hours: Intake & Output 12/08/21 12/09/21 12/10/21 12/11/21 11:59 11:59 11:59 11:59 Intake Total 0 / 0 2412 / 2412 1687 / 1687 1072 / 1072 Output Total 650 / 650 800 / 800 600 / 600 Balance -650 / -650 1612 / 1612 1087 / 1087 1072 / 1072 Weight 157 lb 9.6 oz 160 lb 3 oz 164 lb 163 lb 14.4 oz - Constitutional no acute distress
--- NOTE | 2021-12-11 13:43 | HMH.PTEV ---
Physical Therapy Evaluation Rehab PT IP Evaluation Start: 11/29/21 08:49 Freq: ONCE Status: Complete Protocol: Document 11/29/21 11:38 PHORNE (Rec: 11/29/21 11:43 PHORNE [id number]) Subjective/History History History 71 yowf adm to [facility] with severe sepsis and COPD exac. She reports she lives alone and does not use an AD for mobility, 1 step to enter the home. Subjective Subjective Pt c/o feeling dizzy with mobility, but had no episodes of LOB. Rehab PT IP Eval Objective Appearance Patient Behavior Appropriate Patient Orientation Person,Place,Time Difficulty following instructions none Speech Pattern Clear Ambulation Patient Able to Ambulate Yes Ambulation Observation IP General Gait Pattern Observation No Deviations/Normal Ambulation Distance (feet) 15 Ambulation Assistive Device None Ambulation Ability Supervision/Stand by Balance Ability to Arise Able, uses arms to help Sitting Balance Steady, safe Standing Balance Steady, wide stance Dynamic Sitting Balance Ability Good Dynamic Standing Balance Ability Good Transfers Bed Transfer Ability Supervision/Stand by Chair Transfer Ability Supervision/Stand by Sit to Stand Bed Transfer Ability Supervision/Stand by Sit to Stand Chair Transfer Ability Supervision/Stand by ROM All Extremities PT ROM Status WFL MMT All Extremities PT MMT WFL Rehab PT IP prob,goals,plan Problems Date of Evaluation: 11/29/21 Discharge Plan PT Discharge Plan Pt appears to be at baseline for all mobility at this time, but would be at risk for further injury or debility without assistance at home. G -code Required No Eval Complexity Eval Charge Codes 79389 - Moderate Complexity Rehab PT IP Evaluation Start: 12/11/21 12:44 Freq: ONCE Status: Active Protocol: Document 12/11/21 13:00 PWILLIAMS (Rec: 12/11/21 13:43 [email or web address] [id number]) Subjective/History History History Ms. Lynn is a 71-year-old female with a history of rectal cancer with colostomy and subsequent colon resection and reversal of the colostomy , kidney
--- NOTE | 2021-12-11 14:49 | HMH.PNCARD ---
Subjective Date: 12/11/21 Time: 15:07 Principal diagnosis: nonstemi, CHF, GI bleed Interval history: 71 yo WF in bed in NAD. Still with some loose stools. NPO today for possible EGD. No chest pain. Exam Vital signs and Labs for Last 24 Hours: Temp Pulse Resp BP Pulse Ox 98.6 F 110 H 18 119/63 94 L 12/11/21 11:46 12/11/21 12:00 12/11/21 11:46 12/11/21 11:46 12/11/21 11:46 Laboratory Results - last 24 hr 12/10/21 16:43: POC Glucose 174 H 12/10/21 20:00: POC Glucose 170 H 12/11/21 06:16: Hgb 8.5 L, Hct 24.8 L 12/11/21 06:16: Sodium 133 L, Potassium 3.7, Chloride 107, Carbon Dioxide 22, Anion Gap 7.7, BUN 24 H, Creatinine 1.00, Estimated Creat Clear 60, Estimated GFR 55 L, Est GFR ( Amer) 66, Glucose 122 H, Calcium 7.3 L, Magnesium 1.1 L, Total Bilirubin 0.4, AST 19, ALT 13, Alkaline Phosphatase 65, Total Protein 4.1 L, Albumin 2.1 L, Globulin 2.0, Albumin/Globulin Ratio 1.1, TSH 9.68 H 12/11/21 06:18: POC Glucose 126 H 12/11/21 10:46: POC Glucose 137 H I & O for Last 24 hours: Intake & Output 12/09/21 12/10/21 12/11/21 12/12/21 11:59 11:59 11:59 11:59 Intake Total 2412 / 2412 1687 / 1687 1072 / 1072 480 / 480 Output Total 800 / 800 600 / 600 Balance 1612 / 1612 1087 / 1087 1072 / 1072 480 / 480 Weight 160 lb 3 oz 164 lb 163 lb 14.4 oz - Constitutional no acute distress - *Routine HEENT Exam Head: Present: normocephalic Eye: Present: EOMI, PERRL ENT: Present: mucous membranes moist - *Routine Neck Exam Present: supple. Absent: lymphadenopathy - *Routine Respiratory Exam Present: CTA bilaterally - *Routine Cardiovascular Exam Present: RRR - *Routine Abdominal Exam Present: soft, normoactive bowel sounds. Absent: tenderness - *Routine Extremities Exam Absent: cyanosis, clubbing, edema - *Routine Skin Exam Present: warm. Absent: rash - *Routine Neurological Exam Present: alert, oriented X3 Progress Note: A&P (1) Non-STEMI (non-ST elevated myocardial infarction) Status: Acute (2) Elevated troponin Status: Acute (3) Bilateral carotid bruits Status: Acute (4) Respiratory failure with hypercapnia Status: Acute (5) Severe sepsis with acute organ dysfunction Status: Acute (6) Acute exacerbation of chronic obstructive airways disease Status: Acute (7) Type 2 diabetes mellitus Status: Chronic (8) History of rectal cancer Status: Chronic (9) Tobacco use Status: Chronic (10) LLL pneumonia Status: Acute (11) Hypokalemia Status: Acute (12) Acute systolic (congestive) heart failure Status: Acute (13) Ischemic cardiomyopathy Status: Acute (14) LV dysfunction Status: Acute (15) Pulmonary hypertension Status: Acute (16) Duodenal ulcer Status: Acute (17) Esophagitis Status: Acute Assessment and Plan for All Diagnoses:: 1. GI bleed, s/p transfusion. Ulcers noted on EGD this admission. Still with dropping Hgb after transfusions. 2. NSTEMI, s/p JACQUIE to RCA. Due to recurrent GI bleed, aspirin stopped on 12/07/2021. Continue Brilinta for a total of 30 days (12/28/2021) then may discontinue if bleeding is still evident. 3. Ischemic cardiomyopathy with ejection fraction of 25%. Patient does have a LifeVest in the room to start at discharge. Remains on Coreg and Entresto. 4. Hypotension, resolved with IVF and blood transfusion. 5. Bilateral pneumonia, per PCP. 6. CHF, combination of systolic and diastolic dysfunction, continue to hold diuretics for now but restart if needed for recurrent pulmonary edema. 7. Right to left shunt on echo with bubble study. History of TIA's several years ago. DWIGHT postponed for now, will arrange as an outpatient. 8. 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 Per Pulmonary this can be referred for treatment as outpatient. 9. Carotid artery stenosis, less than 50% bilaterally on carotid duplex this admission. 10. Hyperlipidemia, continue statin therapy
--- NOTE | 2021-12-11 14:54 | SW/DCPLANNER ---
I spoke with this patient and her daughter (Maria R) regarding discharge plans. PT/OT evaluated this patient and stated that patient is independent and could return home. Patient is agreeable to home health services at time of discharge. Patient does not have a preference for home health agency. I will set this patient up with home health once medically stable for discharge. Patient may also require home O2 once medically stable for discharge.
[2021-12-11 17:13] LABS: POC Glucose,Bedside 192 (70-110)
--- NOTE | 2021-12-11 17:43 | PC.NURSE ---
Pt has done fine this shift. She has been very anxious to go home. Pt has refused IVF, stating she is tired of all the wires . Pt also refused to have this RN remove old, infiltrated PIV. Pt educated on risks of infection, still refuses/ Pt has turned herself in bed independently. Pt remains on 3LNC, o2 sats 90-96%. x1 black, loose BM noted this shift. No other acute changes. Will monitor.
[2021-12-11 20:36] LABS: POC Glucose,Bedside 160 (70-110)
[2021-12-12] VITALS (32 sets, daily range): BP systolic 88–167; BP diastolic 43–97; PULSE 70–99; RESP 16–22; TEMP 36.2–37.4; O2SAT 91–99; BMI 25.2
[2021-12-12 07:09] LABS: POC Glucose,Bedside 182 (70-110)
--- NOTE | 2021-12-12 07:21 | HMH.GSPN ---
Subjective Narrative: Patient extremely anxious to go home. She states that she is going home today and she does not care what happens . She has not had her blood drawn this morning as apparently there was an attempt to draw from the IV which she refused. Progress Note: A&P (1) Non-STEMI (non-ST elevated myocardial infarction) Status: Acute (2) Elevated troponin Status: Acute (3) Bilateral carotid bruits Status: Acute (4) Respiratory failure with hypercapnia Status: Acute (5) Severe sepsis with acute organ dysfunction Status: Acute (6) Acute exacerbation of chronic obstructive airways disease Status: Acute (7) Type 2 diabetes mellitus Status: Chronic (8) History of rectal cancer Status: Chronic (9) Tobacco use Status: Chronic (10) LLL pneumonia Status: Acute (11) Hypokalemia Status: Acute (12) Acute systolic (congestive) heart failure Status: Acute (13) Ischemic cardiomyopathy Status: Acute (14) LV dysfunction Status: Acute (15) Pulmonary hypertension Status: Acute (16) Duodenal ulcer Status: Acute (17) Esophagitis Status: Acute Assessment and Plan for All Diagnoses:: Recheck labs. Once showing stability may be able to discharge home. Exam Vital signs and Labs for Last 24 Hours: Temp Pulse Resp BP Pulse Ox 99.4 F 80 20 98/50 L 93 L 12/12/21 03:39 12/12/21 04:00 12/12/21 03:39 12/12/21 03:39 12/12/21 06:23 Laboratory Results - last 24 hr 12/11/21 06:16: Sodium 133 L, Potassium 3.7, Chloride 107, Carbon Dioxide 22, Anion Gap 7.7, BUN 24 H, Creatinine 1.00, Estimated Creat Clear 60, Estimated GFR 55 L, Est GFR ( Amer) 66, Glucose 122 H, Calcium 7.3 L, Magnesium 1.1 L, Total Bilirubin 0.4, AST 19, ALT 13, Alkaline Phosphatase 65, Total Protein 4.1 L, Albumin 2.1 L, Globulin 2.0, Albumin/Globulin Ratio 1.1, TSH 9.68 H 12/11/21 10:46: POC Glucose 137 H 12/11/21 16:57: POC Glucose 192 H 12/11/21 20:21: POC Glucose 160 H 12/12/21 06:53: POC Glucose 182 H I & O for Last 24 hours: Intake & Output 12/09/21 12/10/21 12/11/21 12/12/21 11:59 11:59 11:59 11:59 Intake Total 2412 / 2412 1687 / 1687 1072 / 1072 480 / 480 Output Total 800 / 800 600 / 600 Balance 1612 / 1612 1087 / 1087 1072 / 1072 480 / 480 Weight 160 lb 3 oz 164 lb 163 lb 14.4 oz 160 lb 6.4 oz - Constitutional no acute distress - *Routine Abdominal Exam Present: soft
--- NOTE | 2021-12-12 07:25 | PC.NURSE ---
Pt is refusing lab draw at this time. Pt states I am going home today no matter what. Attempted to pull labs from IV and was unsuccessful.
--- NOTE | 2021-12-12 08:07 | HMH.ACPN2 ---
<Jennifer Echevarria - Last Filed: 12/12/21 08:07> Internal Medicine - PN: Subj *Date: 12/12/21 *Time: 08:07 Interval history: Patient states she is she is going home today. States she can take her pills at home. She is all smiles and conversant. Discussed her thyroid pill and her magnesium pill. She been up to the bathroom and did become a little bit dizzy. She will need her H&H completed. She is voiding QS. She denies chest pain and shortness of breath. She states she is voiding QS. She has had much less diarrhea but does not remember exactly the frequency and has not noted any blood or black stools. Exam Vital signs and Labs for Last 24 Hours: Temp Pulse Resp BP Pulse Ox 99.4 F 80 20 98/50 L 93 L 12/12/21 03:39 12/12/21 04:00 12/12/21 03:39 12/12/21 03:39 12/12/21 06:23 Laboratory Results - last 24 hr 12/11/21 06:16: Sodium 133 L, Potassium 3.7, Chloride 107, Carbon Dioxide 22, Anion Gap 7.7, BUN 24 H, Creatinine 1.00, Estimated Creat Clear 60, Estimated GFR 55 L, Est GFR ( Amer) 66, Glucose 122 H, Calcium 7.3 L, Magnesium 1.1 L, Total Bilirubin 0.4, AST 19, ALT 13, Alkaline Phosphatase 65, Total Protein 4.1 L, Albumin 2.1 L, Globulin 2.0, Albumin/Globulin Ratio 1.1, TSH 9.68 H 12/11/21 10:46: POC Glucose 137 H 12/11/21 16:57: POC Glucose 192 H 12/11/21 20:21: POC Glucose 160 H 12/12/21 06:53: POC Glucose 182 H I & O for Last 24 hours: Intake & Output 12/09/21 12/10/21 12/11/21 12/12/21 11:59 11:59 11:59 11:59 Intake Total 2412 / 2412 1687 / 1687 1072 / 1072 480 / 480 Output Total 800 / 800 600 / 600 Balance 1612 / 1612 1087 / 1087 1072 / 1072 480 / 480 Weight 160 lb 3 oz 164 lb 163 lb 14.4 oz 160 lb 6.4 oz - Constitutional no acute distress - *Routine Respiratory Exam Present: CTA bilaterally (Anteriorly and posteriorly) - *Routine Cardiovascular Exam Present: RRR, ectopic (Less ectopy) - *Routine Abdominal Exam Present: soft, normoactive bowel sounds. Absent: tenderness - *Routine Extremities Exam Present: full ROM. Absent: edema, calf tenderness - *Routine Neurological Exam Present: alert, oriented X3 Assessment and Plan (1) Non-STEMI (non-ST elevated myocardial infarction) Status: Acute Category: Medical Code(s): I21.4 - Non-ST elevation (NSTEMI) myocardial infarction (2) Elevated troponin Status: Acute Category: Medical Code(s): R77.8 - Other specified abnormalities of plasma proteins (3) Bilateral carotid bruits Status: Acute Category: Medical Code(s): R09.89 - Other specified symptoms and signs involving the circulatory and respiratory systems (4) Respiratory failure with hypercapnia Status: Acute Qualifiers: Chronicity: acute Qualified Code(s): J96.02 - Acute respiratory failure with hypercapnia Category: Medical Code(s): J96.92 - Respiratory failure, unspecified with hypercapnia (5) Severe sepsis with acute organ dysfunction Status: Acute Category: Medical Code(s): A41.9 - Sepsis, unspecified organism; R65.20 - Severe sepsis without septic shock (6) Acute exacerbation of chronic obstructive airways disease Status: Acute Category: Medical Code(s): J44.1 - Chronic obstructive pulmonary disease with (acute) exacerbation (7) Type 2 diabetes mellitus Status: Chronic Category: Medical Code(s): E11.9 - Type 2 diabetes mellitus without complications (8) History of rectal cancer Status: Chronic Category: Medical Code(s): Z85.048 - Personal history of other malignant neoplasm of rectum, rectosigmoid junction, and anus (9) Tobacco use Status: Chronic Category: Social Hx Code(s): Z72.0 - Tobacco use (10) LLL pneumonia Status: Acute Category: Medical Code(s): J18.9 - Pneumonia, unspecified organism (11) Hypokalemia Status: Acute Category: Medical Code(s): E87.6 - Hypokalemia (12) Acute systolic (congestive) heart failure Status: Acute Category: Medical Code(s): I50.21 - Ac
[2021-12-12 09:18] LABS: Basophils % 0.5 % (0.1-2.0); Eosinophils # 0.2 K/mm3 (0.0-0.4); Eosinophils % 2.8 % (0.1-12.0); Hemoglobin 7.3 g/dL (12.2-16.2); Lymphocytes # 1.3 K/mm3 (0.7-4.5); Lymphocytes % 17.1 % (10-50); Mean Corpuscular HGB Conc 35.3 g/dL (31.8-35.4); Mean Corpuscular Hemoglobin 31.4 pg (27.0-31.2); Mean Platelet Volume 8.6 fl (7.4-10.4); Monocytes # 0.6 K/mm3 (0.1-1.0); Monocytes % 7.5 % (1.7-9.3); Neutrophils # 5.3 K/mm3 (1.8-7.8); Neutrophils % 72.6 % (37.0-80.0); Platelet Count 621 K/mm3 (142-424); Red Blood Count 2.32 M/mm3 (4.20-5.40); Red Cell Distribution Width 15.9 % (11.5-17.5); White Blood Count 7.3 K/mm3 (4.8-10.8)
--- NOTE | 2021-12-12 10:21 | HMH.PULMPN ---
Internal Medicine - PN: Subj *Date: 12/12/21 *Time: 10:21 Interval history: No acute respiratory vents overnight. Patient continues remain on nasal cannula at 3 L with saturations maintained at 90% and above. Exam - Constitutional Constitutional:: Present: no acute distress, comfortable - HENMT Exam HENMT: Present: normocephalic - Eye Exam Eyes:: Present: normal appearance both eyes and related structures - Neck Exam Neck:: Present: normal visual inspection - Respiratory Exam Respiratory:: Present: able to speak in complete sentences, no respiratory distress. Absent: wheezing - Cardiovascular Exam Cardiac:: Present: S1, S2 - GI Exam GI:: Present: soft, no hepatosplenomegaly - Skin Exam Skin: Present: warm, no rash - Neurological Exam Neurological: Present: alert, normal cognition - Extremities Exam Extremities: Present: no cyanosis, no clubbing, no edema Assessment and Plan (1) Non-STEMI (non-ST elevated myocardial infarction) Status: Acute Category: Medical Code(s): I21.4 - Non-ST elevation (NSTEMI) myocardial infarction (2) Elevated troponin Status: Acute Category: Medical Code(s): R77.8 - Other specified abnormalities of plasma proteins (3) Bilateral carotid bruits Status: Acute Category: Medical Code(s): R09.89 - Other specified symptoms and signs involving the circulatory and respiratory systems (4) Respiratory failure with hypercapnia Status: Acute Qualifiers: Chronicity: acute Qualified Code(s): J96.02 - Acute respiratory failure with hypercapnia Category: Medical Code(s): J96.92 - Respiratory failure, unspecified with hypercapnia (5) Severe sepsis with acute organ dysfunction Status: Acute Category: Medical Code(s): A41.9 - Sepsis, unspecified organism; R65.20 - Severe sepsis without septic shock (6) Acute exacerbation of chronic obstructive airways disease Status: Acute Category: Medical Code(s): J44.1 - Chronic obstructive pulmonary disease with (acute) exacerbation (7) Type 2 diabetes mellitus Status: Chronic Category: Medical Code(s): E11.9 - Type 2 diabetes mellitus without complications (8) History of rectal cancer Status: Chronic Category: Medical Code(s): Z85.048 - Personal history of other malignant neoplasm of rectum, rectosigmoid junction, and anus (9) Tobacco use Status: Chronic Category: Social Hx Code(s): Z72.0 - Tobacco use (10) LLL pneumonia Status: Acute Category: Medical Code(s): J18.9 - Pneumonia, unspecified organism (11) Hypokalemia Status: Acute Category: Medical Code(s): E87.6 - Hypokalemia (12) Acute systolic (congestive) heart failure Status: Acute Category: Medical Code(s): I50.21 - Acute systolic (congestive) heart failure (13) Ischemic cardiomyopathy Status: Acute Category: Medical Code(s): I25.5 - Ischemic cardiomyopathy (14) LV dysfunction Status: Acute Category: Medical Code(s): I51.9 - Heart disease, unspecified (15) Pulmonary hypertension Status: Acute Category: Medical Code(s): I27.20 - Pulmonary hypertension, unspecified (16) Duodenal ulcer Status: Acute Category: Medical Code(s): K26.9 - Duodenal ulcer, unspecified as acute or chronic, without hemorrhage or perforation (17) Esophagitis Status: Acute Category: Medical Code(s): K20.90 - Esophagitis, unspecified without bleeding (18) Hypothyroidism Status: Acute Category: Medical Code(s): E03.9 - Hypothyroidism, unspecified (19) Hypomagnesemia Status: Acute Category: Medical Code(s): E83.42 - Hypomagnesemia - Assessment and plan all Dx Assessment and Plan for all problems:: #Acute hypoxic hypercarbic respiratory failure: #Hospital-acquired pneumonia S/P Rx: #Pulmonary AV malformation: Ms. Lynn is a 71-year-old female with a history of rectal cancer with colostomy and subsequent colon resection and reversal of the colostomy, kidney failure, COPD, TIA,
[2021-12-12 10:26] LABS: Hematocrit 20.7 % (37.0-47.0)
--- NOTE | 2021-12-12 11:12 | HMH.PNCARD ---
Subjective Date: 12/12/21 Time: 11:12 Principal diagnosis: nonstemi, CHF, GI bleed Interval history: 71-year-old white female in bed in no acute distress. Patient is very frustrated about her continued stay in the hospital and the multiple blood draws that are performed. She is insisting on going home today. Hemoglobin today is down to 7.3. I did discuss receiving more blood that she is not amenable to that at this time. She relates that she is not can wear the LifeVest when she gets home, therefore I have asked her to allow a limited echo to reassess her ejection fraction at this time and she is amenable to that. Exam Vital signs and Labs for Last 24 Hours: Temp Pulse Resp BP Pulse Ox 98.2 F 99 H 16 99/49 L 93 L 12/12/21 08:00 12/12/21 08:00 12/12/21 08:00 12/12/21 08:00 12/12/21 08:00 Laboratory Results - last 24 hr 12/08/21 07:36: Crossmatch (AHG) See Detail 12/11/21 16:57: POC Glucose 192 H 12/11/21 20:21: POC Glucose 160 H 12/12/21 06:53: POC Glucose 182 H 12/12/21 09:10: WBC 7.3, RBC 2.32 L, Hgb 7.3 L, Hct 20.7 L*, MCV 89.0, MCH 31.4 H, MCHC 35.3, RDW 15.9, Plt Count 621 H D, MPV 8.6, Neut % (Auto) 72.6, Lymph % (Auto) 17.1, Burke % (Auto) 7.5, Eos % (Auto) 2.8, Baso % (Auto) 0.5, Neut # (Auto) 5.3, Lymph # (Auto) 1.3, Burke # (Auto) 0.6, Eos # (Auto) 0.2, Baso # (Auto) 0.0 I & O for Last 24 hours: Intake & Output 12/09/21 12/10/21 12/11/21 12/12/21 11:59 11:59 11:59 11:59 Intake Total 2412 / 2412 1687 / 1687 1072 / 1072 480 / 480 Output Total 800 / 800 600 / 600 Balance 1612 / 1612 1087 / 1087 1072 / 1072 480 / 480 Weight 160 lb 3 oz 164 lb 163 lb 14.4 oz 160 lb 6.4 oz - *Routine Respiratory Exam Present: CTA bilaterally - *Routine Cardiovascular Exam Present: RRR Progress Note: A&P (1) Non-STEMI (non-ST elevated myocardial infarction) Status: Acute (2) Elevated troponin Status: Acute (3) Bilateral carotid bruits Status: Acute (4) Respiratory failure with hypercapnia Status: Acute (5) Severe sepsis with acute organ dysfunction Status: Acute (6) Acute exacerbation of chronic obstructive airways disease Status: Acute (7) Type 2 diabetes mellitus Status: Chronic (8) History of rectal cancer Status: Chronic (9) Tobacco use Status: Chronic (10) LLL pneumonia Status: Acute (11) Hypokalemia Status: Acute (12) Acute systolic (congestive) heart failure Status: Acute (13) Ischemic cardiomyopathy Status: Acute (14) LV dysfunction Status: Acute (15) Pulmonary hypertension Status: Acute (16) Duodenal ulcer Status: Acute (17) Esophagitis Status: Acute (18) Hypothyroidism Status: Acute (19) Hypomagnesemia Status: Acute Assessment and Plan for All Diagnoses:: 1. GI bleed, s/p transfusion. Ulcers noted on EGD this admission. Still with dropping Hgb after transfusions. Hemoglobin 7.3 today. Patient refusing blood transfusion at this time. 2. NSTEMI, s/p JACQUIE to RCA. Due to recurrent GI bleed, aspirin stopped on 12/07/2021. Continue Brilinta for a total of 30 days (12/28/2021) then may discontinue if bleeding is still evident. 3. Ischemic cardiomyopathy with ejection fraction of 25%. Will obtain limited echo to reassess prior to discharge. Remains on Coreg and Entresto. 4. Hypotension, resolved with IVF and blood transfusion. 5. Bilateral pneumonia, per PCP. Last chest x-ray 12/07/2021 6. CHF, combination of systolic and diastolic dysfunction, continue to hold diuretics for now but restart if needed for recurrent pulmonary edema. 7. Right to left shunt on echo with bubble study. History of TIA's several years ago. DWIGHT postponed for now, will arrange as an outpatient. 8. 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 Per Pulmonary this can be referred for treatment as outpatient. 9. Carotid artery stenosis, less than 50% bilaterally on carotid duplex this admission. 10. Hyperlipidemia, contin
--- NOTE | 2021-12-12 11:17 | CA_ITS ---
APPROVED REPORT EXAM: Comprehensive 2D, Doppler, and color-flow Echocardiogram Patient Financial Advocate: IGNACIO Naqvi, RVS Ht: 5 ft 6 in Wt: 175lbs BSA: 1.89 BP: 99/49 mmHg Indications: Cardiomyopathy-LV check, Post-op GI bleedd Hgb=7.3L, Hct=20.7L, CAD, COPD, Rectal CA, Sepsis 2D Dimensions IVSd 0.83 cm F: 0.6-1.0 LVEF (Visual) 48.50 % PWd 0.85 cm F: 0.6 - 1.0 LVDd 6.21 cm F: 3.9 - 5.3 LVDs 4.66 cm F: 2.2 - 3.5 M-Mode Dimensions RVDd 2.53 cm (0.9-2.6) LA Diam 3.79 cm (1.9-4.0) LVDd 6.46 cm (3.5-5.7) Ao Diam 3.63 cm (2.0-3.7) LVDs 4.54 cm (3.5-5.7) IVSd 0.80 cm (0.6-1.1) PWd 0.84 cm (0.6-1.1) EF (Teich) 48.00% FS 26.00% EDV (Teich) 213.00 mL ESV (Teich) 84.90 mL Conclusion 1. Limited echocardiogram is done to assess left ventricular systolic function. 2. Estimated ejection fraction approximately 45%, there is frequent premature ventricular complexes present which makes it difficult for accurate assessment of the left ventricular systolic function, there is no obvious regional wall motion abnormality. 3. No significant pericardial effusion noted. Electronically signed by : Vasyl Drummond MD 12/12/2021 19:28:57
[2021-12-12 12:05] LABS: POC Glucose,Bedside 149 (70-110)
[2021-12-12 12:14] LABS: Reticulocyte % (Auto) 3.9 % (0.9-3.2)
[2021-12-12 12:39] LABS: Iron 26 ug/dL (37-170)
[2021-12-12 12:48] LABS: Total Iron Binding Capacity 211 ug/dL (265-497)
[2021-12-12 12:57] LABS: 25-OH Vitamin D, Total < 12.8 ng/mL (30-100)
--- NOTE | 2021-12-12 13:05 | SUR.OPER ---
Site of bleeding injected with 19 cc epinephrine
--- NOTE | 2021-12-12 13:32 | PC.NURSE ---
Pt clinically ready to be transported to stepdown unit, WALT Teague called report to WALT Ziegler on stepdown unit. Pt experiencing waves of nausea. Zofran was administered per AMADOR Rodriguez.
--- NOTE | 2021-12-12 13:38 | HMH.SCOPE ---
- Procedure: Date: 12/12/21 Patient Date of :: 1950 Procedure Performed:: Esophagogastroduodenoscopy with injection epinephrine and Hemoclip deployment for hemostasis. Indications:: Patient is a 71-year-old female with history of rectal cancer with temporary colostomy in 2015 at [facility]. She has a history of renal failure, COPD, TIA, diabetes. She is a smoker. She was admitted 11/18/2021 with hypercapnic respiratory failure. During this hospitalization she has been treated for that and bilateral lower lobe pneumonia. Patient did have elevation of troponins consistent with non-ST elevation myocardial infarction and underwent left heart catheterization with stent placement 11/28/21. She was placed on dual antiplatelet therapy with aspirin and Brilinta. On 12/03/2021 as noted her hemoglobin was 9.1 which was down from 12.4 on 12/01/2021. She was found to have Hemoccult stool positivity. Surgery was consulted. She was found to have some dark stool. She underwent EGD on 12/05/2021. She was found to have a moderate ulcer within the duodenal bulb which was inflamed with no stigmata of recent bleeding. Most notable there was ulcer in the second portion of the duodenum which showed some blood clot. Epinephrine was injected. There was no evidence of any active bleeding or visible vessel. She did require subsequent transfusion with decent response but had continued to show some evidence of bleeding with dark stool. She showed slight decrease in her hemoglobin. She underwent second look EGD on 12/07/2021. This revealed findings of moderate exudative inflamed ulcer in the duodenal bulb with no stigmata of recent bleeding. However she had a deep ulcer in the second portion of the duodenum with stigmata of recent bleeding and minor oozing. Hemostasis was achieved with injection of epinephrine, 14 cc, and deployment of Hemoclip x3. Patient's hemoglobin the following day was 7.5 and she was transfused to a hemoglobin of 10.4 after 2 units packed red blood cells. On 12/10/2021 her hemoglobin was 9.2. By 12/11/2021 it is dropped to 8.5 and she had developed some melena. She was made n.p.o. the morning of 12/12/2021. At that time it was noted that her hemoglobin was 7.3. Plan was made to proceed with third endoscopy. Performing Provider:: Ga Mason MD Referring Provider:: Rolf Steen MD Sedation:: MAC sedation Procedure:: Patient was taken urgently to endoscopy procedure room. She was positioned in lateral decubitus position. Adequate intravenous sedation was achieved with anesthesia supervision and administration. Olympus endoscope was inserted via the oropharynx. Esophagus was cannulated. Overall esophagus appeared relatively unremarkable. At the gastroesophageal junction which was encountered at approximately 38 cm there was the beginnings of a Schatzki's ring. Stomach was cannulated and insufflated. Retroflexion revealed no evidence of any appreciable hiatal hernia. There was noted to be some reflux of blood clot from the pylorus into the gastric antrum. Pylorus was traversed. There was relatively fresh appearing blood clot in the second portion of the duodenum. Previously noted ulcer in the duodenal bulb appeared to be more shallow and less inflamed. However there was a large amount of blood clot in the second portion of the duodenum. With some difficulty this was ultimately able to be evacuated. However there continues to be fresh appearing blood reaccumulating. Ultimately in the general region epinephrine was injected submucosally. Additional blood was able to be evacuated. The endoscope was advanced beyond the area of active bleeding. There is small amount of residual blood distally. Additional epinephrine was injected submucosally in the region distal to the ulcer. Additional reaccumulating blood was evacuated. It appeared as though there was relatively decent hemostasis after injection of a total of appr
--- NOTE | 2021-12-12 13:46 | P.PN_ITS ---
[facility] Anesthesia Checklist - Patient Identification Patient Identification: Arm Band, Verbal (Name & ) - Structural Data Admitted From: Inpatient Planned Operative Procedure/s: EGD Consent for Planned Operative Procedure(s) Verified: Yes Verified Documents: Surgical Consent - Chart Verification Results Verified: CBC, BMP - Additional verifications Anesthesia Reactions: No - Airway Assessment C-Spine Mobility Assessed: Yes TMJ Mobility Assessed: Yes Dentition: Edentulous - Neurological Assessment Level of Consciousness: Awake, Alert, Appropriate - Anesthesia Plan Anesthesia Risk discussed: Yes ASA Class: IV Anesthesia Type: MAC [facility] History I have reviewed the patient's past medical history: Yes Medical History: Reports:: Arrhythmia, Cancer, Cardiomyopathy, Congestive Heart Failure, Chronic Obstructive Pulmonary Disease (COPD), Coronary Artery Disease, Diabetes Mellitus Type 1, Diabetes Mellitus Type 2, Hypertension, Lung Disease (copd), Myocardial Infarction, Renal Disease, Transient Ischemic Attacks (TIA) Denies:: Internal Pacemaker, Seizures *Have you ever received a pneumonia vaccine?: No *Have you received a flu vaccine this season?: No Other Medical History: Reports: Cataracts Anesthesia experience/problems:: None Laterality Cases: Bilateral: Cataract Other Surgeries: Yes: Colonoscopy, Colon Resection, Colostomy, Hernia Repair. No: Pacemaker - *Social History Last grade of school completed: High school graduate Smoking Status: Current every day smoker Tobacco Type: cigarettes # Packs/Day (cigarettes): 1 Alcohol Intake: never Substance Use Type: denies use *Occupational Status:: retired Housing: house Household Members: none *Travel in the last 8 weeks: None Family Hx:: Cancer, Diabetes, Heart Attack, Stroke
--- NOTE | 2021-12-12 14:39 | PC.NURSE ---
1340- Patient returned from EGD, this RN assuming care of patient at this time
--- NOTE | 2021-12-12 14:45 | CT_ITS ---
PROCEDURE INFORMATION: Exam: CT Angiography Abdomen With Contrast Exam date and time: 12/12/2021 3:38 PM Age: 71 years old Clinical indication: Other: Gi bleed; Patient HX: Bleeding from duodenum per surgeon. ; Additional info: Gastrointestinal bleed TECHNIQUE: Imaging protocol: Computed tomographic angiography images of the abdomen with intravenous contrast material. 3D rendering (Not supervised by radiologist): MIP and/or 3D reconstructed images were created by the technologist. Radiation optimization: All CT scans at this facility use at least one of these dose optimization techniques: automated exposure control; mA and/or kV adjustment per patient size (includes targeted exams where dose is matched to clinical indication); or iterative reconstruction. Contrast material: ISOVUE 370; Contrast volume: 75 ml; Contrast route: INTRAVENOUS (IV); COMPARISON: CT ANGIO CHEST PE PROTOCOL 12/01/2021 11:05 AM FINDINGS: Lungs: Compressive atelectasis in the bilateral lung bases. Aorta: Infrarenal abdominal aortic aneurysm measures 8 cm in length by 6 cm AP x 5.8 cm transverse. There is a very large thrombosed atherosclerotic component within the aneurysmal sac which measures 3.7 cm in greatest thickness. No evidence of aneurysmal rupture or significant penetrating atherosclerotic ulcer at the level of the aneurysmal sac. Diffuse and severe calcific atherosclerotic disease of the aorta is present. There are multiple ulcerated plaques noted throughout the abdominal aorta. Celiac trunk and mesenteric arteries: Celiac artery appears patent and without hemodynamically significant stenosis. SMA appears completely patent and without hemodynamically significant stenosis. BECCA appears chronically occluded. Renal arteries: Bilateral single renal arteries appear completely patent with minimal calcific atherosclerotic disease and no hemodynamically significant stenosis present. There are subtle linear filling defects in the proximal segments of the left renal artery (image 36 series 601), concerning for a small intimal flap. Right iliac arteries: Right iliac arteries demonstrate diffuse calcific atherosclerotic disease without hemodynamically significant stenosis. Left iliac arteries: Left iliac arteries demonstrate diffuse moderate calcific atherosclerotic disease without hemodynamically significant stenosis. 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 Veins: Stable varices noted in the lingula. Liver: There is enlargement of the liver, measuring 18.2 cm. There is a diffuse decrease in hepatic parenchymal density, consistent with fatty infiltration. The liver is otherwise unremarkable. Gallbladder and bile ducts: Multiple calcified gallstones are present. The gallbladder is otherwise unremarkable. There is no evidence of biliary ductal dilation. Pancreas: Normal morphology. No focal lesions or acute pathology. Normal size. Spleen: The spleen demonstrates punctate calcifications, consistent with remote granulomatous organism exposure. The spleen is otherwise unremarkable. Adrenals: 1.6 cm right adrenal nodule, statistically representing an adenoma. Adrenal glands are otherwise unremarkable. Kidneys and ureters: Subcentimeter right renal hypodense lesions are too small to characterize but most probably benign representing cysts. The kidneys are otherwise unremarkable. The ureters are normal. Stomach and bowel: Metallic clip in the 1/2 duodenal segment. No evidence of acute arterial bleed within the stomach, duodenum, small bowel, or large bowel. No bowel obstruction or significant bowel wall thickening. Enteroenteric anastomosis in the right
--- NOTE | 2021-12-12 14:58 | P.PN_ITS ---
Subjective Narrative: Patient placed in the stepdown unit after repeat EGD. Receiving first unit of packed red blood cells. Progress Note: A&P (1) Non-STEMI (non-ST elevated myocardial infarction) Status: Acute (2) Elevated troponin Status: Acute (3) Bilateral carotid bruits Status: Acute (4) Respiratory failure with hypercapnia Status: Acute (5) Severe sepsis with acute organ dysfunction Status: Acute (6) Acute exacerbation of chronic obstructive airways disease Status: Acute (7) Type 2 diabetes mellitus Status: Chronic (8) History of rectal cancer Status: Chronic (9) Tobacco use Status: Chronic (10) LLL pneumonia Status: Acute (11) Hypokalemia Status: Acute (12) Acute systolic (congestive) heart failure Status: Acute (13) Ischemic cardiomyopathy Status: Acute (14) LV dysfunction Status: Acute (15) Pulmonary hypertension Status: Acute (16) Duodenal ulcer Status: Acute (17) Esophagitis Status: Acute (18) Hypothyroidism Status: Acute (19) Hypomagnesemia Status: Acute Assessment and Plan for All Diagnoses:: Blood pressure has been somewhat tenuous. Receiving first unit of 2 of packed red blood cells. Had a long discussion with [facility]. Currently bed availability is extremely limited. She has been placed on the wait list for [facility]. Request has been given for possible CT angiogram to see if she would be a candidate for interventional radiology. This has been arranged. Of course if this does show active extravasation she will need quite urgent transfer. Exam Vital signs and Labs for Last 24 Hours: Temp Pulse Resp BP Pulse Ox 97.8 F 93 H 16 95/46 L 95 12/12/21 14:45 12/12/21 14:45 12/12/21 14:45 12/12/21 14:45 12/12/21 14:45 Laboratory Results - last 24 hr 12/08/21 07:36: Crossmatch (AHG) See Detail 12/11/21 16:57: POC Glucose 192 H 12/11/21 20:21: POC Glucose 160 H 12/12/21 06:53: POC Glucose 182 H 12/12/21 09:10: WBC 7.3, RBC 2.32 L, Hgb 7.3 L, Hct 20.7 L*, MCV 89.0, MCH 31.4 H, MCHC 35.3, RDW 15.9, Plt Count 621 H D, MPV 8.6, Neut % (Auto) 72.6, Lymph % (Auto) 17.1, Walker % (Auto) 7.5, Eos % (Auto) 2.8, Baso % (Auto) 0.5, Neut # (Auto) 5.3, Lymph # (Auto) 1.3, Walker # (Auto) 0.6, Eos # (Auto) 0.2, Baso # (Auto) 0.0 12/12/21 11:42: POC Glucose 149 H 12/12/21 11:54: Blood Type A Positive, Antibody Screen Negative, Crossmatch (AHG) See Detail 12/12/21 11:54: Blood Type Cancelled, Antibody Screen Cancelled 12/12/21 11:54: Retic Count (auto) 3.9 H 12/12/21 11:54: Iron 26 L, TIBC 211 L, Iron Saturation 12.49789 L 12/12/21 11:54: 25-OH Vitamin D Total < 12.8 L I & O for Last 24 hours: Intake & Output 12/10/21 12/11/21 12/12/21 12/13/21 11:59 11:59 11:59 11:59 Intake Total 1687 / 1687 1072 / 1072 480 / 480 0 / 0 Output Total 600 / 600 Balance 1087 / 1087 1072 / 1072 480 / 480 0 / 0 Weight 164 lb 163 lb 14.4 oz 160 lb 6.4 oz - Constitutional Comments: Blood pressure tenuous
--- NOTE | 2021-12-12 17:59 | PC.NURSE ---
1300 nurse check not done, patient not in room
--- NOTE | 2021-12-12 18:19 | PC.NURSE ---
Patient transferred to stepdown this shift after EGD, has received 2 units PRBC, on wait list at for higher level of care, remains on 3LNC, alert and oriented, blood pressure has improved with blood transfusion, pt had one large loose black stool this shift while in OR for EGD, no s/s of distress noted, vss.
--- NOTE | 2021-12-12 18:27 | PC.NURSE ---
Jennifer Echevarria notified of critical hematocrit and hemoglobin of 7.3 at 1036. 2 units of RBC's ordered to be transfused.
[2021-12-12 19:59] LABS: Hematocrit 25.7 % (37.0-47.0)
[2021-12-12 20:15] LABS: Hemoglobin 8.8 g/dL (12.2-16.2)
[2021-12-12 20:18] LABS: POC Glucose,Bedside 116 (70-110)
--- NOTE | 2021-12-12 20:34 | PC.NURSE ---
Spoke with MD Lentz. Notified of post H&H 8.8, 25.7. New orders received. CBC and BMP in AM. Place 3 more units of blood on hold.
[2021-12-13] VITALS (23 sets, daily range): BP systolic 71–115; BP diastolic 31–59; PULSE 78–100; RESP 16–23; TEMP 36.3–37.3; O2SAT 90–97; BMI 25.6
--- NOTE | 2021-12-13 02:44 | PC.NURSE ---
notified of pt becoming hypotensive this AM. New orders received. CBC. Increase fluids to 200 ml/hr. Start levophed gtt if needed.
[2021-12-13 03:04] LABS: Hemoglobin 7.2 g/dL (12.2-16.2)
--- NOTE | 2021-12-13 03:13 | PC.WOUNDNOTE ---
notified of H&H 7.2, 22.0. New orders received to transfuse 1 unit now. aware that pt was started on Levophed gtt. Currently infusing @ 8 mcg/min.
--- NOTE | 2021-12-13 05:03 | PC.NURSE ---
Unit of blood infusing at this time. Levophed infusing @ 8 mcg/min. BP currently stable. New IV placed In LFA #22. Pt has had multiple stools that are dark liquid. Blood noted. Pt denies any tenderness to abdomen. She is currently sleeping at this time. Will continue to monitor.
[2021-12-13 06:36] LABS: POC Glucose,Bedside 223 (70-110)
--- NOTE | 2021-12-13 06:51 | HMH.GSPN ---
Subjective Narrative: Patient received 2 units packed red blood cells with resultant hemoglobin of 8.8. It has since dropped to 7.2. She has had some bloody bowel movements. Her blood pressure has been tenuous and primary service has placed her on Levophed. She is getting IV fluids at 200 cc/h. Progress Note: A&P (1) Non-STEMI (non-ST elevated myocardial infarction) Status: Acute (2) Elevated troponin Status: Acute (3) Bilateral carotid bruits Status: Acute (4) Respiratory failure with hypercapnia Status: Acute (5) Severe sepsis with acute organ dysfunction Status: Acute (6) Acute exacerbation of chronic obstructive airways disease Status: Acute (7) Type 2 diabetes mellitus Status: Chronic (8) History of rectal cancer Status: Chronic (9) Tobacco use Status: Chronic (10) LLL pneumonia Status: Acute (11) Hypokalemia Status: Acute (12) Acute systolic (congestive) heart failure Status: Acute (13) Ischemic cardiomyopathy Status: Acute (14) LV dysfunction Status: Acute (15) Pulmonary hypertension Status: Acute (16) Duodenal ulcer Status: Acute (17) Esophagitis Status: Acute (18) Hypothyroidism Status: Acute (19) Hypomagnesemia Status: Acute Assessment and Plan for All Diagnoses:: Patient CT angiogram yesterday revealed no evidence of any active bleed at the time it was performed but delayed images were not done. She was found to have a large 6 cm infrarenal abdominal aortic aneurysm. She had received 2 units packed red blood cells with a suboptimal response with follow-up hemoglobin diminished. Blood pressure is tenuous and she has been placed on Levophed. Patient is currently on the waiting list for progressive bed at [facility]. Perhaps the admitting primary service could expedite this or arrange for transfer to alternate tertiary facility due to her need for potential angiography with embolization and possible surgical intervention. Her mortality is exquisitely high. Exam Vital signs and Labs for Last 24 Hours: Temp Pulse Resp BP Pulse Ox 97.4 F L 78 16 101/55 L 94 L 12/13/21 04:45 12/13/21 04:45 12/13/21 04:45 12/13/21 04:45 12/13/21 04:45 Laboratory Results - last 24 hr 12/08/21 07:36: Crossmatch (AHG) See Detail 12/12/21 06:53: POC Glucose 182 H 12/12/21 09:10: WBC 7.3, RBC 2.32 L, Hgb 7.3 L, Hct 20.7 L*, MCV 89.0, MCH 31.4 H, MCHC 35.3, RDW 15.9, Plt Count 621 H D, MPV 8.6, Neut % (Auto) 72.6, Lymph % (Auto) 17.1, [place]iba % (Auto) 7.5, Eos % (Auto) 2.8, Baso % (Auto) 0.5, Neut # (Auto) 5.3, Lymph # (Auto) 1.3, [place]iba # (Auto) 0.6, Eos # (Auto) 0.2, Baso # (Auto) 0.0 12/12/21 11:42: POC Glucose 149 H 12/12/21 11:54: Blood Type A Positive, Antibody Screen Negative, Crossmatch (AHG) See Detail 12/12/21 11:54: Blood Type Cancelled, Antibody Screen Cancelled 12/12/21 11:54: Retic Count (auto) 3.9 H 12/12/21 11:54: Iron 26 L, TIBC 211 L, Iron Saturation 12.37785 L 12/12/21 11:54: 25-OH Vitamin D Total < 12.8 L 12/12/21 19:49: Hgb 8.8 L D, Hct 25.7 L 12/12/21 19:58: POC Glucose 116 H 12/13/21 02:38: Hgb 7.2 L D, Hct 22.0 L 12/13/21 06:11: POC Glucose 223 H I & O for Last 24 hours: Intake & Output 12/10/21 12/11/21 12/12/21 12/13/21 11:59 11:59 11:59 11:59 Intake Total 1687 / 1687 1072 / 1072 480 / 480 520 / 520 Output Total 600 / 600 300 / 300 Balance 1087 / 1087 1072 / 1072 480 / 480 220 / 220 Weight 164 lb 163 lb 14.4 oz 160 lb 6.4 oz 163 lb 4 oz - *Routine Respiratory Exam Present: decreased breath sounds
[2021-12-13 08:22] LABS: Basophils # 0.1 K/mm3 (0-0.2); Basophils % 0.9 % (0.1-2.0); Eosinophils # 0.2 K/mm3 (0.0-0.4); Hematocrit 22.8 % (37.0-47.0); Hemoglobin 7.9 g/dL (12.2-16.2); Lymphocytes # 1.7 K/mm3 (0.7-4.5); Lymphocytes % 20.4 % (10-50); Mean Corpuscular HGB Conc 34.5 g/dL (31.8-35.4); Mean Corpuscular Hemoglobin 31.2 pg (27.0-31.2); Mean Corpuscular Volume 90.3 fl (81-99); Mean Platelet Volume 9.1 fl (7.4-10.4); Monocytes # 0.6 K/mm3 (0.1-1.0); Monocytes % 7.3 % (1.7-9.3); Neutrophils # 5.8 K/mm3 (1.8-7.8); Neutrophils % 70.2 % (37.0-80.0); Platelet Count 636 K/mm3 (142-424); Red Blood Count 2.53 M/mm3 (4.20-5.40); Red Cell Distribution Width 15.5 % (11.5-17.5); White Blood Count 8.3 K/mm3 (4.8-10.8)
--- NOTE | 2021-12-13 08:36 | HMH.PNCARD ---
Subjective Date: 12/13/21 Time: 08:36 Principal diagnosis: nonstemi, CHF, GI bleed Interval history: 71-year-old white female in bed in no acute distress. Very emotional regarding her prolonged hospital stay. EGD yesterday performed with additional measures to try and slow the bleeding. Patient was again transfused blood overnight but hemoglobin remains in the 7-8 range. Blood pressure is in the 70-80 mmHg systolic range despite Levophed. Primary providers are arranging transfer to when bed available. In light of continued bleeding we will stop Brilinta. Exam Vital signs and Labs for Last 24 Hours: Temp Pulse Resp BP Pulse Ox 98.3 F 88 16 91/48 L 93 L 12/13/21 08:10 12/13/21 08:10 12/13/21 08:10 12/13/21 08:10 12/13/21 08:10 Laboratory Results - last 24 hr 12/08/21 07:36: Crossmatch (AHG) See Detail 12/12/21 09:10: WBC 7.3, RBC 2.32 L, Hgb 7.3 L, Hct 20.7 L*, MCV 89.0, MCH 31.4 H, MCHC 35.3, RDW 15.9, Plt Count 621 H D, MPV 8.6, Neut % (Auto) 72.6, Lymph % (Auto) 17.1, [place] % (Auto) 7.5, Eos % (Auto) 2.8, Baso % (Auto) 0.5, Neut # (Auto) 5.3, Lymph # (Auto) 1.3, [place] # (Auto) 0.6, Eos # (Auto) 0.2, Baso # (Auto) 0.0 12/12/21 11:42: POC Glucose 149 H 12/12/21 11:54: Blood Type A Positive, Antibody Screen Negative, Crossmatch (AHG) See Detail 12/12/21 11:54: Blood Type Cancelled, Antibody Screen Cancelled 12/12/21 11:54: Retic Count (auto) 3.9 H 12/12/21 11:54: Iron 26 L, TIBC 211 L, Iron Saturation 12.52068 L 12/12/21 11:54: 25-OH Vitamin D Total < 12.8 L 12/12/21 19:49: Hgb 8.8 L D, Hct 25.7 L 12/12/21 19:58: POC Glucose 116 H 12/13/21 02:38: Hgb 7.2 L D, Hct 22.0 L 12/13/21 06:11: POC Glucose 223 H 12/13/21 08:10: WBC 8.3, RBC 2.53 L, Hgb 7.9 L, Hct 22.8 L, MCV 90.3, MCH 31.2, MCHC 34.5, RDW 15.5, Plt Count 636 H, MPV 9.1, Neut % (Auto) 70.2, Lymph % (Auto) 20.4, [place] % (Auto) 7.3, Eos % (Auto) 2.0, Baso % (Auto) 0.9, Neut # (Auto) 5.8, Lymph # (Auto) 1.7, [place] # (Auto) 0.6, Eos # (Auto) 0.2, Baso # (Auto) 0.1 I & O for Last 24 hours: Intake & Output 12/10/21 12/11/21 12/12/21 12/13/21 11:59 11:59 11:59 11:59 Intake Total 1687 / 1687 1072 / 1072 480 / 480 620 / 620 Output Total 600 / 600 300 / 300 Balance 1087 / 1087 1072 / 1072 480 / 480 320 / 320 Weight 164 lb 163 lb 14.4 oz 160 lb 6.4 oz 163 lb 4 oz - Constitutional no acute distress - *Routine Respiratory Exam Present: CTA bilaterally - *Routine Cardiovascular Exam Present: RRR - *Routine Extremities Exam Absent: cyanosis, clubbing, edema - *Routine Neurological Exam Present: alert, oriented X3 Progress Note: A&P (1) GI bleed Status: Acute (2) Non-STEMI (non-ST elevated myocardial infarction) Status: Acute (3) Elevated troponin Status: Acute (4) Bilateral carotid bruits Status: Acute (5) Respiratory failure with hypercapnia Status: Acute (6) Severe sepsis with acute organ dysfunction Status: Acute (7) Acute exacerbation of chronic obstructive airways disease Status: Acute (8) Type 2 diabetes mellitus Status: Chronic (9) History of rectal cancer Status: Chronic (10) Tobacco use Status: Chronic (11) LLL pneumonia Status: Acute (12) Hypokalemia Status: Acute (13) Acute systolic (congestive) heart failure Status: Acute (14) Ischemic cardiomyopathy Status: Acute (15) LV dysfunction Status: Acute (16) Pulmonary hypertension Status: Acute (17) Duodenal ulcer Status: Acute (18) Esophagitis Status: Acute (19) Hypothyroidism Status: Acute (20) Hypomagnesemia Status: Acute Assessment and Plan for All Diagnoses:: 1. GI bleed, s/p multiple transfusions. Ulcers noted on EGD's this admission. Still with dropping Hgb after transfusions. Hemoglobin 7.9 today. Patient receiving blood transfusion at this time. Transfer to is pending. 2. NSTEMI, s/p JACQUIE to [facility], 11/28/2021. Due to recurrent GI bleed, aspirin stopped on 12/07/2021
--- NOTE | 2021-12-13 08:37 | HMH.ACPN2 ---
<Jennifer Echevarria - Last Filed: 12/13/21 08:58> Internal Medicine - PN: Subj *Date: 12/13/21 *Time: 08:58 Interval history: Patient has had an unstable night. Please see Dr. Mason's note. She did have some bloody stools during the night. Blood pressure systolically has been 71 and she has been started on Levophed drip. Hemoglobin has dropped from 8.8 last evening to 7.2 this morning and is 7.9 this morning. Patient denies chest pain and shortness of air. She denies abdominal pain and nausea. Exam Vital signs and Labs for Last 24 Hours: Temp Pulse Resp BP Pulse Ox 98.3 F 88 16 91/48 L 93 L 12/13/21 08:10 12/13/21 08:10 12/13/21 08:10 12/13/21 08:10 12/13/21 08:10 Laboratory Results - last 24 hr 12/08/21 07:36: Crossmatch (AHG) See Detail 12/12/21 09:10: WBC 7.3, RBC 2.32 L, Hgb 7.3 L, Hct 20.7 L*, MCV 89.0, MCH 31.4 H, MCHC 35.3, RDW 15.9, Plt Count 621 H D, MPV 8.6, Neut % (Auto) 72.6, Lymph % (Auto) 17.1, [place] % (Auto) 7.5, Eos % (Auto) 2.8, Baso % (Auto) 0.5, Neut # (Auto) 5.3, Lymph # (Auto) 1.3, [place] # (Auto) 0.6, Eos # (Auto) 0.2, Baso # (Auto) 0.0 12/12/21 11:42: POC Glucose 149 H 12/12/21 11:54: Blood Type A Positive, Antibody Screen Negative, Crossmatch (G) See Detail 12/12/21 11:54: Blood Type Cancelled, Antibody Screen Cancelled 12/12/21 11:54: Retic Count (auto) 3.9 H 12/12/21 11:54: Iron 26 L, TIBC 211 L, Iron Saturation 12.30062 L 12/12/21 11:54: 25-OH Vitamin D Total < 12.8 L 12/12/21 19:49: Hgb 8.8 L D, Hct 25.7 L 12/12/21 19:58: POC Glucose 116 H 12/13/21 02:38: Hgb 7.2 L D, Hct 22.0 L 12/13/21 06:11: POC Glucose 223 H 12/13/21 08:10: WBC 8.3, RBC 2.53 L, Hgb 7.9 L, Hct 22.8 L, MCV 90.3, MCH 31.2, MCHC 34.5, RDW 15.5, Plt Count 636 H, MPV 9.1, Neut % (Auto) 70.2, Lymph % (Auto) 20.4, [place] % (Auto) 7.3, Eos % (Auto) 2.0, Baso % (Auto) 0.9, Neut # (Auto) 5.8, Lymph # (Auto) 1.7, [place] # (Auto) 0.6, Eos # (Auto) 0.2, Baso # (Auto) 0.1 I & O for Last 24 hours: Intake & Output 12/10/21 12/11/21 12/12/21 12/13/21 11:59 11:59 11:59 11:59 Intake Total 1687 / 1687 1072 / 1072 480 / 480 620 / 620 Output Total 600 / 600 300 / 300 Balance 1087 / 1087 1072 / 1072 480 / 480 320 / 320 Weight 164 lb 163 lb 14.4 oz 160 lb 6.4 oz 163 lb 4 oz - Constitutional moderate distress - *Routine Respiratory Exam Present: CTA bilaterally - *Routine Cardiovascular Exam Present: RRR, ectopic - *Routine Abdominal Exam Present: soft, normoactive bowel sounds. Absent: tenderness, distended - *Routine Extremities Exam Absent: edema, calf tenderness - *Routine Neurological Exam Present: alert, oriented X3 Assessment and Plan (1) Non-STEMI (non-ST elevated myocardial infarction) Status: Acute Category: Medical Code(s): I21.4 - Non-ST elevation (NSTEMI) myocardial infarction (2) Elevated troponin Status: Acute Category: Medical Code(s): R77.8 - Other specified abnormalities of plasma proteins (3) Bilateral carotid bruits Status: Acute Category: Medical Code(s): R09.89 - Other specified symptoms and signs involving the circulatory and respiratory systems (4) Respiratory failure with hypercapnia Status: Acute Qualifiers: Chronicity: acute Qualified Code(s): J96.02 - Acute respiratory failure with hypercapnia Category: Medical Code(s): J96.92 - Respiratory failure, unspecified with hypercapnia (5) Severe sepsis with acute organ dysfunction Status: Acute Category: Medical Code(s): A41.9 - Sepsis, unspecified organism; R65.20 - Severe sepsis without septic shock (6) Acute exacerbation of chronic obstructive airways disease Status: Acute Category: Medical Code(s): J44.1 - Chronic obstructive pulmonary disease with (acute) exacerbation (7) Type 2 diabetes mellitus Status: Chronic Category: Medical Code(s): E11.9 - Type 2 diabetes mellitus without complications (8) History of rectal cancer Status: Chronic Category: Medical Code(s): Z85.04
[2021-12-13 08:40] LABS: Anion Gap 11.1 mEq/L (5-15); Blood Urea Nitrogen 34 mg/dl (7-17); Calcium 6.7 mg/dl (8.4-10.2); Carbon Dioxide 17 mmol/L (22.0-30.0); Chloride 113 mmol/L (98-107); Creatinine Clearance Estimated 54 mL/min (50-200); Estimated Glomerular Filt Rate 49 ml/min (>60); GFR (African American) 59 ML/MIN (>60); Glucose 189 mg/dl (74-100); Potassium 5.1 mmoL/L (3.5-5.1); Sodium 136 mmol/L (136-145)
--- NOTE | 2021-12-13 10:09 | HMH.PULMPN ---
Internal Medicine - PN: Subj *Date: 12/13/21 *Time: 11:20 Interval history: No acute respiratory events overnight Exam - Constitutional Constitutional:: Absent: no acute distress, comfortable - HENMT Exam HENMT: Present: normocephalic - Eye Exam Eyes:: Present: normal appearance both eyes and related structures - Neck Exam Neck:: Present: normal visual inspection - Respiratory Exam Respiratory:: Present: able to speak in complete sentences, no respiratory distress. Absent: wheezing - Cardiovascular Exam Cardiac:: Present: S1, S2 - GI Exam GI:: Present: soft - Skin Exam Skin: Present: warm, no rash - Neurological Exam Neurological: Present: awake, normal cognition - Extremities Exam Extremities: Present: no cyanosis, no clubbing, no edema - Psychiatric Exam Psychiatric: Present: normal affect Assessment and Plan (1) Non-STEMI (non-ST elevated myocardial infarction) Status: Acute Category: Medical Code(s): I21.4 - Non-ST elevation (NSTEMI) myocardial infarction (2) Elevated troponin Status: Acute Category: Medical Code(s): R77.8 - Other specified abnormalities of plasma proteins (3) Bilateral carotid bruits Status: Acute Category: Medical Code(s): R09.89 - Other specified symptoms and signs involving the circulatory and respiratory systems (4) Respiratory failure with hypercapnia Status: Acute Qualifiers: Chronicity: acute Qualified Code(s): J96.02 - Acute respiratory failure with hypercapnia Category: Medical Code(s): J96.92 - Respiratory failure, unspecified with hypercapnia (5) Severe sepsis with acute organ dysfunction Status: Acute Category: Medical Code(s): A41.9 - Sepsis, unspecified organism; R65.20 - Severe sepsis without septic shock (6) Acute exacerbation of chronic obstructive airways disease Status: Acute Category: Medical Code(s): J44.1 - Chronic obstructive pulmonary disease with (acute) exacerbation (7) Type 2 diabetes mellitus Status: Chronic Category: Medical Code(s): E11.9 - Type 2 diabetes mellitus without complications (8) History of rectal cancer Status: Chronic Category: Medical Code(s): Z85.048 - Personal history of other malignant neoplasm of rectum, rectosigmoid junction, and anus (9) Tobacco use Status: Chronic Category: Social Hx Code(s): Z72.0 - Tobacco use (10) LLL pneumonia Status: Acute Category: Medical Code(s): J18.9 - Pneumonia, unspecified organism (11) Hypokalemia Status: Acute Category: Medical Code(s): E87.6 - Hypokalemia (12) Acute systolic (congestive) heart failure Status: Acute Category: Medical Code(s): I50.21 - Acute systolic (congestive) heart failure (13) Ischemic cardiomyopathy Status: Acute Category: Medical Code(s): I25.5 - Ischemic cardiomyopathy (14) LV dysfunction Status: Acute Category: Medical Code(s): I51.9 - Heart disease, unspecified (15) Pulmonary hypertension Status: Acute Category: Medical Code(s): I27.20 - Pulmonary hypertension, unspecified (16) Duodenal ulcer Status: Acute Category: Medical Code(s): K26.9 - Duodenal ulcer, unspecified as acute or chronic, without hemorrhage or perforation (17) Esophagitis Status: Acute Category: Medical Code(s): K20.90 - Esophagitis, unspecified without bleeding (18) Hypothyroidism Status: Acute Category: Medical Code(s): E03.9 - Hypothyroidism, unspecified (19) Hypomagnesemia Status: Acute Category: Medical Code(s): E83.42 - Hypomagnesemia (20) Anemia associated with acute blood loss Status: Acute Category: Medical Code(s): D62 - Acute posthemorrhagic anemia - Assessment and plan all Dx Assessment and Plan for all problems:: #Acute hypoxic hypercarbic respiratory failure: #Hospital-acquired pneumonia S/P Rx: #Pulmonary AV malformation: Ms. Lynn is a 71-year-old female with a history of rectal cancer with colostomy and subsequent co
--- NOTE | 2021-12-13 10:45 | PC.NURSE ---
patient belongings placed on cart to send home with family, christensen, stereo, little prayer rock, gift bag with games, life vest and folder with stent card clothes and shoes and placed up for family to fern picker. patient wished to take purse, phone glasses and dentures to . all loose items placed into purse and sent with ems.
--- NOTE | 2021-12-18 23:03 | HMH.DCSUM ---
General - General Admission date:: 11/18/21 <Collin Callahan - 12/24/21 08:40> 11/18/21 <Jayna George - 12/18/21 23:59> Discharge date: 12/13/21 <ArielJayna - 12/18/21 23:59> HPI HPI: Ms. Lynn is a 71-year-old female with a history of rectal cancer with colostomy and subsequent colon resection and reversal of the colostomy, kidney failure, COPD, TIA, and diabetes. She states she currently does not have a doctor. She used to see Dr. Crum and has seen Dr. Lin a few times since Dr. Crum . She does not regularly follow with an oncologist. She states over the past 2 to 3 days she began getting progressively more short of breath. Yesterday she was unable to breathe and called 911. She was transported to the emergency room and was found to be in hypercapnic respiratory failure. At the present time, she smokes 1 pack of cigarettes a day, but has smoked more in the past. She was admitted and started on BiPAP. She states she feels much better with the BiPAP in place. <ArielJayna - 12/18/21 23:59> Hospital Course Hospital Course: The patient's initial chest x-ray showed a left lower lobe airspace disease worrisome for infiltrate. She was admitted and started on BiPAP and felt better with the BiPAP in place. Her white blood cell count was elevated and her pH on admission was 7.16. Her PCO2 was 67.8. Her renal function, lactic acid, and BNP were elevated. Her glucose had been elevated since admission and her A1c returned at 10.4. She was currently taking no home medications. She was started on Zithromax and Rocephin along with DuoNebs and steroids. She was also started on sliding scale insulin and IV fluids. A repeat chest x-ray was ordered on 11/20/2021 and it showed a worsening left lung pneumonia along with pleural effusions bilaterally. She remained short of breath and desatted anytime she was off of the BiPAP initially. Pulmonology was therefore consulted. He ordered IV Lasix and wanted to wean her BiPAP as tolerated. He escalated her antibiotics to cefepime and continued her DuoNebs. She had another chest x-ray on 11/22/2021 which showed worsening small left pleural effusion and a persistent left base pneumonia. She did diurese well with the Lasix and was given more Lasix. Her oxygenation began improving and she was able to being weaned off of the BiPAP onto high flow nasal cannula. She had another chest x-ray on 11/24/2021 which showed improved aeration in the lungs with small pleural effusions. She did begin feeling better and was anxious to go home. She was started on metformin for diabetes. By 11/27/2021, she began having diarrhea. A diarrhea panel was ordered and was normal. A repeat chest x-ray on 11/27/2021 showed worsening bibasilar alveolar consolidations and pleural effusions. Pulmonology felt the patient needed a cardiology consult and an echocardiogram to evaluate for possible cardiac etiology of her dyspnea. She was seen in consultation by cardiology and due to her elevated troponin on admission, they felt the patient had an NSTEMI. They ordered an echo and felt she would likely need a heart cath. They gave her more Lasix due to her elevated BNP. The patient's echo showed an ejection fraction of 25%. She had a cardiac cath which showed critical two-vessel coronary artery disease. She also had severe left ventricular dysfunction. She had successful revascularization, but did have moderate pulmonary hypertension. Cardiology recommended dual antiplatelet therapy and Entresto combined with carvedilol. Diuretics She was continued on IV lasix given her elevated LVEDP. They felt she would need a LifeVest before being discharged home. She also had a carotid duplex due to a bruit and it showed less than 50% bilateral carotid stenoses. The patient had another chest x-ray on 11/29/2021 which showed a stable left lower lobe airspace disease. Her potassium was low and had to be replac
== END 2021-12-13 10:40 | disposition short-term general hospital (02) | DRG 246 ==
LOC: ER 04:50 → 2ND 05:08
PROVIDERS: Family Medicine; Internal Medicine; Internal Medicine Pulmonary Disease; Nurse Practitioner Family; Physician Assistant; Surgery; Admitting Provider Family Medicine; Emergency Provider Emergency Medicine; Visit Provider Family Medicine
PROC: 0DJ08ZZ Inspection of Upper Intestinal Tract, Via Natural or Artificial Opening Endoscopic (ICD-10-PCS; CPT 43235; principal; 2021-12-05 06:45)
DX: I21.4 Non-ST elevation (NSTEMI) myocardial infarction (principal); J96.02 Acute respiratory failure with hypercapnia; I50.21 Acute systolic (congestive) heart failure; J18.9 Pneumonia, unspecified organism; J96.01 Acute respiratory failure with hypoxia; K20.91 Esophagitis, unspecified with bleeding; I13.0 Hypertensive heart and chronic kidney disease with heart failure and stage 1 through stage 4 chronic kidney disease, or unspecified chronic kidney disease; D62 Acute posthemorrhagic anemia; I25.5 Ischemic cardiomyopathy; I27.20 Pulmonary hypertension, unspecified; K26.9 Duodenal ulcer, unspecified as acute or chronic, without hemorrhage or perforation; I65.23 Occlusion and stenosis of bilateral carotid arteries; Z20.822 Contact with and (suspected) exposure to COVID-19; Z85.048 Personal history of other malignant neoplasm of rectum, rectosigmoid junction, and anus; J43.9 Emphysema, unspecified; F17.210 Nicotine dependence, cigarettes, uncomplicated; Z86.73 Personal history of transient ischemic attack (TIA), and cerebral infarction without residual deficits; Z71.6 Tobacco abuse counseling; R19.7 Diarrhea, unspecified; Y95 Nosocomial condition; E87.6 Hypokalemia; E11.22 Type 2 diabetes mellitus with diabetic chronic kidney disease; N18.9 Chronic kidney disease, unspecified; R11.0 Nausea
CPT/HCPCS: 43255; 36415; 71045; 71046; 71275; 74175; 80048; 80051; 80053; 80061; 80076; 81001; 82272; 82306; 82550; 82553; 82803; 82810; 82947; 82962; 83036; 83050; 83540; 83550; 83605; 83735; 83880; 84145; 84443; 84484; 85007; 85014; 85018; 85025; 85044; 85048; 85049; 85347; 85651; 86140; 86850; 87040; 87205; 87506; 87507; 92928; 92979; 93005; 93306; 93308; 93460; 93880; 94640; 94660; 94761; 96365; 96367; 96375; 97161; 97162; 97165; 99152; 99153; 99291; C1725; C1769; C1875; C1876; C1894; C9600; C9803; G0328; J0456; J0696; J1644; J2405; P9016; Q9967; U0003; U0005